=== PATIENT | female | born 1935 | race Caucasian/White ===

== ENCOUNTER → 2016-08-07 | Outpatient (CLI) | payer BC ==
[~2016-08-07] MED LIST: BROM0.07; CHOL4POW4 PO; DICL1GEL12 TOP; DONE10TA12 PO; ETAN25IN4 IM; FOLI1TAB8 PO; LEFL20TA4 PO; LEVO112T4 PO; METH2.5T PO; MIRT45TA3 PO; MULTTAB PO; NF656; OFLO0.3S4 OPL; ONDA4TAB46 PO; PRD/1 PO; PRD5 PO; PRED-301 PO; PRED1SUS3 OPL; PRT40 PO; SIMV40TA2 PO; SULF800T23 PO; TRAM-10 PO; VANC5CAP PO; ZCR40 PO; ZNT150 PO; [UNRECOGNIZED DRUG - CODE] PO
[2016-08-07 16:15] LABS: BLOOD UREA NITROGEN 23 mg/dl (7-18); BUN/CREATININE RATIO 16.6 (10-20); CARBON DIOXIDE 26 mmol/L (21-32); CHLORIDE 108 mmol/L (98-107); GLUCOSE 110 mg/dl (70-99); POTASSIUM 4.2 mmol/L (3.5-5.1); SODIUM 143 mmol/L (136-145)
== END | disposition home or self-care (01) ==
LOC: C.LABBC 12:24
PROVIDERS: ATTEND Internal Medicine
DX: I10 Essential (primary) hypertension (principal)

== ENCOUNTER → 2016-08-28 | Outpatient (CLI) | payer BC ==
[~2016-08-28] MED LIST changes: +FOLI1TAB7 PO; -FOLI1TAB8 PO
== END | disposition home or self-care (01) ==
LOC: C.LABBC 12:40
PROVIDERS: ATTEND Internal Medicine
DX: E03.9 Hypothyroidism, unspecified (principal)

== ENCOUNTER → 2016-09-09 | Outpatient (CLI) | payer BC ==
[2016-09-09 16:28] LABS: BASO % 0.3 %; BASO ABS # 0.03 K/uL (0-0.2); COMPLETE YES; EOS % 2.1 %; HEMATOCRIT 37.5 % (37-47); IG% 0.3 %; LYMPH ABS # 2.13 K/uL (1.2-3.4); MEAN CELL VOLUME 98.7 fL (80-100); MEAN CORPUSCULAR HEMOGLOBIN 32.4 pg (25-34); MEAN CORPUSCULAR HGB CONC 32.8 g/dl (32-36); MEAN PLATELET VOLUME 9.5 fL (7.4-10.4); MONO % 8.2 %; NEUT % 71.1 %; PLATELET COUNT 278 K/uL (130-400); WHITE BLOOD COUNT 11.83 K/uL (4.8-10.8)
[2016-09-09 16:53] LABS: ALT/SGPT 24 U/L (12-78); AST/SGOT 17 U/L (15-37)
[2016-09-09 17:03] LABS: ALKALINE PHOSPHATASE 62 U/L (45-117)
== END | disposition home or self-care (01) ==
LOC: C.LAB1850 15:19
PROVIDERS: ATTEND Internal Medicine Rheumatology
DX: E03.9 Hypothyroidism, unspecified (principal); M25.571 Pain in right ankle and joints of right foot; Z79.899 Other long term (current) drug therapy

== ENCOUNTER → 2016-10-01 | Outpatient (CLI) | payer BC ==
[2016-10-01 17:53] LABS: URINE APPEARANCE CLOUDY (CLEAR); URINE BILIRUBIN NEG (NEG); URINE COLOR YELLOW; URINE EPITHELIAL CELL AUTO >30 /lpf (0-5); URINE NITRITE POS (NEG); URINE SPECIFIC GRAVITY 1.007 (1.000-1.030); UROBILINOGEN NEG (NEG)
[2016-10-01 18:00] LABS: MANUAL MICROSCOPIC REQUIRED? NO; REVIEW REQ? NO
== END | disposition home or self-care (01) ==
LOC: C.LABPBG 15:10
PROVIDERS: ATTEND Internal Medicine
DX: R35.0 Frequency of micturition (principal)

== ENCOUNTER → 2016-10-21 | Outpatient (CLI) | payer BC ==
[2016-10-21 17:06] LABS: URINE APPEARANCE CLEAR (CLEAR); URINE BILIRUBIN NEG (NEG); URINE COLOR YELLOW; URINE NITRITE NEG (NEG); URINE PH 6.5 (4.5-7.5); URINE SPECIFIC GRAVITY 1.015 (1.000-1.030); UROBILINOGEN NEG (NEG); ZZUR CULT IF INDIC CLEAN CATCH YES
[2016-10-21 17:08] LABS: MANUAL MICROSCOPIC REQUIRED? NO; REVIEW REQ? YES
== END | disposition home or self-care (01) ==
LOC: C.LABBC 13:07
PROVIDERS: ATTEND Internal Medicine
DX: R39.9 Unspecified symptoms and signs involving the genitourinary system (principal); E03.9 Hypothyroidism, unspecified

== ENCOUNTER → 2016-10-30 | Day surgery (SDC) | payer BC ==
[2016-10-24 09:27] VITALS: Ht 160 cm; Wt 61.8 kg
[~2016-10-30] VITALS: Ht 160 cm; Wt 61.8 kg
[~2016-10-30] MED LIST changes: +500ML BSS 0.3ML EPI 1:1000PF IRRIG ONE; +ACETAMINOPHEN 325 MG TAB PO PRN; +AMVISC PLUS 0.8ML SYRINGE INT OCU ONE; +ATROPINE SULFATE 0.1 MG/ML 5ML SYR IV PRN; +BETAXOLOL HCL 0.25% OP SUSP PER DROP CHARGE OPL SCH; +BRIMONIDINE TART 0.2% OP SOLN PER DROP CHARGE ONE; +BSS FLUSH ONE; +ENDOCOAT 0.85ML SYRINGE INT OCU ONE; +EpHEDrine SULFATE INJ 50 MG/ML AMP IV PRN; +EpINEphrine INJ 1MG/ML AMP 1 MG/ML AMP ONE; +LABETALOL HCL IV 5 MG/ML 20ML IV ONE; +LACTATED RINGER'S 1000ML 500 ML IV SCH; -LEFL20TA4 PO; +LIDOCAINE 4% OP SOLN DROP CHARGE ONE; +LIDOCAINE 4% OP SOLN DROP CHARGE OPL SCH; +LIDOCAINE HCL 1% MPF 2 ML VIAL ONE; +MIDAZOLAM HCL 1 MG/ML 2ML VIAL ONE; +MIX: 4ML BSS 1ML EPI 1:1000 PF INSTIL ONE; +MOXIFLOXACIN OPH SOLN PER DROP CHARGE ONE; -NF656; +OCUCOAT 1 ML SOLN IO ONE; +POVIDONE-IODINE OP SOLN 30 ML BTL ONE; -PRD5 PO; +PROPARACAINE 0.5% OP SOLN PER DROP CHARGE OPL SCH; +TOBRAMYCIN/DEXAMETHASONE OPH OINT PER APPLN CHARGE ONE
--- NOTE | 2016-10-30 08:28 | History & Physical Bridge - SC ---
H&P Re-Evaluation Bridge Note: I have examined the patient, reviewed the History & Physical and in the interval since the performance of the History & Physical I have noted the following changes of clinical significance: No changes noted
[2016-10-30] MEDS: PHENYLEPHRINE HCL 2.5% OP SOLN PER DROP CHARGE OPL SCH ×2 (09:26→09:31)
[2016-10-30] MEDS: TROPICAMIDE 1% OP SOLN PER DROP CHARGE OPL SCH ×2 (09:27→09:33)
[2016-10-30] MEDS: CYCLOPENTOLATE HCL 1% OP SOLN PER DROP CHARGE OPL SCH ×2 (09:29→09:34)
[2016-10-30] MEDS: MOXIFLOXACIN OPH SOLN PER DROP CHARGE OPL SCH ×2 (09:30→09:39)
--- NOTE | 2016-10-30 10:24 | Discharge Instructions-SurgCtr ---
Discharge Instructions Date of Service Oct 30, 2016. Visit Reason for Visit: Cataract Left Eye Discharge Discharge Diagnosis / Problem: lens implant left eye Discharge Goals Goal(s): Improve function Activity Recommendations Activity Limitations: resume your previous activity Lifting Limitations: no more than 10 pounds Exercise/Sports Limitations: gradually increase as tolerated May Resume Sexual Activity: when tolerated Shower/Bathe: tomorrow Driving or Machine Use: resume 1 day after discharge Anesthesia . Post Anesthesia Instructions: If you have had General Anesthesia or IV Sedation: * Do not drive today. * Resume driving when surgeon permits. * Do not make important decisions or sign legal documents today. * Call surgeon for: 1. Temperature elevations greater than 101 degrees F. 2. Uncontrollable pain. 3. Excessive bleeding. 4. Persistent nausea and vomiting. 5. Medication intolerance (nausea, vomiting or rash). * For nausea and vomiting use only clear liquids such as: tea, soda, bouillon until nausea subsides, then gradually increase diet as tolerated. * If you have any concerns or questions, call your surgeon's office. If physician is unavailable and it is an emergency, call 911 or go to the nearest emergency room. . Instructions / Follow-Up Instructions / Follow-Up ACTIVITY RECOMMENDATIONS: * Light activities. * Mild irritation and blurred vision are common for the first few days. * You may walk outside, read, watch television. * Redness around the white part of the eye is common. MEDICATIONS: Resume previous medications unless instructed otherwise by your surgeon. Start all eye drops at 1 pm today: * Eye drops (today and tomorrow): Prednisone - one drop in operative eye every 3 hours while awake Ofloxacin - one drop in operative eye every 3 hours while awake Prolensa - one drop in operative eye once a day SPECIAL CARE INSTRUCTIONS: * Tape plastic shield over eye to sleep at night. Call your doctor at with any concerns or problems. FOLLOW UP VISIT: Follow-up with Dr Murdock at [place] office as scheduled. Diet Recommendations Home Diet: no limitations Procedures Procedures Performed: Left Cataract Phacoemulsification With Intraocular Lens Implant Pending Studies Studies pending at discharge: no Medical Emergencies . Who to Call and When: Medical Emergencies: If at any time you feel your situation is an emergency, please call 911 immediately. . Non-Emergent Contact Non-Emergency issues call your: Cann[employer] Tender Engineer Call Non-Emergent contact if: your pain is not controlled [phone] . . "Provider Documentation" section prepared by Matt Murdock.
--- NOTE | 2016-10-30 10:26 | [facility] Operative Report ---
Operative Report Date of Service Oct 30, 2016. Operative Report 1. PREOPERATIVE DIAGNOSIS: Senile nuclear cataract, left eye. 2. POSTOPERATIVE DIAGNOSIS: Senile nuclear cataract, left eye. 3. PROCEDURE: Phacoemulsification of left cataract with posterior chamber lens implant, type [employer], model MX60, power +22.0 diopters. ANESTHESIA: Local standby. SURGEON: Dr. Murdock. COMPLICATIONS: None. OPERATING TIME: 10 minutes. 4. OPERATION AND FINDINGS: DESCRIPTION OF PROCEDURE: The left pupil was dilated. The anesthetic was administered using a topical technique. The left eye was prepped and draped. A speculum was placed. A clear corneal incision was formed. The chamber was filled with Amvisc Plus and Endocoat. Epinephrine solution was used. A paracentesis was placed. A capsulorrhexis was performed. The nucleus was hydrodissected. The lens was removed with phacoemulsification. Time was 2.78 seconds. The aspiration unit was used to remove the cortex. The capsule was filled with Amvisc Plus. The lens implant was folded and placed into the capsule. The incision was hydrated. The Amvisc was aspirated. The wound was secure. The chamber was deep. The pupil was round. Brimonidine, TobraDex ointment and Vigamox solution were placed. The speculum was removed. The patient was returned to the Recovery Room in stable condition. I attest to the content of the Intraoperative Record and any orders documented therein. Any exceptions are noted below. The scribe's documentation has been prepared in my presence, under my direction and personally reviewed by me in its entirety. I confirm that the note above accurately reflects all work, treatment, procedures, and medical decision making performed by me. I personally scribed for Matt Murdock M.D. ([email or web address]) on 10/30/16 at 10:26. Electronically submitted by Joy Nj ([email or web address]).
[2016-10-30 10:29] VITALS: TEMP 36.5
--- NOTE | 2016-10-30 10:35 | Anesthesia Progress Nt - [facility] ---
Anesthesia Post Op Note Date & Time Oct 30, 2016 at 10:36 Vital Signs Pain Intensity: 0 Vital Signs Past 12 Hours Date Time Temp Pulse Resp B/P Pulse Ox O2 Delivery O2 Flow Rate FiO2 10/30/16 10:29 36.5 57 16 144/72 99 Room Air 10/30/16 09:19 36.4 75 20 161/83 99 Room Air Notes Mental Status: alert / awake / arousable, participated in evaluation Pt Amnestic to Procedure: Yes Nausea / Vomiting: adequately controlled Pain: adequately controlled Airway Patency, RR, SpO2: stable & adequate BP & HR: stable & adequate Hydration State: stable & adequate Anesthetic Complications: no major complications apparent
[2016-10-30 10:51] VITALS: BP 157/74; PULSE 59; O2SAT 97
== END | disposition home or self-care (01) ==
LOC: X.SURG 09:03
PROVIDERS: ATTEND Specialist
DX: H25.12 Age-related nuclear cataract, left eye (principal)

== ENCOUNTER → 2016-11-29 | Outpatient (CLI) | payer BC ==
[~2016-11-29] MED LIST changes: -500ML BSS 0.3ML EPI 1:1000PF IRRIG ONE; -ACETAMINOPHEN 325 MG TAB PO PRN; -AMVISC PLUS 0.8ML SYRINGE INT OCU ONE; -ATROPINE SULFATE 0.1 MG/ML 5ML SYR IV PRN; -BETAXOLOL HCL 0.25% OP SUSP PER DROP CHARGE OPL SCH; -BRIMONIDINE TART 0.2% OP SOLN PER DROP CHARGE ONE; -BSS FLUSH ONE; -ENDOCOAT 0.85ML SYRINGE INT OCU ONE; -EpHEDrine SULFATE INJ 50 MG/ML AMP IV PRN; -EpINEphrine INJ 1MG/ML AMP 1 MG/ML AMP ONE; -LABETALOL HCL IV 5 MG/ML 20ML IV ONE; -LACTATED RINGER'S 1000ML 500 ML IV SCH; -LIDOCAINE 4% OP SOLN DROP CHARGE ONE; -LIDOCAINE 4% OP SOLN DROP CHARGE OPL SCH; -LIDOCAINE HCL 1% MPF 2 ML VIAL ONE; -MIDAZOLAM HCL 1 MG/ML 2ML VIAL ONE; -MIX: 4ML BSS 1ML EPI 1:1000 PF INSTIL ONE; -MOXIFLOXACIN OPH SOLN PER DROP CHARGE ONE; -OCUCOAT 1 ML SOLN IO ONE; -POVIDONE-IODINE OP SOLN 30 ML BTL ONE; -PROPARACAINE 0.5% OP SOLN PER DROP CHARGE OPL SCH; -TOBRAMYCIN/DEXAMETHASONE OPH OINT PER APPLN CHARGE ONE
[2016-11-29 14:06] LABS: URINE APPEARANCE CLOUDY (CLEAR); URINE BILIRUBIN NEG (NEG); URINE COLOR YELLOW; URINE NITRITE POS (NEG); URINE PH 5.5 (4.5-7.5); URINE SPECIFIC GRAVITY 1.016 (1.000-1.030); UROBILINOGEN NEG (NEG)
[2016-11-29 14:19] LABS: MANUAL MICROSCOPIC REQUIRED? NO; REVIEW REQ? YES
== END | disposition home or self-care (01) ==
LOC: C.LABBC 10:29
PROVIDERS: ATTEND Internal Medicine
DX: R39.9 Unspecified symptoms and signs involving the genitourinary system (principal)

== ENCOUNTER 2016-12-11 22:38 | Inpatient (IN) | payer BC, OTHER ==
[~2016-12-11] VITALS: Ht 160 cm; Wt 61.9 kg
[~2016-12-11 22:38] MED LIST changes: -DICL1GEL12 TOP; -ONDA4TAB46 PO; -PRT40 PO; -SIMV40TA2 PO; -VANC5CAP PO; -ZNT150 PO; -[UNRECOGNIZED DRUG - CODE] PO
[2016-12-11] MEDS ORDERED: SODIUM CHLORIDE 0.9% 250ML 250 ML IV STA (22:51)
[2016-12-11] MEDS ORDERED: SODIUM CHLORIDE 0.9% 1000ML 1,000 ML IV STA ×2 (22:51→23:25)
[2016-12-11] MEDS ORDERED: ONDANSETRON INJ 2 MG/ML 2 ML VIAL IV STA (22:51)
[2016-12-11] MEDS ORDERED: OPTIRAY 320 IV PRN (23:00)
[2016-12-11] MEDS ORDERED: MoRPHine SULFATE 4 MG/ML 1 ML CARP\\VIAL IV STA (23:10)
[2016-12-11 23:21] LABS: BASO % 0.1 %; BASO ABS # 0.02 K/uL (0-0.2); COMPLETE YES; EOS % 0.1 %; HEMATOCRIT 38.3 % (37-47); IG% 0.3 %; LYMPH % 3.9 %; LYMPH ABS # 0.67 K/uL (1.2-3.4); MEAN CELL VOLUME 100.5 fL (80-100); MEAN CORPUSCULAR HEMOGLOBIN 33.9 pg (25-34); MEAN CORPUSCULAR HGB CONC 33.7 g/dl (32-36); MEAN PLATELET VOLUME 9.5 fL (7.4-10.4); MONO % 4.5 %; NEUT % 91.1 %; PLATELET COUNT 282 K/uL (130-400); RED BLOOD COUNT 3.81 M/uL (4.2-5.4); WHITE BLOOD COUNT 17.14 K/uL (4.8-10.8)
[2016-12-11 23:56] LABS: URINE APPEARANCE CLEAR (CLEAR); URINE COLOR DK YELLOW; URINE NITRITE NEG (NEG); URINE SPECIFIC GRAVITY 1.017 (1.000-1.030); UROBILINOGEN NEG (NEG); ZZURINE CULT IF INDIC CATH NO
[2016-12-11 23:58] LABS: ALKALINE PHOSPHATASE 69 U/L (45-117); ALT/SGPT 22 U/L (12-78); AST/SGOT 23 U/L (15-37); BLOOD UREA NITROGEN 32 mg/dl (7-18); BUN/CREATININE RATIO 11.1 (10-20); CARBON DIOXIDE 24 mmol/L (21-32); CHLORIDE 104 mmol/L (98-107); GLUCOSE 140 mg/dl (70-99); MAGNESIUM 2.3 mg/dl (1.8-2.4); POTASSIUM 4.9 mmol/L (3.5-5.1); SODIUM 140 mmol/L (136-145)
[2016-12-12] VITALS (8 sets, daily range): BP systolic 121–184; BP diastolic 63–85; PULSE 70–96; TEMP 36–37.4; O2SAT 94–98; Ht 160 cm; Wt 61.9 kg
[2016-12-12 00:06] LABS: MANUAL MICROSCOPIC REQUIRED? NO; REVIEW REQ? NO; URINE BILIRUBIN NEG (NEG)
[2016-12-12] MEDS ORDERED: VANCOMYCIN HCL 150 MG/3 ML SOLN PO STA (00:07)
[2016-12-12] MEDS ORDERED: RASPBERRY SYRUP 5 ML UDP PO STA (00:21)
[2016-12-12] MEDS ORDERED: VANCOMYCIN HCL 125 MG/2.5ML SOLN PO STA (00:21)
[2016-12-12] MEDS ORDERED: SIMV40TA2 PO (00:35)
[2016-12-12] MEDS ORDERED: METRONIDAZOLE 500MG / 100ML NSS IV STA (01:14)
--- NOTE | 2016-12-12 01:15 | EMERGENCY ROOM VISIT NOTE ---
ED Visit Note First contact with patient: 22:47 Staff note: I have reviewed the Patients chart and have discussed this case with my PA. I generally agree with the ED note and findings.
--- NOTE | 2016-12-12 01:24 | EMERGENCY ROOM VISIT NOTE ---
History First contact with patient: 22:47 Chief Complaint: ABDOMINAL PAIN Stated Complaint: ABD PAIN, VOMITING, BLOOD IN STOOLS, LOTS OF PAIN Nursing Triage Summary: Pt c/o abd pain, n/v/d since yesterday. worsening today. per daughter, "there was blood in it". Hx of Dementia History of Present Illness The patient is a 81 year old female who presents to the Emergency Room with complaints of nausea, vomiting, diarrhea and abdominal pain for the past day. She is on antibiotics currently for recurrent UTI. She is on Bactrim. No recent colonoscopy. No history diverticulitis. There is a little bit of blood in the diarrhea and in the vomit per family. No black tarry diarrhea. No cup full of blood. Patient denies chest pain, dyspnea, fever, chills, cough, congestion, numbness, tingling. Patient states she has severe RA and is on chronic prednisone. Review of Systems See HPI for pertinent positives & negatives. A total of 10 systems reviewed and were otherwise negative. Past Medical/Surgical History Rheumatoid arthritis, GERD, hyperlipidemia, hypertension, cholecystectomy Social History Smoking Status: Never Smoker Current/Historical Medications Scheduled Cholestyramine (Cholestyramine), 1 PACK PO QAM Donepezil Hydrochloride (Aricept), 10 MG PO HS Etanercept (Enbrel), 1 DOSE IM FRIDAY Folic Acid (Folvite), 1 MG PO QAM Levothyroxine Sodium (Levothyroxine Sodium), 1 TAB PO QAM Methotrexate Sodium (Methotrexate), 3 TBS PO FRIDAY Mirtazapine (Mirtazapine), 1 TAB PO HS Multivitamins/Minerals (Mvi With Minerals), 1 TAB PO QAM Prednisone (Prednisone), 3 TABS PO QAM Prednisone (Prednisone), 5 MG PO QAM Simvastatin (Zocor), 40 MG PO QPM Sulfa/Trimethoprim (Bactrim Ds 800MG/160MG), 1 TAB PO DAILY Scheduled PRN Tramadol (Ultram), 50 MG PO TID PRN for Pain Allergies Coded Allergies: Penicillins (Verified Allergy, Unknown, SWELLING, 12/12/16) Celecoxib (Verified Adverse Reaction, Intermediate, N/V, 12/12/16) Cephalexin (Verified Adverse Reaction, Intermediate, N/V, 12/12/16) Methotrexate (Verified Adverse Reaction, Intermediate, N/V, 12/12/16) Nitrofurantoin (Verified Adverse Reaction, Intermediate, N/V, 12/12/16) Risedronate (Verified Adverse Reaction, Intermediate, NAUSEA AND VOMITING , 12/12/16) Physical Exam Vital Signs Date Time Temp Pulse Resp B/P Pulse Ox O2 Delivery O2 Flow Rate FiO2 12/11/16 23:59 70 18 154/60 98 Room Air 12/11/16 23:49 100 Room Air 12/11/16 23:49 100 Room Air 12/11/16 23:20 64 12/11/16 22:40 36.4 67 18 114/62 98 Room Air Physical Exam VITALS: Vitals are noted on the nurse's note and reviewed by myself. Vital signs stable. GENERAL: Pleasant elderly female, in no acute distress, nondiaphoretic, well- developed well-nourished. SKIN: The skin was without rashes, erythema, edema, or bruising. There is no tenting of the skin. Capillary reflex less than 2 seconds. HEAD: Normocephalic atraumatic. EARS: External auditory canals clear, tympanic membranes pearly nicole without erythema or effusion bilaterally. EYES: Pupils equal round and reactive to light and accommodation. Conjunctivae without injection, sclerae without icterus. Extraocular movements intact. NOSE: Patent, turbinates without inflammation or discharge. MOUTH: Mucous membranes mildly dry pharynx without erythema or exudate. Uvula midline. Airway patent. Tongue does not deviate. NECK: Supple without nuchal rigidity. No lymphadenopathy. No thyromegaly. Cervical spine is nontender. No JVD. HEART: Regular rate and rhythm 3/6 systolic murmur LUNGS: Clear to auscultation bilaterally without wheezes, rales or rhonchi. No dullness to percussion. No retractions or accessory muscle use. ABDOMEN: Positive bowel sounds x 4. Normal tympanic percussion. Soft, tender to palpation lower abdomen, no CVA tenderness, without masses or organomegaly. Morfin sign negative. No guarding or rebound tenderness. MUSCULOSKELETAL: No muscle atrophy, erythema, or edema noted. NEURO: Patient was alert and oriented to person place Normal sensation to light and sharp touch. No focal neurological deficits. Medical Decision & Procedures Laboratory Results 12/11/16 23:12 Red Blood Count 3.81, Mean Corpuscular Volume 100.5, Mean Corpuscular Hemoglobin 33.9, Mean Corpuscular Hemoglobin Concent 33.7, Mean Platelet Volume 9.5, Neutrophils (%) (Auto) 91.1, Lymphocytes (%) (Auto) 3.9, Monocytes (%) ( Auto) 4.5, Eosinophils (%) (Auto) 0.1, Basophils (%) (Auto) 0.1, Neutrophils # ( Auto) 15.62, Lymphocytes # (Auto) 0.67, Monocytes # (Auto) 0.77, Eosinophils # ( Auto) 0.01, Basophils # (Auto) 0.02 12/11/16 23:12 Test 12/11/16 23:12 12/11/16 23:17 12/11/16 23:45 White Blood Count 17.14 K/uL (4.8-10.8) Red Blood Count 3.81 M/uL (4.2-5.4) Hemoglobin 12.9 g/dL (12.0-16.0) Hematocrit 38.3 % (37-47) Mean Corpuscular Volume 100.5 fL (80-100) Mean Corpuscular Hemoglobin 33.9 pg (25-34) Mean Corpuscular Hemoglobin Concent 33.7 g/dl (32-36) Platelet Count 282 K/uL (130-400) Mean Platelet Volume 9.5 fL (7.4-10.4) Neutrophils (%) (Auto) 91.1 % Lymphocytes (%) (Auto) 3.9 % Monocytes (%) (Auto) 4.5 % Eosinophils (%) (Auto) 0.1 % Basophils (%) (Auto) 0.1 % Neutrophils # (Auto) 15.62 K/uL (1.4-6.5) Lymphocytes # (Auto) 0.67 K/uL (1.2-3.4) Monocytes # (Auto) 0.77 K/uL (0.11-0.59) Eosinophils # (Auto) 0.01 K/uL (0-0.5) Basophils # (Auto) 0.02 K/uL (0-0.2) RDW Standard Deviation 55.7 fL (36.4-46.3) RDW Coefficient of Variation 15.4 % (11.5-14.5) Immature Granulocyte % (Auto) 0.3 % Immature Granulocyte # (Auto) 0.05 K/uL (0.00-0.02) Anion Gap 12.0 mmol/L (3-11) Est Creatinine Clear Calc Drug Dose 12.9 ml/min Estimated GFR () 16.8 Estimated GFR (Non- 14.5 BUN/Creatinine Ratio 11.1 (10-20) Calcium Level 10.0 mg/dl (8.5-10.1) Magnesium Level 2.3 mg/dl (1.8-2.4) Total Bilirubin 0.7 mg/dl (0.2-1) Direct Bilirubin mg/dl (0-0.2) Aspartate Amino Transf (AST/SGOT) 23 U/L (15-37) Alanine Aminotransferase (ALT/SGPT) 22 U/L (12-78) Alkaline Phosphatase 69 U/L (45-117) Troponin I < 0.015 ng/ml (0-0.045) Total Protein 7.2 gm/dl (6.4-8.2) Albumin 4.1 gm/dl (3.4-5.0) Lipase 267 U/L (73-393) Bedside Lactic Acid Venous 3.54 mmol/L (0.90-1.70) Urine Color DK YELLOW Urine Appearance CLEAR (CLEAR) Urine pH 5.0 (4.5-7.5) Urine Specific [place] 1.017 (1.000-1.030) Urine Protein NEG (NEG) Urine Glucose (UA) NEG (NEG) Urine Ketones NEG (NEG) Urine Occult Blood NEG (NEG) Urine Nitrite NEG (NEG) Urine Bilirubin NEG (NEG) Urine Urobilinogen NEG (NEG) Urine Leukocyte Esterase NEG (NEG) Date/Time Source Procedure Growth Status 12/11/16 22:34 Stool C.difficile Toxin B Gene (PCR) - Final Positive for C. difficile toxin B gene Complete Medications Administered Medications (Trade) Dose Ordered Sig/Jeremie Route Start Time Stop Time Status Last Admin Dose Admin Ondansetron HCl (Zofran Inj) 4 mg NOW STAT IV 12/11/16 22:51 12/11/16 22:53 DC 12/11/16 23:50 4 MG Morphine Sulfate 4 mg 4 mg NOW STAT IV 12/11/16 23:10 12/11/16 23:11 DC 12/11/16 23:50 4 MG Sodium Chloride (Nss 1000ml) 1,000 ml @ 999 mls/hr Q1H1M STAT IV 12/11/16 23:25 12/12/16 00:25 DC 12/11/16 23:52 999 MLS/HR Vancomycin HCl (Vancomycin Oral Soln) 125 mg NOW STAT PO 12/12/16 00:21 12/12/16 00:23 DC 12/12/16 00:40 125 MG Raspberry (Raspberry Syrup 5ml Cup) 5 ml ONE STAT PO 12/12/16 00:21 12/12/16 00:24 DC 12/12/16 00:40 5 ML ED Course Prior records/ancillary studies reviewed. Triage Nursing notes reviewed. Additional history obtained from family. The patient's history was concerning for abdominal pain. Differential diagnosis: Etiologies such as appendicitis, C. difficile, electrolyte abnormality, gastroenteritis, diverticulitis, PUD, biliary pathology, UTI, pancreatitis, obstruction, mesenteric ischemia, aortic pathology, infections, inflammatory bowel disease, renal colic, as well as others were entertained. Physical examination findings: As above. ER treatment provided: IV fluids, Zofran, morphine On reassessment the patient felt better. Diagnostics interpreted by me: ECG: Normal sinus, normal intervals, no acute ST-T wave changes. Impression normal sinus rhythm interpreted by myself The labs revealed leukocytosis, elevated lactic, positive C. difficile Imaging studies: CT was read by stat radiology and no bowel obstruction or acute findings, stable findings per their review Chest x-ray with no acute consolidation, pneumothorax or free air per my interpretation Consultation: A consultation was placed with the hospitalist, Dr. Hernandez. The case was discussed and diagnostics were reviewed. The patient was evaluated in the ER for further treatment. Exam and history seem consistent with C. difficile with acute renal failure and dehydration. Patient was hydrated as above. She was given vancomycin and Flagyl. She will be evaluated by medicine for possible admission. Family is agreeable to treatment plan.By the evaluation outlined above emergent etiologies such as appendicitis, diverticulitis, PUD, biliary pathology, UTI, pancreatitis, obstruction, mesenteric ischemia, aortic pathology, renal colic , as well as others were deemed relatively unlikely. The pt informed about the findings as listed above. All questions were answered and pleased with the treatment. Case reviewed with my attending Medical Decision As above Impression Primary Impression: C. difficile diarrhea Additional Impressions: Acute renal failure Dehydration Vomiting and diarrhea Departure Information Dispostion Being Evaluated By Hospitalist Condition FAIR Referrals Vasiliy Uriostegui M.D. (PCP) Patient Instructions My [facility] Problem Qualifiers
[2016-12-12] MEDS ORDERED: ONDANSETRON INJ 2 MG/ML 2 ML VIAL ONE (01:52)
[2016-12-12] MEDS ORDERED: ONDANSETRON INJ 2 MG/ML 2 ML VIAL IV PRN (02:00)
[2016-12-12 02:08] LABS: ISTAT CREATININE 2.8 mg/dl (0.6-1.3); ISTAT HEMOGLOBIN 13.3 g/dl (12.0-16.0); ISTAT IONIZED CALCIUM 1.19 mmol/l (1.12-1.32)
[2016-12-12] MEDS ORDERED: SODIUM CHLORIDE 0.9% 1000ML 1,000 ML IV STA (02:41)
[2016-12-12] MEDS ORDERED: MAGNESIUM HYDROXIDE SUSP 30 ML UDC PO PRN (02:45)
[2016-12-12 03:02] LABS: BASO % 0.1 %; BASO ABS # 0.02 K/uL (0-0.2); COMPLETE YES; IG% 0.3 %; LYMPH % 7.1 %; LYMPH ABS # 1.02 K/uL (1.2-3.4); MEAN CELL VOLUME 100.3 fL (80-100); MEAN CORPUSCULAR HEMOGLOBIN 33.4 pg (25-34); MEAN CORPUSCULAR HGB CONC 33.3 g/dl (32-36); MEAN PLATELET VOLUME 9.5 fL (7.4-10.4); MONO % 4.6 %; NEUT % 87.9 %; PLATELET COUNT 226 K/uL (130-400); RED BLOOD COUNT 3.29 M/uL (4.2-5.4); WHITE BLOOD COUNT 14.39 K/uL (4.8-10.8)
[2016-12-12 03:25] LABS: CREATININE 2.5 mg/dl (0.60-1.20)
[2016-12-12 03:26] LABS: CALCIUM 8.9 mg/dl (8.5-10.1); POTASSIUM 4.6 mmol/L (3.5-5.1)
--- NOTE | 2016-12-12 03:47 | History and Physical ---
History & Physical Date & Time of Service: December 12, 2016 at 03:39 Chief Complaint: Abd Pain, Vomiting, Blood In Stools, Lots Of Pain Primary Care Physician: Vasiliy Uriostegui M.D. History of Present Illness Source: patient, clinic records, hospital records Mrs Hunter is an 81 year old female who presents to the ER with 1 day history of watery/bloody diarrhea, nausea, vomiting and generalized abdominal pain. This happened all suddenly around 4pm. She has been generally unwell however for longer than this with intermittent fevers/chills since being diagnosed with influenza earlier this year. She has also been diagnosed with recurrent UTIs with positive urine cultures for pansensitive E. Coli. Most recently she was started on a 30 day course of Bactrim for this starting on Friday and was reportedly on a different antibiotic before that but her daughters or patient cannot remember which one. On [employer] it appears she was prescribed 5 day course ciprofloxacin on 28 November and then switched to bactrim for a 3 day course starting December 02 for urinary tract infection symptoms but with 5 refills. She grew pansensitive E. Coli on urine culture on November 28. She denies having any urine symptoms recently but has been having left sided back pain with intermittent fevers/chills over the last 2 weeks. 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 Hyperlipidemia Hypertension Hypothyroidism Increased urinary frequency Knee OA Long-term use of immunosuppressant medication Low back pain Lumbar radiculopathy Pancreatic cysts Postmenopausal osteoporosis Prolapse of vaginal castillo Rectocele/Cystocele Recurrent UTIs Rheumatoid arthritis under Dr Lucas Urethral stenosis Past Surgical History Cholecystectomy Umbilical hernia repair Social History Smoking Status: Never Smoker Smokeless Tobacco Use: No Drug Use: none Marital Status: Housing status: lives alone Immunizations History of Influenza Vaccine: Yes Influenza Vaccine Date: Sep 20, 2013 History of Tetanus Vaccine?: Yes Tetanus Immunization Date: Sep 20, 2013 History of Pneumococcal: Yes Pneumococcal Date: Sep 20, 2013 History of Hepatitis B Vaccine: No Multi-Drug Resistant Organisms History of MDRO: No Allergies Coded Allergies: Penicillins (Verified Allergy, Unknown, SWELLING, 12/12/16) Celecoxib (Verified Adverse Reaction, Intermediate, N/V, 12/12/16) Cephalexin (Verified Adverse Reaction, Intermediate, N/V, 12/12/16) Methotrexate (Verified Adverse Reaction, Intermediate, N/V, 12/12/16) Nitrofurantoin (Verified Adverse Reaction, Intermediate, N/V, 12/12/16) Risedronate (Verified Adverse Reaction, Intermediate, NAUSEA AND VOMITING , 12/12/16) Home Medications Scheduled Cholestyramine (Cholestyramine), 1 PACK PO QAM Donepezil Hydrochloride (Aricept), 10 MG PO HS Etanercept (Enbrel), 1 DOSE IM FRIDAY Folic Acid (Folvite), 1 MG PO QAM Levothyroxine Sodium (Levothyroxine Sodium), 1 TAB PO QAM Methotrexate Sodium (Methotrexate), 3 TBS PO FRIDAY Mirtazapine (Mirtazapine), 1 TAB PO HS Multivitamins/Minerals (Mvi With Minerals), 1 TAB PO QAM Prednisone (Prednisone), 3 TABS PO QAM Prednisone (Prednisone), 5 MG PO QAM Simvastatin (Zocor), 40 MG PO QPM Sulfa/Trimethoprim (Bactrim Ds 800MG/160MG), 1 TAB PO DAILY Scheduled PRN Tramadol (Ultram), 50 MG PO TID PRN for Pain Review of Systems Constitutional: + chills, + fever Respiratory: No cough, No dyspnea on exertion, No shortness of breath, No sputum, No wheezing Cardiovascular: No chest pain Genitourinary - Female: + urinary incontinence, No dysuria, No urinary frequency Neurologic: + balance problems, + memory loss (under neurology on donepezil), + weakness, No numbness/tingling Psychiatric: + anxiety, No depression symptoms Endocrine: + excessive urination, + fatigue, No excessive thirst Hematologic / Lymphatic: No abnormal bleeding/bruising Integumentary: No itch, No rash Physical Exam Vital Signs Date Time Temp Pulse Resp B/P Pulse Ox O2 Delivery O2 Flow Rate FiO2 12/12/16 03:20 78 12/12/16 02:15 75 18 127/58 97 Room Air 12/12/16 01:38 80 18 129/76 12/11/16 23:59 70 18 154/60 98 Room Air 12/11/16 23:49 100 Room Air 12/11/16 23:49 100 Room Air 12/11/16 23:20 64 12/11/16 22:40 36.4 67 18 114/62 98 Room Air General Appearance: WD/WN, no apparent distress Head: normocephalic, atraumatic Eyes: PERRL, EOMI Cardiovascular: regular rate, rhythm, no JVD, normal peripheral pulses (LUSB), + systolic murmur Abdomen/GI: normal bowel sounds, non tender, soft Back: no CVA tenderness (left sided) Extremities/Musculoskelatal: no calf tenderness, normal capillary refill, no pedal edema, + pedal edema (trace bilaterally) Neurologic/Psych: sample cutter II-XII nml as tested, no motor/sensory deficits, alert, normal mood/affect, oriented x 3, + pertinent finding (moderate memory recollection of events apparent) Skin: normal color, warm/dry, no rash Diagnostics Laboratory Results Results Past 24 Hours Test 12/11/16 23:12 12/11/16 23:17 12/11/16 23:21 12/11/16 23:45 Range/Units White Blood Count 17.14 4.8-10.8 K/uL Red Blood Count 3.81 4.2-5.4 M/uL Hemoglobin 12.9 12.0-16.0 g/dL Hematocrit 38.3 37-47 % Mean Corpuscular Volume 100.5 80-100 fL Mean Corpuscular Hemoglobin 33.9 25-34 pg Mean Corpuscular Hemoglobin Concent 33.7 32-36 g/dl Platelet Count 282 130-400 K/uL Mean Platelet Volume 9.5 7.4-10.4 fL Neutrophils (%) (Auto) 91.1 % Lymphocytes (%) (Auto) 3.9 % Monocytes (%) (Auto) 4.5 % Eosinophils (%) (Auto) 0.1 % Basophils (%) (Auto) 0.1 % Neutrophils # (Auto) 15.62 1.4-6.5 K/uL Lymphocytes # (Auto) 0.67 1.2-3.4 K/uL Monocytes # (Auto) 0.77 0.11-0.59 K/uL Eosinophils # (Auto) 0.01 0-0.5 K/uL Basophils # (Auto) 0.02 0-0.2 K/uL RDW Standard Deviation 55.7 36.4-46.3 fL RDW Coefficient of Variation 15.4 11.5-14.5 % Immature Granulocyte % (Auto) 0.3 % Immature Granulocyte # (Auto) 0.05 0.00-0.02 K/uL Sodium Level 140 136-145 mmol/L Potassium Level 4.9 3.5-5.1 mmol/L Chloride Level 104 98-107 mmol/L Carbon Dioxide Level 24 21-32 mmol/L Anion Gap 12.0 19.0 16-25 mmol/L Blood Urea Nitrogen 32 7-18 mg/dl Creatinine 2.90 0.60-1.20 mg/dl Est Creatinine Clear Calc Drug Dose 12.9 ml/min Estimated GFR () 16.8 Estimated GFR (Non- 14.5 BUN/Creatinine Ratio 11.1 10-20 Random Glucose 140 70-99 mg/dl Calcium Level 10.0 8.5-10.1 mg/dl Magnesium Level 2.3 1.8-2.4 mg/dl Total Bilirubin 0.7 0.2-1 mg/dl Direct Bilirubin 0-0.2 mg/dl Aspartate Amino Transf (AST/SGOT) 23 15-37 U/L Alanine Aminotransferase (ALT/SGPT) 22 12-78 U/L Alkaline Phosphatase 69 45-117 U/L Troponin I < 0.015 0-0.045 ng/ml Total Protein 7.2 6.4-8.2 gm/dl Albumin 4.1 3.4-5.0 gm/dl Lipase 267 73-393 U/L Bedside Lactic Acid Venous 3.54 0.90-1.70 mmol/L Bedside Hemoglobin 13.3 12.0-16.0 g/dl Bedside Hematocrit 39 37-47 % Bedside Sodium 138 135-144 mEq/L Bedside Potassium 4.7 3.3-5.0 mEq/L Bedside Chloride 103 101-112 mEq/L Bedside Total CO2 21 24-31 mEq/l Bedside Blood Urea Nitrogen 37 7-18 mg/dl Bedside Creatinine 2.8 0.6-1.3 mg/dl Bedside Glucose (other) 139 70-99 mg/dl Bedside Ionized Calcium (Meghan) 1.19 1.12-1.32 mmol/l Urine Color DK YELLOW Urine Appearance CLEAR CLEAR Urine pH 5.0 4.5-7.5 Urine Specific Myrtle 1.017 1.000-1.030 Urine Protein NEG NEG Urine Glucose (UA) NEG NEG Urine Ketones NEG NEG Urine Occult Blood NEG NEG Urine Nitrite NEG NEG Urine Bilirubin NEG NEG Urine Urobilinogen NEG NEG Urine Leukocyte Esterase NEG NEG Test 12/12/16 02:53 Range/Units White Blood Count 14.39 4.8-10.8 K/uL Red Blood Count 3.29 4.2-5.4 M/uL Hemoglobin 11.0 12.0-16.0 g/dL Hematocrit 33.0 37-47 % Mean Corpuscular Volume 100.3 80-100 fL Mean Corpuscular Hemoglobin 33.4 25-34 pg Mean Corpuscular Hemoglobin Concent 33.3 32-36 g/dl Platelet Count 226 130-400 K/uL Mean Platelet Volume 9.5 7.4-10.4 fL Neutrophils (%) (Auto) 87.9 % Lymphocytes (%) (Auto) 7.1 % Monocytes (%) (Auto) 4.6 % Eosinophils (%) (Auto) 0.0 % Basophils (%) (Auto) 0.1 % Neutrophils # (Auto) 12.65 1.4-6.5 K/uL Lymphocytes # (Auto) 1.02 1.2-3.4 K/uL Monocytes # (Auto) 0.66 0.11-0.59 K/uL Eosinophils # (Auto) 0.00 0-0.5 K/uL Basophils # (Auto) 0.02 0-0.2 K/uL RDW Standard Deviation 55.9 36.4-46.3 fL RDW Coefficient of Variation 15.4 11.5-14.5 % Immature Granulocyte % (Auto) 0.3 % Immature Granulocyte # (Auto) 0.04 0.00-0.02 K/uL Sodium Level 142 136-145 mmol/L Potassium Level 4.6 3.5-5.1 mmol/L Chloride Level 108 98-107 mmol/L Carbon Dioxide Level 28 21-32 mmol/L Anion Gap 6.0 3-11 mmol/L Blood Urea Nitrogen 32 7-18 mg/dl Creatinine 2.50 0.60-1.20 mg/dl Est Creatinine Clear Calc Drug Dose 15.0 ml/min Estimated GFR () 20.1 Estimated GFR (Non- 17.3 BUN/Creatinine Ratio 13.0 10-20 Random Glucose 135 70-99 mg/dl Calcium Level 8.9 8.5-10.1 mg/dl Microbiology Results 12/11/16 C.difficile Toxin B Gene (PCR) - Final, Complete Positive for C. difficile toxin B gene Diagnostic Radiology ABDOMEN AND PELVIS CT WITHOUT CONTRAST FINDINGS: The lung bases are clear. No pneumoperitoneum. No pneumatosis. No acute fractures within the visualized osseous structures. Mild thickening of the distal esophagus. This remains unchanged. The bladder, uterus, bilateral adnexa are within normal limits. Colonic diverticulosis. Suboptimal evaluation for bowel pathology due to the lack of intravenous and oral contrast. However, no evidence for bowel obstruction. Normal appendix. Possible thickening within the descending colon could be due to the underdistention. There may be minimal pericolonic fat stranding at this location. The unenhanced liver, spleen, and adrenal glands are unremarkable. There is an anterior abdominal wall mesh. No retroperitoneal lymphadenopathy. Calcified abdominal aorta. Bilateral renal hypodense lesions are incompletely characterize on this noncontrast study but favor cysts. Right-sided nephrolithiasis. No hydronephrosis. Subcentimeter hypodense lesions within the pancreatic head remain unchanged. The gallbladder surgically absent. Small calcified structure at the gallbladder fossa remains unchanged. IMPRESSION: 1. Questionable mild thickening and pericolic fat stranding within the descending colon. However, this is not well evaluated on this noncontrast study and could be due to underdistention. A low-grade colitis could also have a similar appearance and cannot be excluded. Clinical correlation recommended. 2. No evidence for bowel obstruction. 3. Colonic diverticulosis. 4. Right-sided nephrolithiasis. No hydronephrosis. 5. Additional chronic and postoperative findings as described above. Electronically signed by: Michael Harris M.D. 12/12/2016 7:45 AM Dictated Date/Time: 12/12/2016 7:38 AM CHEST ONE VIEW PORTABLE FINDINGS: The cardiac and mediastinal contours are normal. There is no evidence of focal pulmonary consolidation. There is no evidence of failure. No pleural effusions are visualized.[ Arthritic changes are present within the left shoulder. IMPRESSION: No active disease in the chest. Electronically signed by: Evangelista Rodriguez M.D. 12/12/2016 7:02 AM Dictated Date/Time: 12/12/2016 7:01 AM EKG NSR 67 bpm, no ischemic changes Impression Assessment and Plan 81 year old female immunosuppressed from RA on etanercept, methotrexate and prednisone with sudden onset diarrhea and abdominal on background of antibiotic use for recurrent UTI. Lactic acidosis - secondary to c. diff infection and dehydration - repeat lactic acid 0200 - IVF C. difficile active infection secondary to recent antibiotic use - Vancomycin 125mg QID 10 days - IVF Acute kidney injury on Chronic kidney disease stage 3 - no hydronephrosis on CT , nephrolithiasis - most likely pre renal from GI losses - IVF with repeat BMP in morning Rheumatoid arthritis - stop methotrexate and etanercept given current c. diff infection - recommend discussing medications with her dispensary attendant Dr Zavala in the morning - will continue her usual prednisone dose so she her RA does not becoming debilitating Systolic murmur - no previous documentation of this. Unlikely IE given clear other diagnosis and no peripheral stigmata but as she is immunosuppressed would consider echo if serial examinations auscultate persistent murmur. - Blood cultures if spikes a temperature Recurrent UTIs - no current urine symptoms, urine analysis is normal. CVA tenderness likely due to descending colon given thickening on CT. Stop Bactrim. Code - DNR as per patient wishes VTE Prophylaxis - heparin 5000 units Q8H, monitor bowels as having some GI bleeding with c.diff Disposition - admit to telemetry. PT/OT/Discharge planning. Level of Care Telemetry Resuscitation Status DO NOT RESUSCITATE VTE Prophylaxis VTE Risk Assessment Done? Y/N: Yes Risk Level: Moderate Given or contraindicated: Unfractionated heparin SQ Resident Tracking Resident Involvement: Resident Care Provided Care Provided: [facility] Assessment and Plan Attending Addendum: I have physically seen and examined this patient, have directed their medical care, have supervised the medical residents activities, and agree with the H&P as noted above, with the following changes: NONE
[2016-12-12] MEDS ORDERED: SODIUM CHLORIDE 0.9% 1000ML 1,000 ML IV ONE (04:00)
[2016-12-12] MEDS: LEVOTHYROXINE 112 MCG TAB PO SCH (06:00)
[2016-12-12] MEDS: PROMETHAZINE HCL INJ 12.5 MG in SODIUM CHLORIDE 0.9% 50ML 50 ML IV PRN ×2 (06:19→21:24)
--- NOTE | 2016-12-12 07:03 | DIAGNOSTIC IMAGING REPORT ---
CHEST ONE VIEW PORTABLE CLINICAL HISTORY: Atypical chest pain COMPARISON STUDY: No previous studies for comparison. FINDINGS: The cardiac and mediastinal contours are normal. There is no evidence of focal pulmonary consolidation. There is no evidence of failure. No pleural effusions are visualized.[ Arthritic changes are present within the left shoulder. IMPRESSION: No active disease in the chest. Electronically signed by: Evangelista Rodriguez M.D. 12/12/2016 7:02 AM Dictated Date/Time: 12/12/2016 7:01 AM
--- NOTE | 2016-12-12 07:46 | DIAGNOSTIC IMAGING REPORT ---
ABDOMEN AND PELVIS CT WITHOUT CONTRAST CT DOSE: 430.50 mGy.cm HISTORY: Generalized abdominal pain. Vomiting. Diarrhea. TECHNIQUE: Multiaxial CT images of the abdomen and pelvis were performed without contrast. COMPARISON STUDY: Abdomen and pelvis CT 05/08/2011. FINDINGS: The lung bases are clear. No pneumoperitoneum. No pneumatosis. No acute fractures within the visualized osseous structures. Mild thickening of the distal esophagus. This remains unchanged. The bladder, uterus, bilateral adnexa are within normal limits. Colonic diverticulosis. Suboptimal evaluation for bowel pathology due to the lack of intravenous and oral contrast. However, no evidence for bowel obstruction. Normal appendix. Possible thickening within the descending colon could be due to the underdistention. There may be minimal pericolonic fat stranding at this location. The unenhanced liver, spleen, and adrenal glands are unremarkable. There is an anterior abdominal wall mesh. No retroperitoneal lymphadenopathy. Calcified abdominal aorta. Bilateral renal hypodense lesions are incompletely characterize on this noncontrast study but favor cysts. Right-sided nephrolithiasis. No hydronephrosis. Subcentimeter hypodense lesions within the pancreatic head remain unchanged. The gallbladder surgically absent. Small calcified structure at the gallbladder fossa remains unchanged. IMPRESSION: 1. Questionable mild thickening and pericolic fat stranding within the descending colon. However, this is not well evaluated on this noncontrast study and could be due to underdistention. A low-grade colitis could also have a similar appearance and cannot be excluded. Clinical correlation recommended. 2. No evidence for bowel obstruction. 3. Colonic diverticulosis. 4. Right-sided nephrolithiasis. No hydronephrosis. 5. Additional chronic and postoperative findings as described above. Electronically signed by: Michael Harris M.D. 12/12/2016 7:45 AM Dictated Date/Time: 12/12/2016 7:38 AM
[2016-12-12] MEDS: VANCOMYCIN HCL 125 MG/2.5ML SOLN PO SCH ×4 (08:57→21:25)
[2016-12-12] MEDS: CEROVITE ADV FORMULA TAB PO SCH (08:57)
[2016-12-12] MEDS: HEPARIN SOD 5000 UNIT/0.5 ML CARP SQ SCH ×3 (08:57→22:08)
[2016-12-12] MEDS: RASPBERRY SYRUP 5 ML UDP PO SCH ×4 (08:57→21:25)
[2016-12-12] MEDS: SODIUM CHLORIDE 0.45% 1000ML 1,000 ML IV SCH (13:27)
[2016-12-12] MEDS: ONDANSETRON INJ 2 MG/ML 2 ML VIAL IV PRN ×2 (13:29→20:05)
[2016-12-12] MEDS: TRAMADOL HCL 50 MG TAB PO PRN ×2 (13:29→22:33)
[2016-12-12 14:52] LABS: BUN/CREATININE RATIO 15.9 (10-20); CALCIUM 8.1 mg/dl (8.5-10.1); CREATININE 1.9 mg/dl (0.60-1.20); POTASSIUM 4.2 mmol/L (3.5-5.1)
[2016-12-12] MEDS ORDERED: CHOLESTYRAMINE LIGHT 4 GM PKT PO ONE (15:30)
[2016-12-12] MEDS: ALUMINUM/MAGNESIUM/SIMETH (MAALOX MAX) 30 ML UDC PO PRN (18:21)
--- NOTE | 2016-12-12 18:54 | Family Medicine Progress Note ---
Progress Note Date of Service December 12, 2016. Subjective Pt evaluation today including: conversation w/ patient, physical exam, chart review, lab review, review of studies Pain: Denies pain Voiding: no voiding problems 81-year-old female with past medical history of rheumatoid arthritis, GERD, hyperlipidemia, hypertension presented to the ER with complaints of nausea, vomiting, diarrhea with abdominal pain that started one day prior to arrival. She had been treated for recurrent urinary tract infections with Other antibiotics and started on a 30 day course of Bactrim recently. She was found to be positive for C. difficile in the ER. She had one episode of vomiting overnight. She denied any more episodes of vomiting, abdominal pain but continued to have watery/bloody diarrhea. Denied any chest pain, shortness of breath, palpitations Constitutional: No chills, No fever (With past) Eyes: No worsening of vision ENT: No hearing loss Respiratory: No cough, No sputum Cardiovascular: No chest pain Abdomen: + diarrhea, No nausea, No pain, No vomiting Musculoskeletal: + joint pain Female : No dysuria, No hematuria, No urinary frequency Neurologic: No memory loss Psychiatric: No depression symptoms Heme: No abnormal bleeding/bruising Endo: No fatigue Medications Current Inpatient Medications Medications (Trade) Dose Ordered Sig/Jeremie Route Start Time Stop Time Status Last Admin Dose Admin Ioversol (Optiray 320) 100 ml UD PRN IV 12/11/16 23:00 12/15/16 22:59 Donepezil HCl (Aricept Tab) 10 mg HS PO 12/12/16 21:00 01/11/17 20:59 Folic Acid (Folvite Tab) 1 mg QAM PO 12/12/16 09:00 01/11/17 08:59 12/12/16 08:56 1 MG Levothyroxine Sodium (Synthroid Tab) 112 mcg DAILYBB PO 12/12/16 06:00 01/11/17 06:59 Multivitamins/ Minerals (Multivitamin W/ Minerals Tab) 1 tab QAM PO 12/12/16 09:00 01/11/17 08:59 12/12/16 08:57 1 TAB Prednisone (PredniSONE TAB) 5 mg QAM PO 12/12/16 09:00 01/11/17 08:59 12/12/16 08:56 5 MG Prednisone (PredniSONE TAB) 3 mg QAM PO 12/12/16 09:00 01/11/17 08:59 12/12/16 08:56 3 MG Simvastatin (Zocor Tab) 40 mg QPM PO 12/12/16 21:00 01/11/17 20:59 Tramadol HCl (Ultram Tab) 50 mg TID PRN PO 12/12/16 01:30 01/11/17 01:29 12/12/16 13:29 50 MG Mirtazapine (Remeron Tab) 45 mg HS PO 12/12/16 21:00 01/11/17 20:59 Vancomycin HCl (Vancomycin Oral Soln) 125 mg QID PO 12/12/16 09:00 12/22/16 08:59 12/12/16 16:05 125 MG Acetaminophen (Tylenol Tab) 650 mg Q4H PRN PO 12/12/16 02:45 01/11/17 02:44 Al Hydrox/Mg Hydrox/Simethicone (Maalox Max Susp) 15 ml Q4H PRN PO 12/12/16 02:45 01/11/17 02:44 12/12/16 18:21 15 ML Magnesium Hydroxide (Milk Of Magnesia Susp) 30 ml Q12H PRN PO 12/12/16 02:45 01/11/17 02:44 Ondansetron HCl (Zofran Inj) 4 mg Q6H PRN IV 12/12/16 02:45 01/11/17 02:44 12/12/16 13:29 4 MG Heparin Sodium (Porcine) (Heparin Sq 5000 Unit/0.5ml) 5,000 unit Q8 SQ 12/12/16 09:00 01/11/17 08:59 12/12/16 16:13 5,000 UNIT Raspberry 5 ml 5 ml QID PO 12/12/16 09:00 12/26/16 08:59 12/12/16 16:06 5 ML Promethazine HCl 12.5 mg/Sodium Chloride 50.5 ml @ 204 mls/hr Q6H PRN IV 12/12/16 06:15 01/11/17 06:14 12/12/16 06:19 204 MLS/HR Sodium Chloride (1/2 Nss 1000ml) 1,000 ml @ 75 mls/hr [id number] IV 12/12/16 11:30 01/11/17 11:29 12/12/16 13:27 75 MLS/HR Cholestyramine Resin (Questran Powder Light) 4 gm BID@10,22 PO 12/12/16 22:00 01/11/17 21:59 Objective Vital Signs Date Time Temp Pulse Resp B/P Pulse Ox O2 Delivery O2 Flow Rate FiO2 12/12/16 16:00 70 12/12/16 16:00 98 Nasal Cannula 2.0 12/12/16 15:45 37.2 80 20 148/66 98 Room Air 12/12/16 12:00 98 Nasal Cannula 2.0 12/12/16 11:42 37.3 84 22 121/63 94 12/12/16 08:00 98 Nasal Cannula 2.0 12/12/16 07:58 37.4 79 18 184/64 97 Room Air 12/12/16 04:00 36.0 96 18 141/68 95 Room Air 12/12/16 03:39 78 18 150/61 97 12/12/16 03:20 78 12/12/16 02:15 75 18 127/58 97 Room Air 12/12/16 01:38 80 18 129/76 12/11/16 23:59 70 18 154/60 98 Room Air 12/11/16 23:49 100 Room Air 12/11/16 23:49 100 Room Air 12/11/16 23:20 64 12/11/16 22:40 36.4 67 18 114/62 98 Room Air Physical Exam General Appearance: WD/WN, no apparent distress Eyes: normal inspection ENT: normal ENT inspection, hearing grossly normal Neck: supple Respiratory/Chest: chest non-tender, lungs clear, normal breath sounds, no respiratory distress, no accessory muscle use Cardiovascular: regular rate, rhythm Abdomen: normal bowel sounds, soft, + tenderness (Diffusely) Extremities: no pedal edema, + pertinent finding (Deformities in both upper extremities consistent with rheumatoid arthritis) Neurologic/Psychiatric: alert, normal mood/affect, oriented x 3 Skin: normal color Laboratory Results 12/12/16 02:53 Red Blood Count 3.29, Mean Corpuscular Volume 100.3, Mean Corpuscular Hemoglobin 33.4, Mean Corpuscular Hemoglobin Concent 33.3, Mean Platelet Volume 9.5, Neutrophils (%) (Auto) 87.9, Lymphocytes (%) (Auto) 7.1, Monocytes (%) ( Auto) 4.6, Eosinophils (%) (Auto) 0.0, Basophils (%) (Auto) 0.1, Neutrophils # ( Auto) 12.65, Lymphocytes # (Auto) 1.02, Monocytes # (Auto) 0.66, Eosinophils # ( Auto) 0.00, Basophils # (Auto) 0.02 12/12/16 14:13 Test 12/11/16 23:12 12/11/16 23:17 12/11/16 23:21 12/11/16 23:45 Magnesium Level 2.3 mg/dl (1.8-2.4) Total Bilirubin 0.7 mg/dl (0.2-1) Direct Bilirubin mg/dl (0-0.2) Aspartate Amino Transf (AST/SGOT) 23 U/L (15-37) Alanine Aminotransferase (ALT/SGPT) 22 U/L (12-78) Alkaline Phosphatase 69 U/L (45-117) Troponin I < 0.015 ng/ml (0-0.045) Total Protein 7.2 gm/dl (6.4-8.2) Albumin 4.1 gm/dl (3.4-5.0) Lipase 267 U/L (73-393) Bedside Lactic Acid Venous 3.54 mmol/L (0.90-1.70) Bedside Hemoglobin 13.3 g/dl (12.0-16.0) Bedside Hematocrit 39 % (37-47) Bedside Sodium 138 mEq/L (135-144) Bedside Potassium 4.7 mEq/L (3.3-5.0) Bedside Chloride 103 mEq/L (101-112) Bedside Total CO2 21 mEq/l (24-31) Bedside Blood Urea Nitrogen 37 mg/dl (7-18) Bedside Creatinine 2.8 mg/dl (0.6-1.3) Bedside Glucose (other) 139 mg/dl (70-99) Bedside Ionized Calcium (Meghan) 1.19 mmol/l (1.12-1.32) Urine Color DK YELLOW Urine Appearance CLEAR (CLEAR) Urine pH 5.0 (4.5-7.5) Urine Specific [place] 1.017 (1.000-1.030) Urine Protein NEG (NEG) Urine Glucose (UA) NEG (NEG) Urine Ketones NEG (NEG) Urine Occult Blood NEG (NEG) Urine Nitrite NEG (NEG) Urine Bilirubin NEG (NEG) Urine Urobilinogen NEG (NEG) Urine Leukocyte Esterase NEG (NEG) Test 12/12/16 02:53 12/12/16 07:12 12/12/16 14:13 White Blood Count 14.39 K/uL (4.8-10.8) Red Blood Count 3.29 M/uL (4.2-5.4) Hemoglobin 11.0 g/dL (12.0-16.0) Hematocrit 33.0 % (37-47) Mean Corpuscular Volume 100.3 fL (80-100) Mean Corpuscular Hemoglobin 33.4 pg (25-34) Mean Corpuscular Hemoglobin Concent 33.3 g/dl (32-36) Platelet Count 226 K/uL (130-400) Mean Platelet Volume 9.5 fL (7.4-10.4) Neutrophils (%) (Auto) 87.9 % Lymphocytes (%) (Auto) 7.1 % Monocytes (%) (Auto) 4.6 % Eosinophils (%) (Auto) 0.0 % Basophils (%) (Auto) 0.1 % Neutrophils # (Auto) 12.65 K/uL (1.4-6.5) Lymphocytes # (Auto) 1.02 K/uL (1.2-3.4) Monocytes # (Auto) 0.66 K/uL (0.11-0.59) Eosinophils # (Auto) 0.00 K/uL (0-0.5) Basophils # (Auto) 0.02 K/uL (0-0.2) RDW Standard Deviation 55.9 fL (36.4-46.3) RDW Coefficient of Variation 15.4 % (11.5-14.5) Immature Granulocyte % (Auto) 0.3 % Immature Granulocyte # (Auto) 0.04 K/uL (0.00-0.02) Prothrombin Time 11.0 SECONDS (9.0-12.0) Prothromb Time International Ratio 1.0 (0.9-1.1) Anion Gap 9.0 mmol/L (3-11) Est Creatinine Clear Calc Drug Dose 18.9 ml/min Estimated GFR () 28.0 Estimated GFR (Non- 24.1 BUN/Creatinine Ratio 15.9 (10-20) Lactic Acid Level 2.7 mmol/L (0.4-2.0) Calcium Level 8.1 mg/dl (8.5-10.1) Date/Time Source Procedure Growth Status 12/11/16 22:34 Stool C.difficile Toxin B Gene (PCR) - Final Positive for C. difficile toxin B gene Complete Assessment and Plan 81-year-old female with past medical history of rheumatoid arthritis, GERD, hyperlipidemia, hypertension presented to the ER with complaints of nausea, vomiting, diarrhea with abdominal pain that started one day prior to arrival. She had been treated for recurrent urinary tract infections with Other antibiotics and started on a 30 day course of Bactrim recently. She was found to be positive for C. difficile in the ER. C. difficile colitis: - Lactic acid on presentation 3.5 recheck 2.1, recheck lactic acid - Abdominal CT: 1. Questionable mild thickening and pericolic fat stranding within the descending colon. However, this is not well evaluated on this noncontrast study and could be due to underdistention. A low-grade colitis could also have a similar appearance and cannot be excluded. Clinical correlation recommended. 2. No evidence for bowel obstruction. 3. Colonic diverticulosis. 4. Right-sided nephrolithiasis. No hydronephrosis. Started on by mouth vancomycin - Continue cholestyramine Acute kidney injury: Likely secondary to decreased by mouth intake and GI losses Creatinine on presentation at 2.9, Recheck at 2.5, Baseline 1.4 - Continue IV fluids - Monitor creatinine Rheumatoid arthritis: - Methotrexate and etanercept have been held - Continue prednisone 8 mg daily Hyperlipidemia: - Continue Zocor Hypothyroidism: - Continue Synthroid History of recurrent UTI: - No urinary symptoms currently, UA negative - Hold Bactrim PT/OT DVT prophylaxis: heparin subcutaneous DO NOT RESUSCITATE Disposition: monitor in telemetry Resident Tracking Resident Involvement: Resident Care Provided Care Provided: Adult Hospital Medicine Reviewed: Pt Seen/Exam by Me History Resident Physician Supervision Note: I interviewed and examined the patient. Discussed with Dr. Michael and agree with findings and plan as documented in the note. Any exceptions or clarifications are listed here: Pt continues to have diarrhea, but no more nausea or vomiting. Tolerated food today Vitals reviewed No acute distress, alert awake oriented 3 Regular rate and rhythm, no murmurs gallops rubs Clear to auscultation bilaterally, breathing unlabored Abdomen positive hyperactive bowel sounds, mild tenderness in the periumbilical region without guarding or rebound Extremities no edema 81-year-old female with history of rheumatoid arthritis on immunosuppressant medications here Clostridium difficile colitis most likely secondary to antibiotic use recently for UTI. Leukocytosis is improving -Continue by mouth vancomycin but could consider switching to by mouth Flagyl as this is her first occurrence of C. difficile if by mouth bank is cost prohibitive upon discharge -Continue prednisone and does not need stress test steroids as blood pressures were elevated -Lactate still elevated but improved overall -Acute kidney injury is resolving with IV fluids, creatinine peaked at 2.9 and is now down to 1.9-decrease fluids -No need to treat for UTI as most recent urinalysis here is negative and she received adequate treatment previously -Follow CBC due to hematochezia with C. difficile colitis Documented By: Snow Parham
[2016-12-12] MEDS: MIRTAZAPINE TAB 15 MG TAB PO SCH (21:24)
[2016-12-12] MEDS: SIMVASTATIN 40 MG TAB PO SCH (21:24)
[2016-12-12] MEDS: CHOLESTYRAMINE LIGHT 4 GM PKT PO SCH (21:25)
[2016-12-12] MEDS: DONEPEZIL HCL 10 MG TAB PO SCH (21:26)
[2016-12-13] VITALS (10 sets, daily range): BP systolic 94–168; BP diastolic 56–72; PULSE 72–90; TEMP 36.8–37.3; O2SAT 96–98
[2016-12-13] MEDS: SODIUM CHLORIDE 0.45% 1000ML 1,000 ML IV SCH ×2 (01:09→14:10)
[2016-12-13] MEDS: LEVOTHYROXINE 112 MCG TAB PO SCH (06:21)
[2016-12-13] MEDS: HEPARIN SOD 5000 UNIT/0.5 ML CARP SQ SCH ×3 (06:23→20:55)
[2016-12-13] MEDS: RASPBERRY SYRUP 5 ML UDP PO SCH ×4 (08:29→20:50)
[2016-12-13] MEDS: VANCOMYCIN HCL 125 MG/2.5ML SOLN PO SCH ×4 (08:29→20:50)
[2016-12-13] MEDS: CHOLESTYRAMINE LIGHT 4 GM PKT PO SCH ×2 (08:29→20:51)
[2016-12-13] MEDS: CEROVITE ADV FORMULA TAB PO SCH (08:30)
[2016-12-13 09:10] LABS: HEMATOCRIT 30.1 % (37-47); MEAN CELL VOLUME 101.7 fL (80-100); MEAN CORPUSCULAR HEMOGLOBIN 33.8 pg (25-34); MEAN CORPUSCULAR HGB CONC 33.2 g/dl (32-36); PLATELET COUNT 223 K/uL (130-400); RED BLOOD COUNT 2.96 M/uL (4.2-5.4); WHITE BLOOD COUNT 10.94 K/uL (4.8-10.8)
[2016-12-13 09:27] LABS: BUN/CREATININE RATIO 16.6 (10-20); CREATININE 1.4 mg/dl (0.60-1.20); POTASSIUM 3.9 mmol/L (3.5-5.1)
[2016-12-13 10:00] LABS: CALCIUM 8.1 mg/dl (8.5-10.1)
--- NOTE | 2016-12-13 10:55 | Family Medicine Progress Note ---
Progress Note Date of Service December 13, 2016. Subjective Pt evaluation today including: conversation w/ patient, physical exam, chart review, lab review Pain: denies pain PO Intake: good 81-year-old female with past medical history of rheumatoid arthritis, GERD, hyperlipidemia, hypertension presented to the ER with complaints of nausea, vomiting, diarrhea with abdominal pain that started one day prior to arrival. She had been treated for recurrent urinary tract infections with other antibiotics and started on a 30 day course of Bactrim recently. She was found to be positive for C. difficile in the ER. had an episode of vomiting overnight , had several episodes of diarrhea this morning. appears very tired. denies fevers/chills, abdominal pain , CP/SOB Constitutional: No chills, No fever Eyes: No worsening of vision ENT: No hearing loss Respiratory: No cough, No sputum Abdomen: + diarrhea, + nausea, + vomiting, No pain Female : No dysuria, No hematuria, No urinary frequency Psychiatric: No depression symptoms Heme: No abnormal bleeding/bruising Medications Current Inpatient Medications Medications (Trade) Dose Ordered Sig/Jeremie Route Start Time Stop Time Status Last Admin Dose Admin Ioversol (Optiray 320) 100 ml UD PRN IV 12/11/16 23:00 12/15/16 22:59 Donepezil HCl (Aricept Tab) 10 mg HS PO 12/12/16 21:00 01/11/17 20:59 12/12/16 21:26 10 MG Folic Acid (Folvite Tab) 1 mg QAM PO 12/12/16 09:00 01/11/17 08:59 12/13/16 08:29 1 MG Levothyroxine Sodium (Synthroid Tab) 112 mcg DAILYBB PO 12/12/16 06:00 01/11/17 06:59 12/13/16 06:21 112 MCG Multivitamins/ Minerals (Multivitamin W/ Minerals Tab) 1 tab QAM PO 12/12/16 09:00 01/11/17 08:59 12/13/16 08:30 1 TAB Prednisone (PredniSONE TAB) 5 mg QAM PO 12/12/16 09:00 01/11/17 08:59 12/13/16 08:29 5 MG Prednisone (PredniSONE TAB) 3 mg QAM PO 12/12/16 09:00 01/11/17 08:59 12/13/16 08:30 3 MG Simvastatin (Zocor Tab) 40 mg QPM PO 12/12/16 21:00 01/11/17 20:59 12/12/16 21:24 40 MG Tramadol HCl (Ultram Tab) 50 mg TID PRN PO 12/12/16 01:30 01/11/17 01:29 12/12/16 22:33 50 MG Mirtazapine (Remeron Tab) 45 mg HS PO 12/12/16 21:00 01/11/17 20:59 12/12/16 21:24 45 MG Vancomycin HCl (Vancomycin Oral Soln) 125 mg QID PO 12/12/16 09:00 12/22/16 08:59 12/13/16 08:29 125 MG Acetaminophen (Tylenol Tab) 650 mg Q4H PRN PO 12/12/16 02:45 01/11/17 02:44 Al Hydrox/Mg Hydrox/Simethicone (Maalox Max Susp) 15 ml Q4H PRN PO 12/12/16 02:45 01/11/17 02:44 12/12/16 18:21 15 ML Magnesium Hydroxide (Milk Of Magnesia Susp) 30 ml Q12H PRN PO 12/12/16 02:45 01/11/17 02:44 Ondansetron HCl (Zofran Inj) 4 mg Q6H PRN IV 12/12/16 02:45 01/11/17 02:44 12/12/16 20:05 4 MG Heparin Sodium (Porcine) (Heparin Sq 5000 Unit/0.5ml) 5,000 unit Q8 SQ 12/12/16 09:00 01/11/17 08:59 12/13/16 06:23 5,000 UNIT Raspberry 5 ml 5 ml QID PO 12/12/16 09:00 12/26/16 08:59 12/13/16 08:29 5 ML Promethazine HCl 12.5 mg/Sodium Chloride 50.5 ml @ 204 mls/hr Q6H PRN IV 12/12/16 06:15 01/11/17 06:14 12/12/16 21:24 204 MLS/HR Sodium Chloride (1/2 Nss 1000ml) 1,000 ml @ 75 mls/hr [id number] IV 12/12/16 11:30 01/11/17 11:29 12/13/16 01:09 75 MLS/HR Cholestyramine Resin (Questran Powder Light) 4 gm BID@10,22 PO 12/12/16 22:00 01/11/17 21:59 12/12/16 21:25 4 GM Objective Vital Signs Date Time Temp Pulse Resp B/P Pulse Ox O2 Delivery O2 Flow Rate FiO2 12/13/16 08:05 Room Air 12/13/16 07:11 37.2 84 20 128/68 97 Room Air 12/13/16 04:17 37.3 79 18 141/59 98 Room Air 12/13/16 04:00 Room Air 12/13/16 00:00 36.8 90 16 168/69 98 Room Air 12/12/16 23:59 Room Air 12/12/16 20:00 Room Air 12/12/16 19:45 37.3 90 20 149/85 96 Room Air 12/12/16 16:00 70 12/12/16 16:00 98 Nasal Cannula 2.0 12/12/16 15:45 37.2 80 20 148/66 98 Room Air 12/12/16 12:00 98 Nasal Cannula 2.0 12/12/16 11:42 37.3 84 22 121/63 94 Physical Exam General Appearance: WD/WN, no apparent distress Eyes: normal inspection ENT: normal ENT inspection, hearing grossly normal Neck: supple Respiratory/Chest: chest non-tender, lungs clear, normal breath sounds, no respiratory distress, no accessory muscle use Cardiovascular: regular rate, rhythm Abdomen: normal bowel sounds, non tender, soft Extremities: + pertinent finding (b/l UE deformities consistent with RA) Neurologic/Psychiatric: alert, normal mood/affect, oriented x 3 Skin: normal color Laboratory Results 12/13/16 09:02 12/13/16 09:02 Test 12/12/16 20:13 12/13/16 09:02 Bedside Glucose 92 mg/dl (70-90) Red Blood Count 2.96 M/uL (4.2-5.4) Mean Corpuscular Volume 101.7 fL (80-100) Mean Corpuscular Hemoglobin 33.8 pg (25-34) Mean Corpuscular Hemoglobin Concent 33.2 g/dl (32-36) RDW Standard Deviation 57.2 fL (36.4-46.3) RDW Coefficient of Variation 15.7 % (11.5-14.5) Mean Platelet Volume 9.0 fL (7.4-10.4) Anion Gap 9.0 mmol/L (3-11) Est Creatinine Clear Calc Drug Dose 27.7 ml/min Estimated GFR () 40.5 Estimated GFR (Non- 34.9 BUN/Creatinine Ratio 16.6 (10-20) Lactic Acid Level 2.0 mmol/L (0.4-2.0) Calcium Level 8.1 mg/dl (8.5-10.1) Assessment and Plan 81-year-old female with past medical history of rheumatoid arthritis, GERD, hyperlipidemia, hypertension presented to the ER with complaints of nausea, vomiting, diarrhea with abdominal pain that started one day prior to arrival. She had been treated for recurrent urinary tract infections with Other antibiotics and started on a 30 day course of Bactrim recently. She was found to be positive for C. difficile in the ER. C. difficile colitis: - Lactic acid on presentation 3.5 , today at 2 - Abdominal CT: 1. Questionable mild thickening and pericolic fat stranding within the descending colon. However, this is not well evaluated on this noncontrast study and could be due to underdistention. A low-grade colitis could also have a similar appearance and cannot be excluded. Clinical correlation recommended. 2. No evidence for bowel obstruction. 3. Colonic diverticulosis. 4. Right-sided nephrolithiasis. No hydronephrosis. Started on by mouth vancomycin for 14 days - Continue cholestyramine Acute kidney injury: Likely secondary to decreased by mouth intake and GI losses Creatinine on presentation at 2.9, today at 1.4, Baseline 1.4 - Continue IV fluids - Monitor creatinine Rheumatoid arthritis: - Methotrexate and etanercept have been held - Continue prednisone 8 mg daily Hyperlipidemia: - Continue Zocor Hypothyroidism: - Continue Synthroid History of recurrent UTI: - No urinary symptoms currently, UA negative - Hold Bactrim PT/OT DVT prophylaxis: heparin subcutaneous DO NOT RESUSCITATE Disposition: transfer to med/surg Resident Tracking Resident Involvement: Resident Care Provided Care Provided: Adult Hospital Medicine Reviewed: Pt Seen/Exam by Me History Resident Physician Supervision Note: I interviewed and examined the patient. Discussed with Dr. Michael and agree with findings and plan as documented in the note. Any exceptions or clarifications are listed here: Much improved, less diarrhea today. Still complaining of some upper abdominal burning that comes and goes Vitals reviewed No acute distress, alert awake oriented 3 Regular rate and rhythm, no murmurs gallops rubs Clear to auscultation bilaterally, breathing unlabored Abdomen positive hyperactive bowel sounds, mild tenderness in the periumbilical region to epigastric region without guarding or rebound Extremities no edema 81-year-old female with history of rheumatoid arthritis on immunosuppressant medications here Clostridium difficile colitis most likely secondary to antibiotic use recently for UTI. Leukocytosis is improving -Continue by mouth vancomycin as did have evidence of severe infection with renal failure upon admission-recommended Vanco over Flagyl -Continue prednisone and does not need stress test steroids as blood pressures were elevated -Lactate still elevated but improved -Acute kidney injury is resolving with IV fluids, creatinine peaked at 2.9 and is now down to 1.4 -No need to treat for UTI as most recent urinalysis here is negative and she received adequate treatment previously -Follow CBC due to hematochezia with C. difficile colitis -Start IV Zantac for epigastric burning which is probably gastritis Documented By: Snow Parham
[2016-12-13] MEDS: ALUMINUM/MAGNESIUM/SIMETH (MAALOX MAX) 30 ML UDC PO PRN (17:54)
[2016-12-13] MEDS: SIMVASTATIN 40 MG TAB PO SCH (20:50)
[2016-12-13] MEDS: DONEPEZIL HCL 10 MG TAB PO SCH (20:51)
[2016-12-13] MEDS: MIRTAZAPINE TAB 15 MG TAB PO SCH (20:51)
[2016-12-13] MEDS: ACETAMINOPHEN 325 MG TAB PO PRN (22:24)
[2016-12-13] MEDS: RANITIDINE IV 50 MG in DEXTROSE 5% 100ML 100 ML IV SCH (22:29)
[2016-12-14] VITALS: O2SAT 96
[2016-12-14] MEDS: SODIUM CHLORIDE 0.45% 1000ML 1,000 ML IV SCH ×2 (02:49→17:21)
[2016-12-14] MEDS: HEPARIN SOD 5000 UNIT/0.5 ML CARP SQ SCH ×3 (05:42→20:54)
[2016-12-14] MEDS: LEVOTHYROXINE 112 MCG TAB PO SCH (06:14)
[2016-12-14] MEDS: RANITIDINE IV 50 MG in DEXTROSE 5% 100ML 100 ML IV SCH ×3 (06:14→22:03)
[2016-12-14 07:23] VITALS: BP 146/76; PULSE 74; TEMP 36.8; O2SAT 99
[2016-12-14 09:35] LABS: HEMATOCRIT 32.3 % (37-47); MEAN CELL VOLUME 102.5 fL (80-100); MEAN CORPUSCULAR HGB CONC 32.2 g/dl (32-36); MEAN PLATELET VOLUME 9.3 fL (7.4-10.4); PLATELET COUNT 210 K/uL (130-400); RED BLOOD COUNT 3.15 M/uL (4.2-5.4); WHITE BLOOD COUNT 10.31 K/uL (4.8-10.8)
[2016-12-14] MEDS: VANCOMYCIN HCL 125 MG/2.5ML SOLN PO SCH ×4 (10:01→20:48)
[2016-12-14] MEDS: RASPBERRY SYRUP 5 ML UDP PO SCH ×4 (10:01→20:48)
[2016-12-14] MEDS: CEROVITE ADV FORMULA TAB PO SCH (10:02)
[2016-12-14 10:11] LABS: BUN/CREATININE RATIO 9.6 (10-20); CALCIUM 8.4 mg/dl (8.5-10.1); CREATININE 1.2 mg/dl (0.60-1.20); POTASSIUM 3.3 mmol/L (3.5-5.1)
[2016-12-14] MEDS: CHOLESTYRAMINE LIGHT 4 GM PKT PO SCH ×2 (11:35→22:03)
[2016-12-14 15:00] VITALS: BP 150/75; PULSE 66; TEMP 36.8; O2SAT 100
[2016-12-14] MEDS ORDERED: POTASSIUM CHLORIDE 10 MEQ TABCR PO ONE (16:00)
[2016-12-14 16:43] LABS: HEMATOCRIT 32.2 % (37-47)
--- NOTE | 2016-12-14 17:13 | DIAGNOSTIC IMAGING REPORT ---
ABDOMEN 2 VIEWS CLINICAL HISTORY: Melena. Generalized abdominal pain. FINDINGS: Supine and erect abdominal radiographs are correlated with abdominal CT dated 12/11/2016. There is a nonobstructed abdominal bowel gas pattern. No evidence of intraperitoneal free air is seen. Cholecystectomy clips are identified in the right upper quadrant. A large gallstone is present in the right upper quadrant, likely located within the cystic duct remnant. A surgical clip is also seen in the left hemipelvis. There is advanced atherosclerotic calcification of the abdominal aorta. The skeletal structures are osteopenic. There is moderate lumbosacral spondylosis. The lung bases are clear as visualized. IMPRESSION: Nonobstructed abdominal bowel gas pattern. Dictated: 12/14/2016 5:10 PM Transcribed: 12/14/2016 5:13 PM [email or web address] Electronically signed by: Roberto Concepcion M.D. 12/14/2016 5:17 PM Dictated Date/Time: 12/14/2016 5:10 PM
[2016-12-14] MEDS: PANTOprazole INJ 40 MG in DEXTROSE 5% 100ML IV SCH ×2 (17:21→20:49)
--- NOTE | 2016-12-14 17:21 | Family Medicine Progress Note ---
Progress Note Date of Service December 14, 2016. Subjective Pt evaluation today including: conversation w/ patient, conversation w/ family , physical exam, chart review, lab review, review of studies Pain: Complains of epigastric discomfort after eating Voiding: no voiding problems Patient resting comfortably in bedside chair this morning, states that she is feeling well but has had occasional epigastric discomfort after eating. She had 2 loose BMs this morning that were loose. Constitutional: + chills, No fatigue, No fever Respiratory: No cough, No shortness of breath, No sputum, No wheezing Cardiovascular: No PND, No chest pain, No orthopnea Abdomen: + diarrhea, + pain, No GI bleeding, No constipation, No nausea, No vomiting Musculoskeletal: No joint pain Female : No dysuria Medications Current Inpatient Medications Medications (Trade) Dose Ordered Sig/Jeremie Route Start Time Stop Time Status Last Admin Dose Admin Ioversol (Optiray 320) 100 ml UD PRN IV 12/11/16 23:00 12/15/16 22:59 Donepezil HCl (Aricept Tab) 10 mg HS PO 12/12/16 21:00 01/11/17 20:59 12/13/16 20:51 10 MG Folic Acid (Folvite Tab) 1 mg QAM PO 12/12/16 09:00 01/11/17 08:59 12/14/16 10:03 1 MG Levothyroxine Sodium (Synthroid Tab) 112 mcg DAILYBB PO 12/12/16 06:00 01/11/17 06:59 12/14/16 06:14 112 MCG Multivitamins/ Minerals (Multivitamin W/ Minerals Tab) 1 tab QAM PO 12/12/16 09:00 01/11/17 08:59 12/14/16 10:02 1 TAB Prednisone (PredniSONE TAB) 5 mg QAM PO 12/12/16 09:00 01/11/17 08:59 12/14/16 10:03 5 MG Prednisone (PredniSONE TAB) 3 mg QAM PO 12/12/16 09:00 01/11/17 08:59 12/14/16 10:03 3 MG Simvastatin (Zocor Tab) 40 mg QPM PO 12/12/16 21:00 01/11/17 20:59 12/13/16 20:50 40 MG Tramadol HCl (Ultram Tab) 50 mg TID PRN PO 12/12/16 01:30 01/11/17 01:29 12/12/16 22:33 50 MG Mirtazapine (Remeron Tab) 45 mg HS PO 12/12/16 21:00 01/11/17 20:59 12/13/16 20:51 45 MG Vancomycin HCl (Vancomycin Oral Soln) 125 mg QID PO 12/12/16 09:00 12/22/16 08:59 12/14/16 12:48 125 MG Acetaminophen (Tylenol Tab) 650 mg Q4H PRN PO 12/12/16 02:45 01/11/17 02:44 12/13/16 22:24 650 MG Al Hydrox/Mg Hydrox/Simethicone (Maalox Max Susp) 15 ml Q4H PRN PO 12/12/16 02:45 01/11/17 02:44 12/13/16 17:54 15 ML Magnesium Hydroxide (Milk Of Magnesia Susp) 30 ml Q12H PRN PO 12/12/16 02:45 01/11/17 02:44 Ondansetron HCl (Zofran Inj) 4 mg Q6H PRN IV 12/12/16 02:45 01/11/17 02:44 12/12/16 20:05 4 MG Heparin Sodium (Porcine) (Heparin Sq 5000 Unit/0.5ml) 5,000 unit Q8 SQ 12/12/16 09:00 01/11/17 08:59 12/14/16 14:33 5,000 UNIT Raspberry 5 ml 5 ml QID PO 12/12/16 09:00 12/26/16 08:59 12/14/16 12:48 5 ML Promethazine HCl 12.5 mg/Sodium Chloride 50.5 ml @ 204 mls/hr Q6H PRN IV 12/12/16 06:15 01/11/17 06:14 12/12/16 21:24 204 MLS/HR Sodium Chloride (1/2 Nss 1000ml) 1,000 ml @ 75 mls/hr [id number] IV 12/12/16 11:30 01/11/17 11:29 12/14/16 02:49 75 MLS/HR Cholestyramine Resin 4 gm 4 gm BID@ PO 12/12/16 22:00 01/11/17 21:59 12/14/16 11:35 4 GM Ranitidine HCl 50 mg/Dextrose 102 ml @ 200 mls/hr Q8H IV 12/13/16 22:00 01/12/17 21:59 12/14/16 14:34 200 MLS/HR Pantoprazole Sodium/Dextrose (Protonix Inj/D5 100ml) 100 ml @ 20 mls/hr Q5H IV 12/14/16 16:30 01/13/17 16:29 Objective Vital Signs Date Time Temp Pulse Resp B/P Pulse Ox O2 Delivery O2 Flow Rate FiO2 12/14/16 15:00 36.8 66 20 150/75 100 Room Air 12/14/16 08:30 Room Air 12/14/16 07:23 36.8 74 16 146/76 99 Room Air 12/14/16 00:00 96 Room Air 12/14/16 00:00 96 Room Air 12/13/16 23:49 36.9 72 18 118/72 97 Room Air Physical Exam General Appearance: WD/WN, no apparent distress Eyes: normal inspection, sclerae normal Neck: supple, no adenopathy Respiratory/Chest: lungs clear, normal breath sounds, no respiratory distress, no accessory muscle use Cardiovascular: regular rate, rhythm, no edema, no gallop, no murmur Abdomen: normal bowel sounds, non tender, soft Extremities: normal range of motion Neurologic/Psychiatric: alert, normal mood/affect, oriented x 3 Laboratory Results Results Past 24 Hours Test 12/14/16 09:05 12/14/16 16:30 Range/Units White Blood Count 10.31 4.8-10.8 K/uL Red Blood Count 3.15 4.2-5.4 M/uL Hemoglobin 10.4 10.5 12.0-16.0 g/dL Hematocrit 32.3 32.2 37-47 % Mean Corpuscular Volume 102.5 80-100 fL Mean Corpuscular Hemoglobin 33.0 25-34 pg Mean Corpuscular Hemoglobin Concent 32.2 32-36 g/dl RDW Standard Deviation 57.1 36.4-46.3 fL RDW Coefficient of Variation 15.8 11.5-14.5 % Platelet Count 210 130-400 K/uL Mean Platelet Volume 9.3 7.4-10.4 fL Sodium Level 145 136-145 mmol/L Potassium Level 3.3 3.5-5.1 mmol/L Chloride Level 113 98-107 mmol/L Carbon Dioxide Level 23 21-32 mmol/L Anion Gap 9.0 3-11 mmol/L Blood Urea Nitrogen 12 7-18 mg/dl Creatinine 1.20 0.60-1.20 mg/dl Est Creatinine Clear Calc Drug Dose 32.3 ml/min Estimated GFR () 48.7 Estimated GFR (Non- 42.1 BUN/Creatinine Ratio 9.6 10-20 Random Glucose 102 70-99 mg/dl Calcium Level 8.4 8.5-10.1 mg/dl Assessment and Plan 81-year-old female with past medical history of rheumatoid arthritis, GERD, hyperlipidemia, hypertension presented to the ER with complaints of nausea, vomiting, diarrhea with abdominal pain that started one day prior to arrival. She had been treated for recurrent urinary tract infections with other antibiotics and started on a 30 day course of Bactrim recently. She was found to be positive for C. difficile in the ER. C. difficile colitis: - Lactic acid on presentation 3.5 , today at 2 - Abdominal CT: 1. Questionable mild thickening and pericolic fat stranding within the descending colon. However, this is not well evaluated on this noncontrast study and could be due to underdistention. A low-grade colitis could also have a similar appearance and cannot be excluded. Clinical correlation recommended. 2. No evidence for bowel obstruction. 3. Colonic diverticulosis. 4. Right-sided nephrolithiasis. No hydronephrosis. - Started on on Vancomycin PO for 14 days (Day 214) - Referral made to case management regarding pricing out PO Vancomycin - Continue cholestyramine Acute kidney injury: Likely secondary to decreased by mouth intake and GI losses - Creatinine of 1.2 today (2.9 on admission) - Continue IV fluids - Monitor creatinine Melena? - Dark Stool visualized by nurse this afternoon - Consult made to Dr. Gutierrez - Hemoccult Stool - H Pylori Stool Antigen - Abdominal X Ray - Protonix Drip - NPO - Continue Ranitidine q8h IV Hypokalemia - 40 mEq of K+ PO - BMP for tomorrow morning to reevaluate Rheumatoid arthritis: - Methotrexate and etanercept have been held - Continue prednisone 8 mg daily Hyperlipidemia: - Continue Zocor Hypothyroidism: - Continue Synthroid History of recurrent UTI: - No urinary symptoms currently, UA negative - Hold Bactrim PT/OT DVT prophylaxis - Heparin Code Status - DO NOT RESUSCITATE Disposition - Med/Surg - Currently awaiting GI evaluation of possible melena Reviewed: Pt Seen/Exam by Me History Resident Physician Supervision Note: I interviewed and examined the patient. Discussed with Dr. Michael and agree with findings and plan as documented in the note. Any exceptions or clarifications are listed here: Still with epigastric pain and vomited clear fluid today after taking KCl tabs. Had black stool as per RN benedicto, H/H stable Vitals reviewed No acute distress, alert awake oriented 3 Regular rate and rhythm, no murmurs gallops rubs Clear to auscultation bilaterally, breathing unlabored Abdomen positive hyperactive bowel sounds, mild tenderness in the periumbilical region to epigastric region without guarding or rebound Extremities no edema 81-year-old female with history of rheumatoid arthritis on immunosuppressant medications here Clostridium difficile colitis most likely secondary to antibiotic use recently for UTI. Leukocytosis is improving, now with possible melena -Continue by mouth vancomycin as did have evidence of severe infection with renal failure upon admission-recommended Vanco over Flagyl -Continue prednisone and does not need stress test steroids as blood pressures were elevated -added PPI gtt for possible melena -appreciate GI consultation -Acute kidney injury is resolving with IV fluids, creatinine peaked at 2.9 and is now down to 1.2 -No need to treat for UTI as most recent urinalysis here is negative and she received adequate treatment previously -Follow CBC due to hematochezia and now with possible melena with C. difficile colitis -continue IV Zantac for epigastric burning which is probably gastritis vs PUD-- > is on chronic prednisone Documented By: Snow Parham
[2016-12-14] MEDS: ONDANSETRON INJ 2 MG/ML 2 ML VIAL IV PRN (17:32)
[2016-12-14 18:25] VITALS: O2SAT 100
[2016-12-14] MEDS: SIMVASTATIN 40 MG TAB PO SCH (20:48)
[2016-12-14] MEDS: DONEPEZIL HCL 10 MG TAB PO SCH (20:49)
[2016-12-14] MEDS: MIRTAZAPINE TAB 15 MG TAB PO SCH (20:50)
[2016-12-15] VITALS (7 sets, daily range): BP systolic 148–181; BP diastolic 72–77; PULSE 72–94; TEMP 36.9–37.3; O2SAT 96–100
[2016-12-15] MEDS: PANTOprazole INJ 40 MG in DEXTROSE 5% 100ML IV SCH ×3 (02:36→13:05)
[2016-12-15] MEDS: HEPARIN SOD 5000 UNIT/0.5 ML CARP SQ SCH (05:15)
[2016-12-15] MEDS: SODIUM CHLORIDE 0.45% 1000ML 1,000 ML IV SCH ×2 (06:08→21:01)
[2016-12-15] MEDS: LEVOTHYROXINE 112 MCG TAB PO SCH (06:08)
[2016-12-15] MEDS: RANITIDINE IV 50 MG in DEXTROSE 5% 100ML 100 ML IV SCH (06:22)
[2016-12-15 07:13] LABS: HEMATOCRIT 28.4 % (37-47); MEAN CELL VOLUME 101.8 fL (80-100); MEAN CORPUSCULAR HEMOGLOBIN 33.3 pg (25-34); MEAN CORPUSCULAR HGB CONC 32.7 g/dl (32-36); PLATELET COUNT 196 K/uL (130-400); RED BLOOD COUNT 2.79 M/uL (4.2-5.4); WHITE BLOOD COUNT 9.12 K/uL (4.8-10.8)
[2016-12-15 08:10] LABS: ALB/GLOB RATIO 1.1 (0.9-2); BUN/CREATININE RATIO 5.5 (10-20); CALCIUM 7.6 mg/dl (8.5-10.1); CREATININE 1.2 mg/dl (0.60-1.20); POTASSIUM 3.9 mmol/L (3.5-5.1)
[2016-12-15] MEDS: CEROVITE ADV FORMULA TAB PO SCH (08:17)
[2016-12-15] MEDS: RASPBERRY SYRUP 5 ML UDP PO SCH ×4 (08:19→21:02)
[2016-12-15] MEDS: VANCOMYCIN HCL 125 MG/2.5ML SOLN PO SCH ×4 (08:19→21:01)
[2016-12-15] MEDS: CHOLESTYRAMINE LIGHT 4 GM PKT PO SCH ×2 (11:55→22:08)
--- NOTE | 2016-12-15 13:43 | GASTROINTESTINAL CONSULTATION ---
DATE: 12/15/2016 CHIEF COMPLAINT: C. diff colitis, abdominal pain and dark melenic stools. HISTORY OF PRESENT ILLNESS: Mrs. Hunter is an 81-year-old white female, with a history of rheumatoid arthritis who presented with C. diff infection following multiple rounds of antibiotics for urinary tract infection over the past 6 weeks. The patient, on admission, had experienced watery and bloody diarrhea with nausea, vomiting, epigastric and diffuse abdominal pain. She presented to the Emergency Room for these symptoms. Her most recent course of antibiotics was a course of Bactrim with results of ciprofloxin also used. She does not have any prior history of C. diff infection and is not aware of any prior abdominal issues as far as peptic ulcer disease, history of colitis, Crohn's disease or inflammatory bowel disease. By her recollection, her last colonoscopy was perhaps 20 years ago or so. She does use arthritis medications for her RA. PAST MEDICAL HISTORY: Includes; ankylosis of the right ankle, anxiety, she is status post cholecystectomy which did produce some loose stools, she has a history of GERD and mild dementia. She also reports hypertension, hypothyroidism on thyroid replacement, hyperlipidemia, DJD of the knee, pancreatic cysts, urethral stones, RA and recurrent urinary tract infections. There is also a history of osteoporosis. PAST SURGICAL HISTORY: Includes cholecystectomy and umbilical hernia repair. HOME MEDICATIONS: Include; a cholestyramine done, Aricept, Enbrel for rheumatoid arthritis this started over the last couple of months by her history, folic acid 1 mg daily, methotrexate 7.5 mg daily, levothyroxine, mirtazapine, multivitamins, prednisone, simvastatin, and Bactrim. ALLERGIES: TO PENICILLINS, CELEBREX, KEFLEX, METHOTREXATE ALTHOUGH SHE IS CURRENTLY ON THIS MEDICATION, NITROFURANTION AND RISEDRONATE WHICH PRODUCES NAUSEA AND VOMITING. SOCIAL HISTORY: The patient denies tobacco or alcohol use. She is and lives alone. She is accompanied by several of her family members today. REVIEW OF SYSTEMS: Otherwise, noncontributory based on 14-point exam. There is no chronic history of recurrent C. diff infection, although she did have loose stools following her cholecystectomy. She does have epigastric pain, which seems to accompany meals and although she reports that she actually has lost weight, when further assessed, it would appear that at least over the last couple of years her weight has remained actually stable, although she was down several pounds from many years ago. This, she believes is related to some changes in her appetite. REVIEW OF SYSTEMS: Otherwise, noncontributory based on 14-point exam except for as mentioned above. PHYSICAL EXAMINATION: VITAL SIGNS: Her admission labs on December 11 showed; afebrile at 36.4, blood pressure 114/62, 98% on room air and heart rate 67. LABORATORY STUDIES: On admission, her white count was 17,000, hemoglobin 12.9, hematocrit 38.3 and MCV of 100.5. Her MCV when reviewing the prior records does seem to track above 100, but in reviewing MCV historically this seems to be a change that has occurred since September 2016 when historically her MCV have all been in the 90s range. Currently, her white count today is 9.9, although her hemoglobin was 12.9 on admission with hydration; this seemed to drift down slightly and is currently 9.3. Platelets are normal at 196,000. Serum chemistry shows on admission a mildly elevated BUN and creatinine of 32 and 2.9; with hydration this trended down and is currently today 7 and 1.2 which would not suggest an ongoing active upper GI bleed. Lactic level is now normal, although had been elevated at 3.5. LFTs including bilirubin 0.7, ALT 22, AST 23 and alkaline phosphatase 69 were normal. Troponins were normal. Lipase was normal at 267. IMAGING STUDY: On admission, she had a CT scan on December 11 that showed a focal area of descending colitis; however, this was a noncontrast study. There is evidence of colonic diverticulosis; but overt diverticulitis, abscess or bowel obstruction are not identified. There is right sided nephrolithiasis without hydronephrosis. The CT suggests mild thickening of the distal esophagus. GENERAL: The patient is awake, alert and oriented x3, sitting comfortably on the side of the bed. HEENT: The sclerae are anicteric, conjunctiva moist. Oral mucosa is moist. There is no cervical or supraclavicular adenopathy. I do not appreciate thyromegaly. HEART: Normal S1, S2. LUNGS: Clear to auscultation without rales, rhonchi or wheezes. ABDOMEN: Soft, flat, nontender and nondistended with good bowel sounds. EXTREMITIES: Without clubbing, cyanosis or edema. RECTAL: Deferred. The patient had recently had a bowel movement and was light brown in the commode. This shows a liquid, mostly translucent stool that is light to medium brown and perhaps slightly bilious in color. There is no evidence for melena, bright red blood or clots identified in the stool sample. IMPRESSION: The patient with two gastrointestinal symptoms; one with Clostridium difficile that likely reflects recent use of antibiotics for the recurrent urinary tract infections. Cholestyramine is reasonable, would avoid any narcotics or opioid agonist that may slow down peristalsis. In addition, would continue on the antibiotic that is currently in use for her which includes oral vancomycin 125 mg four times daily. If necessary, a tapering dose may be advisable given that the patient is on several immunosuppressant drug including prednisone, Enterosept, and methotrexate. The source of the patient's rise in her MCV is unclear, but this has happened since September. She is on methotrexate with folic acid replacement, but this may need either additional folic acid or B12 assessment. Therefore, I believe a folic acid level and a B12 level would be prudent. In addition, the RDW is slightly elevated and this perhaps may suggest a mild component of hemolysis. If this number persists, a hemolytic workup may be beneficial, especially if there is no GI source of blood loss. Regarding her epigastric discomfort, diarrhea and early descriptions of dark appearing stools; I believe it is reasonable for the patient undergo an upper endoscopy and I will arrange for this tomorrow. From today's standpoint, the patient feels well and I think it is reasonable to advance her diet throughout today with n.p.o. except for medications after midnight in anticipation of her upper endoscopy. If the patient is scheduled for discharge tomorrow, then we will plan for arranging outpatient colonoscopy over the next couple of weeks when she has had her C. diff treatment completed. All questions were answered for the patient and her family. If you have any questions, please contact our service. Thank you for allowing us to participate in this patient's care. DENISE
--- NOTE | 2016-12-15 14:22 | Family Medicine Progress Note ---
Progress Note Date of Service December 15, 2016. Subjective Pt evaluation today including: conversation w/ patient, conversation w/ family , physical exam, chart review, lab review, review of studies Pain: Right sided abdominal tenderness over injection site Voiding: no voiding problems Patient is resting comfortably in bedside chair this morning with no acute complaints overnight. She does complain of right sided abdominal pain with bruising at the side of her injection earlier this morning. Otherwise says she feels better and wants to go home. Constitutional: No chills, No fever, No sweats Respiratory: No cough, No shortness of breath, No sputum, No wheezing Cardiovascular: No chest pain, No edema, No palpitations Abdomen: No nausea, No pain, No vomiting Female : No dysuria Medications Current Inpatient Medications Medications (Trade) Dose Ordered Sig/Jeremie Route Start Time Stop Time Status Last Admin Dose Admin Ioversol (Optiray 320) 100 ml UD PRN IV 12/11/16 23:00 12/15/16 22:59 Donepezil HCl (Aricept Tab) 10 mg HS PO 12/12/16 21:00 01/11/17 20:59 12/14/16 20:49 10 MG Folic Acid (Folvite Tab) 1 mg QAM PO 12/12/16 09:00 01/11/17 08:59 12/15/16 08:20 1 MG Levothyroxine Sodium (Synthroid Tab) 112 mcg DAILYBB PO 12/12/16 06:00 01/11/17 06:59 12/15/16 06:08 112 MCG Multivitamins/ Minerals (Multivitamin W/ Minerals Tab) 1 tab QAM PO 12/12/16 09:00 01/11/17 08:59 12/15/16 08:17 1 TAB Prednisone (PredniSONE TAB) 5 mg QAM PO 12/12/16 09:00 01/11/17 08:59 12/15/16 08:17 5 MG Prednisone (PredniSONE TAB) 3 mg QAM PO 12/12/16 09:00 01/11/17 08:59 12/15/16 08:18 3 MG Simvastatin (Zocor Tab) 40 mg QPM PO 12/12/16 21:00 01/11/17 20:59 12/14/16 20:48 40 MG Tramadol HCl (Ultram Tab) 50 mg TID PRN PO 12/12/16 01:30 01/11/17 01:29 12/12/16 22:33 50 MG Mirtazapine (Remeron Tab) 45 mg HS PO 12/12/16 21:00 01/11/17 20:59 12/14/16 20:50 45 MG Vancomycin HCl (Vancomycin Oral Soln) 125 mg QID PO 12/12/16 09:00 12/22/16 08:59 12/15/16 13:05 125 MG Acetaminophen (Tylenol Tab) 650 mg Q4H PRN PO 12/12/16 02:45 01/11/17 02:44 12/13/16 22:24 650 MG Al Hydrox/Mg Hydrox/Simethicone (Maalox Max Susp) 15 ml Q4H PRN PO 12/12/16 02:45 01/11/17 02:44 12/13/16 17:54 15 ML Magnesium Hydroxide (Milk Of Magnesia Susp) 30 ml Q12H PRN PO 12/12/16 02:45 01/11/17 02:44 Ondansetron HCl (Zofran Inj) 4 mg Q6H PRN IV 12/12/16 02:45 01/11/17 02:44 12/14/16 17:32 4 MG Heparin Sodium (Porcine) (Heparin Sq 5000 Unit/0.5ml) 5,000 unit Q8 SQ 12/12/16 09:00 01/11/17 08:59 Future Hold 12/14/16 14:33 5,000 UNIT Raspberry 5 ml 5 ml QID PO 12/12/16 09:00 12/26/16 08:59 12/15/16 13:05 5 ML Promethazine HCl 12.5 mg/Sodium Chloride 50.5 ml @ 204 mls/hr Q6H PRN IV 12/12/16 06:15 01/11/17 06:14 12/12/16 21:24 204 MLS/HR Sodium Chloride (1/2 Nss 1000ml) 1,000 ml @ 75 mls/hr [id number] IV 12/12/16 11:30 01/11/17 11:29 12/15/16 06:08 75 MLS/HR Cholestyramine Resin 4 gm 4 gm BID@ PO 12/12/16 22:00 01/11/17 21:59 12/15/16 11:55 4 GM Ranitidine HCl 50 mg/Dextrose 102 ml @ 200 mls/hr Q8H IV 12/13/16 22:00 01/12/17 21:59 12/15/16 06:22 200 MLS/HR Pantoprazole Sodium/Dextrose (Protonix Inj/D5 100ml) 100 ml @ 20 mls/hr Q5H IV 12/14/16 16:30 01/13/17 16:29 12/15/16 13:05 20 MLS/HR Objective Vital Signs Date Time Temp Pulse Resp B/P Pulse Ox O2 Delivery O2 Flow Rate FiO2 12/15/16 08:00 96 Room Air 12/15/16 07:41 37.3 79 18 163/73 96 Room Air 12/15/16 01:07 36.9 88 20 178/72 99 Room Air 12/15/16 00:00 100 Room Air 12/14/16 18:25 100 Room Air 12/14/16 15:00 36.8 66 20 150/75 100 Room Air Physical Exam General Appearance: WD/WN, no apparent distress Eyes: normal inspection, sclerae normal Respiratory/Chest: chest non-tender, lungs clear, normal breath sounds, no respiratory distress, no accessory muscle use Cardiovascular: regular rate, rhythm, no gallop, no murmur Abdomen: normal bowel sounds, soft, + pertinent finding (Small bruise with tenderness over right upper quadrant at location of injection this morning) Extremities: non-tender, no calf tenderness Laboratory Results Results Past 24 Hours Test 12/14/16 16:30 12/15/16 07:05 12/15/16 11:50 Range/Units Hemoglobin 10.5 9.3 12.0-16.0 g/dL Hematocrit 32.2 28.4 37-47 % White Blood Count 9.12 4.8-10.8 K/uL Red Blood Count 2.79 4.2-5.4 M/uL Mean Corpuscular Volume 101.8 80-100 fL Mean Corpuscular Hemoglobin 33.3 25-34 pg Mean Corpuscular Hemoglobin Concent 32.7 32-36 g/dl RDW Standard Deviation 57.4 36.4-46.3 fL RDW Coefficient of Variation 15.7 11.5-14.5 % Platelet Count 196 130-400 K/uL Mean Platelet Volume 9.0 7.4-10.4 fL Sodium Level 144 136-145 mmol/L Potassium Level 3.9 3.5-5.1 mmol/L Chloride Level 115 98-107 mmol/L Carbon Dioxide Level 22 21-32 mmol/L Anion Gap 7.0 3-11 mmol/L Blood Urea Nitrogen 7 7-18 mg/dl Creatinine 1.20 0.60-1.20 mg/dl Est Creatinine Clear Calc Drug Dose 29.9 ml/min Estimated GFR () 48.7 Estimated GFR (Non- 42.1 BUN/Creatinine Ratio 5.5 10-20 Random Glucose 84 70-99 mg/dl Calcium Level 7.6 8.5-10.1 mg/dl Total Bilirubin 0.3 0.2-1 mg/dl Aspartate Amino Transf (AST/SGOT) 16 15-37 U/L Alanine Aminotransferase (ALT/SGPT) 18 12-78 U/L Alkaline Phosphatase 48 45-117 U/L Troponin I 0.029 0-0.045 ng/ml Total Protein 5.0 6.4-8.2 gm/dl Albumin 2.6 3.4-5.0 gm/dl Globulin 2.4 2.5-4.0 gm/dl Albumin/Globulin Ratio 1.1 0.9-2 Vitamin B12 Level 635 211-911 pg/mL Folate > 24.00 >5.38 ng/mL Assessment and Plan 81-year-old female with past medical history of rheumatoid arthritis, GERD, hyperlipidemia, hypertension presented to the ER with complaints of nausea, vomiting, diarrhea with abdominal pain that started one day prior to arrival. She had been treated for recurrent urinary tract infections with other antibiotics and started on a 30 day course of Bactrim recently. She was found to be positive for C. difficile in the ER. C. difficile colitis: - Lactic acid on presentation 3.5 , today at 2 - Abdominal CT: 1. Questionable mild thickening and pericolic fat stranding within the descending colon. However, this is not well evaluated on this noncontrast study and could be due to underdistention. A low-grade colitis could also have a similar appearance and cannot be excluded. Clinical correlation recommended. 2. No evidence for bowel obstruction. 3. Colonic diverticulosis. 4. Right-sided nephrolithiasis. No hydronephrosis. - Started on on Vancomycin PO for 14 days (Day 314) - Referral made to case management regarding pricing out PO Vancomycin - Continue cholestyramine Acute kidney injury: Likely secondary to decreased by mouth intake and GI losses - Creatinine of 1.2 today (2.9 on admission) - Continue IV fluids - 1/2 NS at 75ml/hr - Monitor creatinine Melena? - Dark Stool visualized by nurse yesterday afternoon and appeared darker than normal - Consult made to Dr. 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 - B12 and Folic Acid Labs ordered Rheumatoid arthritis: - Methotrexate and etanercept have been held - Continue prednisone 8 mg daily Hyperlipidemia: - Continue Zocor Hypothyroidism: - Continue Synthroid History of recurrent UTI: - No urinary symptoms currently, UA negative - Hold Bactrim PT/OT DVT prophylaxis - Currently holding Heparin Code Status - DO NOT RESUSCITATE Disposition - Med/Surg - Scheduled Upper Endoscopy tomorrow morning then possible discharge afterwards with oral Vancomycin Reviewed: Pt Seen/Exam by Me History Resident Physician Supervision Note: I interviewed and examined the patient. Discussed with Dr. Corral and agree with findings and plan as documented in the note. Any exceptions or clarifications are listed here: Improved today, no more nausea or vomiting, had a stool that was brown today along multiple episodes of stool. Continues with epigastric pain. Plan for EGD tomorrow. Hemoglobin was slight drop this morning Vitals reviewed No acute distress, alert awake oriented 3 Regular rate and rhythm, no murmurs gallops rubs Clear to auscultation bilaterally, breathing unlabored Abdomen positive hyperactive bowel sounds, mild tenderness in the periumbilical region to epigastric region without guarding or rebound Extremities no edema 81-year-old female with history of rheumatoid arthritis on immunosuppressant medications here Clostridium difficile colitis most likely secondary to antibiotic use recently for UTI. Leukocytosis is improving, now with possible melena -Continue by mouth vancomycin as did have evidence of severe infection with renal failure upon admission-recommended prolonged course with taper over several weeks as per GI given immunosuppressive therapy -Continue prednisone and does not need stress test steroids as blood pressures were elevated -added PPI gtt for possible melena but discontinued today and changed to by mouth PPI in the morning and by mouth H2 giovanna in the evening -appreciate GI consultation-plan for EGD tomorrow and then colonoscopy as an outpatient after C. difficile colitis resolves -Folate and B12 levels are within normal limits, macrocytosis most likely secondary to methotrexate Documented By: Snow Parham
[2016-12-15 19:31] LABS: HEMATOCRIT 29.2 % (37-47)
[2016-12-15] MEDS: MIRTAZAPINE TAB 15 MG TAB PO SCH (21:02)
[2016-12-15] MEDS: SIMVASTATIN 40 MG TAB PO SCH (21:02)
[2016-12-15] MEDS: RANITIDINE HCL 150 MG TAB PO SCH (21:02)
[2016-12-15] MEDS: DONEPEZIL HCL 10 MG TAB PO SCH (21:03)
[2016-12-16 00:07] VITALS: BP 164/73; PULSE 85
[2016-12-16] MEDS: LEVOTHYROXINE 112 MCG TAB PO SCH (06:32)
[2016-12-16 07:32] VITALS: BP 172/75; PULSE 84; TEMP 37.2; O2SAT 95
--- NOTE | 2016-12-16 07:55 | Family Medicine Progress Note ---
Progress Note Date of Service December 16, 2016. Subjective Pt evaluation today including: conversation w/ patient, conversation w/ family , physical exam, chart review, lab review Patient lying comfortably in bed, she denies acute overnight issues. This morning, she didn't realize she was in hospital (daughter says she has issues with memory). She is oriented to person, but not place or time. She is otherwise pleasant and denies SOB, CP, lightheadedness/dizziness. She does complain of abdominal pain, which correlates to injection site bruising on her abdomen. She otherwise states there has been improvement in both stool frequency and consistency. She denies hematuria or hematochezia. Constitutional: No chills, No fever Respiratory: No cough, No shortness of breath, No wheezing Cardiovascular: No chest pain, No edema, No palpitations Abdomen: + diarrhea, + pain, No GI bleeding, No nausea, No vomiting Female : No dysuria, No hematuria Objective Vital Signs Date Time Temp Pulse Resp B/P Pulse Ox O2 Delivery O2 Flow Rate FiO2 12/16/16 07:32 37.2 84 16 172/75 95 Room Air 12/16/16 00:07 85 164/73 12/15/16 23:40 Room Air 12/15/16 23:38 171/77 12/15/16 23:20 37.1 94 20 181/74 98 Room Air 12/15/16 16:00 Room Air 12/15/16 08:00 96 Room Air Physical Exam General Appearance: WD/WN, no apparent distress ENT: hearing grossly normal Neck: supple Respiratory/Chest: lungs clear, normal breath sounds, no respiratory distress, no accessory muscle use Cardiovascular: regular rate, rhythm, no murmur Abdomen: normal bowel sounds, soft, + tenderness (at bruising on abdomen at injection sites) Extremities: normal inspection, no pedal edema, no calf tenderness Neurologic/Psychiatric: alert, normal mood/affect, + disoriented Skin: normal color, warm/dry, no rash Laboratory Results Results Past 24 Hours Test 12/15/16 19:20 12/16/16 07:10 12/16/16 17:04 Range/Units Hemoglobin 9.7 9.4 12.0-16.0 g/dL Hematocrit 29.2 27.7 37-47 % Sodium Level 143 136-145 mmol/L Potassium Level 3.8 3.5-5.1 mmol/L Chloride Level 111 98-107 mmol/L Carbon Dioxide Level 23 21-32 mmol/L Anion Gap 9.0 3-11 mmol/L Blood Urea Nitrogen 5 7-18 mg/dl Creatinine 1.40 0.60-1.20 mg/dl Est Creatinine Clear Calc Drug Dose 25.6 ml/min Estimated GFR () 40.5 Estimated GFR (Non- 34.9 BUN/Creatinine Ratio 3.4 10-20 Random Glucose 74 70-99 mg/dl Calcium Level 7.6 8.5-10.1 mg/dl Total Bilirubin 0.2 0.2-1 mg/dl Aspartate Amino Transf (AST/SGOT) 13 15-37 U/L Alanine Aminotransferase (ALT/SGPT) 17 12-78 U/L Alkaline Phosphatase 50 45-117 U/L Total Protein 4.7 6.4-8.2 gm/dl Albumin 2.5 3.4-5.0 gm/dl Globulin 2.2 2.5-4.0 gm/dl Albumin/Globulin Ratio 1.1 0.9-2 Stool Occult Blood POSITIVE NEGATIVE Assessment and Plan 81-year-old female with rheumatoid arthritis, GERD, HLD, HTN admitted with 1 day hx of nausea, vomiting, diarrhea with abdominal pain. She had been treated for recurrent urinary tract infections with other antibiotics and started on a 30 day course of Bactrim recently, and found to be positive for C. difficile in the ER. C. difficile colitis: Abdominal CT: Questionable mild thickening and pericolic fat stranding within the descending colon, no evidence for bowel obstruction, colonic diverticulosis, right-sided nephrolithiasis without hydronephrosis. Initial lactic acid 3.5 on presentation, subsequently resolved. - Vancomycin PO - Day 4 of 14 today - Cholestyramine Acute kidney injury: Likely secondary to dehydration from poor oral intake and GI losses. 2.9 on admission, currently improved to baseline in last year of ~1.4 - Discontinue IV fluids in view of normalized creatinine, increased PO intake and risk of fluid overload - Monitor creatinine ?Melena - Down trending H/H noted, and dark stool visualized by nursing staff. Concern for upper GI bleed. AXR 12/14 showed non-obstructed abdominal bowel gas pattern. GI consulted - recs appreciated. EGD showed severe esophagitis, without bleeding, and no biopsies taken. - Protonix 40mg PO qAM - Zantac 150mg PO qPM - Hemoccult Stool - awaiting collection - Plans for ongoing outpatient follow up for CBC, as patient not likely ideal candidate for colonoscopy with surgery if needed. Hypokalemia - Resolved. 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 PT/OT - Evaluated and safe for home with home health DVT prophylaxis - Restart Heparin tomorrow if not for discharge Code Status - DO NOT RESUSCITATE Resident Physician Supervision Note: I interviewed and examined the patient. Discussed with Dr. Kiran and agree with findings and plan as documented in the note. Any exceptions or clarifications are listed here: None Documented By: Mariano Velarde d/w pt and dtr. just had scope. feeling OK. wants to go home. ros otherwise negative except for as above vitals noted nad breathing unlabored no pallor Cdiff - improving anemia - scope negative follow overnight - as long as ongoing stability post-scope hopefully home 12/17 Continued [facility] stay due to: other (Observation after procedure) Discharge planning: home with home health Resident Tracking Resident Involvement: Resident Care Provided Care Provided: Adult Hospital Medicine
[2016-12-16 08:00] LABS: HEMATOCRIT 27.7 % (37-47)
[2016-12-16] MEDS: CEROVITE ADV FORMULA TAB PO SCH (08:09)
[2016-12-16] MEDS: RASPBERRY SYRUP 5 ML UDP PO SCH ×4 (08:10→20:22)
[2016-12-16] MEDS: VANCOMYCIN HCL 125 MG/2.5ML SOLN PO SCH ×4 (08:10→20:22)
[2016-12-16] MEDS: PANTOprazole SOD 40 MG TAB PO SCH (08:10)
[2016-12-16] MEDS: SODIUM CHLORIDE 0.45% 1000ML 1,000 ML IV SCH (08:11)
[2016-12-16 08:27] LABS: BUN/CREATININE RATIO 3.4 (10-20); CREATININE 1.4 mg/dl (0.60-1.20); POTASSIUM 3.8 mmol/L (3.5-5.1)
[2016-12-16 08:30] LABS: ALB/GLOB RATIO 1.1 (0.9-2)
[2016-12-16 08:51] LABS: CALCIUM 7.6 mg/dl (8.5-10.1)
[2016-12-16] MEDS: ACETAMINOPHEN 325 MG TAB PO PRN (10:18)
[2016-12-16] MEDS: CHOLESTYRAMINE LIGHT 4 GM PKT PO SCH ×2 (11:07→20:24)
[2016-12-16] MEDS ORDERED: LIDOCAINE HCL 2% 2 ML VIAL (20MG/ML) ONE (14:45)
[2016-12-16] MEDS ORDERED: PROPOFOL IV EMULSION 10 MG/ML 20 ML VIAL IV ONE (14:45)
--- NOTE | 2016-12-16 15:06 | Endo History and Physical ---
History & Physical Date of Service: December 16, 2016. Chief Complaint: abd pain Referring Physician: Dr Velarde History of Present Illness For EGD Past Surgical History Hx Cardiac Surgery: No Hx Abdominal Surgery: Yes (Hernia and Gallbladder) Hx Post-Op Nausea and Vomiting: No Hx Cancer Surgery: No Hx Thoracic Surgery: No Hx Orthopedic: No Hx Urinary Tract Surgery: No Social History Smoking Status: Never Smoker Smokeless Tobacco Use: No Hx Substance Use: No Hx Alcohol Use: No Allergies Coded Allergies: Penicillins (Verified Allergy, Unknown, SWELLING, 12/12/16) Celecoxib (Verified Adverse Reaction, Intermediate, N/V, 12/12/16) Cephalexin (Verified Adverse Reaction, Intermediate, N/V, 12/12/16) Methotrexate (Verified Adverse Reaction, Intermediate, N/V, 12/12/16) Nitrofurantoin (Verified Adverse Reaction, Intermediate, N/V, 12/12/16) Risedronate (Verified Adverse Reaction, Intermediate, NAUSEA AND VOMITING , 12/12/16) Current Medications Reported Home Medications Medications Dose Route/Sig Max Daily Dose Days Date Category Bactrim Ds 800MG/160MG (Trimethoprim/Sulfamethoxazole) Tab 1 Tab PO DAILY 12/12/16 Reported Zocor (Simvastatin) 40 Mg Tab 40 Mg PO QPM 12/12/16 Reported Ultram (Tramadol HCl) 50 Mg Tab 50 Mg PO TID PRN 10/24/16 Reported Prednisone 5 Mg Tab 5 Mg PO QAM 10/24/16 Reported Prednisone 1 Mg Tab 3 Tabs PO QAM 10/24/16 Reported Mirtazapine 45 Mg Tab 1 Tab PO HS 10/24/16 Reported Levothyroxine Sodium 112 Mcg Tab 1 Tab PO QAM 10/24/16 Reported Methotrexate (Methotrexate Sodium) 2.5 Mg Tab 3 Tbs PO Friday10/24/16 Reported Folvite (Folic Acid) 1 Mg Tab 1 Mg PO QAM 10/24/16 Reported Enbrel (Etanercept) 25 Mg/0.5 Ml Inj 1 Dose IM Friday10/24/16 Reported Aricept (Donepezil Hydrochloride) 10 Mg Tab 10 Mg PO HS 10/24/16 Reported Mvi With Minerals (Multivitamins/Minerals) Tab 1 Tab PO QAM 09/15/13 Reported Cholestyramine 4 Gm Pow 1 Pack PO QAM 09/15/13 Reported Vital Signs Weight (Kilograms): 61.900 Height (Feet): 5 Height (Inches): 3.00 Date Time Temp Pulse Resp B/P Pulse Ox O2 Delivery O2 Flow Rate FiO2 12/16/16 14:12 37.2 72 16 168/72 98 Room Air 12/16/16 09:12 Room Air 12/16/16 07:32 37.2 84 16 172/75 95 Room Air 12/16/16 00:07 85 164/73 12/15/16 23:40 Room Air 12/15/16 23:38 171/77 12/15/16 23:20 37.1 94 20 181/74 98 Room Air 12/15/16 17:20 36.9 72 18 148/77 98 Room Air 12/15/16 16:00 Room Air Physical Exam General Appearance: + obese Respiratory/Chest: Respiratory effort: no dyspnea Cardiovascular: Heart Auscultation: RRR Abdomen: Inspection & Palpation: soft Assessment and Plan abd pain for EGD
--- NOTE | 2016-12-16 15:07 | Discharge Instructions ---
Endoscopy Patient Instructions Date / Procedure(s) Performed December 16, 2016. EGD Allergy Information Coded Allergies: Penicillins (Verified Allergy, Unknown, SWELLING, 12/12/16) Celecoxib (Verified Adverse Reaction, Intermediate, N/V, 12/12/16) Cephalexin (Verified Adverse Reaction, Intermediate, N/V, 12/12/16) Methotrexate (Verified Adverse Reaction, Intermediate, N/V, 12/12/16) Nitrofurantoin (Verified Adverse Reaction, Intermediate, N/V, 12/12/16) Risedronate (Verified Adverse Reaction, Intermediate, NAUSEA AND VOMITING , 12/12/16) Discharge Date / Findings December 16, 2016. esophagitis, hiatal hernia Medication Instructions Restart Stopped Medication(s): resume meds Current Inpatient Medications Medications (Trade) Dose Ordered Sig/Jeremie Route Start Time Stop Time Status Last Admin Dose Admin Donepezil HCl (Aricept Tab) 10 mg HS PO 12/12/16 21:00 01/11/17 20:59 12/15/16 21:03 10 MG Folic Acid (Folvite Tab) 1 mg QAM PO 12/12/16 09:00 01/11/17 08:59 12/16/16 08:09 1 MG Levothyroxine Sodium (Synthroid Tab) 112 mcg DAILYBB PO 12/12/16 06:00 01/11/17 06:59 12/16/16 06:32 112 MCG Multivitamins/ Minerals (Multivitamin W/ Minerals Tab) 1 tab QAM PO 12/12/16 09:00 01/11/17 08:59 12/16/16 08:09 1 TAB Prednisone (PredniSONE TAB) 5 mg QAM PO 12/12/16 09:00 01/11/17 08:59 12/16/16 08:10 5 MG Prednisone (PredniSONE TAB) 3 mg QAM PO 12/12/16 09:00 01/11/17 08:59 12/16/16 08:10 3 MG Simvastatin (Zocor Tab) 40 mg QPM PO 12/12/16 21:00 01/11/17 20:59 12/15/16 21:02 40 MG Tramadol HCl (Ultram Tab) 50 mg TID PRN PO 12/12/16 01:30 01/11/17 01:29 12/12/16 22:33 50 MG Mirtazapine (Remeron Tab) 45 mg HS PO 12/12/16 21:00 01/11/17 20:59 12/15/16 21:02 45 MG Vancomycin HCl (Vancomycin Oral Soln) 125 mg QID PO 12/12/16 09:00 12/22/16 08:59 12/16/16 13:17 125 MG Acetaminophen (Tylenol Tab) 650 mg Q4H PRN PO 12/12/16 02:45 01/11/17 02:44 12/16/16 10:18 650 MG Al Hydrox/Mg Hydrox/Simethicone (Maalox Max Susp) 15 ml Q4H PRN PO 12/12/16 02:45 01/11/17 02:44 12/13/16 17:54 15 ML Magnesium Hydroxide (Milk Of Magnesia Susp) 30 ml Q12H PRN PO 12/12/16 02:45 01/11/17 02:44 Ondansetron HCl (Zofran Inj) 4 mg Q6H PRN IV 12/12/16 02:45 01/11/17 02:44 12/14/16 17:32 4 MG Heparin Sodium (Porcine) (Heparin Sq 5000 Unit/0.5ml) 5,000 unit Q8 SQ 12/12/16 09:00 01/11/17 08:59 Future Hold 12/14/16 14:33 5,000 UNIT Raspberry 5 ml 5 ml QID PO 12/12/16 09:00 12/26/16 08:59 12/16/16 13:17 5 ML Promethazine HCl 12.5 mg/Sodium Chloride 50.5 ml @ 204 mls/hr Q6H PRN IV 12/12/16 06:15 01/11/17 06:14 12/12/16 21:24 204 MLS/HR Sodium Chloride (1/2 Nss 1000ml) 1,000 ml @ 75 mls/hr [id number] IV 12/12/16 11:30 01/11/17 11:29 12/16/16 08:11 75 MLS/HR Cholestyramine Resin (Questran Powder Light) 4 gm BID@10,22 PO 12/12/16 22:00 01/11/17 21:59 12/15/16 22:08 4 GM Pantoprazole Sodium (Protonix Tab) 40 mg QAM PO 12/16/16 08:00 01/15/17 07:59 12/16/16 08:10 40 MG Ranitidine HCl (zANTac TAB) 150 mg QPM PO 12/15/16 21:00 01/14/17 20:59 12/15/16 21:02 150 MG Provider Instructions Activity Restrictions - No exercising or heavy lifting for 24 hours. - Do not drink alcohol the day of the procedure. - Do not drive a car or operate machinery until the day after the procedure. - Do not make any important decisions or sign important papers in 24 hours after the procedure. Following Day: - Return to full activity which may include returning to work/school. Diet Start your diet with liquids and light foods (jello, soup, juice, toast). Then eat your usual diet if not nauseated. Treatment For Common After Affects For mild abdominal pain, bloating, or excessive gas: - Rest - Eat lightly - Lie on right side Follow-Up Information Follow-up with as scheduled Anesthesia Information What You Should Know You have had a procedure that required some medicine to reduce anxiety and discomfort. This treatment is called moderate sedation. After receiving the treatment, you may be sleepy, but you will be able to breathe on your own. The effects of the treatment may last for several hours. Follow these instructions along with Activity/Diet recommendations noted above: * Do NOT do anything where dizziness or clumsiness would be dangerous. * Rest quietly at home today, then you can be up and about tomorrow. * Have a responsible person stay with you the rest of today. * You may have had an I.V. today. If so, you may take the dressing off later today. Recommendations Call your doctor if: * Trouble breathing * Continuous vomiting for more than 24 hours * Temperature above 101 degrees * Severe abdominal pain or bloating * Pain not relieved by pain medicine ordered * There is increased drainage or redness from any incision * A large amount of rectal bleeding greater than 2-3 tablespoons. (If you had a polyp/s removed or have hemorrhoids, a small amount of blood - from the rectum is to be expected.) * You have any unanswered questions or concerns. IN THE EVENT OF A SERIOUS EMERGENCY, GO TO THE NEAREST EMERGENCY ROOM Your discharge instructions were prepared by provider Trenton King. Patient Instructions Signature Page Orin Hunter Patient (or Guardian) Signature/Date: I have read and understand the instructions given to me by my caregivers. Caregiver/RN/Doctor Signature/Date: The above-named patient and/or guardian has received patient instructions on this date. + Original Patient Signature Page (only) stays with chart. Please make copy for patient.
--- NOTE | 2016-12-16 15:11 | GI REPORT ---
Procedure Date: 12/16/2016 2:44 PM Procedure: Upper GI endoscopy Indications: Epigastric abdominal pain, Weight loss Medicines: Propofol total dose 70 mg IV, Lidocaine 40 mg IV Complications: No immediate complications. Estimated Blood Loss: Estimated blood loss: none. Procedure: Pre-Anesthesia Assessment: - Prior to the procedure, a History and Physical was performed, and patient medications, allergies and sensitivities were reviewed. The patient's tolerance of previous anesthesia was reviewed. - The risks and benefits of the procedure and the sedation options and risks were discussed with the patient. All questions were answered and informed consent was obtained. After obtaining informed consent, the endoscope was passed under direct vision. Throughout the procedure, the patient's blood pressure, pulse, and oxygen saturations were monitored continuously. The scope was introduced through the mouth, and advanced to the second part of duodenum. The upper GI endoscopy was accomplished without difficulty. The patient tolerated the procedure well. Findings: LA Grade D (one or more mucosal breaks involving at least 75% of esophageal circumference) esophagitis with no bleeding was found 38 cm from the incisors. A small hiatus hernia was present. The entire examined stomach was normal. The examined duodenum was normal. Impression: - LA Grade D reflux esophagitis. - Small hiatus hernia. - Normal stomach. - Normal examined duodenum. - No specimens collected. Recommendation: - Return patient to [facility] for ongoing care. Trenton King M.D. Trenton King MD 12/16/2016 3:10:18 PM This report has been signed electronically. Note Initiated On: 12/16/2016 2:44 PM I attest to the content of the Intraoperative Record and orders documented therein, exceptions below
--- NOTE | 2016-12-16 15:20 | Anesthesiology Progress Note ---
Anesthesia Post Op Note Date & Time December 16, 2016 at 15:20 Vital Signs Pain Intensity: 0.0 Vital Signs Past 12 Hours Date Time Temp Pulse Resp B/P Pulse Ox O2 Delivery O2 Flow Rate FiO2 12/16/16 15:11 69 18 119/51 97 Room Air 12/16/16 14:12 37.2 72 16 168/72 98 Room Air 12/16/16 09:12 Room Air 12/16/16 07:32 37.2 84 16 172/75 95 Room Air Notes Mental Status: alert / awake / arousable, participated in evaluation Pt Amnestic to Procedure: Yes Nausea / Vomiting: adequately controlled Pain: adequately controlled Airway Patency, RR, SpO2: stable & adequate BP & HR: stable & adequate Hydration State: stable & adequate Anesthetic Complications: no major complications apparent Pt doing well.
--- NOTE | 2016-12-16 15:36 | PROGRESS NOTE ---
DATE: 12/16/2016 HISTORY OF PRESENT ILLNESS: The patient was brought to the endoscopy center today for endoscopy for abdominal pain and weight loss. The patient underwent EGD and tolerated it well. She has severe LA grade 4, distal esophagitis, probably related to acid reflux. She also has a small hiatal hernia. The remainder of the esophagus, stomach and small intestine were normal. IMPRESSION AND PLAN: The patient has severe esophagitis. This patient will continue on Protonix and bland diet.
[2016-12-16 16:09] VITALS: BP 138/84; PULSE 71; TEMP 36.9; O2SAT 96
[2016-12-16] MEDS: DONEPEZIL HCL 10 MG TAB PO SCH (20:23)
[2016-12-16] MEDS: SIMVASTATIN 40 MG TAB PO SCH (20:24)
[2016-12-16] MEDS: RANITIDINE HCL 150 MG TAB PO SCH (20:25)
[2016-12-16] MEDS: MIRTAZAPINE TAB 15 MG TAB PO SCH (20:26)
[2016-12-16 21:28] LABS: HEMATOCRIT 31.5 % (37-47)
[2016-12-16] MEDS: TRAMADOL HCL 50 MG TAB PO PRN (22:04)
[2016-12-16] MEDS: ONDANSETRON INJ 2 MG/ML 2 ML VIAL IV PRN (23:13)
[2016-12-16 23:21] VITALS: BP 148/77
[2016-12-16 23:46] VITALS: PULSE 77; TEMP 36.6; O2SAT 99
[2016-12-17] MEDS: LEVOTHYROXINE 112 MCG TAB PO SCH (06:28)
[2016-12-17 07:34] VITALS: BP 167/76; PULSE 74; TEMP 36.9; O2SAT 95
[2016-12-17 08:00] VITALS: O2SAT 95
[2016-12-17 08:10] LABS: HEMATOCRIT 27.9 % (37-47); MEAN CELL VOLUME 101.8 fL (80-100); MEAN CORPUSCULAR HEMOGLOBIN 33.9 pg (25-34); MEAN CORPUSCULAR HGB CONC 33.3 g/dl (32-36); MEAN PLATELET VOLUME 9.1 fL (7.4-10.4); PLATELET COUNT 236 K/uL (130-400); RED BLOOD COUNT 2.74 M/uL (4.2-5.4); WHITE BLOOD COUNT 7.84 K/uL (4.8-10.8)
[2016-12-17] MEDS: RASPBERRY SYRUP 5 ML UDP PO SCH ×2 (08:18→13:19)
[2016-12-17] MEDS: VANCOMYCIN HCL 125 MG/2.5ML SOLN PO SCH ×2 (08:18→13:19)
[2016-12-17] MEDS: PANTOprazole SOD 40 MG TAB PO SCH (08:19)
[2016-12-17] MEDS: CEROVITE ADV FORMULA TAB PO SCH (08:19)
[2016-12-17 08:35] LABS: BUN/CREATININE RATIO 4.3 (10-20); CREATININE 1.2 mg/dl (0.60-1.20); POTASSIUM 3.7 mmol/L (3.5-5.1)
[2016-12-17 08:54] LABS: CALCIUM 8.2 mg/dl (8.5-10.1)
[2016-12-17] MEDS: CHOLESTYRAMINE LIGHT 4 GM PKT PO SCH (10:53)
[2016-12-17] MEDS ORDERED: DICL1GEL12 TOP (11:43)
[2016-12-17] MEDS ORDERED: [UNRECOGNIZED DRUG - CODE] PO (11:45)
[2016-12-17 12:29] VITALS: BP 136/75; PULSE 75
[2016-12-17] MEDS ORDERED: VANC5CAP PO (13:22)
[2016-12-17] MEDS ORDERED: ZNT150 PO (13:22)
[2016-12-17] MEDS ORDERED: ONDA4TAB46 PO (13:22)
[2016-12-17] MEDS ORDERED: PRT40 PO (13:22)
--- NOTE | 2016-12-17 13:36 | Discharge Instructions ---
Discharge Instructions Date of Service December 17, 2016. Admission Reason for Admission: Acute Renal Failure, C. Diff Diarrhea, Dehydration Discharge Discharge Diagnosis / Problem: C.diff diarrhea, Esophagitis Discharge Goals Goal(s): Decrease discomfort, Improve disease control, Diagnostic testing, Therapeutic intervention Activity Recommendations Activity Limitations: resume your previous activity . Instructions / Follow-Up Instructions / Follow-Up DIARRHEA You were admitted to hospital with c. diff diarrhea, managed in hospital with oral antibiotics, vancomycin. Throughout your admission, your diarrhea improved. You will continue 9 more days of vancomycin, taking it 4 times daily. The cholestyramine you are at home, can also help with symptoms. It is best taken at a separate time from vancomycin, as far away from the vancomycin doses as possible. Ex. 3 hours after the previous dose, and 3 hours prior to the next dose. Remember to use bleach wipes on the toilet/sink/light switch/door knobs after usage to prevent spreading. Continue these hygiene techniques until diarrhea remains absent for at least 1-2 weeks after completion of antibiotics. URINARY TRACT INFECTION (UTI) You were prescribed Bactrim for UTI prophylaxis, and it is possible this led to c.diff diarrhea to begin with. We would advise using more conservative methods to prevent UTIs. Drink plenty of fluids, ideally 60oz a day. In addition, cranberry pills are recommended. Though the evidence on this is limited, it is possible that these provide some minor benefits to you. Finally, switching depends/ pads even upon minor soiling, could potentially be helpful to reduce risk of infection. If you do have symptoms of recurrent UTI, please call your PCP. GI BLEED In hospital there was some concern for dark tarry stools and a downtrending hemoglobin (blood iron). An EGD (camera down the throat) was done, which found severe esophagitis, but no bleeding. Your symptoms seems to be stable with daily pantoprazole and nightly ranitidine. Continue these medications for 3-6 months to allow healing. If symptoms improve, or you are experiencing side effects, discuss weaning with your PCP. Ondansetron is prescribed to take if needed if your are having nausea. At time of discharge your hemoglobin was stable and clinical assessment was within normal limits. We would advise follow up with your PCP this Friday or next Friday to have your blood counts rechecked. Of note your labs did show megaloblastic anemia. However, this is likely secondary to your methotrexate medication as B12 and folate levels were normal. These medications for rheumatoid arthritis can be restarted, and change of medications, if necessary, should be discussed with your treasury assistant. JOINT PAIN You mentioned ongoing pain in your foot secondary to arthritis. Voltaren gel has been prescribed to you. Apply ~1g upto every 6 hours on the foot joint for some symptomatic relief. Continue all other home medication as before and as indicated in the medication list of your discharge summary. Current Hospital Diet Patient's current hospital diet: Regular Diet Discharge Diet Recommended Diet: Regular Diet Procedures Procedures Performed: EGD Pending Studies Studies pending at discharge: no Medical Emergencies . Who to Call and When: Medical Emergencies: If at any time you feel your situation is an emergency, please call 911 immediately. . Non-Emergent Contact Non-Emergency issues call your: Primary Care Provider . . "Provider Documentation" section prepared by Elle Kiran. . VTE Core Measure Inpt VTE Proph given/why not?: Unfractionated heparin SQ
[2016-12-17 13:48] VITALS: BP 136/75; PULSE 75; TEMP 36.9; O2SAT 95
--- NOTE | 2016-12-17 15:20 | GASTROENTEROLOGY PROGRESS NOTE ---
DATE: 12/17/2016 DATE: 12/17/2016. The patient is for discharge today. She did well following her upper endoscopy which revealed a significant esophagitis. HISTORY OF PRESENT ILLNESS: The patient is currently on pantoprazole and ranitidine including 40 mg daily of pantoprazole and 150 mg at bedtime for ranitidine. She is also on cholestyramine, simvastatin, donepezil, Aricept and Remeron along with folic acid, prednisone, vancomycin, promethazine, and levothyroxine. The patient is also on outpatient methotrexate and etanercept for rheumatoid arthritis. REVIEW OF SYSTEMS: Otherwise noncontributory based on 14-point exam except for mentioned above. PHYSICAL EXAMINATION: VITAL SIGNS: Today include blood pressure 136/75, heart rate 75. She is 95% on room air. This morning she has been afebrile. IMPRESSION: The patient with significant esophagitis which may be responsible for some of the patient's anemia as well as her abdominal discomfort with meals. She should avoid acidic type foods and would encourage her to continue the omeprazole PPI combination although this is incompletely effective, would recommend increasing the Protonix 40 mg twice daily before breakfast and supper in addition to tonight dose of Zantac at least for 12 weeks. Over the next 4-6 weeks will plan for colonoscopy as an outpatient as it has been several years according to the patient's history that she has had this performed. LABORATORY STUDIES: On her blood work today, hemoglobin is essentially stable at 9.3, white count 7.8. The MCV remains elevated at 101, although B12 and folic acid levels were normal. This may reflect in part methotrexate usage. PLAN: We will make arrangement for an outpatient colonoscopy over the next 4-6 weeks. All questions answered to the patient and her family satisfactorily.
--- NOTE | 2016-12-17 18:53 | Discharge Summary ---
Discharge Summary Date of Service December 17, 2016. (Alka. Kiran MD) Discharge Summary Admission Date: December 12, 2016 at 02:47 Discharge Date: December 17, 2016 Discharge Disposition: Home with services Principal Diagnosis: C.diff diarrhea, severe esophagitis Immunizations: Have You Had Influenza Vaccine: Yes Influenza Vaccine Date: Sep 20, 2013 History of Tetanus Vaccine?: Yes Tetanus Immunization Date: Sep 20, 2013 History of Pneumococcal: Yes Pneumococcal Date: Sep 20, 2013 History of Hepatitis B Vaccine: No (Alka. Kiran MD) Discharge Exam Patient well. No acute issues overnight. No SOB, CP, dyspepsia. Some pain in foot from arthritis. Tolerating diet and sleeping well. Review of Systems: Constitutional: No chills, No fever Respiratory: No cough, No shortness of breath, No wheezing Cardiovascular: No chest pain, No edema, No palpitations Abdomen: No constipation, No diarrhea, No nausea, No pain, No vomiting Musculoskeletal: + joint pain (right foot) Genitourinary - Female: No dysuria, No hematuria Physical Exam: General Appearance: WD/WN, no apparent distress ENT: hearing grossly normal Neck: supple, no adenopathy, no JVD Respiratory/Chest: lungs clear, normal breath sounds, no respiratory distress, no accessory muscle use Cardiovascular: regular rate, rhythm, no murmur, normal peripheral pulses Abdomen / GI: normal bowel sounds, non tender, soft Extremities: normal inspection, no calf tenderness, normal capillary refill , no pedal edema Neurologic/Psychiatric: alert, normal mood/affect, oriented x 3 Skin: normal color, warm/dry, no rash (Alka. Kiran MD) Hospital Course 81-year-old female with rheumatoid arthritis, GERD, HLD, HTN admitted with 1 day hx of nausea, vomiting, diarrhea with abdominal pain. She had been treated for recurrent urinary tract infections with other antibiotics and started on a 30 day course of Bactrim recently, and found to be positive for C. difficile in the ER. C. difficile colitis: Abdominal CT: Questionable mild thickening and pericolic fat stranding within the descending colon, no evidence for bowel obstruction, colonic diverticulosis, right-sided nephrolithiasis without hydronephrosis. Initial lactic acid 3.5 on presentation, subsequently resolved. On discharge, continue: - Vancomycin PO 125mg x 9 more days - Cholestyramine - Advised for bathroom hygiene with bleach wipes to prevent transmission - Advised to call PCP if diarrhea symptoms resume within 1 week of completing antibiotic regimen ?Melena - Down trending H/H noted, and dark stool visualized by nursing staff. Concern for upper GI bleed. AXR 12/14 showed non-obstructed abdominal bowel gas pattern. GI consulted - recs appreciated. EGD showed severe esophagitis, without bleeding, and no biopsies taken. Symptoms improved with PPI and H2 blockers. Hemoglobin stable and clinical assessment within normal limits. On discharge, continue - Protonix 40mg PO qAM + Zantac 150mg PO qPM - Continue these medications for 3- 6 months to allow healing. - If symptoms improve, or if experiencing side effects, advised to discuss weaning with PCP. - Zofran 4mg PRN nausea - We would advise follow up with your PCP this Friday or next Friday to have your blood counts rechecked. History of recurrent UTI: - Patient put on Bactrim prior to c.diff onset. - No urinary symptoms currently, UA negative - Advised using more conservative methods to prevent UTIs: increased PO fluid intake (~60oz daily), cranberry pills are recommended, though explained evidence is limited, and recommended changing depends/ pads even upon minor soiling, could potentially be helpful to reduce risk of infection. - Advised to call PCP if symptoms of recurrent UTI Acute kidney injury: Likely secondary to dehydration from poor oral intake and GI losses. 2.9 on admission, improved to baseline in last year of ~1.2 on discharge. Discontinued IV fluids in view of normalized creatinine, increased PO intake and risk of fluid overload Hypokalemia - Resolved. 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 - Prednisone 8 mg daily - Advised to apply Voltaren gel ~1g up to every 6 hours on the foot joint for some symptomatic relief Hyperlipidemia: - Continue Zocor Hypothyroidism: - Continue Synthroid PT/OT - Evaluated and safe for home with home health DVT prophylaxis - Heparin SQ Code Status - DO NOT RESUSCITATE Total Time Spent: Less than 30 minutes This includes examination of the patient, discharge planning, medication reconciliation, and communication with other providers. (Alka. Kiran MD) Resident Physician Supervision Note: I interviewed and examined the patient. Discussed with Dr. Kiran and agree with findings and plan as documented in the note. Any exceptions or clarifications are listed here: None Documented By: Mariano Velarde feeling better wants to go home, family in agreement ros otherwise negative except for as above vitals noted nad breathing unlabored no pallor cdiff - vanco, discussed infection precautions/handwashing/bleach/using just one bathroom/etc anemia - ongoing outpt f/u CBC, BMP at the end of the week stable for home otherwise as above (Mariano Velarde, D.O.) Discharge Instructions Please refer to the electronic Patient Visit Report (Discharge Instructions) for additional information. (Alka. Kiran MD) Resident Tracking Resident Involvement: Resident Care Provided Care Provided: Adult Hospital Medicine (Alka. Kiran MD)
== END 2016-12-17 14:22 | disposition home health service (06) | DRG 372 ==
LOC: ENRESERVTM → ENRESERVDT → C.EDB 22:39 → C.2E 12-12 02:47 → UNDOADMIN 12-12 02:47 → C.MS4W 12-13 15:58 → C.2E 12-13 15:58
PROVIDERS: ADMIT Hospitalist; ATTEND Family Medicine
PROC: 0DJ08ZZ Inspection of Upper Intestinal Tract, Via Natural or Artificial Opening Endoscopic (ICD-10-PCS; principal; 2016-12-16 15:00)
DX: A04.7 Enterocolitis due to Clostridium difficile (principal); N39.0 Urinary tract infection, site not specified; N17.9 Acute kidney failure, unspecified; K92.1 Melena; E78.5 Hyperlipidemia, unspecified; M06.9 Rheumatoid arthritis, unspecified; N18.3 Chronic kidney disease, stage 3 (moderate); I12.9 Hypertensive chronic kidney disease with stage 1 through stage 4 chronic kidney disease, or unspecified chronic kidney disease; T36.95XA Adverse effect of unspecified systemic antibiotic, initial encounter; E87.6 Hypokalemia; D53.1 Other megaloblastic anemias, not elsewhere classified; E03.9 Hypothyroidism, unspecified; K21.0 Gastro-esophageal reflux disease with esophagitis; Z66 Do not resuscitate; Z79.52 Long term (current) use of systemic steroids; Z79.899 Other long term (current) drug therapy

== ENCOUNTER → 2016-12-20 | Outpatient (CLI) | payer BC, OTHER ==
[~2016-12-20] MED LIST changes: -BROM0.07; +DICL1GEL12 TOP; -OFLO0.3S4 OPL; +ONDA4TAB46 PO; -PRED1SUS3 OPL; +PRT40 PO; +SIMV40TA2 PO; -SULF800T23 PO; +VANC5CAP PO; -ZCR40 PO; +ZNT150 PO; +[UNRECOGNIZED DRUG - CODE] PO
[2016-12-20 12:13] LABS: HEMATOCRIT 31.8 % (37-47); MEAN CELL VOLUME 102.6 fL (80-100); MEAN CORPUSCULAR HEMOGLOBIN 32.6 pg (25-34); MEAN CORPUSCULAR HGB CONC 31.8 g/dl (32-36); MEAN PLATELET VOLUME 8.9 fL (7.4-10.4); PLATELET COUNT 321 K/uL (130-400); WHITE BLOOD COUNT 10.69 K/uL (4.8-10.8)
== END | disposition home or self-care (01) ==
LOC: C.LABPBG 10:50
PROVIDERS: ATTEND Internal Medicine
DX: E03.9 Hypothyroidism, unspecified (principal)

== ENCOUNTER → 2017-01-17 | Outpatient (CLI) | payer BC, OTHER | END | disposition home or self-care (01) | LOC: C.LABPBG 13:47 | PROVIDERS: ATTEND Internal Medicine | DX: A04.7 Enterocolitis due to Clostridium difficile (principal) ==

== ENCOUNTER → 2017-02-19 | Outpatient (CLI) | payer BC ==
[2017-02-19 14:01] LABS: ALT/SGPT 18 U/L (12-78); AST/SGOT 19 U/L (15-37); BLOOD UREA NITROGEN 18 mg/dl (7-18); CALCIUM 8.6 mg/dl (8.5-10.1); CARBON DIOXIDE 28 mmol/L (21-32); CHLORIDE 107 mmol/L (98-107); GLUCOSE 74 mg/dl (70-99); POTASSIUM 3.9 mmol/L (3.5-5.1); SODIUM 141 mmol/L (136-145)
[2017-02-19 14:03] LABS: BASO % 0.3 %; BASO ABS # 0.03 K/uL (0-0.2); COMPLETE YES; EOS % 3.1 %; HEMATOCRIT 36.8 % (37-47); IG% 0.4 %; LYMPH % 25.7 %; LYMPH ABS # 2.51 K/uL (1.2-3.4); MEAN CELL VOLUME 98.7 fL (80-100); MEAN CORPUSCULAR HEMOGLOBIN 30.6 pg (25-34); MEAN PLATELET VOLUME 9.3 fL (7.4-10.4); NEUT % 63.5 %; PLATELET COUNT 313 K/uL (130-400); RED BLOOD COUNT 3.73 M/uL (4.2-5.4); WHITE BLOOD COUNT 9.77 K/uL (4.8-10.8)
[2017-02-19 14:11] LABS: ALKALINE PHOSPHATASE 71 U/L (45-117)
[2017-02-19 14:15] LABS: URINE APPEARANCE CLEAR (CLEAR); URINE BILIRUBIN NEG (NEG); URINE COLOR YELLOW; URINE NITRITE POS (NEG); URINE PH 5.5 (4.5-7.5); URINE SPECIFIC GRAVITY 1.013 (1.000-1.030); UROBILINOGEN NEG (NEG)
[2017-02-19 14:23] LABS: MANUAL MICROSCOPIC REQUIRED? NO; REVIEW REQ? NO
[2017-02-19 14:29] LABS: LYME DISEASE AB IGM NEG (NEG)
[2017-02-19 14:30] LABS: LYME DISEASE AB IGG NEG (NEG)
--- NOTE | 2017-02-26 11:44 | CODING QUERY MEDICAL NECESSITY ---
CQSUPPORTING DIAGNOSIS NEEDED A supporting diagnosis is required for the test/procedure performed on this patient in order for us to be reimbursed by the patient's insurance. Please provide a supporting diagnosis for the following test/procedure listed below next to the test name along with your signature. *If there is no additional diagnosis for this patient that would support the following test/procedure please document that below next to the test/procedure. Test(s)/Procedure(s) that require a supporting diagnosis: DOS 02/19/17 VITAMIN D TEST URINE CULTURE TEST Provider Signature: Date: Thank you [facility] Once completed, please kindly fax back to [phone] For questions please call [phone]
== END | disposition home or self-care (01) ==
LOC: C.LABBC 10:44
PROVIDERS: ATTEND Internal Medicine
DX: M06.9 Rheumatoid arthritis, unspecified (principal); E55.9 Vitamin D deficiency, unspecified; R39.9 Unspecified symptoms and signs involving the genitourinary system

== ENCOUNTER → 2017-02-25 | Outpatient (CLI) | payer BC | END | disposition home or self-care (01) | LOC: C.LABBC 12:51 | PROVIDERS: ATTEND Internal Medicine | DX: A04.7 Enterocolitis due to Clostridium difficile (principal) ==

== ENCOUNTER → 2017-04-03 | Outpatient (CLI) | payer BC ==
[2017-04-03 17:42] LABS: URINE APPEARANCE CLEAR (CLEAR); URINE BILIRUBIN NEG (NEG); URINE COLOR YELLOW; URINE EPITHELIAL CELL AUTO 20-30 /lpf (0-5); URINE NITRITE POS (NEG); URINE SPECIFIC GRAVITY 1.015 (1.000-1.030); UROBILINOGEN NEG (NEG); ZZUR CULT IF INDIC CLEAN CATCH YES
[2017-04-03 17:54] LABS: MANUAL MICROSCOPIC REQUIRED? NO; REVIEW REQ? NO
== END | disposition home or self-care (01) ==
LOC: C.LABSPEC 14:43
PROVIDERS: ATTEND Internal Medicine
DX: R39.9 Unspecified symptoms and signs involving the genitourinary system (principal)

== ENCOUNTER → 2017-06-16 | Outpatient (CLI) | payer BC ==
[2017-06-16 17:56] LABS: URINE APPEARANCE CLOUDY (CLEAR); URINE BILIRUBIN NEG (NEG); URINE COLOR YELLOW; URINE EPITHELIAL CELL AUTO >30 /lpf (0-5); URINE NITRITE NEG (NEG); URINE SPECIFIC GRAVITY 1.022 (1.000-1.030); UROBILINOGEN NEG (NEG)
[2017-06-16 18:01] LABS: MANUAL MICROSCOPIC REQUIRED? NO; REVIEW REQ? YES
== END | disposition home or self-care (01) ==
LOC: C.LABSPEC 14:23
PROVIDERS: ATTEND Family Medicine
DX: R39.9 Unspecified symptoms and signs involving the genitourinary system (principal)

== ENCOUNTER → 2017-06-16 | Outpatient (CLI) | payer BC ==
[2017-06-16 17:42] LABS: BASO % 0.5 %; BASO ABS # 0.05 K/uL (0-0.2); COMPLETE YES; EOS % 0.7 %; HEMATOCRIT 35.1 % (37-47); IG% 0.4 %; LYMPH % 6.4 %; LYMPH ABS # 0.61 K/uL (1.2-3.4); MEAN CELL VOLUME 98.9 fL (80-100); MEAN CORPUSCULAR HGB CONC 31.3 g/dl (32-36); MEAN PLATELET VOLUME 9.9 fL (7.4-10.4); MONO % 4.8 %; NEUT % 87.2 %; PLATELET COUNT 262 K/uL (130-400); RED BLOOD COUNT 3.55 M/uL (4.2-5.4)
[2017-06-16 18:40] LABS: ALT/SGPT 27 U/L (12-78); BLOOD UREA NITROGEN 25 mg/dl (7-18); BUN/CREATININE RATIO 13.6 (10-20); CALCIUM 8.8 mg/dl (8.5-10.1); CARBON DIOXIDE 23 mmol/L (21-32); CHLORIDE 109 mmol/L (98-107); CREATININE 1.84 mg/dl (0.60-1.20); GLUCOSE 106 mg/dl (70-99); POTASSIUM 4.2 mmol/L (3.5-5.1); SODIUM 144 mmol/L (136-145)
[2017-06-16 18:52] LABS: ALB/GLOB RATIO 1.1 (0.9-2); ALKALINE PHOSPHATASE 78 U/L (45-117); AST/SGOT 25 U/L (15-37); THYROID STIMULATING HORMONE 0.907 uIu/ml (0.300-4.500)
== END | disposition home or self-care (01) ==
LOC: C.LABPBG 15:07
PROVIDERS: ATTEND Internal Medicine
DX: M06.9 Rheumatoid arthritis, unspecified (principal); M25.571 Pain in right ankle and joints of right foot; Z79.52 Long term (current) use of systemic steroids; T38.0X1A Poisoning by glucocorticoids and synthetic analogues, accidental (unintentional), initial encounter; Z79.899 Other long term (current) drug therapy; E55.9 Vitamin D deficiency, unspecified; I10 Essential (primary) hypertension; F03.91 Unspecified dementia, unspecified severity, with behavioral disturbance; E03.9 Hypothyroidism, unspecified; M62.81 Muscle weakness (generalized)

== ENCOUNTER → 2017-07-04 | Outpatient (CLI) | payer BC ==
[~2017-07-04] MED LIST changes: -ONDA4TAB46 PO
[2017-07-04 17:27] LABS: URINE APPEARANCE CLEAR (CLEAR); URINE BILIRUBIN NEG (NEG); URINE COLOR YELLOW; URINE EPITHELIAL CELL AUTO 20-30 /lpf (0-5); URINE NITRITE NEG (NEG); URINE SPECIFIC GRAVITY 1.019 (1.000-1.030); UROBILINOGEN NEG (NEG); ZZUR CULT IF INDIC CLEAN CATCH YES
[2017-07-04 17:31] LABS: MANUAL MICROSCOPIC REQUIRED? NO; REVIEW REQ? NO
== END | disposition home or self-care (01) ==
LOC: C.LABBC 13:07
PROVIDERS: ATTEND Internal Medicine
DX: R39.9 Unspecified symptoms and signs involving the genitourinary system (principal)

== ENCOUNTER → 2017-08-19 | Outpatient (CLI) | payer BC ==
[~2017-08-19] MED LIST changes: -FOLI1TAB7 PO; +FOLI1TAB8 PO
== END | disposition home or self-care (01) ==
LOC: C.LABBC 08:23
PROVIDERS: ATTEND Internal Medicine
DX: N35.9 Urethral stricture, unspecified (principal); R39.9 Unspecified symptoms and signs involving the genitourinary system

== ENCOUNTER → 2017-08-21 | Outpatient (CLI) | payer BC ==
[2017-08-21 18:13] LABS: BASO % 0.3 %; BASO ABS # 0.03 K/uL (0-0.2); EOS % 0.7 %; EOS ABS # 0.08 K/uL (0-0.5); HEMATOCRIT 32.9 % (37-47); HEMOGLOBIN 10.4 g/dL (12.0-16.0); IG# 0.03 K/uL (0.00-0.02); LYMPH % 6.7 %; LYMPH ABS # 0.74 K/uL (1.2-3.4); MEAN CELL VOLUME 102.2 fL (80-100); MEAN CORPUSCULAR HEMOGLOBIN 32.3 pg (25-34); MEAN CORPUSCULAR HGB CONC 31.6 g/dl (32-36); MEAN PLATELET VOLUME 9.6 fL (7.4-10.4); MONO % 1.7 %; MONO ABS # 0.19 K/uL (0.11-0.59); NEUT % 90.3 %; NEUT ABS # 9.96 K/uL (1.4-6.5); PLATELET COUNT 246 K/uL (130-400); RED CELL DISTRIBUTION WIDTH CV 16.4 % (11.5-14.5); RED CELL DISTRIBUTION WIDTH SD 60.6 fL (36.4-46.3); WHITE BLOOD COUNT 11.03 K/uL (4.8-10.8)
[2017-08-21 18:34] LABS: ALBUMIN 3.5 gm/dl (3.4-5.0); ALT/SGPT 19 U/L (12-78); AST/SGOT 22 U/L (15-37); CREATININE 1.97 mg/dl (0.60-1.20)
[2017-08-21 18:36] LABS: ALKALINE PHOSPHATASE 68 U/L (45-117); TOTAL PROTEIN 6.8 gm/dl (6.4-8.2)
== END | disposition home or self-care (01) ==
LOC: C.LABPBG 13:48
PROVIDERS: ATTEND Internal Medicine Rheumatology
DX: M81.8 Other osteoporosis without current pathological fracture (principal)

== ENCOUNTER → 2017-08-28 | Outpatient (CLI) | payer BC | END | disposition home or self-care (01) | LOC: C.LABSPEC 13:46 | PROVIDERS: ATTEND Family Medicine | DX: R39.9 Unspecified symptoms and signs involving the genitourinary system (principal) ==

== ENCOUNTER → 2017-10-13 | Outpatient (CLI) | payer BC | END | disposition home or self-care (01) | LOC: C.LABBC 11:19 | PROVIDERS: ATTEND Internal Medicine | DX: N39.0 Urinary tract infection, site not specified (principal) ==

== ENCOUNTER → 2017-10-28 | Outpatient (CLI) | payer BC | END | disposition home or self-care (01) | LOC: C.LABBC 11:43 | PROVIDERS: ATTEND Nurse Practitioner Adult Health | DX: N39.0 Urinary tract infection, site not specified (principal) ==

== ENCOUNTER → 2017-11-03 | Outpatient (CLI) | payer BC ==
--- NOTE | 2017-11-03 11:35 | DIAGNOSTIC IMAGING REPORT ---
CHEST 2 VIEWS ROUTINE CLINICAL HISTORY: 81 years-old Female presenting with R05 Cough. TECHNIQUE: PA and lateral views of the chest were obtained. COMPARISON: 12/11/2016. FINDINGS: Atherosclerosis of the aortic arch. Cardiac silhouette top normal in size. Heterogeneity of lung parenchyma. No focal opacity. No large effusion or pneumothorax. Osteopenia suspected with exaggerated thoracic kyphosis. No focal compression deformity. Cholecystectomy clips noted. IMPRESSION: 1. Heterogeneity of lung parenchyma could suggest underlying emphysema though no hyperinflation is evident. Otherwise no acute cardiopulmonary disease. 2. Osteopenia. Electronically signed by: Vasiliy Chávez M.D. 11/03/2017 11:34 AM Dictated Date/Time: 11/03/2017 11:32 AM
== END | disposition home or self-care (01) ==
LOC: C.RADBC 11:16
PROVIDERS: ATTEND Family Medicine Adult Medicine
DX: J98.4 Other disorders of lung (principal); R05 Cough

== ENCOUNTER → 2017-11-12 | Outpatient (CLI) | payer BC | END | disposition home or self-care (01) | LOC: C.LABBC 09:26 | PROVIDERS: ATTEND Nurse Practitioner Adult Health | DX: N39.0 Urinary tract infection, site not specified (principal) ==

== ENCOUNTER → 2017-12-08 | Outpatient (CLI) | payer BC ==
--- NOTE | 2017-12-08 14:07 | DIAGNOSTIC IMAGING REPORT ---
(RENAL)RETROPERITON COMP CLINICAL HISTORY: 82 years-old Female presenting with N39.0 UTI. TECHNIQUE: Real-time grayscale and limited color Doppler ultrasound imaging of the kidneys and bladder was performed. COMPARISON: CT from 12/11/2016. FINDINGS: Right kidney: Multiple well-defined simple appearing anechoic cysts. Residual parenchyma is grossly normal appearing. Right kidney measures 12.3 cm. No hydronephrosis. No sonographically visible calculi. Left kidney: Multiple well-defined simple appearing anechoic cysts. Residual parenchyma is grossly normal appearing. Left kidney measures 10.0 cm. Minimal pelviectasis. No hydronephrosis. No sonographic evidence of calculus. Bladder: Allowing for incomplete distention, the bladder is grossly normal. Bilateral ureteral jets present. Other: None. IMPRESSION: 1. Cystic renal disease. 2. No hydronephrosis. 3. No sonographically visible no calculi though a nonobstructing renal calculus is evident on prior CT from one year ago. 4. Normal bladder allowing for incomplete distention. Electronically signed by: Vasiliy Chávez M.D. 12/08/2017 2:06 PM Dictated Date/Time: 12/08/2017 2:03 PM
== END | disposition home or self-care (01) ==
LOC: C.ULTRBC 12:53
PROVIDERS: ATTEND Urology
DX: N39.0 Urinary tract infection, site not specified (principal); R32 Unspecified urinary incontinence; N28.1 Cyst of kidney, acquired

== ENCOUNTER → 2017-12-11 | Outpatient (CLI) | payer BC | END | disposition home or self-care (01) | LOC: C.LABSPEC 12:29 | PROVIDERS: ATTEND Nurse Practitioner Family | DX: N39.0 Urinary tract infection, site not specified (principal) ==

== ENCOUNTER → 2018-03-26 | Outpatient (CLI) | payer BC ==
[~2018-03-26] MED LIST changes: +PANT1TAB4 PO; -PRT40 PO
== END | disposition home or self-care (01) ==
LOC: C.LABOUTLO 08:11
PROVIDERS: ATTEND Nurse Practitioner Adult Health
DX: R39.9 Unspecified symptoms and signs involving the genitourinary system (principal)

== ENCOUNTER 2018-07-29 10:53 | Inpatient (IN) ==
[2018-07-29 11:38] LABS: Basophils # (auto) 0.04 K/uL (0-0.2); Basophils % (auto) 0.3 %; Eosinophils # (auto) 0.05 K/uL (0-0.5); Eosinophils % (auto) 0.4 %; Hematocrit (blood only) 37.5 % (37-47); Immature Granulocytes # (auto) 0.15 K/uL (0.00-0.02); Immature Granulocytes % (auto) 1.2 %; Lymphocytes # (auto) 0.86 K/uL (1.2-3.4); Lymphocytes % (auto) 7.1 %; Mean Corpuscular Volume 96.2 fL (80-100); Monocytes # (auto) 0.74 K/uL (0.11-0.59); Monocytes % (auto) 6.1 %; Neutrophils # (auto) 10.24 K/uL (1.4-6.5); Neutrophils % (auto) 84.9 %; Platelet Count 491 K/uL (130-400); RDW Coefficient of Variation 15.7 % (11.5-14.5); RDW Standard Deviation 55.2 fL (36.4-46.3); White Blood Count 12.08 K/uL (4.8-10.8)
[2018-07-29 11:54] LABS: Albumin Level 3.2 gm/dl (3.4-5.0); BUN Creatinine Ratio 13.8 (10-20); Calcium 9.7 mg/dl (8.5-10.1); Creatinine Clr Calc Pharmacy 17.5 ml/min; Est GFR (African American) 25.8; Est GFR (Non-African American) 22.2; Potassium 4.1 mmol/L (3.5-5.1)
[2018-07-29 11:57] LABS: Albumin Globulin Ratio 0.8 (0.9-2); Bilirubin,Total 0.3 mg/dl (0.1-1); Globulin 4.1 gm/dl (2.5-4.0); Total Protein 7.3 gm/dl (6.4-8.2)
[2018-07-29] MEDS ORDERED: SODIUM CHLORIDE 0.9% 1000ML 1,000 ML IV ONE (12:29)
[2018-07-29] MEDS ORDERED: ACETAMINOPHEN 1000 MG/100 ML IV IV STA (12:29)
[2018-07-29] MEDS ORDERED: ONDANSETRON INJ 2 MG/ML 2 ML VIAL IV STA (12:29)
[2018-07-29 13:13] LABS: Magnesium 2.2 mg/dl (1.8-2.4); Troponin I < 0.015 ng/ml (0-0.045)
[2018-07-29] MEDS ORDERED: IOVERSOL 100ml IV PRN (13:18)
--- NOTE | 2018-07-29 13:38 | CT Scan Report ---
ABDOMEN AND PELVIS CT WITH IV CONTRAST CT DOSE: 813.76 mGycm HISTORY: Nausea. Vomiting. Diarrhea. Generalized abdominal pain. TECHNIQUE: Multiaxial CT images of the abdomen and pelvis were performed following the use of intrave nous contrast. A dose lowering technique was utilized adhering to the principles of ALARA. COMPARISON STUDY: Pelvis CT 05/26/2018. Abdomen and pelvis CT 12/11/2016. FINDINGS: The lung bases are clear. No pneumoperitoneum. No pneumatosis. Recent internal fixation of a right intertrochanteric hip fracture. This demonstrates partial healing. Severe disc space narrowin g and grade I anterolisthesis at L4-L5. Prior mesh repair of a ventral hernia is noted. There is pelv ic floor collapse. The bladder, uterus, and adnexa are unremarkable. Colonic diverticulosis. The colo n is decompressed. This results in suboptimal evaluation. No evidence for bowel obstruction. Normal a ppendix. The liver, spleen, and adrenal glands are unremarkable. Multiple bilateral cortical and adri pelvic renal hypodense lesions. These likely represent cysts. No hydronephrosis. No retroperitoneal l ymphadenopathy. 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 This re sandra unchanged. There is question of mild thickening and pericolic fat stranding within the descendi ng colon, splenic flexure of the colon, and majority of the sigmoid colon. This raises the possibilit y of a low-grade colitis. Stable peripherally calcified nodule within the gallbladder fossa measuring 1.5 cm. Stable 13 mm hypodense lesion within the uncinate process of the pancreas. 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 IMPRESSION: 1. There is question of mild thickening and pericolic fat stranding within the descending colon, sple makayla flexure of the colon, and majority of the sigmoid colon. This raises the possibility of a low-gra de colitis. 2. No evidence for bowel obstruction. 3. Recent internal fixation of a healing right intertrochanteric hip fracture. 4. Additional findings as described above. Electronically signed by: Michael Harris M.D. 07/29/2018 1:37 PM
[2018-07-29] MEDS ORDERED: DICYCLOMINE HCL 20 MG TAB PO STA (13:58)
--- NOTE | 2018-07-29 14:27 | Emergency Department Note ---
Entered by Jacqueline Knox acting as a scribe for Anita Rodriguez DO History of Present Illness General Chief complaint: Illness Time Seen by Provider: 07/29/18 11:55 Source: patient and family (at bedside) History of Present Illness Onset (ago): week(s) (couple) Location: abdomen Pain Consistency: + constant Maximum Pain Intensity: 5 Relieved By: + none Associated symptoms: + denies other symptoms (fever, blood in vomit), + nausea/ vomiting and + other (left leg pain, diarrhea) The patient is a 82 year old F who presents to the Emergency Room with complaints of constant abdominal pain starting a couple of months ago. The patient current lives in assisted living. The patient states that she was constipated a couple of weeks ago which is the source of her abdominal pain. The rest of the HPI was provided by the patients family at bedside. A female family member in the room states that the patient was recently diagnosed with C. diff but was treated and has been improved since. She adds that the patient notes blood in her bowel movements. She notes that the patient vomited 4 times today. She adds that the patient is currently dry heaving. She notes that the patient recently had a colonoscopy done that was reported as normal. The patient states that she is currently having nausea, left leg pain which is chronic, and diarrhea. The patient denies having a fever and blood In her vomit. Pt with prior hip replacement this year and has had pain in her hip since then. The patient's HPI is limited due to the patient's condition of dementia. Home Medications Home Medications Medication Instructions Recorded Confirmed Type Jonny Biotics 1 tab PO QAM 05/23/18 07/29/18 History acetaminophen [Tylenol Extra 1,000 mg PO TID MDD 3 GRAMS/24 05/23/18 07/29/18 History Strength] HOURS calcium carbonate [Tums] 200 mg PO [id number] 05/23/18 07/29/18 History cholestyramine-aspartame 4 g PO QAM 05/23/18 07/29/18 History [Prevalite] cranberry 500 mg PO QAM 05/23/18 07/29/18 History donepezil 10 mg PO HS 05/23/18 07/29/18 History folic acid 1 mg PO [id number] 05/23/18 07/29/18 History methotrexate sodium 2.5 mg PO WK 05/23/18 07/29/18 History mirtazapine 45 mg PO HS 05/23/18 07/29/18 History oauujqhr-fomg-YF-calcium-mins [One 1 tab PO QAM 05/23/18 07/29/18 History Daily Women's] pantoprazole 40 mg PO QAM 05/23/18 07/29/18 History ranitidine HCl [Zantac] 150 mg PO HS 05/23/18 07/29/18 History simvastatin 40 mg PO HS 05/23/18 07/29/18 History Salonpas Lidopatch 1 patch TOPICAL DAILY 07/29/18 07/29/18 History acetaminophen [Tylenol] 650 mg PO Q6H PRN MDD MAX 3 07/29/18 07/29/18 History GRAM/24 HOURS amlodipine 5 mg PO QAM 07/29/18 07/29/18 History aspirin [Aspir-81] 81 mg PO QAM 07/29/18 07/29/18 History clobetasol 1 applic TOPICAL BID 07/29/18 07/29/18 History diclofenac sodium 4 g TOPICAL QID 07/29/18 07/29/18 History ferrous sulfate 325 mg PO QAM 07/29/18 07/29/18 History guaifenesin [Mucinex] 600 mg PO Q12H PRN 07/29/18 07/29/18 History levothyroxine 112 mcg PO QAM 07/29/18 07/29/18 History prednisone 1 mg PO QAM 07/29/18 07/29/18 History quetiapine 12.5 mg PO DAILY PRN 07/29/18 07/29/18 History ciprofloxacin HCl 500 mg PO Q12 #9 tab 08/01/18 Rx metronidazole 500 mg PO TID #13 tab 08/01/18 Rx Allergies Allergy/AdvReac Type Severity Reaction Status Date / Time Penicillins Allergy Unknown SWELLING Verified 07/29/18 15:43 celecoxib AdvReac Intermediate N/V Verified 07/29/18 15:43 cephalexin AdvReac Intermediate N/V Verified 07/29/18 15:43 methotrexate AdvReac Intermediate N/V Verified 07/29/18 15:43 nitrofurantoin AdvReac Intermediate N/V Verified 07/29/18 15:43 risedronate sodium AdvReac Intermediate NAUSEA AND Verified 07/29/18 15:43 VOMITING Past Med/Surg History Medical History Hyperlipidemia Hypertension GERD (gastroesophageal reflux disease) Rheumatoid arthritis Dementia Chronic UTI Fall (Inactive) Hip pain, right (Inactive) ASCVD (arteriosclerotic cardiovascular disease) CKD (chronic kidney disease) Kidney stones PVD (peripheral vascular disease) Surgical History History of umbilical hernia repair Hx of cholecystectomy Hx of colonoscopy Hx of esophagogastroduodenoscopy Social History marital status: / Current Living Situation: Personal Care Facility Current Living Situation Comment: [facility] Feels Safe at Home: Yes Safety Concerns: Feels Safe At This Time Smoking Status: Never smoker Hx Alcohol Use: No Hx Substance Use: No Beliefs That Will Affect Care: None Preferred Language: Kyrgyz Review of Systems See HPI for pertinent positives & negatives. and A total of 10 systems reviewed and were otherwise negative The patient's ROS is limited due to the patient's condition of dementia. Physical Exam Vital Signs Vital Signs - 24 hr 07/31/18 15:17 07/31/18 18:53 07/31/18 23:55 Temperature 36.3 C L 36.8 C Temperature Source Axillary Oral Pulse Rate [Apical] 72 83 Respiratory Rate 18 18 Blood Pressure [Left Arm] 182/83 H 164/77 H 198/99 H Blood Pressure [Right Arm] Blood Pressure Mean [Left Arm] 116 106 132 Blood Pressure Position [Left Arm] Left Lateral Lying Lying Pulse Oximetry 97 97 Oxygen Delivery Method Room Air Room Air 08/01/18 00:00 08/01/18 06:53 08/01/18 12:12 Temperature 36.9 C 36.9 C Temperature Source Oral Pulse Rate [Apical] 93 H 79 79 Respiratory Rate 18 18 Blood Pressure [Left Arm] 189/91 H 182/84 H Blood Pressure [Right Arm] 179/76 H Blood Pressure Mean [Left Arm] 123 116 Blood Pressure Position [Left Arm] Lying Lying Pulse Oximetry 99 99 Oxygen Delivery Method Room Air GENERAL: alert, uncomfortable appearing, well nourished, moderate distress, non- toxic, EYE EXAM: normal conjunctiva, PERRL and EOM's grossly intact OROPHARYNX: no exudate, no erythema, lips, buccal mucosa, and tongue normal and mucous membranes are moist NECK: supple, no nuchal rigidity, no adenopathy, non-tender LUNGS: Clear to auscultation. Normal chest wall mechanics, no w/r/r HEART: no murmurs, S1 normal and S2 normal ABDOMEN: abdomen soft, generalized abdominal tenderness with palpation, dull to percussion, no masses, no rebound or guarding. BACK: Back is symmetrical on inspection and there is no deformity, no midline tenderness, no CVA tenderness. SKIN: no rashes and no bruising UPPER EXTREMITIES: upper extremities are grossly normal. FROM, nml pulses b/l. LOWER EXTREMITIES: No pitting edema. Decreased ROM b/l secondary to pain actively, passively has FROM. NEURO EXAM: Normal sensorium, cranial nerves II-XII grossly intact, normal speech, no gross weakness of arms, no gross weakness of legs. Course 1205: Past medical records reviewed. The patient was evaluated in room B10, and a complete history and physical examination were performed. 1410: I re-evaluated the patient and updated her on her test results. 1426: I reviewed the patient's case with Dr. Parham, [facility] Hospitalist. She will evaluate the patient for further management. Consultations Consultation #1: I reviewed the patient's case with Dr. Parham, [facility] Hospitalist. She will evaluate the patient for further management. Time: 14:26 Administered Medications Acetaminophen (Tylenol) 1,000 mg PO Q6H PRN PRN Reason: Fever Or Pain Stop: 08/28/18 16:15 Last Admin: 08/01/18 06:14 Dose: 1,000 mg Admin: 07/30/18 17:39 Dose: 1,000 mg Admin: 07/30/18 10:26 Dose: 1,000 mg Admin: 07/29/18 22:26 Dose: 1,000 mg Cholestyramine Resin (Questran) 4 gm PO DAILY@1000 [facility] Stop: 08/31/18 09:59 Last Admin: 08/01/18 11:32 Dose: 4 gm Ciprofloxacin (Cipro) 500 mg PO Q12 [facility] Stop: 08/08/18 20:59 Last Admin: 08/01/18 09:23 Dose: 500 mg Admin: 07/31/18 20:21 Dose: 500 mg Diclofenac Sodium (Voltaren 1% Top) 1 appln EXT BID [facility] Stop: 08/30/18 00:14 Last Admin: 08/01/18 09:31 Dose: 1 appln Admin: 07/31/18 20:17 Dose: 1 appln Admin: 07/31/18 07:56 Dose: 1 appln Admin: 07/31/18 04:13 Dose: 1 appln Donepezil HCl (Aricept) 10 mg PO HS [facility] Stop: 08/28/18 20:59 Last Admin: 07/31/18 20:41 Dose: 10 mg Admin: 07/30/18 21:29 Dose: 10 mg Admin: 07/29/18 20:42 Dose: 10 mg Folic Acid (Folvite) 1 mg PO [id number] [facility] Stop: 08/29/18 08:59 Last Admin: 08/01/18 09:23 Dose: 1 mg Admin: 07/31/18 07:54 Dose: 1 mg Admin: 07/30/18 08:51 Dose: 1 mg Heparin Sodium (Porcine) (Heparin Sodium (Porcine)) 5,000 units SQ Q12 [facility] Stop: 08/28/18 20:59 Last Admin: 08/01/18 09:25 Dose: 5,000 units Admin: 07/31/18 20:26 Dose: 5,000 units Admin: 07/31/18 07:55 Dose: 5,000 units Admin: 07/30/18 21:44 Dose: Not Given Admin: 07/30/18 08:52 Dose: 5,000 units Admin: 07/29/18 20:45 Dose: 5,000 units Levothyroxine Sodium (Synthroid) 100 mcg PO DAILYBB [facility] Stop: 08/29/18 06:29 Last Admin: 08/01/18 05:59 Dose: 100 mcg Admin: 07/31/18 06:21 Dose: 100 mcg Admin: 07/30/18 06:25 Dose: 100 mcg Metronidazole (Flagyl) 500 mg PO TID [facility] Stop: 08/08/18 14:59 Last Admin: 08/01/18 09:24 Dose: 500 mg Admin: 07/31/18 20:21 Dose: 500 mg Admin: 07/31/18 16:24 Dose: 500 mg Mirtazapine (Remeron Solutab) 45 mg PO HS [facility] Stop: 08/28/18 20:59 Last Admin: 07/31/18 20:21 Dose: 45 mg Admin: 07/30/18 21:29 Dose: 45 mg Admin: 07/29/18 20:44 Dose: 45 mg [facility]oprazole S[facility]) [facility]: 08/29/18 08:59 Last Admin: 08/01/18 09:24 Dose: 40 mg Admin: 07/31/18 07:54 Dose: 40 mg Admin: 07/30/18 08:51 Dose: 40 mg Prednisone (Prednisone) 10 mg PO DAILY [facility] Stop: 08/30/18 08:59 Last Admin: 08/01/18 09:23 Dose: 10 mg Admin: 07/31/18 07:55 Dose: 10 mg Ranitidine HCl (Zantac) 150 mg PO [facility] Stop: 08/28/18 20:59 Last Admin: 07/31/18 20:22 Dose: 150 mg Admin: 07/30/18 21:29 Dose: 150 mg Admin: 07/29/18 20:44 Dose: 150 mg Simvastatin (Zocor) 40 mg PO [facility] Stop: 08/28/18 20:59 Last Admin: 07/31/18 20:22 Dose: 40 mg Admin: 07/30/18 21:29 Dose: 40 mg Admin: 07/29/18 20:44 Dose: 40 mg Discontinued Medications Acetaminophen (Ofirmev) 1,000 mg IV NOW STA Stop: 07/29/18 12:30 Last Admin: 07/29/18 12:49 Dose: 1,000 mg Cholestyramine Resin (Questran) 4 gm PO [facility] Stop: 08/29/18 08:59 Last Admin: 07/31/18 07:57 Dose: 4 gm Admin: 07/30/18 08:52 Dose: 4 gm Dicyclomine HCl (Bentyl) 20 mg PO NOW STA Stop: 07/29/18 13:59 Last Admin: 07/29/18 15:19 Dose: 20 mg Sodium Chloride (Nss 1000ml) 1,000 mls @ 999 mls/hr IV .Q1H1M ONE Stop: 07/29/18 13:29 Last Infusion: 07/29/18 13:57 Dose: 0 mls/hr Admin: 07/29/18 12:49 Dose: 999 mls/hr Sodium Chloride (Nss 1000ml) 1,000 mls @ 125 mls/hr IV .Q8H [facility] Stop: 08/28/18 14:29 Last Infusion: 07/29/18 23:34 Dose: 0 mls/hr Admin: 07/29/18 15:19 Dose: 125 mls/hr Metronidazole (Flagyl) 500 mg in 100 mls @ 100 mls/hr IV NOW STA Stop: 07/29/18 15:30 Last Infusion: 07/29/18 16:20 Dose: 0 mls/hr Admin: 07/29/18 15:20 Dose: 100 mls/hr Ciprofloxacin (Cipro) 400 mg in 200 mls @ 200 mls/hr IV NOW STA Stop: 07/29/18 15:30 Last Infusion: 07/29/18 16:20 Dose: 0 mls/hr Admin: 07/29/18 15:19 Dose: 200 mls/hr Ciprofloxacin Lactate (Cipro / D5w) 200 mg in 100 mls @ 100 mls/hr IV Q12 [facility] Stop: 08/08/18 20:59 Last Infusion: 07/31/18 08:55 Dose: 0 mls/hr Admin: 07/31/18 07:49 Dose: 100 mls/hr Infusion: 07/30/18 22:28 Dose: 0 mls/hr Admin: 07/30/18 21:28 Dose: 100 mls/hr Infusion: 07/30/18 09:56 Dose: 0 mls/hr Admin: 07/30/18 08:59 Dose: 100 mls/hr Infusion: 07/29/18 21:45 Dose: 0 mls/hr Admin: 07/29/18 20:43 Dose: 100 mls/hr Metronidazole (Flagyl) 500 mg in 100 mls @ 100 mls/hr IV Q8H [facility]; Protocol Stop: 08/09/18 00:00 Last Infusion: 07/31/18 08:55 Dose: 0 mls/hr Admin: 07/31/18 07:49 Dose: 100 mls/hr Infusion: 07/31/18 01:05 Dose: 0 mls/hr Admin: 07/31/18 00:05 Dose: 100 mls/hr Infusion: 07/30/18 16:57 Dose: 0 mls/hr Admin: 07/30/18 15:58 Dose: 100 mls/hr Infusion: 07/30/18 09:56 Dose: 0 mls/hr Admin: 07/30/18 08:47 Dose: 100 mls/hr Infusion: 07/30/18 03:29 Dose: 0 mls/hr Admin: 07/30/18 00:23 Dose: 100 mls/hr Potassium Chloride/Sodium Chloride (Normal Saline W/20 Meq Kcl) 20 meq in 1, 000 mls @ 100 mls/hr IV .Q10H [facility] Stop: 08/28/18 16:44 Last Infusion: 07/31/18 08:56 Dose: 0 mls/hr Admin: 07/31/18 07:53 Dose: 100 mls/hr Infusion: 07/31/18 07:53 Dose: 100 mls/hr Admin: 07/30/18 22:30 Dose: 100 mls/hr Infusion: 07/30/18 22:30 Dose: 100 mls/hr Admin: 07/30/18 13:26 Dose: 100 mls/hr Infusion: 07/30/18 13:26 Dose: 100 mls/hr Admin: 07/30/18 04:56 Dose: 100 mls/hr Infusion: 07/30/18 03:03 Dose: 100 mls/hr Admin: 07/29/18 17:03 Dose: 100 mls/hr Hydrocortisone Sodium (Succinate 50 mg/ Syringe) 1 mls @ 4 mls/min IV Q8H [facility] Stop: 07/31/18 04:59 Last Admin: 07/30/18 21:28 Dose: 4 mls/min Admin: 07/30/18 13:25 Dose: 4 mls/min Admin: 07/30/18 06:24 Dose: 4 mls/min Admin: 07/29/18 21:45 Dose: 4 mls/min Ioversol (Optiray 320 100ml) 93 ml IV ONCE PRN PRN Reason: Interaction Checking Stop: 08/02/18 13:17 Last Admin: 07/29/18 13:19 Dose: 93 ml Ondansetron HCl (Zofran) 4 mg IV NOW STA Stop: 07/29/18 12:30 Last Admin: 07/29/18 12:49 Dose: 4 mg Raspberry (Raspberry) 5 ml PO Q6 [facility] Stop: 08/12/18 17:59 Last Admin: 07/30/18 06:24 Dose: 5 ml Admin: 07/30/18 00:23 Dose: 5 ml Admin: 07/29/18 18:26 Dose: 5 ml Vancomycin HCl (Vancomycin Hcl) 125 mg PO Q6 [facility] Stop: 07/31/18 17:59 Last Admin: 07/30/18 06:23 Dose: 125 mg Admin: 07/30/18 00:23 Dose: 125 mg Admin: 07/29/18 18:26 Dose: 125 mg Medical Decision Making Differential Diagnosis Differential diagnoses includes but is not limited to gastritis, peptic ulcer disease, GERD, gallbladder disease, pancreatitis, small bowel obstruction, acute coronary syndrome, pericarditis, ischemic bowel, irritable bowel disease, irritable bowel syndrome, appendicitis, diverticulitis, malignancy, hernia, urinary tract infection, torsion, [/ectopic (if female)], perforation, trauma, infectious. Medical Records Attestation: I reviewed the patient's medical records. Home Medications Current Medication List: was personally reviewed by me Laboratory Data Attestation: I reviewed the patient's lab results. Result diagrams: 08/01/18 07:07 08/01/18 07:07 Lab Results 07/29/18 07/29/18 07/29/18 Range/Units 11:20 11:20 11:20 WBC 12.08 H (4.8-10.8) K/uL RBC 3.90 L (4.2-5.4) M/uL Hgb 12.0 (12.0-16.0) g/dL Hct 37.5 (37-47) % MCV 96.2 (80-100) fL MCH 30.8 (25-34) pg MCHC 32.0 (32-36) g/dL RDW Std Deviation 55.2 H (36.4-46.3) fL RDW Coeff of Adrien 15.7 H (11.5-14.5) % Plt Count 491 H (130-400) K/uL MPV 9.0 (7.4-10.4) fL Immature Gran % (Auto) 1.2 % Neut % (Auto) 84.9 % Lymph % (Auto) 7.1 % [place] % (Auto) 6.1 % Eos % (Auto) 0.4 % Baso % (Auto) 0.3 % Immature Gran # (Auto) 0.15 H (0.00-0.02) K/uL Neut # (Auto) 10.24 H (1.4-6.5) K/uL Lymph # (Auto) 0.86 L (1.2-3.4) K/uL [place] # (Auto) 0.74 H (0.11-0.59) K/uL Eos # (Auto) 0.05 (0-0.5) K/uL Baso # (Auto) 0.04 (0-0.2) K/uL PT 10.0 (9.0-12.0) Seconds INR 1.0 (0.9-1.1) Sodium 135 L (136-145) mmol/L Potassium 4.1 (3.5-5.1) mmol/L Chloride 101 (98-107) mmol/L Carbon Dioxide 22 (21-32) mmol/L Anion Gap 12.0 H (3-11) BUN 28 H (7-18) mg/dl Creatinine 2.02 H (0.6-1.2) mg/dl Est Cr Clr Drug Dosing 17.5 ml/min Est GFR ( Amer) 25.8 Est GFR (Non-Af Amer) 22.2 BUN/Creatinine Ratio 13.8 (10-20) Glucose 131 H (70-99) mg/dl POC Lactic Acid Manuelito (0.90-1.70) mmol/L Calcium 9.7 (8.5-10.1) mg/dl Magnesium (1.8-2.4) mg/dl Total Bilirubin 0.3 (0.1-1) mg/dl AST 17 (15-37) U/L ALT 15 (12-78) U/L Alkaline Phosphatase 114 (45-117) U/L Troponin I (0-0.045) ng/ml Total Protein 7.3 (6.4-8.2) gm/dl Albumin 3.2 L (3.4-5.0) gm/dl Globulin 4.1 H (2.5-4.0) gm/dl Albumin/Globulin Ratio 0.8 L (0.9-2) Lipase 214 (73-393) U/L Stl C. diff Tox B Gene (Neg) 07/29/18 07/29/18 07/29/18 Range/Units 11:20 12:45 15:08 WBC (4.8-10.8) K/uL RBC (4.2-5.4) M/uL Hgb (12.0-16.0) g/dL Hct (37-47) % MCV (80-100) fL MCH (25-34) pg MCHC (32-36) g/dL RDW Std Deviation (36.4-46.3) fL RDW Coeff of Adrien (11.5-14.5) % Plt Count (130-400) K/uL MPV (7.4-10.4) fL Immature Gran % (Auto) % Neut % (Auto) % Lymph % (Auto) % [place] % (Auto) % Eos % (Auto) % Baso % (Auto) % Immature Gran # (Auto) (0.00-0.02) K/uL Neut # (Auto) (1.4-6.5) K/uL Lymph # (Auto) (1.2-3.4) K/uL [place] # (Auto) (0.11-0.59) K/uL Eos # (Auto) (0-0.5) K/uL Baso # (Auto) (0-0.2) K/uL PT (9.0-12.0) Seconds INR (0.9-1.1) Sodium (136-145) mmol/L Potassium (3.5-5.1) mmol/L Chloride (98-107) mmol/L Carbon Dioxide (21-32) mmol/L Anion Gap (3-11) BUN (7-18) mg/dl Creatinine (0.6-1.2) mg/dl Est Cr Clr Drug Dosing ml/min Est GFR ( Amer) Est GFR (Non-Af Amer) BUN/Creatinine Ratio (10-20) Glucose (70-99) mg/dl POC Lactic Acid Manuelito 0.87 L (0.90-1.70) mmol/L Calcium (8.5-10.1) mg/dl Magnesium 2.2 (1.8-2.4) mg/dl Total Bilirubin (0.1-1) mg/dl AST (15-37) U/L ALT (12-78) U/L Alkaline Phosphatase (45-117) U/L Troponin I < 0.015 (0-0.045) ng/ml Total Protein (6.4-8.2) gm/dl Albumin (3.4-5.0) gm/dl Globulin (2.5-4.0) gm/dl Albumin/Globulin Ratio (0.9-2) Lipase (73-393) U/L Stl C. diff Tox B Gene Neg C.diff Toxin B (Neg) 07/30/18 07/30/18 07/31/18 Range/Units 06:03 06:03 06:36 WBC 9.03 11.47 H (4.8-10.8) K/uL RBC 3.39 L 3.10 L (4.2-5.4) M/uL Hgb 10.5 L 9.6 L (12.0-16.0) g/dL Hct 32.7 L 29.7 L (37-47) % MCV 96.5 95.8 (80-100) fL MCH 31.0 31.0 (25-34) pg MCHC 32.1 32.3 (32-36) g/dL RDW Std Deviation 54.7 H 54.5 H (36.4-46.3) fL RDW Coeff of Adrien 15.8 H 15.7 H (11.5-14.5) % Plt Count 440 H 409 H (130-400) K/uL MPV 8.8 8.5 (7.4-10.4) fL Immature Gran % (Auto) % Neut % (Auto) % Lymph % (Auto) % [place] % (Auto) % Eos % (Auto) % Baso % (Auto) % Immature Gran # (Auto) (0.00-0.02) K/uL Neut # (Auto) (1.4-6.5) K/uL Lymph # (Auto) (1.2-3.4) K/uL [place] # (Auto) (0.11-0.59) K/uL Eos # (Auto) (0-0.5) K/uL Baso # (Auto) (0-0.2) K/uL PT (9.0-12.0) Seconds INR (0.9-1.1) Sodium 138 (136-145) mmol/L Potassium 4.4 (3.5-5.1) mmol/L Chloride 109 H (98-107) mmol/L Carbon Dioxide 22 (21-32) mmol/L Anion Gap 7.0 (3-11) BUN 20 H (7-18) mg/dl Creatinine 1.57 H D (0.6-1.2) mg/dl Est Cr Clr Drug Dosing 22.5 ml/min Est GFR ( Amer) 35.0 Est GFR (Non-Af Amer) 30.2 BUN/Creatinine Ratio 12.9 (10-20) Glucose 94 (70-99) mg/dl POC Lactic Acid Manuelito (0.90-1.70) mmol/L Calcium 8.2 L D (8.5-10.1) mg/dl Magnesium (1.8-2.4) mg/dl Total Bilirubin (0.1-1) mg/dl AST (15-37) U/L ALT (12-78) U/L Alkaline Phosphatase (45-117) U/L Troponin I (0-0.045) ng/ml Total Protein (6.4-8.2) gm/dl Albumin (3.4-5.0) gm/dl Globulin (2.5-4.0) gm/dl Albumin/Globulin Ratio (0.9-2) Lipase (73-393) U/L Stl C. diff Tox B Gene (Neg) 07/31/18 08/01/18 08/01/18 Range/Units 06:36 07:07 07:07 WBC 12.35 H (4.8-10.8) K/uL RBC 3.49 L (4.2-5.4) M/uL Hgb 10.7 L (12.0-16.0) g/dL Hct 33.0 L (37-47) % MCV 94.6 (80-100) fL MCH 30.7 (25-34) pg MCHC 32.4 (32-36) g/dL RDW Std Deviation 54.9 H (36.4-46.3) fL RDW Coeff of Adrien 15.9 H (11.5-14.5) % Plt Count 430 H (130-400) K/uL MPV 8.6 (7.4-10.4) fL Immature Gran % (Auto) % Neut % (Auto) % Lymph % (Auto) % [place] % (Auto) % Eos % (Auto) % Baso % (Auto) % Immature Gran # (Auto) (0.00-0.02) K/uL Neut # (Auto) (1.4-6.5) K/uL Lymph # (Auto) (1.2-3.4) K/uL [place] # (Auto) (0.11-0.59) K/uL Eos # (Auto) (0-0.5) K/uL Baso # (Auto) (0-0.2) K/uL PT (9.0-12.0) Seconds INR (0.9-1.1) Sodium 141 141 (136-145) mmol/L Potassium 3.6 D 3.3 L (3.5-5.1) mmol/L Chloride 114 H 111 H (98-107) mmol/L Carbon Dioxide 20 L 21 (21-32) mmol/L Anion Gap 7.0 9.0 (3-11) BUN 16 17 (7-18) mg/dl Creatinine 1.21 H D 1.52 H D (0.6-1.2) mg/dl Est Cr Clr Drug Dosing 29.1 23.2 ml/min Est GFR ( Amer) 47.9 36.4 Est GFR (Non-Af Amer) 41.3 31.4 BUN/Creatinine Ratio 12.9 10.9 (10-20) Glucose 95 88 (70-99) mg/dl POC Lactic Acid Manuelito (0.90-1.70) mmol/L Calcium 8.0 L 8.3 L (8.5-10.1) mg/dl Magnesium (1.8-2.4) mg/dl Total Bilirubin (0.1-1) mg/dl AST (15-37) U/L ALT (12-78) U/L Alkaline Phosphatase (45-117) U/L Troponin I (0-0.045) ng/ml Total Protein (6.4-8.2) gm/dl Albumin (3.4-5.0) gm/dl Globulin (2.5-4.0) gm/dl Albumin/Globulin Ratio (0.9-2) Lipase (73-393) U/L Stl C. diff Tox B Gene (Neg) Imaging Data Radiologist's Impression: Radiology results as stated below per my review and the radiologist's interpretation: ABDOMEN AND PELVIS CT WITH IV CONTRAST CT DOSE: 813.76 mGycm HISTORY: Nausea. Vomiting. Diarrhea. Generalized abdominal pain. TECHNIQUE: Multiaxial CT images of the abdomen and pelvis were performed following the use of intravenous contrast. A dose lowering technique was utilized adhering to the principles of ALARA. COMPARISON STUDY: Pelvis CT 05/26/2018. Abdomen and pelvis CT 12/11/2016. FINDINGS: The lung bases are clear. No pneumoperitoneum. No pneumatosis. Recent internal fixation of a right intertrochanteric hip fracture. This demonstrates partial healing. Severe disc space narrowing and grade I anterolisthesis at L4- L5. Prior mesh repair of a ventral hernia is noted. There is pelvic floor collapse. The bladder, uterus, and adnexa are unremarkable. Colonic diverticulosis. The colon is decompressed. This results in suboptimal evaluation. No evidence for bowel obstruction. Normal appendix. The liver, spleen, and adrenal glands are unremarkable. Multiple bilateral cortical and peripelvic renal hypodense lesions. These likely represent cysts. No hydronephrosis. No retroperitoneal lymphadenopathy. 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 This remains unchanged. There is question of mild thickening and pericolic fat stranding within the descending colon, splenic flexure of the colon, and majority of the sigmoid colon. This raises the possibility of a low-grade colitis. Stable peripherally calcified nodule within the gallbladder fossa measuring 1.5 cm. Stable 13 mm hypodense lesion within the uncinate process of the pancreas. 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 IMPRESSION: 1. There is question of mild thickening and pericolic fat stranding within the descending colon, splenic flexure of the colon, and majority of the sigmoid colon. This raises the possibility of a low-grade colitis. 2. No evidence for bowel obstruction. 3. Recent internal fixation of a healing right intertrochanteric hip fracture. 4. Additional findings as described above. Electronically signed by: Michael Harris M.D. 07/29/2018 1:37 PM ECG Data Attestation: I personally reviewed and interpreted this ECG as follows: Indication: abdominal pain Rate (beats per minute): 73 Rhythm: normal sinus Findings: + other (normal axis, normal intervals); no acute ischemic change and no ectopy Blood Pressure Blood Pressure Findings: Elevated blood pressure Blood Pressure Disposition: further management by hospitalist COLBY Narrative Pt ill appearing on presentation here and had several episodes of bloody diarrhea while here. Given concern for persistence of this in her advanced age and new LAITH, case discussed with hospitalist for additional evaluation and monitoring. VSS while in the ER. Gi bleed likely from colitis noted on CT. Other results noted also. No evidence of C.diff while here. Discussed antibiotics with hospitalist prior to ordering. Cultures drawn as a precaution. No transfusion necessary at this time. Prior colonoscopy reassuring. No need for emergent GI intervention again at this time. Family aware of all results and were in agreement with plan. Impression & Plan Colitis, LAITH (acute kidney injury), Dementia, Acute GI bleeding, Diarrhea Discharge Plan Visit Data *Final* Discharge Date/Time: 07/29/18 15:42 Chief Complaint: Illness ED Provider: Anita Rodriguez Discharge Problem: Colitis, LAITH (acute kidney injury), Dementia, Acute GI bleeding, Diarrhea Patient Disposition: Admitted As Inpatient Condition: Fair Discharge Instructions Interventions: ED Discharge Assessment Last Done: 07/29/18 15:42 The scribe's documentation has been prepared under my direction and personally reviewed by me in its entirety. I confirm that the note above accurately reflects all work, treatment, procedures, and medical decision making performed by me.
[2018-07-29] MEDS ORDERED: SODIUM CHLORIDE 0.9% 1000ML 1,000 ML IV SCH (14:30)
[2018-07-29] MEDS ORDERED: CIPROFLOXACIN 400 MG/200 ML BAG IV STA (14:31)
[2018-07-29] MEDS ORDERED: metroNIDAZOLE 500 MG/100 ML BAG IV STA (14:31)
--- NOTE | 2018-07-29 15:27 | Hospitalist Progress Note ---
Date of Service July 29, 2018 Assessment & Plan (1) Colitis: Patient presents with abdominal pain frequent bowel loose bowel movements and possibly some blood in her bowel movements. CT scan in the ER does show evidence of a colitis. Per the family she did have C. difficile in the past approximately 2 years ago Patient will have stool cultures, C. difficile sent. She will be put on vancomycin 125 p.o. every 6, Cipro and Flagyl. (2) LAITH (acute kidney injury): Patient be hydrated with normal saline she reportedly has had no hematuria clear whether she has had dysuria a urine culture will be sent she typically has chronic kidney disease stage III (3) Rheumatoid arthritis: Patient takes methotrexate and folic acid for rheumatoid arthritis she most recently has been on a small burst of 5 mg prednisone from her principal technical writer. Her typical dose is 1 mg of prednisone. Because of her acute illness and general feelings of decline we will give her 24 hours of hydrocortisone 50 every 8 (4) Chronic use of steroids: As mentioned above will use hydrocortisone for 24 hours. The patient typically gets some GI upset from her steroids and will maintain her Protonix and Zantac at this time (5) DVT prophylaxis: Renal dose heparin will be used for DVT prevention Subjective Patient presents from [facility] with 2-3 weeks of decline. Most recently she is at that her typical prednisone 1 mg the present is on 5 mg however this did not help. Patient developed some lower abdominal pain has had some profuse diarrhea at times with blood in it this is been bright red blood. In the ER she is found to have colitis on her CT scan and she does have a history of C. difficile colitis about 2 years ago according to the family which is present at the bedside Patient is significant dementia on a normal day and is only oriented to person and place the fact that this is a hospital. Her daughter corroborates that this is her usual mental condition Review of Systems ROS: Review of systems is tempered by the fact that the patient has dementia that we use her family to try to assist us well nourished well developed. Of late has had decreased energy appetite and volition No double vision blurry vision No problems with speech or swallowing No palpitations, chest pain or pressure No Wheezing or breathing issues Diffuse abdominal pain with mild nausea but no vomiting brown diarrhea at times with bright red blood and reduction in appetite No burning urine urine frequency or changes in color No new focal joint pain but chronic daily joint pain from her rheumatoid arthritis is noted No skin rashes or oral lesions No unusual bruising or bleeding No focused back pain or numbness or loss of strength No new changes in memory or confusion Physical Exam 2 Vital Signs (Past 24 Hours): Last Vital Signs Temp 36.3 C L 07/29/18 10:53 Pulse 81 07/29/18 15:00 Resp 18 07/29/18 15:00 BP 157/67 H 07/29/18 15:00 Pulse Ox 97 07/29/18 15:00 The patient appeared well nourished and normally developed. She is moderately confused at times Vital signs as documented. Head exam is unremarkable. No scleral icterus or corneal arcus noted Neck is without jugular venous distension, thyromegaly, or lymphademopathy Lungs are clear to auscultation and percussion. Cardiac exam reveals Rhythm is regular. First and second heart sounds normal. No murmurs, rubs or gallops. Abdominal exam reveals normal bowel sounds, no masses, no organomegaly only mild tenderness no guarding no acute abdomen Extremities are nonedematous however she does have ulnar deviation of both hands , both pedal pulses are normal. Neurologic exam is A&Ox3, no focal deficits, strength is equal bilateral Skin is warm Dry without bruises or lesions Results & Data Diagnostic Findings CT scan abdomen pelvis1. There is question of mild thickening and pericolic fat stranding within the descending colon, splenic flexure of the colon, and majority of the sigmoid colon. This raises the possibility of a low-grade colitis. 2. No evidence for bowel obstruction. 3. Recent internal fixation of a healing right intertrochanteric hip fracture. 4. Additional findings as described above. _ (1) Rheumatoid arthritis Laterality: Rheumatoid arthritis location: unspecified site Rheumatoid factor presence: unspecified presence Qualified Code(s): M06.9 - Rheumatoid arthritis, unspecified
[2018-07-29] MEDS ORDERED: ONDANSETRON INJ 2 MG/ML 2 ML VIAL IV PRN (16:16)
[2018-07-29] MEDS: NSS + 20MEQ KCL 20 MEQ/1,000 ML BAG IV SCH (17:03)
[2018-07-29] MEDS: VANCOMYCIN HCL 125 MG/2.5ML SOLN PO SCH (18:26)
[2018-07-29] MEDS: RASPBERRY SYRUP 5 ML UDP PO SCH (18:26)
[2018-07-29] MEDS: DONEPEZIL HCL 10 MG TAB PO SCH (20:42)
[2018-07-29] MEDS: CIPROFLOXACIN / D5W 200 MG/100 ML BAG IV SCH (20:43)
[2018-07-29] MEDS: MIRTAZAPINE SOLTAB 15 MG PO SCH (20:44)
[2018-07-29] MEDS: SIMVASTATIN 40 MG TAB PO SCH (20:44)
[2018-07-29] MEDS: HEPARIN SOD 5,000 UNIT/0.5 ML VIAL SQ SCH (20:45)
[2018-07-29] MEDS: HYDROCORTISONE SOD 50 MG in SYRINGE 0 ML IV SCH (21:45)
[2018-07-29] MEDS ORDERED: HYDROCORTISONE SOD SUCCINATE 100 MG/2 ML VIAL IV SCH (22:00)
[2018-07-29] MEDS: ACETAMINOPHEN 500 MG TAB PO PRN (22:26)
[2018-07-30] MEDS: metroNIDAZOLE 500 MG/100 ML BAG IV SCH ×3 (00:23→15:58)
[2018-07-30] MEDS: RASPBERRY SYRUP 5 ML UDP PO SCH ×2 (00:23→06:24)
[2018-07-30] MEDS: VANCOMYCIN HCL 125 MG/2.5ML SOLN PO SCH ×2 (00:23→06:23)
[2018-07-30] MEDS: NSS + 20MEQ KCL 20 MEQ/1,000 ML BAG IV SCH ×3 (04:56→22:30)
[2018-07-30 06:23] LABS: Hematocrit (blood only) 32.7 % (37-47); Hemoglobin 10.5 g/dL (12.0-16.0); Mean Corpuscular Hgb Conc 32.1 g/dL (32-36); Mean Corpuscular Volume 96.5 fL (80-100); Mean Platelet Volume 8.8 fL (7.4-10.4); Platelet Count 440 K/uL (130-400); RDW Coefficient of Variation 15.8 % (11.5-14.5); RDW Standard Deviation 54.7 fL (36.4-46.3); Red Blood Count 3.39 M/uL (4.2-5.4); White Blood Count 9.03 K/uL (4.8-10.8)
[2018-07-30] MEDS: HYDROCORTISONE SOD 50 MG in SYRINGE 0 ML IV SCH ×3 (06:24→21:28)
[2018-07-30] MEDS: LEVOTHYROXINE SODIUM 100 MCG TABLET PO SCH (06:25)
[2018-07-30 07:04] LABS: BUN Creatinine Ratio 12.9 (10-20); Calcium 8.2 mg/dl (8.5-10.1); Creatinine Clr Calc Pharmacy 22.5 ml/min; Est GFR (Non-African American) 30.2; Potassium 4.4 mmol/L (3.5-5.1)
[2018-07-30] MEDS: FOLIC ACID 1 MG TAB PO SCH (08:51)
[2018-07-30] MEDS: PANTOprazole 40 MG TAB PO SCH (08:51)
[2018-07-30] MEDS: HEPARIN SOD 5,000 UNIT/0.5 ML VIAL SQ SCH ×2 (08:52→21:44)
[2018-07-30] MEDS: CHOLESTYRAMINE LIGHT 4 GM PKT PO SCH (08:52)
[2018-07-30] MEDS: CIPROFLOXACIN / D5W 200 MG/100 ML BAG IV SCH ×2 (08:59→21:28)
[2018-07-30] MEDS: ACETAMINOPHEN 500 MG TAB PO PRN ×2 (10:26→17:39)
--- NOTE | 2018-07-30 12:05 | Hospitalist Progress Note ---
Date of Service July 30, 2018 Assessment & Plan (1) Colitis: Patient presents with abdominal pain frequent bowel loose bowel movements and possibly some blood in her bowel movements. CT scan in the ER does show evidence of a colitis. Isabella has been ruled out we will stop vancomycin treatment will maintain her on Cipro and Flagyl and likely complete a one-week course she is tolerating oral intake but still feels weak and tired by the PT OT evaluation. (2) LAITH (acute kidney injury): Her acute kidney injury has improved from being greater than 2-1.57, this is on her baseline chronic kidney disease stage III (3) Rheumatoid arthritis: Patient continues on methotrexate and folic acid for rheumatoid arthritis she is in the midst of her 24 hours of hydrocortisone 50 every 8 and then will return to prednisone dosing. Her family feels her neck pain is more from sleeping than a flare of her rheumatoid arthritis (4) Chronic use of steroids: As mentioned above will use hydrocortisone for 24 hours. The patient typically gets some GI upset from her steroids and will maintain her Protonix and Zantac at this time (5) DVT prophylaxis: Renal dose heparin will be used for DVT prevention (6) Anemia of chronic disease: Her hemoglobin has been varied over the last few hospital stay as it has dropped from 12-10.5 this admission but that was with hydration we will continue to follow this to see if there is any acute component of her anemia but she has remained mildly anemic over the last few months. This is a normocytic normochromic anemia at this time Subjective Patient is pleasantly confused mostly bothered by neck pain her diarrhea has reduced. Her C. difficile is been ruled out. A daughter was at the bedside and updated. The patient only has some mild right-sided abdominal pain Review of Systems ROS: well nourished well developed. She has some arthritic complaints of neck pain No double vision blurry vision No problems with speech or swallowing No palpitations, chest pain or pressure No Wheezing or breathing issues No complaints of abdominal pain nausea vomiting diarrhea changes No burning urine urine frequency or changes in color No focal joint pain or muscle pain No skin rashes or oral lesions No unusual bruising or bleeding No focused back pain but does have some neck pain but she has no associated radiating numbness or loss of strength No new changes in memory or confusion Physical Exam 2 Vital Signs (Past 24 Hours): Last Vital Signs Temp 36.9 C 07/30/18 08:07 Pulse 84 07/30/18 08:07 Resp 16 07/30/18 08:07 BP 151/66 H 07/30/18 08:07 Pulse Ox 98 07/30/18 08:07 The patient appeared well nourished and normally developed. She exhibits chronic changes of rheumatoid arthritis Vital signs as documented. Head exam is unremarkable. No scleral icterus or corneal arcus noted Neck is without jugular venous distension, thyromegaly, or lymphademopathy it is tender to movement there is some crepitance to movement Lungs are clear to auscultation and percussion. Cardiac exam reveals Rhythm is regular. First and second heart sounds normal. No murmurs, rubs or gallops. Abdominal exam reveals normal bowel sounds, no masses, no organomegaly she has some mild tenderness to the right side but no rebound or guarding Extremities are nonedematous and both pedal pulses are normal. Neurologic exam is A&Ox3, no focal deficits, strength is equal bilateral Skin is warm Dry without bruises or lesions _ (1) Rheumatoid arthritis Rheumatoid arthritis location: unspecified site Rheumatoid factor presence: unspecified presence Laterality: Qualified Code(s): M06.9 - Rheumatoid arthritis, unspecified
[2018-07-30] MEDS: DONEPEZIL HCL 10 MG TAB PO SCH (21:29)
[2018-07-30] MEDS: MIRTAZAPINE SOLTAB 15 MG PO SCH (21:29)
[2018-07-30] MEDS: SIMVASTATIN 40 MG TAB PO SCH (21:29)
[2018-07-31] MEDS: metroNIDAZOLE 500 MG/100 ML BAG IV SCH ×2 (00:05→07:49)
[2018-07-31] MEDS: DICLOFENAC SOD 1% GEL 100 GM TUBE EXT SCH ×3 (04:13→20:17)
[2018-07-31] MEDS: LEVOTHYROXINE SODIUM 100 MCG TABLET PO SCH (06:21)
[2018-07-31 07:00] LABS: Hematocrit (blood only) 29.7 % (37-47); Hemoglobin 9.6 g/dL (12.0-16.0); Mean Corpuscular Hgb Conc 32.3 g/dL (32-36); Mean Corpuscular Volume 95.8 fL (80-100); Mean Platelet Volume 8.5 fL (7.4-10.4); Platelet Count 409 K/uL (130-400); RDW Coefficient of Variation 15.7 % (11.5-14.5); RDW Standard Deviation 54.5 fL (36.4-46.3); White Blood Count 11.47 K/uL (4.8-10.8)
[2018-07-31 07:44] LABS: BUN Creatinine Ratio 12.9 (10-20); Creatinine Clr Calc Pharmacy 29.1 ml/min; Est GFR (African American) 47.9; Est GFR (Non-African American) 41.3; Potassium 3.6 mmol/L (3.5-5.1)
[2018-07-31] MEDS: CIPROFLOXACIN / D5W 200 MG/100 ML BAG IV SCH (07:49)
[2018-07-31] MEDS: NSS + 20MEQ KCL 20 MEQ/1,000 ML BAG IV SCH (07:53)
[2018-07-31] MEDS: PANTOprazole 40 MG TAB PO SCH (07:54)
[2018-07-31] MEDS: FOLIC ACID 1 MG TAB PO SCH (07:54)
[2018-07-31] MEDS: HEPARIN SOD 5,000 UNIT/0.5 ML VIAL SQ SCH ×2 (07:55→20:26)
[2018-07-31] MEDS: predniSONE 10 MG TABLET PO SCH (07:55)
[2018-07-31] MEDS: CHOLESTYRAMINE LIGHT 4 GM PKT PO SCH (07:57)
--- NOTE | 2018-07-31 13:33 | Hospitalist Progress Note ---
Date of Service July 31, 2018 Assessment & Plan (1) Colitis: Patient presents with abdominal pain frequent bowel loose bowel movements and possibly some blood in her bowel movements. CT scan in the ER does show evidence of a colitis. She is improvement of her bowel movements no further blood was noted C. difficile has been ruled out we will stop vancomycin treatment will continue on Cipro and Flagyl and likely complete a one-week course PT OT evaluation. (2) LAITH (acute kidney injury): Her acute kidney injury has improved, chronic kidney disease stage III (3) Rheumatoid arthritis: Patient continues on methotrexate and folic acid for rheumatoid arthritis , hydrocortisone 50 every 8 and then will return to prednisone dosing 07/31. Her family feels her neck pain is more from sleeping on a poor pillow than a flare of her rheumatoid arthritis as it is improving (4) Chronic use of steroids: stress dose hydrocortisone for 24 hours resuming prednisone po 07/31 . The patient typically gets some GI upset from her steroids and continues with Protonix and Zantac (5) DVT prophylaxis: Renal dose heparin will be used for DVT prevention (6) Anemia of chronic disease: Her hemoglobin has been varied over the last few hospital stay as it is normocytic normochromic it continues to drop but maybe dilutional will follow for another day Subjective Patient feels much better has having decreased bowel movements and no abdominal pain at this point time her mental clarity is also been improved according to her son was at the bedside Review of Systems ROS: well nourished well developed. No double vision blurry vision No problems with speech or swallowing No palpitations, chest pain or pressure No Wheezing or breathing issues No abdominal pain nausea vomiting diarrhea No burning urine complains of urine frequency No focal joint pain or muscle pain No skin rashes or oral lesions No unusual bruising or bleeding No focused back pain or numbness or loss of strength No new changes in memory or confusion Physical Exam 2 Vital Signs (Past 24 Hours): Last Vital Signs Temp 37.1 C 07/31/18 07:19 Pulse 87 07/31/18 07:19 Resp 16 07/31/18 07:19 BP 179/76 H 07/31/18 07:19 Pulse Ox 97 07/31/18 07:19 The patient appeared well nourished and normally developed. She appears her stated age and is mildly confused at times Vital signs as documented. Head exam is unremarkable. No scleral icterus or corneal arcus noted Neck is without jugular venous distension, thyromegaly, or lymphademopathy Lungs are clear to auscultation and percussion. Cardiac exam reveals Rhythm is regular. First and second heart sounds normal. No murmurs, rubs or gallops. Abdominal exam reveals normal bowel sounds, no masses, no organomegaly she is nontender to examination Extremities are nonedematous and both pedal pulses are normal. Neurologic exam is A&Ox2, no focal deficits, strength is equal bilateral Skin is warm Dry without bruises or lesions _ (1) Rheumatoid arthritis Rheumatoid arthritis location: unspecified site Rheumatoid factor presence: unspecified presence Laterality: Qualified Code(s): M06.9 - Rheumatoid arthritis, unspecified
[2018-07-31] MEDS: metroNIDAZOLE 500 MG TAB PO SCH ×2 (16:24→20:21)
[2018-07-31] MEDS: MIRTAZAPINE SOLTAB 15 MG PO SCH (20:21)
[2018-07-31] MEDS: CIPROFLOXACIN 500 MG TAB PO SCH (20:21)
[2018-07-31] MEDS: SIMVASTATIN 40 MG TAB PO SCH (20:22)
[2018-07-31] MEDS: DONEPEZIL HCL 10 MG TAB PO SCH (20:41)
[2018-08-01] MEDS: LEVOTHYROXINE SODIUM 100 MCG TABLET PO SCH (05:59)
[2018-08-01] MEDS: ACETAMINOPHEN 500 MG TAB PO PRN (06:14)
[2018-08-01 06:54] VITALS: PULSE 79; TEMP 98.4; O2SAT 99
[2018-08-01 07:26] LABS: Hemoglobin 10.7 g/dL (12.0-16.0); Mean Corpuscular Hgb Conc 32.4 g/dL (32-36); Mean Corpuscular Volume 94.6 fL (80-100); Mean Platelet Volume 8.6 fL (7.4-10.4); Platelet Count 430 K/uL (130-400); RDW Coefficient of Variation 15.9 % (11.5-14.5); RDW Standard Deviation 54.9 fL (36.4-46.3); Red Blood Count 3.49 M/uL (4.2-5.4); White Blood Count 12.35 K/uL (4.8-10.8)
[2018-08-01 08:01] LABS: BUN Creatinine Ratio 10.9 (10-20); Calcium 8.3 mg/dl (8.5-10.1); Creatinine Clr Calc Pharmacy 23.2 ml/min; Est GFR (African American) 36.4; Est GFR (Non-African American) 31.4; Potassium 3.3 mmol/L (3.5-5.1)
[2018-08-01] MEDS: CIPROFLOXACIN 500 MG TAB PO SCH (09:23)
[2018-08-01] MEDS: predniSONE 10 MG TABLET PO SCH (09:23)
[2018-08-01] MEDS: FOLIC ACID 1 MG TAB PO SCH (09:23)
[2018-08-01] MEDS: metroNIDAZOLE 500 MG TAB PO SCH ×2 (09:24→13:32)
[2018-08-01] MEDS: PANTOprazole 40 MG TAB PO SCH (09:24)
[2018-08-01] MEDS: HEPARIN SOD 5,000 UNIT/0.5 ML VIAL SQ SCH (09:25)
[2018-08-01] MEDS: DICLOFENAC SOD 1% GEL 100 GM TUBE EXT SCH (09:31)
[2018-08-01] MEDS ORDERED: CHOLESTYRAMINE LIGHT 4 GM PKT PO SCH (10:00)
[2018-08-01 12:13] VITALS: BP 179/76
--- NOTE | 2018-08-01 13:15 | Discharge Summary ---
Date of Service August 01, 2018 Principal Diagnosis colitis, anemia, dehydration Discharge Exam The patient appeared well nourished and normally developed. Vital signs as documented. Neck is without jugular venous distension, thyromegaly, or lymphademopathy Lungs are clear to auscultation and percussion. Cardiac exam reveals Rhythm is regular systolic murmurs Abdominal exam reveals normal bowel sounds, no masses, no organomegaly Extremities are nonedematous and both pedal pulses are normal. She has chronic changes of rheumatoid arthritis noted Neurologic exam is A&Ox3, no focal deficits, strength is equal bilateral Skin is warm Dry without bruises or lesions Discharge Data Allergies Allergy/AdvReac Type Severity Reaction Status Date / Time Penicillins Allergy Unknown SWELLING Verified 07/29/18 15:43 celecoxib AdvReac Intermediate N/V Verified 07/29/18 15:43 cephalexin AdvReac Intermediate N/V Verified 07/29/18 15:43 methotrexate AdvReac Intermediate N/V Verified 07/29/18 15:43 nitrofurantoin AdvReac Intermediate N/V Verified 07/29/18 15:43 risedronate sodium AdvReac Intermediate NAUSEA AND Verified 07/29/18 15:43 VOMITING Consultations 07/29/18 14:25 ED Decision to Admit Stat Ordered Studies 07/29/18 12:29 CT abd pelvis IV con only Stat Hospital Course (1) Colitis: Patient presents with abdominal pain frequent bowel loose bowel movements and possibly some blood in her bowel movements. CT scan in the ER does show evidence of a colitis. Her bowel movements no further blood was noted C. difficile has been ruled, will continue on Cipro and Flagyl and complete a one-week course (2) LAITH (acute kidney injury): Her acute kidney injury has improved, chronic kidney disease stage III (3) Rheumatoid arthritis: Patient continues on methotrexate and folic acid for rheumatoid arthritis , did have stress dosing and now returns to normal dosing (4) Chronic use of steroids: stress dose hydrocortisone for 24 hours resuming prednisone po 07/31 . The patient typically gets some GI upset from her steroids and continues with Protonix and Zantac (5) Anemia of chronic disease: Her hemoglobin has been varied over the last few hospital stay as it is normocytic normochromic it has rebounded after hydration has stoped Total Time Total Time Spent Total Time Spent (In Minutes): greater than 30 minutes were required to prepare discharge Discharge Plan Discharge Items Patient Disposition: Personal Intermediate Reason For Visit: COLOTIS Discharge Diagnosis: colitis, anemia Discharge Goals: Decrease discomfort Activity: Resume your previous activity Non-emergency contact: Primary Care Provider Call non-emergency contact if: you have any medication questions Diet: Regular Addtl Provider Instructions: . Prescriptions: New metronidazole 500 mg Tablet 500 mg PO TID Qty: 13 RF: 0 ciprofloxacin HCl 500 mg Tablet 500 mg PO Q12 Qty: 9 RF: 0 Continue levothyroxine 112 mcg Tablet 112 mcg PO QAM RF: 0 quetiapine 25 mg Tablet 12.5 mg PO DAILY PRN (Reason: MOOD CHANGES) RF: 0 amlodipine 5 mg Tablet 5 mg PO QAM RF: 0 aspirin [Aspir-81] 81 mg Tablet,Delayed Release (Dr/Ec) 81 mg PO QAM RF: 0 clobetasol 0.05 % Gel 1 applic TOPICAL BID RF: 0 prednisone 1 mg Tablet 1 mg PO QAM RF: 0 ferrous sulfate 325 mg (65 mg iron) Tablet 325 mg PO QAM RF: 0 acetaminophen [Tylenol] 325 mg Capsule 650 mg PO Q6H MDD MAX 3 GRAM/24 HOURS PRN (Reason: Pain (Scale Score 1-3)) RF : 0 diclofenac sodium 1 % Gel 4 g TOPICAL QID RF: 0 guaifenesin [Mucinex] 600 mg Tablet Extended Release 12hr 600 mg PO Q12H PRN (Reason: Cough) RF: 0 Salonpas Lidopatch 1 patch topical DAILY RF: 0 donepezil 10 mg Tablet 10 mg PO HS RF: 0 acetaminophen [Tylenol Extra Strength] 500 mg Tablet 1,000 mg PO TID MDD 3 GRAMS/24 HOURS RF: 0 simvastatin 40 mg Tablet 40 mg PO HS RF: 0 methotrexate sodium 2.5 mg Tablet 2.5 mg PO WK RF: 0 pantoprazole 40 mg Tablet,Delayed Release (Dr/Ec) 40 mg PO QAM RF: 0 ranitidine HCl [Zantac] 150 mg Tablet 150 mg PO HS RF: 0 calcium carbonate [Tums] 200 mg calcium (500 mg) Tablet,Chewable 200 mg PO [id number] RF: 0 mirtazapine 45 mg Tablet 45 mg PO HS RF: 0 folic acid 1 mg Tablet 1 mg PO [id number] RF: 0 cranberry 500 mg Capsule 500 mg PO QAM RF: 0 cholestyramine-aspartame [Prevalite] 4 gram Powder In Packet 4 g PO QAM RF: 0 feenkgxt-ydis-AU-calcium-mins [One Daily Women's] 18 mg iron-400 mcg-450 mg Ca Tablet 1 tab PO QAM RF: 0 [employer] 1 tab PO QAM RF: 0 Discontinued trimethoprim 100 mg Tablet 100 mg PO HS RF: 0 Stand-Alone Forms: [facility] Discharge Orders: Discharge Order (Routine); Ordered 08/01/18 Ordered By: Brady Chaudhari Admission Data Admit Date/Time: 07/29/18 15:00 Attending Provider: Brady Chaudhari Admit Provider: Brady Chaudhari Primary Care Provider: Vasiliy Uriostegui Other Providers: Snow Parham Service: Medical Other Interventions: Discharge Summary Assessment (RN) Last Done: 08/01/18 12:12
[2018-08-02] MEDS ORDERED: metHOTREXate sodium 2.5 MG TAB PO SCH (09:00)
== END 2018-08-01 14:00 | disposition home or self-care (01) | DRG 392 ==
LOC: ED 10:53 → 4E 15:00

== ENCOUNTER 2019-11-23 12:06 | Inpatient (IN) ==
[2019-11-23] MEDS ORDERED: SODIUM CHLORIDE 0.9% 1000ML 1,000 ML IV ONE ×2 (12:25→12:32)
[2019-11-23] MEDS ORDERED: CEFTOLOZANE/TAZOBACTAM 375 MG in DEXTROSE 5% 100 ML IV STA (12:38)
--- NOTE | 2019-11-23 12:41 | Emergency Department Note ---
History of Present Illness General Chief complaint: Confusion Stated complaint: CONFUSED, UTI, REFERRED BY Time Seen by Provider: 11/23/19 12:18 Source: patient, family, RN notes reviewed and old records reviewed Mode of arrival: ambulatory Limitations: altered mental status History of Present Illness Provider complaint: Confusion Onset (ago): day(s) 3 Pain Consistency: + constant Maximum Pain Intensity: 5 Current Pain Intensity: 5 Quality: + burning Relieved By: + none Exacerbated By: + none Associated symptoms: + confusion Treatments prior to arrival: none This is an 84-year-old female who presents the emergency department complaining of confusion. The patient recently completed IV ertapenem for a resistant urinary tract infection. The patient's daughter reports that the patient has been confused since at least Friday. She was in to see her primary care physici an's office yesterday and had a urine culture obtained then. Today the patient is complaining of abdominal pain. The urine culture does have E. coli but we do not have sensitivities yet. The patient is on chronic prednisone for rheumatoid arthritis. In addition the patient has a history of chronic kidney disease. Home Medications Home Medications Medication Instructions Recorded Confirmed Type donepezil 10 mg PO HS 05/23/18 11/23/19 History mirtazapine 45 mg PO HS 05/23/18 11/23/19 History pantoprazole 40 mg PO QAM 05/23/18 11/23/19 History simvastatin 40 mg PO HS 05/23/18 11/23/19 History amlodipine 5 mg PO QAM 07/29/18 11/23/19 History aspirin [Aspir-81] 81 mg PO BID 07/29/18 11/23/19 History ferrous sulfate 325 mg PO QAM 07/29/18 11/23/19 History polyethylene glycol 3350 [Miralax] 17 g PO DAILY PRN 11/14/18 11/23/19 History levothyroxine 112 mcg tablet 112 mcg PO QAM #30 tab 01/12/19 11/23/19 Rx folic acid 1 mg tablet 1 mg PO 6XWK #90 tab 03/02/19 11/23/19 Rx lidocaine 1 patch TOP DAILY PRN #15 ea 04/14/19 11/23/19 Rx prednisone 10 mg PO DAILY 04/14/19 11/23/19 History psyllium [Reguloid, Sugar Free] 1 tbsp PO DAILY 04/14/19 11/23/19 History cholestyramine (with sugar) 4 gram 4 g PO DAILY #60 ea 04/20/19 11/23/19 Rx powder for susp in a packet heating pads #1 ea 04/20/19 11/23/19 Rx calcium carbonate 320 mg calcium 320 mg PO BID tab 05/18/19 11/23/19 History (750 mg) chewable tablet cranberry 500 mg capsule 500 mg PO QAM cap 05/18/19 11/23/19 History methotrexate sodium 2.5 mg tablet 2.5 mg PO WEEKLY tab 07/20/19 11/23/19 History dextromethorphan-guaifenesin 30 1 tab PO Q12H 3 Days #1 box 10/05/19 11/23/19 Rx mg-600 mg tablet extended [id number] hr doxycycline hyclate 100 mg tablet 100 mg PO BID 10 Days #20 tab 10/08/19 11/23/19 Rx quetiapine 12.5 mg PO DAILY 10/10/19 11/23/19 History simethicone 160 mg PO DAILY 10/10/19 11/23/19 History lidocaine 5 %-phenylephrine 0.25 1 appln TOP QID #28 gm 10/18/19 11/23/19 Rx %-glycern 14.4 %-petrolatm 15 % cream acetaminophen 500 mg tablet 500 mg PO TID #90 tab 10/19/19 11/23/19 Rx ciprofloxacin HCl 250 mg tablet 250 mg PO BID #20 tab 10/19/19 11/23/19 Rx vancomycin 125 mg capsule 125 mg PO TID #63 cap 10/19/19 11/23/19 Rx nitrofurantoin 100 mg PO BID #20 cap 10/20/19 11/23/19 Rx monohydrate/macrocrystals 100 mg capsule gabapentin 100 mg capsule 100 mg PO BID #60 cap 11/01/19 11/23/19 Rx oxycodone 5 mg tablet See Rx Instructions PO .COMPLEX 11/17/19 11/23/19 Rx #90 tab Allergies Allergy/AdvReac Type Severity Reaction Status Date / Time Penicillins Allergy Unknown SWELLING Verified 11/23/19 13:41 celecoxib AdvReac Intermediate N/V Verified 11/23/19 13:41 cephalexin AdvReac Intermediate N/V Verified 11/23/19 13:41 methotrexate AdvReac Intermediate N/V Verified 11/23/19 13:41 nitrofurantoin AdvReac Intermediate N/V Verified 11/23/19 13:41 risedronate sodium AdvReac Intermediate NAUSEA AND Verified 11/23/19 13:41 VOMITING Past Med/Surg History Medical History (Updated 11/23/19 @ 18:44 by Marcial Alarcon MD) Acute exacerbation of chronic low back pain (Inactive) Acute GI bleeding (Acute) LAITH (acute kidney injury) LAITH (acute kidney injury) (Acute) Anemia of chronic disease ASCVD (arteriosclerotic cardiovascular disease) C. difficile colitis [id number] Chronic kidney disease Chronic use of steroids (Chronic) Chronic UTI CKD (chronic kidney disease) Closed right hip fracture Colitis Colitis (Resolved) Constipation Dementia Dementia (Chronic) Diarrhea (Resolved) Fall (Inactive) GERD (gastroesophageal reflux disease) Hip pain, right (Inactive) Hyperlipidemia Hypertension Hypotension Hypothyroidism Kidney stones PVD (peripheral vascular disease) Rheumatoid arthritis (Chronic) Vitamin D insufficiency Surgical History History of umbilical hernia repair Hx of cholecystectomy Hx of colonoscopy Hx of esophagogastroduodenoscopy Family History Unknown Arteriosclerotic cardiovascular disease (ASCVD) Father Heart disease Diabetes Myocardial infarction Mother Cancer Hypertension Mother Breast cancer Other Family history non-contributory Denies family history of Ovarian cancer Prostate cancer Crohn's disease Lung cancer Colorectal cancer Ulcerative colitis Stroke Social History Preferred Language: Hebrew Communication Ability: Effective Communication Ability Comment: baseline dementia, poor historian Visual Impairment: No Limitations Hearing Ability: Normal Mushroom Growing Supervisor Required: No Beliefs That Will Affect Care: None marital status: / Current Living Situation: Family Current Living Situation Comment: lives with daughter current occupational status: other Other Information That Helps Us Care for You: No Feels Safe at Home: Yes Safety Concerns: Feels Safe At This Time Smoking Status: Never smoker Do You Dip or Chew Tobacco: No ; Second Hand Exposure: No ; Tobacco Cessation Education Requested by Patient: No Hx Alcohol Use: No Hx Substance Use: No Childhood Exposure to Second-Hand Smoke: No caffeine: Yes Dental Care, Regularly: No Physical Activity Frequency: Does not Exercise Seatbelt Use: always Sunscreen Use: No Review of Systems A total of 10 systems reviewed and were otherwise negative Physical Exam Vital Signs Vital Signs - 24 hr 11/23/19 12:08 11/23/19 12:23 11/23/19 12:28 Temperature 36.3 C L Temperature Source Oral Pulse Rate 102 H 75 74 Pulse Rate [Left Finger] Pulse Rate from SpO2 Sensor 75 74 Respiratory Rate 21 21 20 Respiratory Depth Normal Blood Pressure 71/38 L 96/52 L Blood Pressure [Left Arm] Blood Pressure Mean 49 58 Blood Pressure Mean [Left Arm] Pulse Oximetry 98 97 94 Oxygen Delivery Method Room Air Sepsis Recent Fever Within 48 Hours No Sepsis Action Taken by Nursing No Action Required 11/23/19 12:30 11/23/19 12:31 11/23/19 12:56 Temperature Temperature Source Pulse Rate 75 74 Pulse Rate [Left Finger] Pulse Rate from SpO2 Sensor Respiratory Rate 20 19 Respiratory Depth Blood Pressure 108/59 L Blood Pressure [Left Arm] Blood Pressure Mean 74 Blood Pressure Mean [Left Arm] Pulse Oximetry Oxygen Delivery Method Room Air Sepsis Recent Fever Within 48 Hours Sepsis Action Taken by Nursing 11/23/19 13:00 11/23/19 13:15 11/23/19 13:30 Temperature Temperature Source Pulse Rate 68 66 73 Pulse Rate [Left Finger] Pulse Rate from SpO2 Sensor 68 66 70 Respiratory Rate 17 15 18 Respiratory Depth Blood Pressure 119/57 L 131/68 Blood Pressure [Left Arm] Blood Pressure Mean 75 95 Blood Pressure Mean [Left Arm] Pulse Oximetry 91 91 94 Oxygen Delivery Method Sepsis Recent Fever Within 48 Hours Sepsis Action Taken by Nursing 11/23/19 14:00 11/23/19 14:14 11/23/19 14:15 Temperature Temperature Source Pulse Rate 70 72 Pulse Rate [Left Finger] 69 Pulse Rate from SpO2 Sensor 69 72 Respiratory Rate 17 14 14 Respiratory Depth Blood Pressure 147/63 H 142/63 H Blood Pressure [Left Arm] 147/63 H Blood Pressure Mean 95 83 Blood Pressure Mean [Left Arm] 91 Pulse Oximetry 97 93 94 Oxygen Delivery Method Room Air Sepsis Recent Fever Within 48 Hours Sepsis Action Taken by Nursing 11/23/19 14:30 11/23/19 14:46 11/23/19 15:00 Temperature Temperature Source Pulse Rate 63 62 Pulse Rate [Left Finger] Pulse Rate from SpO2 Sensor 63 61 Respiratory Rate 14 15 Respiratory Depth Blood Pressure 127/64 140/76 110/55 L Blood Pressure [Left Arm] Blood Pressure Mean 79 96 75 Blood Pressure Mean [Left Arm] Pulse Oximetry 93 94 Oxygen Delivery Method Sepsis Recent Fever Within 48 Hours Sepsis Action Taken by Nursing 11/23/19 15:15 11/23/19 15:30 11/23/19 15:45 Temperature Temperature Source Pulse Rate 63 63 61 Pulse Rate [Left Finger] Pulse Rate from SpO2 Sensor 63 62 63 Respiratory Rate 16 15 13 Respiratory Depth Blood Pressure 128/55 L 143/58 H 134/63 Blood Pressure [Left Arm] Blood Pressure Mean 85 83 81 Blood Pressure Mean [Left Arm] Pulse Oximetry 91 93 94 Oxygen Delivery Method Sepsis Recent Fever Within 48 Hours Sepsis Action Taken by Nursing 11/23/19 16:00 Temperature Temperature Source Pulse Rate 63 Pulse Rate [Left Finger] Pulse Rate from SpO2 Sensor 64 Respiratory Rate 13 Respiratory Depth Blood Pressure 121/61 Blood Pressure [Left Arm] Blood Pressure Mean 78 Blood Pressure Mean [Left Arm] Pulse Oximetry 93 Oxygen Delivery Method Sepsis Recent Fever Within 48 Hours Sepsis Action Taken by Nursing GENERAL: Patient is a healthy-appearing well-nourished female HEAD: Normocephalic atraumatic EYES: Ocular movements intact pupils equal and react to light OROPHARYNX mucous membranes are moist no exudates present no erythema or edema present NECK: Supple no nuchal rigidity CHEST: Good equal expansion LUNGS: Clear and equal to auscultation CARDIAC: Normal S1 and S2 ABDOMEN: Soft nontender no guarding BACK: No CVA tenderness EXTREMITIES: No pain upon palpation normal muscle strength in all groups no clubbing cyanosis or edema NEURO: Patient is following commands is answering questions appropriately. Alert and oriented x3 Cranial Nerves 2-12 grossly intact Course Administered Medications Discontinued Medications Hydrocortisone Sodium Succinate (Solu-Cortef) 100 mg IV NOW STA Stop: 11/23/19 12:43 Last Admin: 11/23/19 13:12 Dose: 100 mg Documented by: [id number] Sodium Chloride (Nss 1000ml) 1,000 mls @ 999 mls/hr IV .Q1H1M ONE Stop: 11/23/19 13:25 Last Infusion: 11/23/19 15:56 Dose: 0 mls/hr Documented by: [id number] Admin: 11/23/19 13:07 Dose: 999 mls/hr Documented by: [id number] Sodium Chloride (Nss 1000ml) 1,000 mls @ 999 mls/hr IV .Q1H1M ONE Stop: 11/23/19 13:32 Last Infusion: 11/23/19 15:56 Dose: 0 mls/hr Documented by: [id number] Admin: 11/23/19 13:07 Dose: 999 mls/hr Documented by: [id number] Ceftolozane/Tazobactam 375 mg/ (Dextrose) 102.85 mls @ 111.4 mls/hr IV NOW STA Stop: 11/23/19 13:33 Last Infusion: 11/23/19 14:15 Dose: 0 mls/hr Documented by: [id number] Admin: 11/23/19 13:01 Dose: 111.4 mls/hr Documented by: [id number] Critical Care Time I have personally spent greater than 90 minutes of critical care time in the direct management of this patient. This includes bedside care, interpretation of diagnostic studies, and testing, discussion with consultants, patient, and family members, and other required patient management activities. This 90 minutes is in excess of all separately billable procedures. Medical Decision Making Differential Diagnosis Sepsis, UTI, pneumonia, metabolic, electrolyte abnormalities, cardiac sources, intracerebral event, toxicologic, neurologic, as well as other pathologies. Medical Records Attestation: I reviewed the patient's medical records. Home Medications Current Medication List: was personally reviewed by me Laboratory Data Attestation: I reviewed the patient's lab results. Result diagrams: 11/23/19 12:40 11/23/19 12:40 Lab Results 11/23/19 11/23/19 11/23/19 Range/Units 12:25 12:40 12:40 WBC 11.58 H (4.8-10.8) K/uL RBC 2.62 L (4.2-5.4) M/uL Hgb 9.0 L (12.0-16.0) g/dL POC Hgb (12.0-16.0) g/dl Hct 27.0 L (37-47) % POC Hct (37-47) % MCV 103.1 H (80-100) fL MCH 34.4 H (25-34) pg MCHC 33.3 (32-36) g/dL RDW Std Deviation 63.9 H (36.4-46.3) fL RDW Coeff of Adrien 17.2 H (11.5-14.5) % Plt Count 354 (130-400) K/uL MPV 10.0 (7.4-10.4) fL Immature Gran % (Auto) 0.3 % Neut % (Auto) 71.4 % Lymph % (Auto) 20.4 % Todd % (Auto) 5.4 % Eos % (Auto) 2.2 % Baso % (Auto) 0.3 % Immature Gran # (Auto) 0.04 H (0.00-0.02) K/uL Neut # (Auto) 8.27 H (1.4-6.5) K/uL Lymph # (Auto) 2.36 (1.2-3.4) K/uL Todd # (Auto) 0.62 H (0.11-0.59) K/uL Eos # (Auto) 0.25 (0-0.5) K/uL Baso # (Auto) 0.04 (0-0.2) K/uL PT INR APTT PTT Ratio POC Sodium (135-144) mmol/L Sodium (136-145) mmol/L POC Potassium (3.3-5.0) mmol/L Potassium (3.5-5.1) mmol/L POC Chloride (101-112) mmol/L Chloride (98-107) mmol/L Carbon Dioxide (21-32) mmol/L POC Total CO2 (24-31) mEq/l Anion Gap (3-11) POC Anion Gap (16-25) mmol/L POC BUN (7-18) mg/dl BUN (7-18) mg/dl Creatinine (0.6-1.2) mg/dl POC Creatinine (0.6-1.3) mg/dl Est Cr Clr Drug Dosing ml/min Est GFR ( Amer) Est GFR (Non-Af Amer) BUN/Creatinine Ratio (10-20) Glucose (70-99) mg/dl POC Glucose (other) (70-99) mg/dl Lactate (0.4-2.0) mmol/L Calcium (8.5-10.1) mg/dl POC Ioniz Calcium Meghan (1.12-1.32) mmol/l Magnesium (1.8-2.4) mg/dl Total Bilirubin (0.2-1) mg/dl AST (15-37) U/L ALT (12-78) U/L Alkaline Phosphatase (45-117) U/L Total Creatine Kinase (26-192) U/L CK-MB (CK-2) (0.5-3.6) ng/ml CK/CKMB % Calc Troponin I (0-0.045) ng/ml Total Protein (6.4-8.2) gm/dl Albumin (3.4-5.0) gm/dl Globulin (2.5-4.0) gm/dl Albumin/Globulin Ratio (0.9-2) Procalcitonin 0.21 (0-0.5) ng/ml Random Cortisol mcg/dl Urine Color Yellow Urine Appearance Turbid A (Clear) Urine pH 5.5 (4.5-7.5) Ur Specific Slater 1.020 (1.000-1.030) Urine Protein 2+ H (Negative) Urine Glucose (UA) Negative (Negative) Urine Ketones Negative (Negative) Urine Blood 1+ H (Negative) Urine Nitrite Positive A (Negative) Urine Bilirubin Negative (Negative) Urine Urobilinogen Negative (Negative) Ur Leukocyte Esterase 2+ H (Negative) Urine RBC 5-10 H (0-4) /hpf Urine WBC >30 H (0-5) /hpf Ur Epithelial Cells 0-5 (0-5) /lpf Urine Bacteria 1+ H (Negative) Blood Type Antibody Screen 11/23/19 11/23/19 11/23/19 Range/Units 12:40 12:40 12:40 WBC (4.8-10.8) K/uL RBC (4.2-5.4) M/uL Hgb (12.0-16.0) g/dL POC Hgb (12.0-16.0) g/dl Hct (37-47) % POC Hct (37-47) % MCV (80-100) fL MCH (25-34) pg MCHC (32-36) g/dL RDW Std Deviation (36.4-46.3) fL RDW Coeff of Adrien (11.5-14.5) % Plt Count (130-400) K/uL MPV (7.4-10.4) fL Immature Gran % (Auto) % Neut % (Auto) % Lymph % (Auto) % Todd % (Auto) % Eos % (Auto) % Baso % (Auto) % Immature Gran # (Auto) (0.00-0.02) K/uL Neut # (Auto) (1.4-6.5) K/uL Lymph # (Auto) (1.2-3.4) K/uL Todd # (Auto) (0.11-0.59) K/uL Eos # (Auto) (0-0.5) K/uL Baso # (Auto) (0-0.2) K/uL PT Cancelled INR Cancelled APTT Cancelled PTT Ratio Cancelled POC Sodium (135-144) mmol/L Sodium 141 (136-145) mmol/L POC Potassium (3.3-5.0) mmol/L Potassium 3.9 (3.5-5.1) mmol/L POC Chloride (101-112) mmol/L Chloride 108 H (98-107) mmol/L Carbon Dioxide 27 (21-32) mmol/L POC Total CO2 (24-31) mEq/l Anion Gap 6.0 (3-11) POC Anion Gap (16-25) mmol/L POC BUN (7-18) mg/dl BUN 32 H (7-18) mg/dl Creatinine 1.97 H (0.6-1.2) mg/dl POC Creatinine (0.6-1.3) mg/dl Est Cr Clr Drug Dosing 17.3 ml/min Est GFR ( Amer) 26.2 Est GFR (Non-Af Amer) 22.6 BUN/Creatinine Ratio 16.1 (10-20) Glucose 95 (70-99) mg/dl POC Glucose (other) (70-99) mg/dl Lactate 2.5 H* (0.4-2.0) mmol/L Calcium 8.8 (8.5-10.1) mg/dl POC Ioniz Calcium Meghan (1.12-1.32) mmol/l Magnesium 2.3 (1.8-2.4) mg/dl Total Bilirubin 0.7 (0.2-1) mg/dl AST 21 (15-37) U/L ALT 19 (12-78) U/L Alkaline Phosphatase 67 (45-117) U/L Total Creatine Kinase 46 (26-192) U/L CK-MB (CK-2) < 1.0 (0.5-3.6) ng/ml CK/CKMB % Calc TNP Troponin I < 0.015 (0-0.045) ng/ml Total Protein 6.2 L (6.4-8.2) gm/dl Albumin 3.3 L (3.4-5.0) gm/dl Globulin 2.9 (2.5-4.0) gm/dl Albumin/Globulin Ratio 1.1 (0.9-2) Procalcitonin (0-0.5) ng/ml Random Cortisol mcg/dl Urine Color Urine Appearance (Clear) Urine pH (4.5-7.5) Ur Specific Slater (1.000-1.030) Urine Protein (Negative) Urine Glucose (UA) (Negative) Urine Ketones (Negative) Urine Blood (Negative) Urine Nitrite (Negative) Urine Bilirubin (Negative) Urine Urobilinogen (Negative) Ur Leukocyte Esterase (Negative) Urine RBC (0-4) /hpf Urine WBC (0-5) /hpf Ur Epithelial Cells (0-5) /lpf Urine Bacteria (Negative) Blood Type Antibody Screen 11/23/19 11/23/19 11/23/19 Range/Units 12:40 12:53 13:47 WBC (4.8-10.8) K/uL RBC (4.2-5.4) M/uL Hgb (12.0-16.0) g/dL POC Hgb 12.6 (12.0-16.0) g/dl Hct (37-47) % POC Hct 37 (37-47) % MCV (80-100) fL MCH (25-34) pg MCHC (32-36) g/dL RDW Std Deviation (36.4-46.3) fL RDW Coeff of Adrien (11.5-14.5) % Plt Count (130-400) K/uL MPV (7.4-10.4) fL Immature Gran % (Auto) % Neut % (Auto) % Lymph % (Auto) % Todd % (Auto) % Eos % (Auto) % Baso % (Auto) % Immature Gran # (Auto) (0.00-0.02) K/uL Neut # (Auto) (1.4-6.5) K/uL Lymph # (Auto) (1.2-3.4) K/uL Todd # (Auto) (0.11-0.59) K/uL Eos # (Auto) (0-0.5) K/uL Baso # (Auto) (0-0.2) K/uL PT INR APTT PTT Ratio POC Sodium 142 (135-144) mmol/L Sodium (136-145) mmol/L POC Potassium 4.0 (3.3-5.0) mmol/L Potassium (3.5-5.1) mmol/L POC Chloride 105 (101-112) mmol/L Chloride (98-107) mmol/L Carbon Dioxide (21-32) mmol/L POC Total CO2 28 (24-31) mEq/l Anion Gap (3-11) POC Anion Gap 14.0 L (16-25) mmol/L POC BUN 33 H (7-18) mg/dl BUN (7-18) mg/dl Creatinine (0.6-1.2) mg/dl POC Creatinine 2.0 H (0.6-1.3) mg/dl Est Cr Clr Drug Dosing ml/min Est GFR ( Amer) Est GFR (Non-Af Amer) BUN/Creatinine Ratio (10-20) Glucose (70-99) mg/dl POC Glucose (other) 94 (70-99) mg/dl Lactate (0.4-2.0) mmol/L Calcium (8.5-10.1) mg/dl POC Ioniz Calcium Meghan 1.17 (1.12-1.32) mmol/l Magnesium (1.8-2.4) mg/dl Total Bilirubin (0.2-1) mg/dl AST (15-37) U/L ALT (12-78) U/L Alkaline Phosphatase (45-117) U/L Total Creatine Kinase (26-192) U/L CK-MB (CK-2) (0.5-3.6) ng/ml CK/CKMB % Calc Troponin I (0-0.045) ng/ml Total Protein (6.4-8.2) gm/dl Albumin (3.4-5.0) gm/dl Globulin (2.5-4.0) gm/dl Albumin/Globulin Ratio (0.9-2) Procalcitonin (0-0.5) ng/ml Random Cortisol 22.08 mcg/dl Urine Color Urine Appearance (Clear) Urine pH (4.5-7.5) Ur Specific Slater (1.000-1.030) Urine Protein (Negative) Urine Glucose (UA) (Negative) Urine Ketones (Negative) Urine Blood (Negative) Urine Nitrite (Negative) Urine Bilirubin (Negative) Urine Urobilinogen (Negative) Ur Leukocyte Esterase (Negative) Urine RBC (0-4) /hpf Urine WBC (0-5) /hpf Ur Epithelial Cells (0-5) /lpf Urine Bacteria (Negative) Blood Type AB Negative Antibody Screen NEGATIVE 11/23/19 Range/Units 15:14 WBC (4.8-10.8) K/uL RBC (4.2-5.4) M/uL Hgb (12.0-16.0) g/dL POC Hgb (12.0-16.0) g/dl Hct (37-47) % POC Hct (37-47) % MCV (80-100) fL MCH (25-34) pg MCHC (32-36) g/dL RDW Std Deviation (36.4-46.3) fL RDW Coeff of Adrien (11.5-14.5) % Plt Count (130-400) K/uL MPV (7.4-10.4) fL Immature Gran % (Auto) % Neut % (Auto) % Lymph % (Auto) % Todd % (Auto) % Eos % (Auto) % Baso % (Auto) % Immature Gran # (Auto) (0.00-0.02) K/uL Neut # (Auto) (1.4-6.5) K/uL Lymph # (Auto) (1.2-3.4) K/uL Todd # (Auto) (0.11-0.59) K/uL Eos # (Auto) (0-0.5) K/uL Baso # (Auto) (0-0.2) K/uL PT INR APTT PTT Ratio POC Sodium (135-144) mmol/L Sodium (136-145) mmol/L POC Potassium (3.3-5.0) mmol/L Potassium (3.5-5.1) mmol/L POC Chloride (101-112) mmol/L Chloride (98-107) mmol/L Carbon Dioxide (21-32) mmol/L POC Total CO2 (24-31) mEq/l Anion Gap (3-11) POC Anion Gap (16-25) mmol/L POC BUN (7-18) mg/dl BUN (7-18) mg/dl Creatinine (0.6-1.2) mg/dl POC Creatinine (0.6-1.3) mg/dl Est Cr Clr Drug Dosing ml/min Est GFR ( Amer) Est GFR (Non-Af Amer) BUN/Creatinine Ratio (10-20) Glucose (70-99) mg/dl POC Glucose (other) (70-99) mg/dl Lactate 1.6 (0.4-2.0) mmol/L Calcium (8.5-10.1) mg/dl POC Ioniz Calcium Meghan (1.12-1.32) mmol/l Magnesium (1.8-2.4) mg/dl Total Bilirubin (0.2-1) mg/dl AST (15-37) U/L ALT (12-78) U/L Alkaline Phosphatase (45-117) U/L Total Creatine Kinase (26-192) U/L CK-MB (CK-2) (0.5-3.6) ng/ml CK/CKMB % Calc Troponin I (0-0.045) ng/ml Total Protein (6.4-8.2) gm/dl Albumin (3.4-5.0) gm/dl Globulin (2.5-4.0) gm/dl Albumin/Globulin Ratio (0.9-2) Procalcitonin (0-0.5) ng/ml Random Cortisol mcg/dl Urine Color Urine Appearance (Clear) Urine pH (4.5-7.5) Ur Specific Slater (1.000-1.030) Urine Protein (Negative) Urine Glucose (UA) (Negative) Urine Ketones (Negative) Urine Blood (Negative) Urine Nitrite (Negative) Urine Bilirubin (Negative) Urine Urobilinogen (Negative) Ur Leukocyte Esterase (Negative) Urine RBC (0-4) /hpf Urine WBC (0-5) /hpf Ur Epithelial Cells (0-5) /lpf Urine Bacteria (Negative) Blood Type Antibody Screen Imaging Data Radiologist's Impression: [facility] [place] [phone] XRay Report Patient: ELIZABETH MICHAEL Admit Date: 11/23/19 MR#: [id number] Address1: [address] [place] [address] [address] Acct ID:[id number] Address2: [facility] Date: 1935 [facility] Zip: [place] [address] Age: 84 Location: ED Sex: F Room/Bed: Att Phy: Diagnosis: CONFUSED, UTI, REFERRED BY DR Charley Neri: Vasiliy Uriostegui MD Service Date: 11/23/19 [facility] Phy: Interpreting Phy: Thomas Go MD Admit Phy: Ordering Phy: Marcial Alarcon MD cc: ~ XR chest 1V portable CLINICAL HISTORY: SEPSIS dyspnea COMPARISON STUDY: 10/08/2019 FINDINGS: The bones soft tissues and hemidiaphragms are normal. The cardiome diastinal silhouette is normal. The lungs are clear. The pulmonary vasculature is normal. IMPRESSION: Negative chest. ACT 112: Negative or not required by law. The above report was generated using voice recognition software. It may contain grammatical, syntax or spelling errors. Electronically signed by: Thomas Go M.D. 11/23/2019 1:02 PM Dictated: 11/23/19 1302 Transcribed: 11/23/19 1302 [place], [place] [phone] CT Scan Report Patient: ELIZABETH MICHAEL AAdmit Date: 11/23/19 MR#: [id number]: [address] Acct ID:[id number]: [facility] Date: [address] [place] [address] Zip: [place] [address] Age: 84Location: ED Sex: F Room/Bed: Att Phy:Diagnosis: CONFUSED, UTI, REFERRED BY DR Charley Marinoy: Vasiliy Uriostegui MDService Date: 11/23/19 [facility] Phy:Interpreting Phy: Cory Cantu MD Admit Phy: Ordering Phy: Marcial Alarcon MD cc: ~ CT OF THE ABDOMEN AND PELVIS WITHOUT CONTRAST CLINICAL HISTORY: Abdominal pain. COMPARISON STUDY: CT of the abdomen and pelvis November 07, 2019. TECHNIQUE: Axial images of the abdomen and pelvis were obtained without IV contrast. Images were reviewed in the axial, sagittal, and coronal planes. Automated exposure control was utilized for the study. A dose lowering technique was utilized adhering to the principles of ALARA. FINDINGS: Subpleural opacities within the lower lungs favor atelectasis. The heart is moderately enlarged. No pneumatosis, free air or portal venous gas is present. Evaluation of the abdomen and pelvis is suboptimal on this unenhanced exam. Mild dilatation of the common bile duct is unchanged and likely related to previous cholecystectomy. A rim calcified focus within the cholecystectomy bed is unchanged. The liver, spleen, adrenal glands and pancreas are unremarkable. There is no pancreatic ductal dilatation or peripancreatic infiltration. Water attenuation bilateral renal lesions were shown to reflect cysts on prior contrast enhanced exam. There is no evidence for a bowel obstruction. The appendix is normal. Sigmoid diverticulosis is noted without evidence for acute diverticulitis. T11, T12 and L1 compression fractures are similar to CT of November 07, 2019. Ventral hernia repair with mesh is noted. IMPRESSION: 1. No acute process within the abdomen or pelvis on unenhanced exam. 2. Colonic diverticulosis without evidence for acute diverticulitis. 3. No bowel obstruction. 4. Numerous bilateral renal cysts. No hydronephrosis. ACT 112: Negative or not required by law. Electronically signed by: Cory Cantu M.D. 11/23/2019 3:30 PM Dictated: 11/23/19 1441 Transcribed: 11/23/19 1441 [place], [place] [phone] CT Scan Report Patient: ELIZABETH MICHAEL AAdmit Date: 11/23/19 MR#: [id number]: [address] Acct ID:[id number]: [place] Date: [address] [place] [id number] Zip: [place] [address] Age: 84Location: ED Sex: F Room/Bed: Att Phy:Diagnosis: CONFUSED, UTI, REFERRED BY DR Whitehead Phy: Vasiliy Uriostegui MDService Date: 11/23/19 Fam Phy:Interpreting Phy: Thomas Go MD Admit Phy: Ordering Phy: Marcial Alarcon MD cc: ~ CT head/brain wo con CT DOSE: 614.27 mGy.cm HISTORY: Mental status change Pt c/o AMS TECHNIQUE: Multiaxial CT images of the head were performed without the use of intravenous contrast. A dose lowering technique was utilized adhering to the principles of ALARA. Comparison: 07/14/2019 Findings: The paranasal sinuses and mastoid air cells are clear. The calvarium and skull base are intact. The ventricles and sulci are within normal limits. There is no mass, hematoma, midline shift, or acute infarct. Age-related atrophy and chronic small vessel change Impression: 1. No acute process. 2. Age-related atrophy and chronic small vessel change. ACT 112: Negative or not required by law. The above report was generated using voice recognition software. It may contain grammatical, syntax or spelling errors. Electronically signed by: Thomas Go M.D. 11/23/2019 2:42 PM Dictated: 11/23/19 1440 Transcribed: 11/23/19 1440 ECG Data Attestation: I personally reviewed and interpreted this ECG as follows: Indication: + altered mental status Rate (beats per minute): 67 Rhythm: + normal sinus ECG Intervals/blocks: + Normal QT-c (414) ECG [place]: + Normal ECG ST segments: no ST depression and no ST elevation Comparison ECG Date: from (07/29/2018) Change: no significant change MDM Narrative Cardiac monitoring: An order was placed for continuous cardiac monitoring. The monitor shows a rate of 102 with NS rhythm. This is an 84-year-old female on chronic steroids who presents to the emergency department hypotensive and tachycardic. A sepsis alert was initiated and the patient was given a normal saline bolus (30 ml/kg). Due to chronic steroid use she was started on Solu-Cortef. Her urine is concerning for an infection. Her creatinine is also bumped to 2.0. Blood cultures as well as lactate were obtained. Patient does have an elevation of white blood cell count of 11,000. The patient was started on broad-spectrum antibiotics. I did discuss her case with the hospitalist service who did agree to admit the patient. Impression & Plan Acute hypotension, LAITH (acute kidney injury), Altered mental status, Anemia Discharge Plan Visit Data *Final* Discharge Date/Time: 11/23/19 18:30 Chief Complaint: Confusion Stated Complaint: CONFUSED, UTI, REFERRED BY ED Provider: Marcial Alarcon Discharge Problem: Acute hypotension, LAITH (acute kidney injury), Altered mental status, Anemia Patient Disposition: Admitted As Inpatient Discharge Instructions Interventions: ED Discharge Assessment Last Done: 11/23/19 18:30 Discharge Problem: Altered mental status Qualifiers: Altered mental status type: unspecified Qualified Code(s): R41.82 - Altered mental status, unspecified Anemia Qualifiers: Anemia type: unspecified type Qualified Code(s): D64.9 - Anemia, unspecified
[2019-11-23] MEDS ORDERED: HYDROCORTISONE SOD SUCCINATE 100 MG/2 ML VIAL IV STA (12:42)
[2019-11-23 12:47] LABS: Appearance Urine Turbid (Clear); Bilirubin Urine Negative (Negative); Blood Urine 1+ (Negative); Color Urine Yellow; Glucose Urine UA Negative (Negative); Ketones Urine Negative (Negative); Leukocyte Esterase Urine 2+ (Negative); Nitrite Urine Positive (Negative); Protein Urine 2+ (Negative); Urobilinogen Urine Negative (Negative); pH Urine 5.5 (4.5-7.5)
[2019-11-23 12:52] LABS: Basophils # (auto) 0.04 K/uL (0-0.2); Basophils % (auto) 0.3 %; Eosinophils # (auto) 0.25 K/uL (0-0.5); Eosinophils % (auto) 2.2 %; Immature Granulocytes # (auto) 0.04 K/uL (0.00-0.02); Immature Granulocytes % (auto) 0.3 %; Lymphocytes # (auto) 2.36 K/uL (1.2-3.4); Lymphocytes % (auto) 20.4 %; Mean Corpuscular Hemoglobin 34.4 pg (25-34); Mean Corpuscular Hgb Conc 33.3 g/dL (32-36); Mean Corpuscular Volume 103.1 fL (80-100); Monocytes # (auto) 0.62 K/uL (0.11-0.59); Monocytes % (auto) 5.4 %; Neutrophils # (auto) 8.27 K/uL (1.4-6.5); Neutrophils % (auto) 71.4 %; Platelet Count 354 K/uL (130-400); RDW Coefficient of Variation 17.2 % (11.5-14.5); RDW Standard Deviation 63.9 fL (36.4-46.3); Red Blood Count 2.62 M/uL (4.2-5.4); White Blood Count 11.58 K/uL (4.8-10.8)
[2019-11-23 12:56] LABS: Epithelial Cell Urine 0-5 /lpf (0-5); WBC Urine >30 /hpf (0-5)
[2019-11-23 12:57] LABS: Bacteria Urine 1+ (Negative)
--- NOTE | 2019-11-23 13:03 | XRay Report ---
XR chest 1V portable CLINICAL HISTORY: SEPSIS dyspnea COMPARISON STUDY: 10/08/2019 FINDINGS: The bones soft tissues and hemidiaphragms are normal. The cardiomediastinal silhouette is n ormal. The lungs are clear. The pulmonary vasculature is normal. IMPRESSION: Negative chest. ACT 112: Negative or not required by law. The above report was generated using voice recognition software. It may contain grammatical, syntax or spelling errors. Electronically signed by: Thomas Go M.D. 11/23/2019 1:02 PM
[2019-11-23 13:06] LABS: iSTAT Hemoglobin 12.6 g/dl (12.0-16.0); iSTAT Ionized Calcium 1.17 mmol/l (1.12-1.32)
[2019-11-23 13:10] LABS: Alanine Aminotransferase 19 U/L (12-78); Albumin Level 3.3 gm/dl (3.4-5.0); Aspartate Aminotransferase 21 U/L (15-37); BUN Creatinine Ratio 16.1 (10-20); Blood Urea Nitrogen 32 mg/dl (7-18); Calcium 8.8 mg/dl (8.5-10.1); Carbon Dioxide 27 mmol/L (21-32); Chloride 108 mmol/L (98-107); Creatinine Clr Calc Pharmacy 17.3 ml/min; Est GFR (African American) 26.2; Est GFR (Non-African American) 22.6; Glucose 95 mg/dl (70-99); Magnesium 2.3 mg/dl (1.8-2.4); Potassium 3.9 mmol/L (3.5-5.1); Sodium 141 mmol/L (136-145)
[2019-11-23 13:15] LABS: Albumin Globulin Ratio 1.1 (0.9-2); Alkaline Phosphatase 67 U/L (45-117); Bilirubin,Total 0.7 mg/dl (0.2-1); Creatine Kinase 46 U/L (26-192); Creatine Kinase MB < 1.0 ng/ml (0.5-3.6); Globulin 2.9 gm/dl (2.5-4.0); Total Protein 6.2 gm/dl (6.4-8.2); Troponin I < 0.015 ng/ml (0-0.045)
--- NOTE | 2019-11-23 14:44 | CT Scan Report ---
CT head/brain wo con CT DOSE: 614.27 mGy.cm HISTORY: Mental status change Pt c/o AMS TECHNIQUE: Multiaxial CT images of the head were performed without the use of intravenous contrast. A dose lowering technique was utilized adhering to the principles of ALARA. Comparison: 07/14/2019 Findings: The paranasal sinuses and mastoid air cells are clear. The calvarium and skull base are int act. The ventricles and sulci are within normal limits. There is no mass, hematoma, midline shift, or acute infarct. Age-related atrophy and chronic small vessel change Impression: 1. No acute process. 2. Age-related atrophy and chronic small vessel change. ACT 112: Negative or not required by law. The above report was generated using voice recognition software. It may contain grammatical, syntax or spelling errors. Electronically signed by: Thomas Go M.D. 11/23/2019 2:42 PM
--- NOTE | 2019-11-23 15:16 | History & Physical Report ---
Date of Service November 23, 2019 Assessment & Plan (1) Sepsis: (2) Hypotension: (3) History of ESBL E. coli infection: - Admit to PCU - Received 2 L NSS in the ER - Received 100 mg IV hydrocortisone in the ER, will continue - turbid appearing UA, urine culture in process - Started on zerbaxa - will continue per pharmacy -previously failed imipenem (completed 6-day course which was completed on 11/13/2019.) - Continue on p.o. vancomycin with patient history of C. difficile. - WBC = 11.58, follow with am labs - Lactic acid initially elevated at 2.5, recheck ordered (4) Hypertension: -BP currently 147/63, hold amlodipine 5 mg every morning for now, resume once (5) Hyperlipidemia: -Continue cholecystyramine as per [employer] meds (6) Rheumatoid arthritis: -Prednisone 10 mg daily, takes methotrexate 2.5 mg on Sundays. 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 -Random cortisol is 22 (7) Dementia with behavioral disturbance: -At baseline patient recognizes her children, is not oriented to time or place, discussion held with her daughter at bedside regarding visitation policies. (8) CKD (chronic kidney disease), stage III: -Creatinine = 1.97, baseline appears to be 1.6, likely to improve with fluid resuscitation as already given, no further fluids at this time -Renally dose medications including IV antibiotics for UTI, avoid nephrotoxins (9) Osteoporosis: -History of such, fall precautions (10) Vitamin D insufficiency: -Continue vitamin D supplementation (11) Hypothyroidism: -Continue levothyroxine 112 mcg daily (12) DVT prophylaxis: - teds CODE: DNR - discussed with daughter and son (POA) over the phone. Dispo: From home, likely to remain in the hospital x 1-2 days History of Present Illness Primary Care Provider: Vasiliy Uriostegui MD This is an 84 yo F with PMHx of hx of betalactamase resistant e.coli diagnosed on 11/08/2019 and was treated with a 6 day course of imipenum as well as vancomycin (hx of c. diff). She has other PMHx which includes progressive dementia, mild anemia, RA on chronic prednisone who presented with increased confusion. The patient's daughter provides majority of the history as the patient has severe dementia and is presently asleep reports that she had increased confusion starting on Friday night. Patient began to hallucinate, wondering where her of 2 years was, and was not making sense. Urine became very foul-smelling and she became more incontinent. Daughter denies that she had any fever. She has been eating and drinking without difficulty. The patient is also a resident of [facility] however the daughter pulled her up there at the beginning of - social distancing due to concerns for her health, and has been caring for her mother herself in her home. She reports that the patient has been battling with this for approximately 1 month. Pt was initially hypotensive with BP of 70/40, tachycardic with HR of 110, and hypothermic. She was found to have grossly turbid urine on UA which has been cultured. Pt was administered solucortef IV and a random cortisol level was drawn = 22.08. Pt responded well to 2L NSS in the ER. Allergies Allergy/AdvReac Type Severity Reaction Status Date / Time Penicillins Allergy Unknown SWELLING Verified 11/23/19 13:41 celecoxib AdvReac Intermediate N/V Verified 11/23/19 13:41 cephalexin AdvReac Intermediate N/V Verified 11/23/19 13:41 methotrexate AdvReac Intermediate N/V Verified 11/23/19 13:41 nitrofurantoin AdvReac Intermediate N/V Verified 11/23/19 13:41 risedronate sodium AdvReac Intermediate NAUSEA AND Verified 11/23/19 13:41 VOMITING Home Medications Home Medications Medication Instructions Recorded Confirmed Type donepezil 10 mg PO HS 05/23/18 11/23/19 History mirtazapine 45 mg PO HS 05/23/18 11/23/19 History pantoprazole 40 mg PO QAM 05/23/18 11/23/19 History simvastatin 40 mg PO HS 05/23/18 11/23/19 History amlodipine 5 mg PO QAM 07/29/18 11/23/19 History aspirin [Aspir-81] 81 mg PO BID 07/29/18 11/23/19 History ferrous sulfate 325 mg PO QAM 07/29/18 11/23/19 History polyethylene glycol 3350 [Miralax] 17 g PO DAILY PRN 11/14/18 11/23/19 History levothyroxine 112 mcg tablet 112 mcg PO QAM #30 tab 01/12/19 11/23/19 Rx folic acid 1 mg tablet 1 mg PO 6XWK #90 tab 03/02/19 11/23/19 Rx lidocaine 1 patch TOP DAILY PRN #15 ea 04/14/19 11/23/19 Rx prednisone 10 mg PO DAILY 04/14/19 11/23/19 History psyllium [Reguloid, Sugar Free] 1 tbsp PO DAILY 04/14/19 11/23/19 History cholestyramine (with sugar) 4 gram 4 g PO DAILY #60 ea 04/20/19 11/23/19 Rx powder for susp in a packet heating pads #1 ea 04/20/19 11/23/19 Rx calcium carbonate 320 mg calcium 320 mg PO BID tab 05/18/19 11/23/19 History (750 mg) chewable tablet cranberry 500 mg capsule 500 mg PO QAM cap 05/18/19 11/23/19 History methotrexate sodium 2.5 mg tablet 2.5 mg PO WEEKLY tab 07/20/19 11/23/19 History dextromethorphan-guaifenesin 30 1 tab PO Q12H 3 Days #1 box 10/05/19 11/23/19 Rx mg-600 mg tablet extended [id number] hr doxycycline hyclate 100 mg tablet 100 mg PO BID 10 Days #20 tab 10/08/19 11/23/19 Rx quetiapine 12.5 mg PO DAILY 10/10/19 11/23/19 History simethicone 160 mg PO DAILY 10/10/19 11/23/19 History lidocaine 5 %-phenylephrine 0.25 1 appln TOP QID #28 gm 10/18/19 11/23/19 Rx %-glycern 14.4 %-petrolatm 15 % cream acetaminophen 500 mg tablet 500 mg PO TID #90 tab 10/19/19 11/23/19 Rx ciprofloxacin HCl 250 mg tablet 250 mg PO BID #20 tab 10/19/19 11/23/19 Rx vancomycin 125 mg capsule 125 mg PO TID #63 cap 10/19/19 11/23/19 Rx nitrofurantoin 100 mg PO BID #20 cap 10/20/19 11/23/19 Rx monohydrate/macrocrystals 100 mg capsule gabapentin 100 mg capsule 100 mg PO BID #60 cap 11/01/19 11/23/19 Rx oxycodone 5 mg tablet See Rx Instructions PO .COMPLEX 11/17/19 11/23/19 Rx #90 tab Past Med/Surg History Medical History (Updated 11/23/19 @ 18:44 by Marcial Alarcon MD) Acute exacerbation of chronic low back pain (Inactive) Acute GI bleeding (Acute) LAITH (acute kidney injury) LAITH (acute kidney injury) (Acute) Anemia of chronic disease ASCVD (arteriosclerotic cardiovascular disease) C. difficile colitis january2017 Chronic kidney disease Chronic use of steroids (Chronic) Chronic UTI CKD (chronic kidney disease) Closed right hip fracture Colitis Colitis (Resolved) Constipation Dementia Dementia (Chronic) Diarrhea (Resolved) Fall (Inactive) GERD (gastroesophageal reflux disease) Hip pain, right (Inactive) Hyperlipidemia Hypertension Hypotension Hypothyroidism Kidney stones PVD (peripheral vascular disease) Rheumatoid arthritis (Chronic) Vitamin D insufficiency Surgical History History of umbilical hernia repair Hx of cholecystectomy Hx of colonoscopy Hx of esophagogastroduodenoscopy Family History Unknown Arteriosclerotic cardiovascular disease (ASCVD) Father Heart disease Diabetes Myocardial infarction Mother Cancer Hypertension Mother Breast cancer Other Family history non-contributory Denies family history of Ovarian cancer Prostate cancer Crohn's disease Lung cancer Colorectal cancer Ulcerative colitis Stroke Social History Preferred Language: Arabic Communication Ability: Effective Communication Ability Comment: baseline dementia, poor historian Visual Impairment: No Limitations Hearing Ability: Normal [place] Required: No Beliefs That Will Affect Care: None marital status: / Current Living Situation: Family Current Living Situation Comment: lives with daughter current occupational status: other Other Information That Helps Us Care for You: No Feels Safe at Home: Yes Safety Concerns: Feels Safe At This Time Smoking Status: Never smoker Do You Dip or Chew Tobacco: No ; Second Hand Exposure: No ; Tobacco Cessation Education Requested by Patient: No Hx Alcohol Use: No Hx Substance Use: No Childhood Exposure to Second-Hand Smoke: No caffeine: Yes Dental Care, Regularly: No Physical Activity Frequency: Does not Exercise Seatbelt Use: always Sunscreen Use: No Review of Systems Review of Systems: Unobtainable due to cognitive status Physical Exam Physical Exam: General: +asleep but awakens easily to verbal stimuli and follows commands, no apparent distress Head: Normocephalic, atraumatic ENT: PERRL, EOMI, no pharyngeal exudate, mucous membranes dry, + dentures Chest: + slightly diminished breath sounds at bases, on room air, no adventitious breath sounds Cardiac: Regular rate and rhythm, no murmur, no JVD, normal peripheral pulses, good capillary refill Abdominal: NABS x 4 quadrants, soft, nondistended, nontender to palpation, no rebound, guarding or tenderness Extremities: Normal inspection, no peripheral edema or erythema, calfs nontender to palpation Psych: Normal mood and affect Neuro: Asleep, at baseline is not oriented to place or time, cannot name the president, recognizes all her children, no gross motor deficits and uses a walker with ambulation, speech is clear, no peripheral sensory deficits Results & Data Results & Data ([facility]) Vital Signs (Past 12 Hours) Vital Signs Temp Pulse Pulse Resp BP BP Pulse Ox 11/23/19 14:14 69 14 147/63 H 93 11/23/19 12:08 36.3 C L 102 H 21 71/38 L 98 Code Status & VTE Plan Code Status DNR -discussed with daughter at bedside and her brother Norm (POA) over the phone Supervising Physician Co-Signing Physician Notes Attending Attestation and Admission Note: Pt seen/examined, chart reviewed, admission care plan d/w DARRON Burgess. I agree w/ the guajardo components of her documentation. 84yo female with recurrent ESBL e.coli UTIs over the last few months - recently treated with IV antibiotics (ertapenem x 10 days - stop date 11/17) - presenting with increasing confusion along with foul-smelling urine. U/a upon presentation today concerning for ongoing UTI. CT abd/pelvis in ER today w/o nidus for infection (no renal stones, masses, etc seen; no hydronephrosis either). Patient is on chronic steroids for her RA and thus received IV hydrocortisone upon presentation. Patient was hypotensive upon arrival requiring IV fluids and the steroids. BPs improved following such. PMH, PSH, allergies, meds, sochx, famhx, ros - reviewed vitals: BP quite low at presentation, now normalized following IV fluids/steroids; afebrile exam: gen - altered; difficult to understand what she is saying; inappropriate responses to questions mouth - MM dry heart - irregular, s1 s2 lungs - mildly decreased BS bases o/w CTA b/l abd - soft NT ND BS+ ext - no edema, pulses 1+ b/l, slightly cool extremities musculo - advanced RA changes of fingers; no synovitis labs - WBC 11.5 Hb 9 Cr 1.97 u/a - concerning for UTI CT abd/pelvis, cxr - reviewed and wnl CT head neg A/P: 1. sepsis 2nd to e.coli UTI (11/21 culture w/ e.coli, sens pending) 2. acute renal failure in setting of CKD stage 4 3. metabolic encephalopathy 2nd to #1 4. recurrent ESBL e.coli UTI - consider urology referral post-discharge for additional w/u and consideration of prophylaxis 5. steroid-dependent RA 6. dementia agree with IV zerbaxa, stress dose steroids and IVF follow 11/21 urine cx results and blood cx's ID consultation requested due to Zerbaxa use no active c. diff symptoms, but PO vanco to be used as preventive med given the copious amounts of IV abx she has had of late probiotics repeat BMP am in light of dementia and encephalopathy avoid benzos/sedatives if possible Marcelino Moore MD PG Care Time/CCT Total # of Minutes Spent Total Time Spent with Patient: Total time spent is greater than 50% in coordination of care (as documented) at patient's floor/unit and/or counseling patient: Coding Level of Care Code 57789 Initial Inpt Care Lvl 3 Diagnoses Sepsis A41.9 Hypotension I95.9 History of ESBL E. coli infection Z86.19 Hypertension I10 Hypertension type: essential hypertension Hyperlipidemia E78.5 Hyperlipidemia type: unspecified Rheumatoid arthritis M06.9 Rheumatoid arthritis location: unspecified site Rheumatoid factor presence: unspecified presence Dementia with behavioral disturbance F03.91 CKD (chronic kidney disease), stage III N18.3 Osteoporosis M80.00XD Encounter type: subsequent encounter Fracture healing: with routine healing Osteoporosis type: age-related Presence of current pathological fracture: with current pathological fracture Vitamin D insufficiency E55.9 Hypothyroidism E03.9 Hypothyroidism type: unspecified DVT prophylaxis Z29.9 (1) Rheumatoid arthritis Rheumatoid arthritis location: unspecified site Rheumatoid factor presence: unspecified presence Qualified Code(s): M06.9 - Rheumatoid arthritis, unspecified (2) Osteoporosis Encounter type: subsequent encounter Fracture healing: with routine healing Osteoporosis type: age-related Presence of current pathological fracture: with current pathological fracture Qualified Code(s): M80.00XD - Age-related osteoporosis with current pathological fracture, unspecified site, subsequent encounter for fracture with routine healing (3) Hyperlipidemia Hyperlipidemia type: unspecified Qualified Code(s): E78.5 - Hyperlipidemia, unspecified (4) Hypothyroidism Hypothyroidism type: unspecified Qualified Code(s): E03.9 - Hypothyroidism, unspecified (5) Hypertension Hypertension type: essential hypertension Qualified Code(s): I10 - Essential (primary) hypertension
--- NOTE | 2019-11-23 15:31 | CT Scan Report ---
CT OF THE ABDOMEN AND PELVIS WITHOUT CONTRAST CLINICAL HISTORY: Abdominal pain. COMPARISON STUDY: CT of the abdomen and pelvis November 07, 2019. TECHNIQUE: Axial images of the abdomen and pelvis were obtained without IV contrast. Images were revi ewed in the axial, sagittal, and coronal planes. Automated exposure control was utilized for the luz dy. A dose lowering technique was utilized adhering to the principles of ALARA. FINDINGS: Subpleural opacities within the lower lungs favor atelectasis. The heart is moderately enla rged. No pneumatosis, free air or portal venous gas is present. Evaluation of the abdomen and pelvis is suboptimal on this unenhanced exam. Mild dilatation of the common bile duct is unchanged and likel y related to previous cholecystectomy. A rim calcified focus within the cholecystectomy bed is unchan ged. The liver, spleen, adrenal glands and pancreas are unremarkable. There is no pancreatic ductal d ilatation or peripancreatic infiltration. Water attenuation bilateral renal lesions were shown to ref lect cysts on prior contrast enhanced exam. There is no evidence for a bowel obstruction. The appendi x is normal. Sigmoid diverticulosis is noted without evidence for acute diverticulitis. T11, T12 and L1 compression fractures are similar to CT of November 07, 2019. Ventral hernia repair with mesh is noted . IMPRESSION: 1. No acute process within the abdomen or pelvis on unenhanced exam. 2. Colonic diverticulosis without evidence for acute diverticulitis. 3. No bowel obstruction. 4. Numerous bilateral renal cysts. No hydronephrosis. ACT 112: Negative or not required by law. Electronically signed by: Cory Cantu M.D. 11/23/2019 3:30 PM
--- NOTE | 2019-11-23 16:41 | Electrocardiogram Report ---
Test Reason : Blood Pressure : / mmHG Vent. Rate : 067 BPM Atrial Rate : 067 BPM P-R Int : 150 ms QRS Dur : 074 ms QT Int : 392 ms P-R-T Axes : 043 021 064 degrees QTc Int : 414 ms Normal sinus rhythm Normal ECG When compared with ECG of 29-JUL-2018 12:55, Nonspecific T wave abnormality now evident in Lateral leads Confirmed by Josef Mcintyre ([id number]) on 11/23/2019 4:40:54 PM Referred By: Vasiliy Uriostegui Confirmed By:Fili Mcintyre
[2019-11-23] MEDS ORDERED: LIDOCAINE 5% 1 PATCH TD PRN (18:30)
[2019-11-23] MEDS ORDERED: ONDANSETRON INJ 2 MG/ML 2 ML VIAL IV PRN (18:30)
[2019-11-23] MEDS ORDERED: HYDROCORTISONE SOD SUCCINATE 100 MG/2 ML VIAL IV SCH (18:30)
[2019-11-23] MEDS ORDERED: POLYETHYLENE (MIRALAX) 17 GM PACK PO PRN (18:30)
[2019-11-23] MEDS ORDERED: [UNRECOGNIZED DRUG - OTHER] SCH (18:30)
[2019-11-23] MEDS: RASPBERRY SYRUP 5 ML UDP PO SCH (20:47)
[2019-11-23] MEDS: FOLIC ACID 1 MG TAB PO SCH (20:47)
[2019-11-23] MEDS: HYDROCORTISONE SOD 50 MG in SYRINGE 0 ML IV SCH (20:47)
[2019-11-23] MEDS: VANCOMYCIN HCL 125 MG/2.5ML SOLN PO SCH (20:47)
[2019-11-23] MEDS: MIRTAZAPINE SOLTAB 15 MG PO SCH (20:48)
[2019-11-23] MEDS: QUETIAPINE FUMARATE 25 MG TABLET PO SCH (20:49)
[2019-11-23] MEDS: SIMVASTATIN 40 MG TAB PO SCH (20:50)
[2019-11-23] MEDS: ASPIRIN 81 MG ECTAB PO SCH (20:50)
[2019-11-23] MEDS: GABAPENTIN 100 MG CAP PO SCH (20:50)
[2019-11-23] MEDS: WITCH HAZEL/GLYCERIN 40 PADS/JAR (TUCKS) EXT SCH (20:51)
[2019-11-23] MEDS: CALCIUM CARBONATE 500 MG CHEWABLE TAB PO SCH ×2 (20:51→21:05)
[2019-11-23] MEDS: DONEPEZIL HCL 10 MG TAB PO SCH (20:51)
[2019-11-23] MEDS: guaiFENesin 600 MG TABCR PO SCH (20:52)
[2019-11-23] MEDS: ACETAMINOPHEN 500 MG TAB PO SCH (20:52)
[2019-11-23] MEDS: CEFTOLOZANE/TAZOBACTAM 375 MG in DEXTROSE 5% 100 ML IV SCH (21:02)
[2019-11-24] MEDS: HYDROCORTISONE SOD 50 MG in SYRINGE 0 ML IV SCH ×4 (02:00→22:10)
[2019-11-24] MEDS: CEFTOLOZANE/TAZOBACTAM 375 MG in DEXTROSE 5% 100 ML IV SCH ×3 (05:40→22:10)
[2019-11-24] MEDS: LEVOTHYROXINE SODIUM 112 MCG TABLET PO SCH (05:40)
[2019-11-24 06:31] LABS: Hemoglobin 11.7 g/dL (12.0-16.0); Mean Corpuscular Hemoglobin 32.5 pg (25-34); Mean Corpuscular Hgb Conc 31.6 g/dL (32-36); Mean Corpuscular Volume 102.8 fL (80-100); Mean Platelet Volume 9.5 fL (7.4-10.4); Platelet Count 220 K/uL (130-400); RDW Coefficient of Variation 16.7 % (11.5-14.5); RDW Standard Deviation 62.8 fL (36.4-46.3); White Blood Count 10.02 K/uL (4.8-10.8)
[2019-11-24 07:18] LABS: Bilirubin,Total 0.5 mg/dl (0.2-1); Calcium 8.4 mg/dl (8.5-10.1); Creatinine Clr Calc Pharmacy 24.8 ml/min; Est GFR (African American) 36.7; Est GFR (Non-African American) 31.7; Globulin 2.9 gm/dl (2.5-4.0); Potassium 4.6 mmol/L (3.5-5.1); Total Protein 5.9 gm/dl (6.4-8.2)
[2019-11-24] MEDS: RASPBERRY SYRUP 5 ML UDP PO SCH ×2 (08:23→12:41)
[2019-11-24] MEDS: PSYLLIUM 58.6% POWDER PACKET PO SCH (08:23)
[2019-11-24] MEDS: VANCOMYCIN HCL 125 MG/2.5ML SOLN PO SCH ×2 (08:24→12:41)
[2019-11-24] MEDS: SIMETHICONE 80 MG CHEW PO SCH ×3 (08:24→16:03)
[2019-11-24] MEDS: ASPIRIN 81 MG ECTAB PO SCH ×2 (08:24→20:06)
[2019-11-24] MEDS: guaiFENesin 600 MG TABCR PO SCH ×2 (08:24→20:05)
[2019-11-24] MEDS: GABAPENTIN 100 MG CAP PO SCH ×2 (08:24→20:05)
[2019-11-24] MEDS: FERROUS SULFATE 325 MG TAB PO SCH (08:24)
[2019-11-24] MEDS: PANTOprazole 40 MG TAB PO SCH (08:24)
[2019-11-24] MEDS: ACETAMINOPHEN 500 MG TAB PO SCH ×3 (08:24→20:06)
[2019-11-24] MEDS: FOLIC ACID 1 MG TAB PO SCH (08:24)
[2019-11-24] MEDS: predniSONE 10 MG TABLET PO SCH (08:24)
[2019-11-24] MEDS: CALCIUM CARBONATE 500 MG CHEWABLE TAB PO SCH ×2 (08:24→20:05)
[2019-11-24] MEDS: WITCH HAZEL/GLYCERIN 40 PADS/JAR (TUCKS) EXT SCH ×4 (08:26→20:08)
[2019-11-24] MEDS: CHOLESTYRAMINE LIGHT 4 GM PKT PO SCH (10:03)
--- NOTE | 2019-11-24 12:28 | Infectious Disease Consult ---
Date of Consultation November 24, 2019 Assessment & Plan (1) Chronic UTI: would suggest 14 days of IV abx, if zerbaxa difficult upon d/c due to cost, etc. etrapenem 1g daily would be althernative. History of Present Illness Attending Physician: Snow Parham MD pt admitted with foul smelling urine, 11/21 culture growing ESBL+ E. coli, she has had multiple cultures recently growing the same, recenlty treated with IV imipenem, current strain resistant. she is now on zerbaxa, ID consulted for abx approval. afebrile, tolerating abx. denies f/c. no abd pain, no n/v/d. eating lunch on my exam. has underlying dementia. afebrile since admission, wbc 10. creat 1.4, ct abd negative. has pcn and macrobid allergy. Allergies Allergy/AdvReac Type Severity Reaction Status Date / Time Penicillins Allergy Unknown SWELLING Verified 11/23/19 13:41 celecoxib AdvReac Intermediate N/V Verified 11/23/19 13:41 cephalexin AdvReac Intermediate N/V Verified 11/23/19 13:41 methotrexate AdvReac Intermediate N/V Verified 11/23/19 13:41 nitrofurantoin AdvReac Intermediate N/V Verified 11/23/19 13:41 risedronate sodium AdvReac Intermediate NAUSEA AND Verified 11/23/19 13:41 VOMITING Home Medications Home Medications Medication Instructions Recorded Confirmed Type donepezil 10 mg PO HS 05/23/18 11/23/19 History mirtazapine 45 mg PO HS 05/23/18 11/23/19 History pantoprazole 40 mg PO QAM 05/23/18 11/23/19 History simvastatin 40 mg PO HS 05/23/18 11/23/19 History amlodipine 5 mg PO QAM 07/29/18 11/23/19 History aspirin [Aspir-81] 81 mg PO BID 07/29/18 11/23/19 History ferrous sulfate 325 mg PO QAM 07/29/18 11/23/19 History polyethylene glycol 3350 [Miralax] 17 g PO DAILY PRN 11/14/18 11/23/19 History levothyroxine 112 mcg tablet 112 mcg PO QAM #30 tab 01/12/19 11/23/19 Rx folic acid 1 mg tablet 1 mg PO 6XWK #90 tab 03/02/19 11/23/19 Rx lidocaine 1 patch TOP DAILY PRN #15 ea 04/14/19 11/23/19 Rx prednisone 10 mg PO DAILY 04/14/19 11/23/19 History psyllium [Reguloid, Sugar Free] 1 tbsp PO DAILY 04/14/19 11/23/19 History cholestyramine (with sugar) 4 gram 4 g PO DAILY #60 ea 04/20/19 11/23/19 Rx powder for susp in a packet heating pads #1 ea 04/20/19 11/23/19 Rx calcium carbonate 320 mg calcium 320 mg PO BID tab 05/18/19 11/23/19 History (750 mg) chewable tablet cranberry 500 mg capsule 500 mg PO QAM cap 05/18/19 11/23/19 History methotrexate sodium 2.5 mg tablet 2.5 mg PO WEEKLY tab 07/20/19 11/23/19 History dextromethorphan-guaifenesin 30 1 tab PO Q12H 3 Days #1 box 10/05/19 11/23/19 Rx mg-600 mg tablet extended [id number] hr doxycycline hyclate 100 mg tablet 100 mg PO BID 10 Days #20 tab 10/08/19 11/23/19 Rx quetiapine 12.5 mg PO DAILY 10/10/19 11/23/19 History simethicone 160 mg PO DAILY 10/10/19 11/23/19 History lidocaine 5 %-phenylephrine 0.25 1 appln TOP QID #28 gm 10/18/19 11/23/19 Rx %-glycern 14.4 %-petrolatm 15 % cream acetaminophen 500 mg tablet 500 mg PO TID #90 tab 10/19/19 11/23/19 Rx ciprofloxacin HCl 250 mg tablet 250 mg PO BID #20 tab 10/19/19 11/23/19 Rx vancomycin 125 mg capsule 125 mg PO TID #63 cap 10/19/19 11/23/19 Rx nitrofurantoin 100 mg PO BID #20 cap 10/20/19 11/23/19 Rx monohydrate/macrocrystals 100 mg capsule gabapentin 100 mg capsule 100 mg PO BID #60 cap 11/01/19 11/23/19 Rx oxycodone 5 mg tablet See Rx Instructions PO .COMPLEX 11/17/19 11/23/19 Rx #90 tab Patient History Medical History Acute exacerbation of chronic low back pain (Inactive) Acute GI bleeding (Acute) LAITH (acute kidney injury) LAITH (acute kidney injury) (Acute) Anemia of chronic disease ASCVD (arteriosclerotic cardiovascular disease) C. difficile colitis [id number] Chronic kidney disease Chronic use of steroids (Chronic) Chronic UTI CKD (chronic kidney disease) Closed right hip fracture Colitis Colitis (Resolved) Constipation Dementia Dementia (Chronic) Diarrhea (Resolved) Fall (Inactive) GERD (gastroesophageal reflux disease) Hip pain, right (Inactive) Hyperlipidemia Hypertension Hypotension Hypothyroidism Kidney stones PVD (peripheral vascular disease) Rheumatoid arthritis (Chronic) Vitamin D insufficiency Surgical History History of umbilical hernia repair Hx of cholecystectomy Hx of colonoscopy Hx of esophagogastroduodenoscopy Family History Unknown Arteriosclerotic cardiovascular disease (ASCVD) Father Heart disease Diabetes Myocardial infarction Mother Cancer Hypertension Mother Breast cancer Other Family history non-contributory Denies family history of Ovarian cancer Prostate cancer Crohn's disease Lung cancer Colorectal cancer Ulcerative colitis Stroke Social History Preferred Language: Persian Communication Ability: Effective Communication Ability Comment: baseline dementia, poor historian Visual Impairment: No Limitations Hearing Ability: Normal Mining Technician Required: No Beliefs That Will Affect Care: None marital status: / Current Living Situation: Family Current Living Situation Comment: lives with daughter current occupational status: other Other Information That Helps Us Care for You: No Feels Safe at Home: Yes Safety Concerns: Feels Safe At This Time Smoking Status: Never smoker Do You Dip or Chew Tobacco: No ; Second Hand Exposure: No ; Tobacco Cessation Education Requested by Patient: No Hx Alcohol Use: No Hx Substance Use: No Childhood Exposure to Second-Hand Smoke: No caffeine: Yes Dental Care, Regularly: No Physical Activity Frequency: Does not Exercise Seatbelt Use: always Sunscreen Use: No Review of Systems Review of Systems: All systems reviewed & are unremarkable except as noted in HPI & below Physical Exam Constitutional: WD/WN, vitals as above Eyes: PERRL, conjunctivae normal, anicteric sclerae ENMT: external ear and nose normal, oropharynx normal Neck: normal visual inspection Respiratory: normal respiratory effort, lungs clear to auscultation Cardiovascular: RRR, no murmur, no edema Gastrointestinal (Abdomen): normal bowel sounds, soft, nontender, no hepatosplenomegaly Musculoskeletal: no cyanosis or clubbing, extremities motor strength 5/5 Skin: no rashes, warm and dry Psychiatric: A+Ox3, euthymic affect Results & Data ([facility]) Vital Signs (Past 12 Hours) Vital Signs Temp Pulse Resp BP Pulse Ox 11/24/19 11:37 36.8 C 69 16 130/70 95 11/24/19 07:31 36.8 C 74 16 155/69 H 96 11/24/19 04:00 36.3 C L 59 L 20 129/80 93 PG Care Time/CCT Total # of Minutes Spent Total Time Spent with Patient: Total time spent is greater than 50% in coordination of care (as documented) at patient's floor/unit and/or counseling patient: Coding Level of Care Code 98808 Inpt Consult Level 4 Diagnoses Chronic UTI N39.0
--- NOTE | 2019-11-24 14:01 | Hospitalist Progress Note ---
Date of Service November 24, 2019 Assessment & Plan (1) History of ESBL E. coli infection: - Admit to PCU - Received 2 L NSS in the ER - Received 100 mg IV hydrocortisone in the ER, will continue - turbid appearing UA, urine culture in process - Started on zerbaxa - will continue per pharmacy -previously failed imipenem (completed 6-day course which was completed on 11/13/2019.) - Continue on p.o. vancomycin with patient history of C. difficile. - WBC = 11.58, follow with am labs - Lactic acid initially elevated at 2.5, recheck ordered (2) Recurrent UTI: Sepsis 2nd to e.coli UTI -11/21 culture w/ ESBL E.coli--> much improved, BPs normalized Recurrent ESBL e.coli UTI - consider urology referral post-discharge for additional w/u and consideration of prophylaxis -continue IV zerbaxa, stress dose steroids and IVF -f/u blood cx's ID consultation requested due to Zerbaxa use improved--> recommends 14 day course of Zerbaxa vs ertapenem -no active c. diff symptoms, but PO vanco was started for prophylaxis. has had no diarrhea--no infection for many years--> dc po Vanco (3) LAITH (acute kidney injury): acute renal failure in setting of CKD stage 4--> improved today, accounting professional down to 1.49 -no further IVFs needed, cesar po -follow BMP (4) Sepsis: as above, resolved follow cultures, CBC treating with abx (5) Hypotension: resolved with IVFs and stress dosed steroids wean down HC to q8h (6) Hypertension: low BP on admission -continue to hold amlodipine 5 mg (7) Hyperlipidemia: -Continue statin (8) Rheumatoid arthritis: steroid-dependent RA -continue Prednisone 10 mg daily -hold methotrexate for recurrent UTI -Continue Solu-Cortef as above - 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 -Random cortisol is 22 (9) Dementia with behavioral disturbance: -At baseline patient recognizes her children, is not oriented to time or place, discussion held with her daughter at bedside regarding visitation policies. -continue Seroquel qhs and mirtazapine supportive care (10) CKD (chronic kidney disease), stage III: with LAITH as above, baseline appears to be 1.6, likely to improve with fluid resuscitation as already given, no further fluids at this time -Renally dose medications including IV antibiotics for UTI, avoid nephrotoxins -Avoid nephrotoxins -renally dose meds when appropriate -follow BMP (11) Osteoporosis: -History of such, fall precautions (12) Vitamin D insufficiency: -Continue vitamin D supplementation (13) Hypothyroidism: -Continue levothyroxine 112 mcg daily TSH 1.9 in 04/2019 (14) Acute metabolic encephalopathy: metabolic encephalopathy secondary to sepsis, UTI seems improved (15) DVT prophylaxis: - teds CODE: DNR Dispo: continued stay Admission and Anticipated Discharge Date Admission Date: November 23, 2019 Subjective Pt pleasantly confused. Denies pain anywhere, no abd pain, no urinary problems. Then upon questioning who she lives with, she said "I think I live alone" and when asked what her daughter's name was, she said "I don't know, do you?" Is eating, drinking. She continuously moans/groans but smiles between groans. Tele with NSR rates 60-70s Review of Systems Review of Systems: All systems reviewed & are unremarkable except as noted in HPI & below Physical Exam Constitutional: WD/WN, vitals as above Eyes: + anicteric sclerae Neck: trachea midline, no thyromegaly Respiratory: normal respiratory effort, lungs clear to auscultation Cardiovascular: RRR, no murmur, no edema Chest (Breasts): Chest: normal inspection of chest Gastrointestinal (Abdomen): normal bowel sounds, soft, nontender, no hepatosplenomegaly Musculoskeletal: Extremities: extremities normal to inspection; no cyanosis and no clubbing Skin: no rashes, warm and dry Neurologic: moves all extremities and awake; no focal motor deficits Genitourinary: + abnormal external appearance (external catheter present) Lymphatic: no lymphedema Results & Data Results & Data ([facility]) Vital Signs (Past 12 Hours) Vital Signs Temp Pulse Resp BP Pulse Ox 11/24/19 11:37 36.8 C 69 16 130/70 95 11/24/19 07:31 36.8 C 74 16 155/69 H 96 11/24/19 04:00 36.3 C L 59 L 20 129/80 93 Laboratory Results labs reviewed PG Care Time/CCT Total # of Minutes Spent Total Time Spent with Patient: Total time spent is greater than 50% in coordination of care (as documented) at patient's floor/unit and/or counseling patient: Coding Level of Care Code 06725 Subseq Hosp Care Lvl 3 Diagnoses History of ESBL E. coli infection Z86.19 Recurrent UTI N39.0 LAITH (acute kidney injury) N17.9 Sepsis A41.9 Hypotension I95.9 Hypertension I10 Hypertension type: essential hypertension Hyperlipidemia E78.5 Hyperlipidemia type: unspecified Rheumatoid arthritis M06.9 Rheumatoid arthritis location: unspecified site Rheumatoid factor presence: unspecified presence Dementia with behavioral disturbance F03.91 CKD (chronic kidney disease), stage III N18.3 Osteoporosis M80.00XD Encounter type: subsequent encounter Fracture healing: with routine healing Osteoporosis type: age-related Presence of current pathological fracture: with current pathological fracture Vitamin D insufficiency E55.9 Hypothyroidism E03.9 Hypothyroidism type: unspecified Acute metabolic encephalopathy G93.41 DVT prophylaxis Z29.9 (1) Rheumatoid arthritis Rheumatoid arthritis location: unspecified site Rheumatoid factor presence: unspecified presence Qualified Code(s): M06.9 - Rheumatoid arthritis, unspecified (2) Osteoporosis Encounter type: subsequent encounter Fracture healing: with routine healing Osteoporosis type: age-related Presence of current pathological fracture: with current pathological fracture Qualified Code(s): M80.00XD - Age-related osteoporosis with current pathological fracture, unspecified site, subsequent encounter for fracture with routine healing (3) Hyperlipidemia Hyperlipidemia type: unspecified Qualified Code(s): E78.5 - Hyperlipidemia, unspecified (4) Hypothyroidism Hypothyroidism type: unspecified Qualified Code(s): E03.9 - Hypothyroidism, unspecified (5) Hypertension Hypertension type: essential hypertension Qualified Code(s): I10 - Essential (primary) hypertension
[2019-11-24] MEDS: SIMVASTATIN 40 MG TAB PO SCH (20:05)
[2019-11-24] MEDS: DONEPEZIL HCL 10 MG TAB PO SCH (20:05)
[2019-11-24] MEDS: MIRTAZAPINE SOLTAB 15 MG PO SCH (20:07)
[2019-11-24] MEDS: QUETIAPINE FUMARATE 25 MG TABLET PO SCH (20:07)
[2019-11-25 06:06] LABS: Hematocrit (blood only) 33.9 % (37-47); Hemoglobin 10.8 g/dL (12.0-16.0); Mean Corpuscular Hemoglobin 32.6 pg (25-34); Mean Corpuscular Hgb Conc 31.9 g/dL (32-36); Mean Corpuscular Volume 102.4 fL (80-100); Mean Platelet Volume 9.8 fL (7.4-10.4); Platelet Count 219 K/uL (130-400); RDW Coefficient of Variation 16.7 % (11.5-14.5); Red Blood Count 3.31 M/uL (4.2-5.4); White Blood Count 10.83 K/uL (4.8-10.8)
[2019-11-25] MEDS: LEVOTHYROXINE SODIUM 112 MCG TABLET PO SCH (06:27)
[2019-11-25] MEDS: HYDROCORTISONE SOD 50 MG in SYRINGE 0 ML IV SCH ×2 (06:28→13:34)
[2019-11-25] MEDS: CEFTOLOZANE/TAZOBACTAM 375 MG in DEXTROSE 5% 100 ML IV SCH ×3 (06:29→20:38)
[2019-11-25 06:41] LABS: BUN Creatinine Ratio 19.8 (10-20); Calcium 8.3 mg/dl (8.5-10.1); Creatinine Clr Calc Pharmacy 27.8 ml/min; Est GFR (African American) 42.1; Est GFR (Non-African American) 36.4
[2019-11-25] MEDS: FERROUS SULFATE 325 MG TAB PO SCH (07:23)
[2019-11-25] MEDS: PANTOprazole 40 MG TAB PO SCH (07:23)
[2019-11-25] MEDS: predniSONE 10 MG TABLET PO SCH (07:23)
[2019-11-25] MEDS: ASPIRIN 81 MG ECTAB PO SCH ×2 (07:23→20:35)
[2019-11-25] MEDS: GABAPENTIN 100 MG CAP PO SCH ×2 (07:23→20:35)
[2019-11-25] MEDS: PSYLLIUM 58.6% POWDER PACKET PO SCH (07:23)
[2019-11-25] MEDS: CALCIUM CARBONATE 500 MG CHEWABLE TAB PO SCH ×2 (07:24→20:38)
[2019-11-25] MEDS: ACETAMINOPHEN 500 MG TAB PO SCH ×3 (07:24→20:34)
[2019-11-25] MEDS: FOLIC ACID 1 MG TAB PO SCH (07:24)
[2019-11-25] MEDS: guaiFENesin 600 MG TABCR PO SCH ×2 (07:24→20:35)
[2019-11-25] MEDS: SIMETHICONE 80 MG CHEW PO SCH ×3 (07:24→17:15)
[2019-11-25] MEDS: WITCH HAZEL/GLYCERIN 40 PADS/JAR (TUCKS) EXT SCH ×4 (07:25→20:36)
[2019-11-25] MEDS: CHOLESTYRAMINE LIGHT 4 GM PKT PO SCH (10:13)
--- NOTE | 2019-11-25 14:47 | Hospitalist Progress Note ---
Date of Service November 25, 2019 Assessment & Plan (1) Recurrent UTI: Sepsis 2nd to e.coli UTI -11/21 culture w/ ESBL E.coli--> much improved, BPs normalized SHE HAS NO COVID SYMPTOMS Recurrent ESBL e.coli UTI - consider urology referral post-discharge for additional w/u -continue IV zerbaxa for total 14 days--> ordered US-guided PIV and home health has been arranged -f/u blood cx's- NGTD ID consultation requested due to Zerbaxa use improved--> recommends 14 day course of Zerbaxa vs ertapenem -no active c. diff symptoms and remote history of such-no po Vanco needed (2) LAITH (acute kidney injury): acute renal failure in setting of CKD stage 4-->continues to improve today, contract coordinator down to 1.33 -no further IVFs needed, cesar po -follow BMP (3) Sepsis: as above, resolved follow cultures, CBC treating with abx (4) Hypotension: resolved with IVFs and stress dosed steroids dc IV hydrocortisone -increase po prednisone to 15mg daily fo ra few days then go back to 10mg usual dose -continue to hold home amlodipine (5) History of ESBL E. coli infection: with recurrence here as above (6) Hypertension: low BP on admission -continue to hold amlodipine 5 mg (7) Hyperlipidemia: -Continue statin (8) Rheumatoid arthritis: steroid-dependent RA -continue Prednisone but increase to 15 mg daily for stres dose x 2 days then return to 10mg daily after that -hold methotrexate for recurrent UTI -dc Solu-Medrol as above -Random cortisol is 22 -on chronic opioid therapy-has not required any pain meds here and are being held -may not necessarily need opioid therapy especially in setting of dementia and recurrent UTIs which may be related to urinary retention? -dc or wean off opioids as outpt with PCP (9) Dementia with behavioral disturbance: -At baseline patient recognizes her children, is not oriented to time or place -continue Seroquel qhs and mirtazapine supportive care (10) CKD (chronic kidney disease), stage III: with LAITH as above, baseline appears to be 1.6, likely to improve with fluid resuscitation as already given, no further fluids at this time -Renally dose medications including IV antibiotics for UTI -Avoid nephrotoxins -renally dose meds when appropriate -follow BMP (11) Osteoporosis: -History of such, fall precautions (12) Vitamin D insufficiency: -Continue vitamin D supplementation (13) Hypothyroidism: -Continue levothyroxine 112 mcg daily TSH 1.9 in 04/2019 (14) Acute metabolic encephalopathy: metabolic encephalopathy secondary to sepsis, UTI seems improved (15) Macrocytic anemia: MCV 102 and hgb mildly low -on FeSO4 at home but not microcytic -check Fe studies, B12, folate -continue FeSO4 for now (16) DVT prophylaxis: - teds CODE: DNR Dispo: continued stay and plan for home with IV abx tomorrow Admission and Anticipated Discharge Date Admission Date: November 23, 2019 Anticipated date of discharge: 11/26/19 Subjective Pt denies pain, is eating. Remains pleasantly confused. Does follow commands tele with NSR, PJCs, PACs, rates 60-70s Review of Systems Review of Systems: All systems reviewed & are unremarkable except as noted in HPI & below Physical Exam Constitutional: WD/WN, vitals as above Eyes: + anicteric sclerae Neck: trachea midline, no thyromegaly Respiratory: normal respiratory effort, lungs clear to auscultation Cardiovascular: RRR, no murmur, no edema Chest (Breasts): Chest: normal inspection of chest Gastrointestinal (Abdomen): normal bowel sounds, soft, nontender, no hepatosplenomegaly Musculoskeletal: Extremities: extremities normal to inspection; no cyanosis and no clubbing Skin: no rashes, warm and dry Neurologic: moves all extremities and awake; no focal motor deficits Genitourinary: + abnormal external appearance (external catheter present) Lymphatic: no lymphedema Results & Data Results & Data ([facility]) Vital Signs (Past 12 Hours) Vital Signs Temp Pulse Resp BP Pulse Ox 11/25/19 11:12 36.9 C 69 18 135/76 95 11/25/19 07:29 36.8 C 68 18 167/79 H 95 11/25/19 03:30 36.5 C 54 L 20 169/66 H 95 Laboratory Results 11/25/19 11/25/19 Range/Units 05:51 05:51 WBC 10.83 H (4.8-10.8) K/uL RBC 3.31 L (4.2-5.4) M/uL Hgb 10.8 L (12.0-16.0) g/dL Hct 33.9 L (37-47) % MCV 102.4 H (80-100) fL MCH 32.6 (25-34) pg MCHC 31.9 L (32-36) g/dL RDW Std Deviation 62.0 H (36.4-46.3) fL RDW Coeff of Adrien 16.7 H (11.5-14.5) % Plt Count 219 (130-400) K/uL MPV 9.8 (7.4-10.4) fL Sodium 142 (136-145) mmol/L Potassium 4.0 (3.5-5.1) mmol/L Chloride 115 H (98-107) mmol/L Carbon Dioxide 24 (21-32) mmol/L Anion Gap 3.0 (3-11) BUN 26 H (7-18) mg/dl Creatinine 1.33 H (0.6-1.2) mg/dl Est Cr Clr Drug Dosing 27.8 ml/min Est GFR ( Amer) 42.1 Est GFR (Non-Af Amer) 36.4 BUN/Creatinine Ratio 19.8 (10-20) Glucose 108 H (70-99) mg/dl Calcium 8.3 L (8.5-10.1) mg/dl PG Care Time/CCT Total # of Minutes Spent Total Time Spent with Patient: Total time spent is greater than 50% in coordination of care (as documented) at patient's floor/unit and/or counseling patient: Coding Level of Care Code 83329 Subseq Hosp Care Lvl 2 Diagnoses Recurrent UTI N39.0 LAITH (acute kidney injury) N17.9 Sepsis A41.9 Hypotension I95.9 History of ESBL E. coli infection Z86.19 Hypertension I10 Hypertension type: essential hypertension Hyperlipidemia E78.5 Hyperlipidemia type: unspecified Rheumatoid arthritis M06.9 Rheumatoid arthritis location: unspecified site Rheumatoid factor presence: unspecified presence Dementia with behavioral disturbance F03.91 CKD (chronic kidney disease), stage III N18.3 Osteoporosis M80.00XD Encounter type: subsequent encounter Fracture healing: with routine healing Osteoporosis type: age-related Presence of current pathological fracture: with current pathological fracture Vitamin D insufficiency E55.9 Hypothyroidism E03.9 Hypothyroidism type: unspecified Acute metabolic encephalopathy G93.41 Macrocytic anemia D53.9 DVT prophylaxis Z29.9 (1) Rheumatoid arthritis Rheumatoid arthritis location: unspecified site Rheumatoid factor presence: unspecified presence Qualified Code(s): M06.9 - Rheumatoid arthritis, unspecified (2) Osteoporosis Encounter type: subsequent encounter Fracture healing: with routine healing Osteoporosis type: age-related Presence of current pathological fracture: with current pathological fracture Qualified Code(s): M80.00XD - Age-related osteoporosis with current pathological fracture, unspecified site, subsequent encounter for fracture with routine healing (3) Hyperlipidemia Hyperlipidemia type: unspecified Qualified Code(s): E78.5 - Hyperlipidemia, unspecified (4) Hypothyroidism Hypothyroidism type: unspecified Qualified Code(s): E03.9 - Hypothyroidism, unspecified (5) Hypertension Hypertension type: essential hypertension Qualified Code(s): I10 - Essential (primary) hypertension
[2019-11-25] MEDS: QUETIAPINE FUMARATE 25 MG TABLET PO SCH (20:34)
[2019-11-25] MEDS: MIRTAZAPINE SOLTAB 15 MG PO SCH (20:35)
[2019-11-25] MEDS: DONEPEZIL HCL 10 MG TAB PO SCH (20:35)
[2019-11-25] MEDS: SIMVASTATIN 40 MG TAB PO SCH (20:35)
[2019-11-26 06:18] LABS: BUN Creatinine Ratio 18.8 (10-20); Calcium 8.7 mg/dl (8.5-10.1); Creatinine Clr Calc Pharmacy 25.3 ml/min; Est GFR (African American) 37.6; Est GFR (Non-African American) 32.5; Potassium 3.8 mmol/L (3.5-5.1)
[2019-11-26 06:25] LABS: Ferritin 189.2 ng/ml (8-388)
[2019-11-26 06:31] LABS: Basophils # (auto) 0.01 K/uL (0-0.2); Basophils % (auto) 0.1 %; Eosinophils # (auto) 0.06 K/uL (0-0.5); Eosinophils % (auto) 0.6 %; Hematocrit (blood only) 33.1 % (37-47); Hemoglobin 10.4 g/dL (12.0-16.0); Immature Granulocytes # (auto) 0.06 K/uL (0.00-0.02); Immature Granulocytes % (auto) 0.6 %; Lymphocytes # (auto) 2.12 K/uL (1.2-3.4); Lymphocytes % (auto) 20.7 %; Mean Corpuscular Hemoglobin 32.4 pg (25-34); Mean Corpuscular Hgb Conc 31.4 g/dL (32-36); Mean Corpuscular Volume 103.1 fL (80-100); Mean Platelet Volume 9.7 fL (7.4-10.4); Monocytes # (auto) 0.79 K/uL (0.11-0.59); Monocytes % (auto) 7.7 %; Neutrophils # (auto) 7.21 K/uL (1.4-6.5); Neutrophils % (auto) 70.3 %; Platelet Count 224 K/uL (130-400); RDW Coefficient of Variation 16.4 % (11.5-14.5); RDW Standard Deviation 61.7 fL (36.4-46.3); Red Blood Count 3.21 M/uL (4.2-5.4); White Blood Count 10.25 K/uL (4.8-10.8)
[2019-11-26] MEDS: CEFTOLOZANE/TAZOBACTAM 375 MG in DEXTROSE 5% 100 ML IV SCH (06:41)
[2019-11-26] MEDS: LEVOTHYROXINE SODIUM 112 MCG TABLET PO SCH (06:41)
[2019-11-26 08:00] LABS: Vitamin B12 395 pg/ml (211-911)
[2019-11-26 08:01] LABS: Folate (Folic Acid) > 24.00 ng/ml (>5.38)
[2019-11-26] MEDS: SIMETHICONE 80 MG CHEW PO SCH (08:17)
[2019-11-26] MEDS: FOLIC ACID 1 MG TAB PO SCH (08:18)
[2019-11-26] MEDS: PANTOprazole 40 MG TAB PO SCH (08:19)
[2019-11-26] MEDS: PSYLLIUM 58.6% POWDER PACKET PO SCH (08:19)
[2019-11-26] MEDS: FERROUS SULFATE 325 MG TAB PO SCH (08:19)
[2019-11-26] MEDS: ASPIRIN 81 MG ECTAB PO SCH (08:19)
[2019-11-26] MEDS: ACETAMINOPHEN 500 MG TAB PO SCH (08:27)
[2019-11-26] MEDS: CALCIUM CARBONATE 500 MG CHEWABLE TAB PO SCH (08:27)
[2019-11-26] MEDS: WITCH HAZEL/GLYCERIN 40 PADS/JAR (TUCKS) EXT SCH (08:32)
[2019-11-26] MEDS: guaiFENesin 600 MG TABCR PO SCH (08:54)
[2019-11-26] MEDS: GABAPENTIN 100 MG CAP PO SCH (08:55)
[2019-11-26] MEDS ORDERED: predniSONE 5 MG TAB PO SCH (09:00)
[2019-11-26] MEDS: CHOLESTYRAMINE LIGHT 4 GM PKT PO SCH (09:45)
--- NOTE | 2019-11-26 10:51 | Discharge Summary ---
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 diff). She has other PMHx which includes progressive dementia, mild anemia, RA on chronic prednisone who presented with increased confusion. The patient's daughter provides majority of the history as the patient has severe dementia and is presently asleep reports that she had increased confusion starting on Friday night. Patient began to hallucinate, wondering where her of 2 years was, and was not making sense. Urine became very foul-smelling and she became more incontinent. Daughter denies that she had any fever. She has been eating and drinking without difficulty. The patient is also a resident of [facility] however the daughter pulled her up there at the beginning of COVID-19 social distancing due to concerns for her health, and has been caring for her mother herself in her home. She reports that the patient has been battling with this for approximately 1 month. Pt was initially hypotensive with BP of 70/40, tachycardic with HR of 110, and hypothermic. She was found to have grossly turbid urine on UA which has been cultured. Pt was administered solucortef IV and a random cortisol level was drawn = 22.08. Pt responded well to 2L NSS in the ER. Principal Diagnosis Recurrent ESBL E. coli UTI, Sepsis Discharge Exam Constitutional WD/WN, vitals as above Eyes + anicteric sclerae Neck trachea midline, no thyromegaly Respiratory normal respiratory effort, lungs clear to auscultation Cardiovascular RRR, no murmur, no edema Chest (Breasts) Chest: normal inspection of chest Gastrointestinal (Abdomen) normal bowel sounds, soft, nontender, no hepatosplenomegaly Musculoskeletal Extremities: + extremities abnormal to inspection (multiple deformities of joints in hands/feet), no cyanosis and no clubbing Skin no rashes, warm and dry Neurologic moves all extremities and awake; no focal motor deficits Lymphatic no lymphedema Discharge Data Allergies Allergy/AdvReac Type Severity Reaction Status Date / Time Penicillins Allergy Unknown SWELLING Verified 11/23/19 13:41 celecoxib AdvReac Intermediate N/V Verified 11/23/19 13:41 cephalexin AdvReac Intermediate N/V Verified 11/23/19 13:41 methotrexate AdvReac Intermediate N/V Verified 11/23/19 13:41 nitrofurantoin AdvReac Intermediate N/V Verified 11/23/19 13:41 risedronate sodium AdvReac Intermediate NAUSEA AND Verified 11/23/19 13:41 VOMITING Consultations 11/23/19 12:37 Consult Infectious Diseases Stat 11/23/19 15:12 ED Decision to Admit Stat 11/23/19 17:05 Consult Infectious Diseases Routine 11/23/19 18:30 Consult Case Management - Discharge Planning Routine Procedures Performed US-guided peripheral IV placement-can stay in for 28 days-placed 11/25/19 Ordered Studies 11/23/19 12:33 CT head/brain wo con Stat 11/23/19 12:56 CT abd pelvis wo con Stat CXR Hospital Course (1) Recurrent UTI: Sepsis 2nd to e.coli UTI -11/21 culture w/ ESBL E.coli--> much improved, BPs normalized SHE HAS NO COVID SYMPTOMS Recurrent ESBL E.coli UTI - consider urology referral post-discharge for additional w/u although CT abd/pel negative for stone or obstruction Could be secondary to opioid use, urine retention, and constipation--> advised daughter to cut down on oxycodone use at home--> pt received no oxycodone throughout entire hospital stay and did not c/o pain at all -continue IV zerbaxa for total 14 days--> ordered US-guided PIV and home health has been arranged -f/u blood cx's- NGTD at time of discharge ID consultation requested due to Zerbaxa use improved--> recommends 14 day course of Zerbaxa -no active c. diff symptoms and remote history of such-no po Vanco needed -check CBC, CMP once weekly while on IV abx (2) LAITH (acute kidney injury): acute renal failure in setting of CKD stage 4-->improved, radio director 1.4 on day of dc -no further IVFs needed, cesar po -follow BMP as outpt (3) Sepsis: as above, resolved, 2/2 UTI treating with abx (4) Hypotension: resolved with IVFs and stress dosed steroids which are now weaned off -return po prednisone to home dose of 10mg dailyon day of discharge -ok to restart home amlodipine (5) History of ESBL E. coli infection: with recurrence here as above (6) Hypertension: low BP on admission-BPs now elevated -restart home amlodipine (7) Hyperlipidemia: -Continue statin (8) Rheumatoid arthritis: steroid-dependent RA -continue Prednisone 10 mg daily -ok to restart methotrexate -on chronic opioid therapy-has not required any pain meds here and are being held -may not necessarily need opioid therapy especially in setting of dementia and recurrent UTIs which may be related to urinary retention? -dc or wean off opioids as outpt with PCP (9) Dementia with behavioral disturbance: -At baseline patient recognizes her children, is not oriented to time or place -continue Seroquel qhs and mirtazapine supportive care (10) CKD (chronic kidney disease), stage III: with LAITH as above, baseline appears to be 1.6, likely to improve with fluid resuscitation as already given, no further fluids at this time -Renally dose medications including IV antibiotics for UTI -Avoid nephrotoxins -renally dose meds when appropriate -follow BMP as outpt (11) Osteoporosis: -History of such, fall precautions -continue calcium and vit d (12) Vitamin D insufficiency: -Continue vitamin D supplementation (13) Hypothyroidism: -Continue levothyroxine 112 mcg daily TSH 1.9 in 04/2019 (14) Acute metabolic encephalopathy: metabolic encephalopathy secondary to sepsis, UTI seems improved (15) Macrocytic anemia: MCV 102 and hgb mildly low -on FeSO4 at home but not microcytic - Fe studies, B12, folate all normal Macrocytosis secondary to MTX use can dc FeSO4 (16) DVT prophylaxis: - teds CODE: DNR Dispo: dc to home with IV abx today Total Time Total Time Spent Total Time Spent (In Minutes): 35 min Total Time Includes: Examination of the Patient, Discharge Planning and Medication Reconciliation Discharge Plan Discharge Items Patient Disposition: Home - Home Health Services Reason For Visit: UTI,HYPOTENSION,FAILURE OF OUTPATIENT ABX Discharge Diagnosis: UTI, sepsis. ESBL E. coli infection Condition on Discharge: Good Activity: Resume your previous activity Bathing Comment: Keep IV site dry Non-emergency contact: Primary Care Provider Call non-emergency contact if: you have any medication questions, your symptoms worsen, you have a fever and your temperature is above 101 Follow-up/Referrals: Vasiliy Uriostegui MD [Primary Care Provider] - (Please call for a follow up appointment within 1-2 weeks.) Diet: Heart Healthy Addtl Attending Provider Instructions: Please finish out the IV antibiotics for 10 more days. Have blood work drawn on Friday to include: CBC, CMP, with results sent to Dr. Uriostegui. You did not require any pain meds while you were in the hospital, and therefore should try to cut back on the amount of oxycodone used at home as this can contribute to constipation and urine retention, and UTIs. Follow up with your PCP within 1-2 weeks. Pending Studies at Discharge: Yes (Final blood culture results-no growth to date) Stand-Alone Forms: My [facility] Medications and DC Order Prescriptions: New Zerbaxa 1.5 gram recon soln 0.375 gm IV Q8H 11 Days Qty: 10 RF: 0 Continued levothyroxine 112 mcg tablet 112 mcg PO QAM Qty: 30 RF: 3 folic acid 1 mg tablet 1 mg PO 6XWK Qty: 90 RF: 1 cholestyramine (with sugar) 4 gram powder in packet 4 g PO DAILY Qty: 60 RF: 5 (DME) heating pads pad See Dose Instructions .ROUTE .MEDSUPPLY Qty: 1 RF: 0 Preparation H Rapid Rlf-Lidocn 5-0.25-14.4-15 % cream 1 appln TOP QID Qty: 28 RF: 1 acetaminophen [Tylenol Extra Strength] 500 mg tablet 500 mg PO TID Qty: 90 RF: 5 gabapentin 100 mg capsule 100 mg PO BID Qty: 60 RF: 1 cranberry 500 mg capsule 500 mg PO QAM RF: 0 calcium carbonate [Antacid (calcium carbonate)] 320 mg calcium (750 mg) tablet,chewable 320 mg PO BID RF: 0 methotrexate sodium 2.5 mg tablet 2.5 mg PO WEEKLY RF: 0 Mucinex DM 30-600 mg tablet extended release 12 hr 1 tab PO Q12H 3 Days Qty: 1 RF: 0 amlodipine 5 mg Tablet 5 mg PO QAM RF: 0 aspirin [Aspir-81] 81 mg Tablet,Delayed Release (Dr/Ec) 81 mg PO BID RF: 0 donepezil 10 mg Tablet 10 mg PO HS RF: 0 simvastatin 40 mg Tablet 40 mg PO HS RF: 0 pantoprazole 40 mg Tablet,Delayed Release (Dr/Ec) 40 mg PO QAM RF: 0 mirtazapine 45 mg Tablet 45 mg PO HS RF: 0 polyethylene glycol 3350 [Miralax] 17 gram Powder In Packet 17 g PO DAILY PRN (Reason: Constipation) RF: 0 prednisone 10 mg Tablet 10 mg PO DAILY RF: 0 Reguloid, Sugar Free Powder 1 tbsp PO DAILY RF: 0 lidocaine 5 % adhesive patch,medicated 1 patch TOP DAILY PRN (Reason: Pain, Moderate) Qty: 15 RF: 0 quetiapine 25 mg tablet 12.5 mg PO DAILY RF: 0 simethicone 80 mg tablet,chewable 160 mg PO DAILY RF: 0 Changed oxycodone 5 mg tablet 5 mg PO BID PRN (Reason: pain) Qty: 1 RF: 0 Discontinued ciprofloxacin HCl [Cipro] 250 mg tablet 250 mg PO BID Qty: 20 RF: 0 vancomycin 125 mg capsule 125 mg PO TID Qty: 63 RF: 0 nitrofurantoin monohyd/m-cryst [Macrobid] 100 mg capsule 100 mg PO BID Qty: 20 RF: 0 doxycycline hyclate 100 mg tablet 100 mg PO BID 10 Days Qty: 20 RF: 0 ferrous sulfate 325 mg (65 mg iron) Tablet 325 mg PO QAM RF: 0 Discharge Orders: Discharge Order (Routine); Ordered 11/26/19 Ordered By: Snow Parham Admission Data Admit Date/Time: 11/23/19 16:05 Attending Provider: Snow Parham Admit Provider: Marcelino Moore Primary Care Provider: Vasiliy Uriostegui Other Providers: Dunia May ; [facility] ; Marcelino Moore Coding Level of Care Code D/C Day Management >30 mins Diagnoses Recurrent UTI N39.0 LAITH (acute kidney injury) N17.9 Sepsis A41.9 Hypotension I95.9 History of ESBL E. coli infection Z86.19 Hypertension I10 Hypertension type: essential hypertension Hyperlipidemia E78.5 Hyperlipidemia type: unspecified Rheumatoid arthritis M06.9 Rheumatoid arthritis location: unspecified site Rheumatoid factor presence: unspecified presence Dementia with behavioral disturbance F03.91 CKD (chronic kidney disease), stage III N18.3 Osteoporosis M80.00XD Osteoporosis type: age-related Presence of current pathological fracture: with current pathological fracture Encounter type: subsequent encounter Fracture healing: with routine healing Vitamin D insufficiency E55.9 Hypothyroidism E03.9 Hypothyroidism type: unspecified Acute metabolic encephalopathy G93.41 Macrocytic anemia D53.9 DVT prophylaxis Z29.9
[2019-11-28] MEDS ORDERED: metHOTREXate sodium 2.5 MG TAB PO SCH (09:00)
== END 2019-11-26 11:50 | disposition home health service (06) | DRG 871 ==
LOC: ED 12:06 → SUATTDRO 16:05 → 2W 16:05 → 3E 11-26 10:15

== ENCOUNTER 2020-03-03 11:02 | Inpatient (IN) ==
[2020-03-03] MEDS ORDERED: SODIUM CHLORIDE 0.9% 500 ML IV SCH (11:30)
[2020-03-03] MEDS ORDERED: MoRPHine SULFATE 4 MG/ML 1 ML CARP\\VIAL IV STA (11:30)
--- NOTE | 2020-03-03 11:46 | Emergency Department Note ---
History of Present Illness General Chief complaint: Diarrhea Stated complaint: DIARRHEA,RT SIDED ABD PAIN Time Seen by Provider: 03/03/20 11:17 Source: patient Mode of arrival: ambulatory Limitations: no limitations History of Present Illness Provider complaint: Abdominal pain and diarrhea Maximum Pain Intensity: 5 This is a 84-year-old female who presents to the ED with a chief complaint right upper quadrant/right lower chest wall discomfort. She describes it as a sharp pain that is constant since this morning. The patient, according to the daughter has been having diarrhea all week mainly with p.o. intake. She has had problems with her stomach for the last 6 weeks. She has had intermittent diarrhea up to 2 times a day. A stool sample was taken to the lab today for Dr. Uriostegui. The patient has not had any fevers or vomiting. She denies any nausea. She states that anytime she eats, it comes right through her as diarrhea. Nothing makes her symptoms better. She was brought here for evaluation by her daughter. Home Medications Home Medications Medication Instructions Recorded Confirmed Type donepezil 10 mg PO HS 05/23/18 03/03/20 History mirtazapine 45 mg PO HS 05/23/18 03/03/20 History pantoprazole 40 mg PO BID 05/23/18 03/03/20 History simvastatin 40 mg PO HS 05/23/18 03/03/20 History amlodipine 5 mg PO QAM 07/29/18 03/03/20 History aspirin [Aspir-81] 81 mg PO BID 07/29/18 03/03/20 History polyethylene glycol 3350 [Miralax] 17 g PO DAILY PRN 11/14/18 03/03/20 History levothyroxine 112 mcg tablet 112 mcg PO QAM #30 tab 01/12/19 03/03/20 Rx folic acid 1 mg tablet 1 mg PO 6XWK #90 tab 03/02/19 03/03/20 Rx Reguloid, Sugar Free 1 tbsp PO DAILY 04/14/19 03/03/20 History prednisone 10 mg PO DAILY 04/14/19 03/03/20 History heating pads #1 ea 04/20/19 12/31/19 Rx calcium carbonate 320 mg calcium 320 mg PO BID PRN tab 05/18/19 03/03/20 History (750 mg) chewable tablet cranberry 500 mg capsule 500 mg PO QAM cap 05/18/19 03/03/20 History methotrexate sodium 2.5 mg tablet 2.5 mg PO WEEKLY tab 07/20/19 03/03/20 History simethicone 160 mg PO DAILY 10/10/19 03/03/20 History lidocaine 5 %-phenylephrine 0.25 1 appln TOP QID #28 gm 10/18/19 03/03/20 Rx %-glycern 14.4 %-petrolatm 15 % cream acetaminophen 500 mg tablet 500 mg PO TID #90 tab 10/19/19 03/03/20 Rx gabapentin 100 mg capsule 100 mg PO BID #60 cap 11/01/19 03/03/20 Rx oxycodone 5 mg PO BID PRN #1 tab 11/26/19 03/03/20 Rx quetiapine 25 mg tablet 12.5 mg PO QPM #30 tab 12/16/19 03/03/20 Rx nitrofurantoin macrocrystal 50 mg 50 mg PO DAILY #90 cap 12/22/19 03/03/20 Rx capsule Allergies Allergy/AdvReac Type Severity Reaction Status Date / Time Penicillins Allergy Intermediate SWELLING Verified 03/03/20 15:45 celecoxib AdvReac Intermediate N/V Verified 12/31/19 15:35 cephalexin AdvReac Intermediate N/V Verified 12/31/19 15:35 methotrexate AdvReac Intermediate N/V Verified 12/31/19 15:35 nitrofurantoin AdvReac Intermediate N/V Verified 12/31/19 15:35 risedronate sodium AdvReac Intermediate NAUSEA AND Verified 12/31/19 15:35 VOMITING Past Med/Surg History Medical History Anemia of chronic disease ASCVD (arteriosclerotic cardiovascular disease) C. difficile colitis [id number] Chronic kidney disease (Resolved) Chronic use of steroids (Chronic) Chronic UTI Closed right hip fracture Constipation Contact dermatitis (Inactive) Dementia Diarrhea (Resolved) Fall (Inactive) GERD (gastroesophageal reflux disease) Hip pain, right (Inactive) Hyperlipidemia Hypertension Hypotension Hypothyroidism Kidney stones Macrocytic anemia PVD (peripheral vascular disease) Rheumatoid arthritis (Chronic) Thrombosed external hemorrhoid Vitamin D insufficiency Surgical History History of umbilical hernia repair Hx of cholecystectomy Hx of colonoscopy Hx of esophagogastroduodenoscopy Family History Unknown Arteriosclerotic cardiovascular disease (ASCVD) Father Heart disease Diabetes Myocardial infarction Mother Cancer Hypertension Mother Breast cancer Other Family history non-contributory Denies family history of Ovarian cancer Prostate cancer Crohn's disease Lung cancer Colorectal cancer Ulcerative colitis Stroke Social History Smoking Status: Never smoker Second Hand Exposure: No; Hx Alcohol Use: No Hx Substance Use: No Preferred Language: Czech Communication Ability: Effective Visual Impairment: No Limitations Hearing Ability: Normal [place] Required: No Beliefs That Will Affect Care: None marital status: / Current Living Situation: Family Current Living Situation Comment: lives with daughter current occupational status: other Feels Safe at Home: Yes Childhood Exposure to Second-Hand Smoke: No caffeine: Yes Dental Care, Regularly: No Physical Activity Frequency: Does not Exercise Seatbelt Use: always Sunscreen Use: No Review of Systems A total of 10 systems reviewed and were otherwise negative Physical Exam Vital Signs Vital Signs - 24 hr 03/03/20 11:14 03/03/20 11:49 03/03/20 11:57 Temperature 36.8 C Temperature Source Oral Pulse Rate 74 Pulse Rate [Apical] 68 Pulse Rhythm [Apical] Regular Pulse Strength [Apical] Normal Respiratory Rate 22 20 Respiratory Effort / Characteristics Non-Labored Spontaneous Respiratory Depth Normal Normal Respiratory Pattern Regular Blood Pressure 118/62 Blood Pressure [Left Arm] 142/80 H Blood Pressure Mean 80 Blood Pressure Mean [Left Arm] 100 Blood Pressure Position [Left Arm] Lying Pulse Oximetry 95 95 18 L Oxygen Delivery Method Room Air Room Air Room Air Sepsis Recent Fever Within 48 Hours No Sepsis New/Unexplained Change in Mental Status N/A Sepsis Action Taken by Nursing No Action Required 03/03/20 13:45 Temperature Temperature Source Pulse Rate Pulse Rate [Apical] 66 Pulse Rhythm [Apical] Pulse Strength [Apical] Respiratory Rate 18 Respiratory Effort / Characteristics Respiratory Depth Respiratory Pattern Blood Pressure Blood Pressure [Left Arm] 166/67 H Blood Pressure Mean Blood Pressure Mean [Left Arm] 100 Blood Pressure Position [Left Arm] Pulse Oximetry 98 Oxygen Delivery Method Sepsis Recent Fever Within 48 Hours Sepsis New/Unexplained Change in Mental Status Sepsis Action Taken by Nursing CONSTITUTIONAL/VITAL SIGNS: Reviewed / noted above. GENERAL: Non-toxic in appearance. INTEGUMENTARY: Warm, dry, and [place]. HEAD: Normocephalic. EYES: without scleral icterus or trauma. ENT/OROPHARYNX: clear and moist. LYMPHADENOPATHY/NECK: Is supple without lymphadenopathy or meningismus. RESPIRATORY: Lungs clear and equal. CHEST: There is some tenderness to palpation of the right lower anterior chest wall. No rashes. No other visible abnormality or palpable abnormality. CARDIOVASCULAR: Regular rate and rhythm. GI/ABDOMEN: Soft and nontender. No organomegaly or pulsatile mass. No rebound or guarding. Normal bowel sounds. EXTREMITIES: Warm and well perfused. BACK: No CVA tenderness. NEUROLOGICAL: Intact without focal deficits. PSYCHIATRIC: normal affect. MUSCULOSKELETAL: Normally developed with good muscle tone. TRIAGE NURSING DOCUMENTATION REVIEWED. Course Administered Medications Discontinued Medications Sodium Chloride (Nss) 500 mls @ 999 mls/hr IV .Q31M JOSSELINE Stop: 03/03/20 12:00 Last Infusion: 03/03/20 12:47 Dose: 0 mls/hr Documented by: [id number] Admin: 03/03/20 11:52 Dose: 999 mls/hr Documented by: [id number] Ioversol (Optiray 320 100ml) 94 ml IV ONCE ONE Stop: 03/03/20 13:54 Last Admin: 03/03/20 13:54 Dose: 94 ml Documented by: [id number] Morphine Sulfate (Morphine Sulfate) 1 mg IV NOW STA Stop: 03/03/20 11:31 Last Admin: 03/03/20 11:52 Dose: 1 mg Documented by: [id number] Medical Decision Making Differential Diagnosis Differential considered: pancreatitis, hepatitis, acute cholecystitis, AAA, UTI, pyelonephritis, kidney stones, appendicitis, diverticulitis, shingles, bowel obstruction, mesenteric ischemia, intussusception,hernia. Acute pulmonary issue. Medical Records Attestation: I reviewed the patient's medical records. Home Medications Current Medication List: was personally reviewed by me Laboratory Data Attestation: I reviewed the patient's lab results. Result diagrams: 03/03/20 11:38 03/03/20 11:38 Lab Results 03/03/20 03/03/20 Range/Units 11:38 11:38 WBC 8.96 (4.8-10.8) K/uL RBC 3.79 L (4.2-5.4) M/uL Hgb 12.6 (12.0-16.0) g/dL Hct 39.5 (37-47) % MCV 104.2 H (80-100) fL MCH 33.2 (25-34) pg MCHC 31.9 L (32-36) g/dL RDW Std Deviation 57.0 H (36.4-46.3) fL RDW Coeff of Adrien 15.0 H (11.5-14.5) % Plt Count 177 (130-400) K/uL MPV 9.3 (7.4-10.4) fL Immature Gran % (Auto) 0.6 % Neut % (Auto) 72.3 % Lymph % (Auto) 17.7 % Hinds % (Auto) 6.3 % Eos % (Auto) 2.7 % Baso % (Auto) 0.4 % Neut # (Auto) 6.48 (1.4-6.5) K/uL Lymph # (Auto) 1.59 (1.2-3.4) K/uL Hinds # (Auto) 0.56 (0.11-0.59) K/uL Eos # (Auto) 0.24 (0-0.5) K/uL Baso # (Auto) 0.04 (0-0.2) K/uL Immature Gran # (Auto) 0.05 H (0.00-0.02) K/uL Sodium 145 (136-145) mmol/L Potassium 3.3 L (3.5-5.1) mmol/L Chloride 113 H (98-107) mmol/L Carbon Dioxide 26 (21-32) mmol/L Anion Gap 6.0 (3-11) BUN 22 H (7-18) mg/dl Creatinine 1.55 H (0.6-1.2) mg/dl Est Cr Clr Drug Dosing Not Reportable Est GFR ( Amer) 35.0 Est GFR (Non-Af Amer) 30.2 BUN/Creatinine Ratio 14.5 (10-20) Glucose 146 H (70-99) mg/dl Calcium 8.5 (8.5-10.1) mg/dl Total Bilirubin 0.3 (0.2-1) mg/dl AST 13 L (15-37) U/L ALT 16 (12-78) U/L Alkaline Phosphatase 57 (45-117) U/L Total Protein 6.2 L (6.4-8.2) gm/dl Albumin 3.1 L (3.4-5.0) gm/dl Globulin 3.1 (2.5-4.0) gm/dl Albumin/Globulin Ratio 1.0 (0.9-2) Lipase 174 (73-393) U/L Imaging Data Radiologist's Impression: CT scan of the abdomen pelvis: IMPRESSION: 1. Deep venous thrombus within the right external iliac and common femoral veins. 2. No bowel obstruction. Colonic diverticulosis without evidence for acute diverticulitis. No bowel wall thickening. Blood Pressure Blood Pressure Findings: Normal blood pressure MDM Narrative The patient presents with a 6-week history of stomach problems and diarrhea. She handed a stool and this morning that was requested by Dr. Uriostegui, her PCP. She complains of constant sharp right lower chest pain that is worse with palpation. She has diarrhea with eating. The patient's vital signs here are normal. Her abdomen is soft and nontender. The patient has only been taking [id number] medications for her pain. The family reports that they have stopped using oxycodone for her symptoms. The CBC is unremarkable. Chemistry panel reveals a potassium of 3.3, BUN of 22 and creatinine of 1.55. Glucose is 146. Lipase was negative. The CT scan did not show any concerning GI abnormality however there is a DVT in the right external iliac and common femoral veins. The patient was started on IV heparin. She will be seen by the inpatient service for further evaluation and care. Impression & Plan DVT (deep venous thrombosis), Diarrhea Discharge Plan Visit Data Chief Complaint: Diarrhea Stated Complaint: DIARRHEA,RT SIDED ABD PAIN ED Provider: Marcial Muro Discharge Problem: DVT (deep venous thrombosis), Diarrhea Forms Stand Alone Forms: My [facility] [employer] Prescriptions Prescriptions: No Action levothyroxine 112 mcg tablet 112 mcg PO QAM Qty: 30 RF: 3 folic acid 1 mg tablet 1 mg PO 6XWK Qty: 90 RF: 1 (DME) heating pads pad See Dose Instructions .ROUTE .MEDSUPPLY Qty: 1 RF: 0 Preparation H Rapid Rlf-Lidocn 5-0.25-14.4-15 % cream 1 appln TOP QID Qty: 28 RF: 1 acetaminophen [Tylenol Extra Strength] 500 mg tablet 500 mg PO TID Qty: 90 RF: 5 gabapentin 100 mg capsule 100 mg PO BID Qty: 60 RF: 1 quetiapine 25 mg tablet 12.5 mg PO QPM Qty: 30 RF: 0 nitrofurantoin macrocrystal 50 mg capsule 50 mg PO DAILY Qty: 90 RF: 3 cranberry 500 mg capsule 500 mg PO QAM RF: 0 calcium carbonate [Antacid (calcium carbonate)] 320 mg calcium (750 mg) tablet,chewable 320 mg PO BID PRN (Reason: Indigestion) RF: 0 methotrexate sodium 2.5 mg tablet 2.5 mg PO WEEKLY RF: 0 amlodipine 5 mg Tablet 5 mg PO QAM RF: 0 aspirin [Aspir-81] 81 mg Tablet,Delayed Release (Dr/Ec) 81 mg PO BID RF: 0 oxycodone 5 mg tablet 5 mg PO BID PRN (Reason: pain) Qty: 1 RF: 0 donepezil 10 mg Tablet 10 mg PO HS RF: 0 simvastatin 40 mg Tablet 40 mg PO HS RF: 0 pantoprazole 40 mg Tablet,Delayed Release (Dr/Ec) 40 mg PO BID RF: 0 mirtazapine 45 mg Tablet 45 mg PO HS RF: 0 polyethylene glycol 3350 [Miralax] 17 gram Powder In Packet 17 g PO DAILY PRN (Reason: Constipation) RF: 0 prednisone 10 mg Tablet 10 mg PO DAILY RF: 0 Reguloid, Sugar Free Powder 1 tbsp PO DAILY RF: 0 simethicone 80 mg tablet,chewable 160 mg PO DAILY RF: 0 Referrals Referrals: Vasiliy Uriostegui MD [Primary Care Provider] - Discharge Problem: DVT (deep venous thrombosis) Qualifiers: DVT location: lower extremity Affected thrombotic vein of extremity: iliac Chronicity: acute Laterality: right Qualified Code(s): I82.421 - Acute embolism and thrombosis of right iliac vein Diarrhea Qualifiers: Diarrhea type: unspecified type Qualified Code(s): R19.7 - Diarrhea, unsp ecified
[2020-03-03 11:52] LABS: Basophils # (auto) 0.04 K/uL (0-0.2); Basophils % (auto) 0.4 %; Eosinophils # (auto) 0.24 K/uL (0-0.5); Eosinophils % (auto) 2.7 %; Hematocrit (blood only) 39.5 % (37-47); Hemoglobin 12.6 g/dL (12.0-16.0); Immature Granulocytes # (auto) 0.05 K/uL (0.00-0.02); Immature Granulocytes % (auto) 0.6 %; Lymphocytes # (auto) 1.59 K/uL (1.2-3.4); Lymphocytes % (auto) 17.7 %; Mean Corpuscular Hemoglobin 33.2 pg (25-34); Mean Corpuscular Hgb Conc 31.9 g/dL (32-36); Mean Corpuscular Volume 104.2 fL (80-100); Mean Platelet Volume 9.3 fL (7.4-10.4); Monocytes # (auto) 0.56 K/uL (0.11-0.59); Monocytes % (auto) 6.3 %; Neutrophils # (auto) 6.48 K/uL (1.4-6.5); Neutrophils % (auto) 72.3 %; Platelet Count 177 K/uL (130-400); Red Blood Count 3.79 M/uL (4.2-5.4); White Blood Count 8.96 K/uL (4.8-10.8)
[2020-03-03 12:12] LABS: Albumin Level 3.1 gm/dl (3.4-5.0); BUN Creatinine Ratio 14.5 (10-20); Blood Urea Nitrogen 22 mg/dl (7-18); Calcium 8.5 mg/dl (8.5-10.1); Carbon Dioxide 26 mmol/L (21-32); Chloride 113 mmol/L (98-107); Est GFR (Non-African American) 30.2; Glucose 146 mg/dl (70-99); Lipase 174 U/L (73-393); Potassium 3.3 mmol/L (3.5-5.1); Sodium 145 mmol/L (136-145)
[2020-03-03 12:17] LABS: Alanine Aminotransferase 16 U/L (12-78); Alkaline Phosphatase 57 U/L (45-117); Aspartate Aminotransferase 13 U/L (15-37); Bilirubin,Total 0.3 mg/dl (0.2-1); Globulin 3.1 gm/dl (2.5-4.0); Total Protein 6.2 gm/dl (6.4-8.2)
[2020-03-03] MEDS ORDERED: IOVERSOL 100ml IV ONE (13:53)
--- NOTE | 2020-03-03 14:20 | CT Scan Report ---
CT OF THE ABDOMEN AND PELVIS WITH CONTRAST CLINICAL HISTORY: Abdominal pain and diarrhea. COMPARISON STUDY: CT of the abdomen and pelvis November 23, 2019. TECHNIQUE: Following IV administration of 94 mL of Optiray-320, axial images of the abdomen and pelvi s were obtained from the lung bases to the proximal femurs. Images were reviewed in the axial, sagitt al, and coronal planes. IV contrast was administered without complication. Automated exposure contro l was utilized for the study. A dose lowering technique was utilized adhering to the principles of A SHAWNA. CT DOSE: 369.03 mGy.cm FINDINGS: No pneumatosis, free air or portal venous gas is present. Mild biliary ductal dilatation is unchanged and likely related to cholecystectomy. There is no peripancreatic infiltration. No pancrea tic ductal dilatation is present. A 1.2 cm cystic lesion within the pancreatic head is unchanged. Thi s favors a side branch IPMN. A peripherally calcified 1.5 cm hypodensity within the cholecystectomy b ed is unchanged. The adrenal glands and spleen are unremarkable. There is marked bilateral renal drake ical thinning. Numerous bilateral renal cysts are noted. Multiple subcentimeter lesions are too small to characterize but are unchanged. Previous ventral hernia repair with mesh is noted. There is sigmo id diverticulosis without evidence for acute diverticulitis. Proximal right femoral internal fixation is unchanged in appearance. No lymphadenopathy is present. Note is made of deep venous thrombus with in the distal right external iliac vein extending into the right common femoral vein. T11, T12 and L1 compression fractures are unchanged with retropulsion noted at the L1 level. There are no suspicious lesions within the visualized skeletal structures. No fluid collection to suggest an abscess is note d. The appendix is normal. IMPRESSION: 1. Deep venous thrombus within the right external iliac and common femoral veins. 2. No bowel obstruction. Colonic diverticulosis without evidence for acute diverticulitis. No bowel w all thickening. ACT 112: Negative or not required by law. Electronically signed by: Cory Cantu M.D. 03/03/2020 2:18 PM
[2020-03-03] MEDS ORDERED: HEPARIN SOD 5,000 UNIT/0.5 ML VIAL ONE (15:39)
--- NOTE | 2020-03-03 16:22 | History & Physical Report ---
Date of Service March 03, 2020 Assessment & Plan (1) Abdominal pain: Patient presented with right-sided abdominal pain worsening along with increase in diarrhea that is been going on for 6 weeks Suspect abdominal pain is likely related to the DVT in the right external iliac and common femoral veins. However, could be mesenteric ischemia CT abdomen/pelvis without evidence of colitis She is already status post cholecystectomy but there is a hypodensity in the cholecystectomy bed-do not suspect retained stone-MRCP was performed in 08/2019 that does not show ductal dilatation Her C. difficile toxin is negative but gene is positive and she is having diarrhea as below-perhaps diarrhea is causing abdominal pain -Treat DVT and see if improves -Continue Tylenol as needed for pain -Check mesenteric artery ultrasound Follow clinically (2) DVT (deep venous thrombosis): With right-sided abdominal pain as above, found to have DVT in right external iliac and common femoral veins on CT imaging Likely secondary to recurrent hospitalizations and sedentary lifestyle, but could have underlying malignancy -Treating with heparin drip for now -Will need to jimenez out cost of Eliquis or Xarelto versus Coumadin with case management prior to discharge -Would recommend treatment for least 6 to 12 months (3) Diarrhea: Ongoing for 6 weeks once a week but then 3 times daily for the last week C. difficile gene is positive but toxin is negative-this indicates a carrier state, however would have low threshold to treat with p.o. vancomycin to see if has improvement No evidence of colitis on imaging of the abdomen Stool culture collected on 03/02 and is pending-we will follow -Clear liquids diet only for now We will gently hydrate with normal saline with 20 mEq of potassium chloride -Consult GI for further evaluation (4) CKD (chronic kidney disease), stage III: Creatinine baseline is 1.4-1.5 which is where she is at today -Follow BMP Avoid nephrotoxins -Renally dose medications when appropriate (5) Hypothyroidism: TSH has not been checked in 10 months -Check TSH in the morning -Continue home levothyroxine 112 mcg once daily (6) Hyperlipidemia: Continue home simvastatin (7) Hypertension: Blood pressures are fairly well controlled -Continue home amlodipine (8) GERD (gastroesophageal reflux disease): Continue PPI (9) Rheumatoid arthritis: Longstanding on chronic prednisone Has complaints of joint pains all over her body -Continue prednisone 10 mg daily-no role for stress dose steroids at this time -Continue methotrexate once weekly and folic acid once daily (10) Dementia: Moderate in nature -Continue home donepezil, Seroquel at bedtime, mirtazapine 45 mg scheduled at bedtime for depression (11) Headache: Ongoing for a week but there is also mention of chronic headaches in her history -Tylenol as needed -Check CT of the head (12) Chronic use of steroids: For RA as above (13) 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, seen on MRCP and CT here today Follow as an outpatient (14) Osteoporosis: Severe with compression fractures Secondary to chronic prednisone use No treatment for this currently (15) Compression fracture of L1 lumbar vertebra: Noted to be severe on prior imaging and again here today with retropulsion No evidence of focal neurological deficits in the lower extremities (16) Macrocytic anemia: Mild, secondary to methotrexate use B12 and folate levels were checked and normal last admission (17) Hypokalemia: Potassium low upon admission at 3.3 Replace with IV potassium -Follow BMP in the morning, follow magnesium level in the morning Likely secondary to GI losses from diarrhea (18) DVT prophylaxis: Heparin drip Disposition-admit to medical/surgical floor for treatment of pelvic DVT and diarrhea with abdominal pain DNR/DNI Her daughter and her son are both healthcare melgar of bioinformatics scientist. All care discussed with her daughter at the bedside today. History of Present Illness Chief Complaint: Diarrhea Primary Care Provider: Vasiliy Uriostegui MD This patient is an 84-year-old female known to me with a history of recurrent UTI with ESBL E. 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 difficile colitis, who presents to the ER with diarrhea for 6 weeks and off-and-on abdominal pain several times a day for the last week that occurs mostly after eating. The diarrhea has become much worse just in the last week. For the last 6 weeks, she has had diarrhea maybe once a week, but now she is having it multiple times a day every time after she eats for the last week. She had a small amount of blood on the pad in her underwear once this week, but otherwise stool is nonbloody, no melena. She had some nausea yesterday but no vomiting. She has a decent appetite and her daughter has been pushing her to drink fluids. Today, she noted right sided abdominal pain that was getting much worse and came to the hospital. Denies fevers and chills. Of note, she was seen by GI in 08/2019 for constipation and there was mention of a possible retained biliary stone at that time and desire for MRCP. It does not appear this never got done. She was also scheduled to go and have a colonoscopy in the near future with GI as an outpatient. She has not had any travel anywhere and is been staying socially isolated str ictly at home. A stool sample was ordered by her PCP and her daughter dropped it off yesterday. She was C. difficile gene positive but toxin negative on 03/02/2020. A stool culture is pending. A CT of the abdomen/pelvis was ordered by the ER physician for her symptoms and discovered a DVT in the right external iliac and common femoral veins. She was started on a heparin drip in the ER and will be admitted for abdominal pain, diarrhea, and pelvic DVT. Allergies Allergy/AdvReac Type Severity Reaction Status Date / Time Penicillins Allergy Intermediate SWELLING Verified 03/03/20 15:45 celecoxib AdvReac Intermediate N/V Verified 12/31/19 15:35 cephalexin AdvReac Intermediate N/V Verified 12/31/19 15:35 methotrexate AdvReac Intermediate N/V Verified 12/31/19 15:35 nitrofurantoin AdvReac Intermediate N/V Verified 12/31/19 15:35 risedronate sodium AdvReac Intermediate NAUSEA AND Verified 12/31/19 15:35 VOMITING Home Medications Home Medications Medication Instructions Recorded Confirmed Type donepezil 10 mg PO HS 05/23/18 03/03/20 History mirtazapine 45 mg PO HS 05/23/18 03/03/20 History pantoprazole 40 mg PO BID 05/23/18 03/03/20 History simvastatin 40 mg PO HS 05/23/18 03/03/20 History amlodipine 5 mg PO QAM 07/29/18 03/03/20 History aspirin [Aspir-81] 81 mg PO BID 07/29/18 03/03/20 History polyethylene glycol 3350 [Miralax] 17 g PO DAILY PRN 11/14/18 03/03/20 History levothyroxine 112 mcg tablet 112 mcg PO QAM #30 tab 01/12/19 03/03/20 Rx folic acid 1 mg tablet 1 mg PO 6XWK #90 tab 03/02/19 03/03/20 Rx Reguloid, Sugar Free 1 tbsp PO DAILY 04/14/19 03/03/20 History prednisone 10 mg PO DAILY 04/14/19 03/03/20 History heating pads #1 ea 04/20/19 12/31/19 Rx calcium carbonate 320 mg calcium 320 mg PO BID PRN tab 05/18/19 03/03/20 History (750 mg) chewable tablet cranberry 500 mg capsule 500 mg PO QAM cap 05/18/19 03/03/20 History methotrexate sodium 2.5 mg tablet 2.5 mg PO WEEKLY tab 07/20/19 03/03/20 History simethicone 160 mg PO DAILY 10/10/19 03/03/20 History lidocaine 5 %-phenylephrine 0.25 1 appln TOP QID #28 gm 10/18/19 03/03/20 Rx %-glycern 14.4 %-petrolatm 15 % cream acetaminophen 500 mg tablet 500 mg PO TID #90 tab 10/19/19 03/03/20 Rx gabapentin 100 mg capsule 100 mg PO BID #60 cap 11/01/19 03/03/20 Rx oxycodone 5 mg PO BID PRN #1 tab 11/26/19 03/03/20 Rx quetiapine 25 mg tablet 12.5 mg PO QPM #30 tab 12/16/19 03/03/20 Rx nitrofurantoin macrocrystal 50 mg 50 mg PO DAILY #90 cap 12/22/19 03/03/20 Rx capsule Past Med/Surg History Medical History (Updated 03/04/20 @ 01:27 by Snow Parham MD) Anemia of chronic disease ASCVD (arteriosclerotic cardiovascular disease) C. difficile colitis [id number] Chronic kidney disease Chronic use of steroids (Chronic) Chronic UTI Closed right hip fracture (Resolved) Constipation Contact dermatitis (Inactive) Dementia Diarrhea (Resolved) Fall (Inactive) GERD (gastroesophageal reflux disease) Hip pain, right (Inactive) Hyperlipidemia Hypertension Hypotension Hypothyroidism Kidney stones Macrocytic anemia Pancreatic mass PVD (peripheral vascular disease) Rheumatoid arthritis (Chronic) Thrombosed external hemorrhoid Vitamin D insufficiency Surgical History History of umbilical hernia repair Hx of cholecystectomy Hx of colonoscopy Hx of esophagogastroduodenoscopy Family History Unknown Arteriosclerotic cardiovascular disease (ASCVD) Father Heart disease Diabetes Myocardial infarction Mother Cancer Hypertension Mother Breast cancer Other Family history non-contributory Denies family history of Ovarian cancer Prostate cancer Crohn's disease Lung cancer Colorectal cancer Ulcerative colitis Stroke Social History Smoking Status: Unknown if ever smoked Second Hand Exposure: No; Hx Alcohol Use: No Hx Substance Use: No Preferred Language: [place] Communication Ability: Effective Visual Impairment: No Limitations Hearing Ability: Normal Cashier Parking Lot Required: No Beliefs That Will Affect Care: None marital status: / Current Living Situation: Family Current Living Situation Comment: Lived with daughter Natalya since Covid current occupational status: other Feels Safe at Home: Yes Safety Concerns: Feels Safe At This Time Childhood Exposure to Second-Hand Smoke: No caffeine: Yes Dental Care, Regularly: No Physical Activity Frequency: Does not Exercise Seatbelt Use: always Sunscreen Use: No Review of Systems Review of Systems: All systems reviewed & are unremarkable except as noted in HPI & below She has been having a daily almost constant headache for the last week. She has chronic pain in all of her joints from her rheumatoid arthritis. Denies chest pain or shortness of breath Physical Exam Constitutional: WD/WN, vitals as above (Frequently moans during examination which is chronic for her as per daughter) Eyes: PERRL, conjunctivae normal, anicteric sclerae ENMT: Ears: no hearing impairment Mouth: + oral mucosal abnormality (Dry mucous membranes and tongue) Neck: trachea midline, no thyromegaly Respiratory: normal respiratory effort, lungs clear to auscultation Cardiovascular: RRR, no murmur, no edema Chest (Breasts): Chest: normal inspection of chest Gastrointestinal (Abdomen): Inspection/Auscultation: abdomen normal to inspection and normal bowel sounds; abdomen not distended Percussion/Palpation: + abdomen tender (Mild tenderness to palpation in the right side of abdomen without guarding or rebound tenderness) and abdomen soft; no guarding Musculoskeletal: Extremities: extremities normal to inspection; no cyanosis and no clubbing Skin: no rashes, warm and dry Neurologic: moves all extremities and awake; no focal motor deficits Psychiatric: Orientation: alert, oriented to person, oriented to place and cooperative Speech: normal rate/rhythm/volume of speech Affect: euthymic affect Thought Process: goal directed thought process Cognition: + recent memory not intact Lymphatic: no lymphedema Results & Data Results & Data ([facility]) Vital Signs (Past 12 Hours) Vital Signs Temp Pulse Pulse Resp BP BP Pulse Ox 03/03/20 13:45 66 18 166/67 H 98 03/03/20 11:57 68 20 142/80 H 18 L 03/03/20 11:49 95 03/03/20 11:14 36.8 C 74 22 118/62 95 Laboratory Results 03/03/20 03/03/20 03/03/20 Range/Units 23:24 17:20 11:38 WBC (4.8-10.8) K/uL RBC (4.2-5.4) M/uL Hgb (12.0-16.0) g/dL Hct (37-47) % MCV (80-100) fL MCH (25-34) pg MCHC (32-36) g/dL RDW Std Deviation (36.4-46.3) fL RDW Coeff of Adrien (11.5-14.5) % Plt Count (130-400) K/uL MPV (7.4-10.4) fL Immature Gran % (Auto) % Neut % (Auto) % Lymph % (Auto) % [place] % (Auto) % Eos % (Auto) % Baso % (Auto) % Neut # (Auto) (1.4-6.5) K/uL Lymph # (Auto) (1.2-3.4) K/uL [place] # (Auto) (0.11-0.59) K/uL Eos # (Auto) (0-0.5) K/uL Baso # (Auto) (0-0.2) K/uL Immature Gran # (Auto) (0.00-0.02) K/uL PT 10.4 (9.0-12.0) Seconds INR 1.0 (0.9-1.1) APTT 95.2 H* 21.7 (21.0-31.0) Seconds PTT Ratio 3.4 0.8 Sodium (136-145) mmol/L Potassium (3.5-5.1) mmol/L Chloride (98-107) mmol/L Carbon Dioxide (21-32) mmol/L Anion Gap (3-11) BUN (7-18) mg/dl Creatinine (0.6-1.2) mg/dl Est Cr Clr Drug Dosing Est GFR ( Amer) Est GFR (Non-Af Amer) BUN/Creatinine Ratio (10-20) Glucose (70-99) mg/dl Calcium (8.5-10.1) mg/dl Total Bilirubin (0.2-1) mg/dl AST (15-37) U/L ALT (12-78) U/L Alkaline Phosphatase (45-117) U/L Total Protein (6.4-8.2) gm/dl Albumin (3.4-5.0) gm/dl Globulin (2.5-4.0) gm/dl Albumin/Globulin Ratio (0.9-2) Lipase (73-393) U/L Urine Color Yellow Urine Appearance Clear (Clear) Urine pH 5.0 (4.5-7.5) Ur Specific [place] 1.041 H (1.000-1.030) Urine Protein Negative (Negative) Urine Glucose (UA) Negative (Negative) Urine Ketones Negative (Negative) Urine Blood 1+ H (Negative) Urine Nitrite Negative (Negative) Urine Bilirubin Negative (Negative) Urine Urobilinogen Negative (Negative) Ur Leukocyte Esterase Trace H (Negative) Urine WBC (Auto) 5-10 H (0-5) /hpf Urine RBC (Auto) 0-4 (0-4) /hpf U Hyaline Cast (Auto) 1-5 (0-5) /lpf U Epithel Cells (Auto) >30 H (0-5) /lpf Urine Bacteria (Auto) Negative (Negative) 03/03/20 03/03/20 Range/Units 11:38 11:38 WBC 8.96 (4.8-10.8) K/uL RBC 3.79 L (4.2-5.4) M/uL Hgb 12.6 (12.0-16.0) g/dL Hct 39.5 (37-47) % MCV 104.2 H (80-100) fL MCH 33.2 (25-34) pg MCHC 31.9 L (32-36) g/dL RDW Std Deviation 57.0 H (36.4-46.3) fL RDW Coeff of Adrien 15.0 H (11.5-14.5) % Plt Count 177 (130-400) K/uL MPV 9.3 (7.4-10.4) fL Immature Gran % (Auto) 0.6 % Neut % (Auto) 72.3 % Lymph % (Auto) 17.7 % [place] % (Auto) 6.3 % Eos % (Auto) 2.7 % Baso % (Auto) 0.4 % Neut # (Auto) 6.48 (1.4-6.5) K/uL Lymph # (Auto) 1.59 (1.2-3.4) K/uL [place] # (Auto) 0.56 (0.11-0.59) K/uL Eos # (Auto) 0.24 (0-0.5) K/uL Baso # (Auto) 0.04 (0-0.2) K/uL Immature Gran # (Auto) 0.05 H (0.00-0.02) K/uL PT (9.0-12.0) Seconds INR (0.9-1.1) APTT (21.0-31.0) Seconds PTT Ratio Sodium 145 (136-145) mmol/L Potassium 3.3 L (3.5-5.1) mmol/L Chloride 113 H (98-107) mmol/L Carbon Dioxide 26 (21-32) mmol/L Anion Gap 6.0 (3-11) BUN 22 H (7-18) mg/dl Creatinine 1.55 H (0.6-1.2) mg/dl Est Cr Clr Drug Dosing Not Reportable Est GFR ( Amer) 35.0 Est GFR (Non-Af Amer) 30.2 BUN/Creatinine Ratio 14.5 (10-20) Glucose 146 H (70-99) mg/dl Calcium 8.5 (8.5-10.1) mg/dl Total Bilirubin 0.3 (0.2-1) mg/dl AST 13 L (15-37) U/L ALT 16 (12-78) U/L Alkaline Phosphatase 57 (45-117) U/L Total Protein 6.2 L (6.4-8.2) gm/dl Albumin 3.1 L (3.4-5.0) gm/dl Globulin 3.1 (2.5-4.0) gm/dl Albumin/Globulin Ratio 1.0 (0.9-2) Lipase 174 (73-393) U/L Urine Color Urine Appearance (Clear) Urine pH (4.5-7.5) Ur Specific [place] (1.000-1.030) Urine Protein (Negative) Urine Glucose (UA) (Negative) Urine Ketones (Negative) Urine Blood (Negative) Urine Nitrite (Negative) Urine Bilirubin (Negative) Urine Urobilinogen (Negative) Ur Leukocyte Esterase (Negative) Urine WBC (Auto) (0-5) /hpf Urine RBC (Auto) (0-4) /hpf U Hyaline Cast (Auto) (0-5) /lpf U Epithel Cells (Auto) (0-5) /lpf Urine Bacteria (Auto) (Negative) Diagnostic Findings CT OF THE ABDOMEN AND PELVIS WITH CONTRAST CLINICAL HISTORY: Abdominal pain and diarrhea. COMPARISON STUDY: CT of the abdomen and pelvis November 23, 2019. TECHNIQUE: Following IV administration of 94 mL of Optiray-320, axial images of the abdomen and pelvis were obtained from the lung bases to the proximal femurs. Images were reviewed in the axial, sagittal, and coronal planes. IV contrast was administered without complication. Automated exposure control was utilized for the study. A dose lowering technique was utilized adhering to the principles of ALARA. CT DOSE: 369.03 mGy.cm FINDINGS: No pneumatosis, free air or portal venous gas is present. Mild biliary ductal dilatation is unchanged and likely related to cholecystectomy. There is no peripancreatic infiltration. No pancreatic ductal dilatation is present. A 1.2 cm cystic lesion within the pancreatic head is unchanged. This favors a side branch IPMN. A peripherally calcified 1.5 cm hypodensity within the cholecystectomy bed is unchanged. The adrenal glands and spleen are unremarkable. There is marked bilateral renal cortical thinning. Numerous bilateral renal cysts are noted. Multiple subcentimeter lesions are too small to characterize but are unchanged. Previous ventral hernia repair with mesh is noted. There is sigmoid diverticulosis without evidence for acute diverticulitis. Proximal right femoral internal fixation is unchanged in appearance. No lymphadenopathy is present. Note is made of deep venous thrombus within the distal right external iliac vein extending into the right common femoral vein. T11, T12 and L1 compression fractures are unchanged with retropulsion noted at the L1 level. There are no suspicious lesions within the visualized skeletal structures. No fluid collection to suggest an abscess is noted. The appendix is normal. IMPRESSION: 1. Deep venous thrombus within the right external iliac and common femoral veins. 2. No bowel obstruction. Colonic diverticulosis without evidence for acute diverticulitis. No bowel wall thickening. Code Status & VTE Plan Code Status DNR/DNI VTE Prophylaxis Plan VTE Prophylaxis will be ordered: Yes PG Care Time/CCT Total # of Minutes Spent Total Time Spent with Patient: Total time spent is greater than 50% in coordination of care (as documented) at patient's floor/unit and/or counseling patient: Coding Level of Care Code 12505 Initial Inpt Care Lvl 3 Diagnoses Abdominal pain R10.9 DVT (deep venous thrombosis) I82.421 Affected thrombotic vein of extremity: iliac Chronicity: acute DVT location: lower extremity Laterality: right Diarrhea R19.7 Diarrhea type: unspecified type CKD (chronic kidney disease), stage III N18.3 Hypothyroidism E03.9 Hypothyroidism type: unspecified Hyperlipidemia E78.5 Hyperlipidemia type: unspecified Hypertension I10 Hypertension type: essential hypertension GERD (gastroesophageal reflux disease) K21.9 Esophagitis presence: esophagitis presence not specified Rheumatoid arthritis M06.9 Rheumatoid arthritis location: unspecified site Rheumatoid factor presence: unspecified presence Dementia F03.90 Dementia behavioral disturbance: without behavioral disturbance Dementia type: unspecified type Headache G44.039 Headache chronicity pattern: episodic headache Headache type: paroxysmal hemicrania Intractability: not intractable Chronic use of steroids Pancreatic mass K86.89 Osteoporosis M80.00XD Encounter type: subsequent encounter Fracture healing: with routine healing Osteoporosis type: age-related Presence of current pathological fracture: with current pathological fracture Compression fracture of L1 lumbar vertebra S32.010A Macrocytic anemia D53.9 Hypokalemia E87.6 DVT prophylaxis Z29.9 (1) Rheumatoid arthritis Rheumatoid arthritis location: unspecified site Rheumatoid factor presence: unspecified presence Qualified Code(s): M06.9 - Rheumatoid arthritis, unspecified (2) DVT (deep venous thrombosis) Affected thrombotic vein of extremity: iliac Chronicity: acute DVT location: lower extremity Laterality: right Qualified Code(s): I82.421 - Acute embolism and thrombosis of right iliac vein (3) Osteoporosis Encounter type: subsequent encounter Fracture healing: with routine healing Osteoporosis type: age-related Presence of current pathological fracture: with current pathological fracture Qualified Code(s): M80.00XD - Age-related osteoporosis with current pathological fracture, unspecified site, subsequent encounter for fracture with routine healing (4) Dementia Dementia behavioral disturbance: without behavioral disturbance Dementia type: unspecified type Qualified Code(s): F03.90 - Unspecified dementia without behavioral disturbance (5) Diarrhea Diarrhea type: unspecified type Qualified Code(s): R19.7 - Diarrhea, unspecified (6) Headache Headache chronicity pattern: episodic headache Headache type: paroxysmal hemicrania Intractability: not intractable Qualified Code(s): G44.039 - Episodic paroxysmal hemicrania, not intractable (7) Hyperlipidemia Hyperlipidemia type: unspecified Qualified Code(s): E78.5 - Hyperlipidemia, unspecified (8) Hypothyroidism Hypothyroidism type: unspecified Qualified Code(s): E03.9 - Hypothyroidism, unspecified (9) GERD (gastroesophageal reflux disease) Esophagitis presence: esophagitis presence not specified Qualified Code(s): K21.9 - Gastro-esophageal reflux disease without esophagitis (10) Hypertension Hypertension type: essential hypertension Qualified Code(s): I10 - Essential (primary) hypertension
[2020-03-03 17:16] LABS: Partial Thromboplastin Ratio 0.8; Partial Thromboplastin Time 21.7 Seconds (21.0-31.0); Prothrombin Time 10.4 Seconds (9.0-12.0)
[2020-03-03] MEDS: HEPARIN SODIUM/DEXTROSE 25,000 UNITS/500 ML BAG IV SCH (17:28)
[2020-03-03 17:37] LABS: Appearance Urine Clear (Clear); Bacteria Urine Automated Negative (Negative); Bilirubin Urine Negative (Negative); Blood Urine 1+ (Negative); Color Urine Yellow; Epithelial Cell Urine Auto >30 /lpf (0-5); Glucose Urine UA Negative (Negative); Ketones Urine Negative (Negative); Leukocyte Esterase Urine Trace (Negative); Nitrite Urine Negative (Negative); Protein Urine Negative (Negative); RBC Urine Automated 0-4 /hpf (0-4); Specific Gravity Urine 1.041 (1.000-1.030); Urobilinogen Urine Negative (Negative)
[2020-03-03] MEDS ORDERED: POLYETHYLENE (MIRALAX) 17 GM PACK PO PRN (19:00)
[2020-03-03] MEDS ORDERED: ONDANSETRON INJ 2 MG/ML 2 ML VIAL IV PRN (19:00)
[2020-03-03] MEDS ORDERED: CALCIUM CARBONATE 500 MG CHEWABLE TAB PO PRN (19:07)
--- NOTE | 2020-03-03 19:13 | Ultrasound Report ---
US duplex mesenteric CLINICAL HISTORY: post-prandial abdominal pain COMPARISON STUDY: CT scan performed the same day FINDINGS: The study is moderately limited from a technical standpoint. The patient was unable to fully cooperat e with examination due to her clinical condition. There is limited visualization due to overlying bow el gas. There are no significantly elevated velocities within the celiac or superior mesenteric artery. IMPRESSION: No ultrasonographic evidence of mesenteric arterial stenosis. ACT 112: Negative or not required by law. Electronically signed by: Evangelista Rodriguez M.D. 03/03/2020 7:12 PM
--- NOTE | 2020-03-03 19:26 | CT Scan Report ---
CT head/brain wo con CLINICAL HISTORY: headache x 1 week COMPARISON STUDY: 11/23/2019 TECHNIQUE: Axial CT of the brain is performed from the vertex to the skull base. IV contrast was not administered for this examination. A dose lowering technique was utilized adhering to the principles of ALARA. CT DOSE: 537.48 mGy.cm FINDINGS: No intra or extra-axial mass lesions are visualized. There is no CT evidence of acute cortical infarc tion. There is no evidence of midline shift. There is no acute hemorrhage. No calvarial fractures ar e visualized. There are patchy white matter hypodensities likely on a small vessel basis. There is no evidence of pathologic ventricular dilatation. There is no evidence of acute sinusitis The study appears contrast-enhanced secondary to a contrast bolus the patient received during a CT sc an the abdomen and pelvis performed earlier in the day IMPRESSION: No acute intracranial findings ACT 112: Negative or not required by law. Electronically signed by: Evangelista Rodriguez M.D. 03/03/2020 7:24 PM
[2020-03-03] MEDS: ACETAMINOPHEN 500 MG TAB PO SCH (23:11)
[2020-03-03] MEDS: ASPIRIN 81 MG ECTAB PO SCH (23:12)
[2020-03-03] MEDS: SIMVASTATIN 40 MG TAB PO SCH (23:12)
[2020-03-03] MEDS: DONEPEZIL HCL 10 MG TAB PO SCH (23:12)
[2020-03-03] MEDS: QUETIAPINE FUMARATE 25 MG TABLET PO SCH (23:12)
[2020-03-03] MEDS: MIRTAZAPINE SOLTAB 15 MG PO SCH (23:13)
[2020-03-03] MEDS: GABAPENTIN 100 MG CAP PO SCH (23:14)
[2020-03-03] MEDS: PANTOprazole 40 MG TAB PO SCH (23:14)
[2020-03-03 23:57] LABS: Partial Thromboplastin Ratio 3.4
[2020-03-04 00:06] LABS: Partial Thromboplastin Time 95.2 Seconds (21.0-31.0)
[2020-03-04] MEDS: POTASSIUM CHLORIDE / WTR 10 MEQ/100 ML PLCT IV SCH ×2 (01:49→03:30)
[2020-03-04] MEDS: NSS + 20MEQ KCL 20 MEQ/1,000 ML BAG IV SCH ×2 (01:49→15:43)
[2020-03-04] MEDS ORDERED: LEVOTHYROXINE SODIUM 112 MCG TABLET PO SCH (06:30)
[2020-03-04 07:43] LABS: Basophils # (auto) 0.04 K/uL (0-0.2); Basophils % (auto) 0.5 %; Eosinophils # (auto) 0.36 K/uL (0-0.5); Eosinophils % (auto) 4.6 %; Hematocrit (blood only) 36.6 % (37-47); Hemoglobin 11.8 g/dL (12.0-16.0); Immature Granulocytes # (auto) 0.06 K/uL (0.00-0.02); Immature Granulocytes % (auto) 0.8 %; Lymphocytes # (auto) 1.73 K/uL (1.2-3.4); Mean Corpuscular Hemoglobin 33.2 pg (25-34); Mean Corpuscular Hgb Conc 32.2 g/dL (32-36); Mean Corpuscular Volume 103.1 fL (80-100); Mean Platelet Volume 9.3 fL (7.4-10.4); Monocytes # (auto) 0.66 K/uL (0.11-0.59); Monocytes % (auto) 8.4 %; Neutrophils # (auto) 5.02 K/uL (1.4-6.5); Neutrophils % (auto) 63.7 %; Platelet Count 161 K/uL (130-400); RDW Coefficient of Variation 15.1 % (11.5-14.5); RDW Standard Deviation 56.5 fL (36.4-46.3); Red Blood Count 3.55 M/uL (4.2-5.4); White Blood Count 7.87 K/uL (4.8-10.8)
[2020-03-04 08:02] LABS: Partial Thromboplastin Ratio 2.1
[2020-03-04 08:03] LABS: Partial Thromboplastin Time 58.1 Seconds (21.0-31.0)
[2020-03-04] MEDS: ACETAMINOPHEN 500 MG TAB PO SCH ×3 (08:04→21:02)
[2020-03-04] MEDS: FOLIC ACID 1 MG TAB PO SCH (08:04)
[2020-03-04] MEDS: SIMETHICONE 80 MG CHEW PO SCH ×3 (08:04→16:46)
[2020-03-04] MEDS: GABAPENTIN 100 MG CAP PO SCH ×2 (08:04→20:54)
[2020-03-04] MEDS: AMLODIPINE BESYLATE 5 MG TAB PO SCH (08:04)
[2020-03-04] MEDS: predniSONE 10 MG TABLET PO SCH (08:04)
[2020-03-04] MEDS: ASPIRIN 81 MG ECTAB PO SCH ×2 (08:04→20:54)
[2020-03-04] MEDS: PANTOprazole 40 MG TAB PO SCH ×2 (08:05→20:55)
[2020-03-04 08:19] LABS: BUN Creatinine Ratio 11.7 (10-20); Calcium 8.2 mg/dl (8.5-10.1); Est GFR (Non-African American) 35.4; Potassium 4.3 mmol/L (3.5-5.1); Thyroid Stimulating Hormone 0.117 uIu/ml (0.300-4.500)
[2020-03-04] MEDS ORDERED: NON-FORMULARY MEDICATION (Cranberry 500 MG) PO SCH (09:00)
[2020-03-04] MEDS ORDERED: nitrofurantoin macrocrystaL 50 MG CAP PO SCH (09:00)
--- NOTE | 2020-03-04 11:05 | Gastrointestinal Consultation ---
Date of Consultation March 04, 2020 Assessment & Plan (1) DVT (deep venous thrombosis): (2) Abdominal pain: 84 yo female with worsening abd discomfort and loose stool found to have a right femoral and ext iliac DVT on imaging. Loose stools. C diff toxin is negative. - Would manage conservatively. - IVF hydration - PRN analgesia - mgt of venous thrombosis per primary team. (3) Loose stools: History of Present Illness Attending Physician: Marcelino Moore History of Present Illness 84 yo female with dementia and multiple medical problems who has had on-going abdominal discomfort as well as loose stools for weeks/months. Hospitalized several times. Admitted overnight with increase in her abdominal pain and imaging is significant for DVT of the right iliac and common femoral veins. She was started on a heparin gtt. C diff testing was done and while gene +, toxin is negative. Mesenteric doppler was limited but showed no evidence of significant celiac or SMA stenosis. Allergies Allergy/AdvReac Type Severity Reaction Status Date / Time Penicillins Allergy Intermediate SWELLING Verified 03/03/20 15:45 celecoxib AdvReac Intermediate N/V Verified 12/31/19 15:35 cephalexin AdvReac Intermediate N/V Verified 12/31/19 15:35 methotrexate AdvReac Intermediate N/V Verified 12/31/19 15:35 nitrofurantoin AdvReac Intermediate N/V Verified 12/31/19 15:35 risedronate sodium AdvReac Intermediate NAUSEA AND Verified 12/31/19 15:35 VOMITING Home Medications Home Medications Medication Instructions Recorded Confirmed Type donepezil 10 mg PO HS 05/23/18 03/03/20 History mirtazapine 45 mg PO HS 05/23/18 03/03/20 History pantoprazole 40 mg PO BID 05/23/18 03/03/20 History simvastatin 40 mg PO HS 05/23/18 03/03/20 History amlodipine 5 mg PO QAM 07/29/18 03/03/20 History aspirin [Aspir-81] 81 mg PO BID 07/29/18 03/03/20 History polyethylene glycol 3350 [Miralax] 17 g PO DAILY PRN 11/14/18 03/03/20 History levothyroxine 112 mcg tablet 112 mcg PO QAM #30 tab 01/12/19 03/03/20 Rx folic acid 1 mg tablet 1 mg PO 6XWK #90 tab 03/02/19 03/03/20 Rx Reguloid, Sugar Free 1 tbsp PO DAILY 04/14/19 03/03/20 History prednisone 10 mg PO DAILY 04/14/19 03/03/20 History heating pads #1 ea 04/20/19 12/31/19 Rx calcium carbonate 320 mg calcium 320 mg PO BID PRN tab 05/18/19 03/03/20 History (750 mg) chewable tablet cranberry 500 mg capsule 500 mg PO QAM cap 05/18/19 03/03/20 History methotrexate sodium 2.5 mg tablet 2.5 mg PO WEEKLY tab 07/20/19 03/03/20 History simethicone 160 mg PO DAILY 10/10/19 03/03/20 History lidocaine 5 %-phenylephrine 0.25 1 appln TOP QID #28 gm 10/18/19 03/03/20 Rx %-glycern 14.4 %-petrolatm 15 % cream acetaminophen 500 mg tablet 500 mg PO TID #90 tab 10/19/19 03/03/20 Rx gabapentin 100 mg capsule 100 mg PO BID #60 cap 11/01/19 03/03/20 Rx oxycodone 5 mg PO BID PRN #1 tab 11/26/19 03/03/20 Rx quetiapine 25 mg tablet 12.5 mg PO QPM #30 tab 12/16/19 03/03/20 Rx nitrofurantoin macrocrystal 50 mg 50 mg PO DAILY #90 cap 12/22/19 03/03/20 Rx capsule Patient History Medical History Anemia of chronic disease ASCVD (arteriosclerotic cardiovascular disease) C. difficile colitis january2017 Chronic kidney disease Chronic use of steroids (Chronic) Chronic UTI Closed right hip fracture (Resolved) Constipation Contact dermatitis (Inactive) Dementia Diarrhea (Resolved) Fall (Inactive) GERD (gastroesophageal reflux disease) Hip pain, right (Inactive) Hyperlipidemia Hypertension Hypotension Hypothyroidism Kidney stones Macrocytic anemia Pancreatic mass PVD (peripheral vascular disease) Rheumatoid arthritis (Chronic) Thrombosed external hemorrhoid Vitamin D insufficiency Surgical History History of umbilical hernia repair Hx of cholecystectomy Hx of colonoscopy Hx of esophagogastroduodenoscopy Family History Unknown Arteriosclerotic cardiovascular disease (ASCVD) Father Heart disease Diabetes Myocardial infarction Mother Cancer Hypertension Mother Breast cancer Other Family history non-contributory Denies family history of Ovarian cancer Prostate cancer Crohn's disease Lung cancer Colorectal cancer Ulcerative colitis Stroke Social History Smoking Status: Unknown if ever smoked Second Hand Exposure: No; Hx Alcohol Use: No Hx Substance Use: No Preferred Language: [place] Communication Ability: Effective Visual Impairment: No Limitations Hearing Ability: Normal [employer]ed [employer] Required: No Beliefs That Will Affect Care: None marital status: / Current Living Situation: Family Current Living Situation Comment: Lived with daughter Natalya since Covid current occupational status: other Feels Safe at Home: Yes Safety Concerns: Feels Safe At This Time Childhood Exposure to Second-Hand Smoke: No caffeine: Yes Dental Care, Regularly: No Physical Activity Frequency: Does not Exercise Seatbelt Use: always Sunscreen Use: No Review of Systems Review of Systems: Unobtainable due to cognitive status Physical Exam Constitutional: WD/WN, vitals as above Respiratory: normal respiratory effort, lungs clear to auscultation Cardiovascular: RRR, no murmur, no edema Gastrointestinal (Abdomen): Percussion/Palpation: + abdomen tender Results & Data ([facility]) Vital Signs (Past 12 Hours) Vital Signs Temp Pulse Resp BP Pulse Ox 03/04/20 07:34 36.8 C 71 18 155/78 H 95 03/03/20 23:28 36.7 C 71 18 141/67 H 95 (1) DVT (deep venous thrombosis) Affected thrombotic vein of extremity: iliac Chronicity: acute DVT location: lower extremity Laterality: right Qualified Code(s): I82.421 - Acute embolism and thrombosis of right iliac vein
--- NOTE | 2020-03-04 11:05 | Ultrasound Report ---
US venous doppler LE BI HISTORY: Pain. Edema. right femoral DVT; eval other veins for DVT COMPARISON STUDY: None. FINDINGS: The venous thrombosis within the right common femoral vein is noted. The rest of the right leg appears unremarkable. The left leg demonstrates thrombus in the popliteal vein. All remaining veins are unremarkable. IMPRESSION: 1. Thrombus within the right common femoral vein. 2. Additional thrombus within one of the left popliteal veins. ACT 112: Negative or not required by law. The above report was generated using voice recognition software. It may contain grammatical, syntax or spelling errors. Electronically signed by: Thomas Go M.D. 03/04/2020 11:03 AM
--- NOTE | 2020-03-04 14:58 | Hospitalist Progress Note ---
Date of Service March 04, 2020 Assessment & Plan (1) DVT (deep venous thrombosis): DVT in right external iliac and common femoral veins - incidentally found on CT yesterday. Now on heparin drip. 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 Check LE dopplers. VQ scan in light of chest pain (CrCl too low for CTA chest). coumadin vs DOAC?? (2) Abdominal pain: 2nd to iliac DVT?? checked KUB x-ray -- minimal ileus, no significant stool. lipase/LFTs wnl. follow. (3) Diarrhea: Ongoing for 6 weeks once a week but then 3 times daily for the last week. c diff toxin negative. GI consult appreciated. KUB x-ray noted. (4) CKD (chronic kidney disease), stage III: baseline Cr 1.4/1.5. BMP stable today. (5) Hypothyroidism: TSH suppressed. Continue home levothyroxine but lower to 100mcg daily. TSH in 6 weeks as outpatient. (6) Hyperlipidemia: Continue home simvastatin (7) Hypertension: Continue home amlodipine (8) GERD (gastroesophageal reflux disease): Continue PPI (9) Rheumatoid arthritis: Longstanding on chronic prednisone Continue prednisone 10 mg daily Continue methotrexate once weekly and folic acid once daily consider stress dose steroids with any clinical worsening (10) Dementia: moderate by history uncertain what her baseline MS is Continue home donepezil, Seroquel at bedtime, mirtazapine 45 mg scheduled at bedtime for depression (11) Headache: CT head neg consider sed rate/crp to r/o temporal arteritis but would be unusual given the chronic prednisone use (12) 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 (13) Compression fracture of L1 lumbar vertebra: chronic stable imaging findings however (14) Macrocytic anemia: Mild, secondary to methotrexate use b12/folate wnl (15) Hypokalemia: replace bmp in am (16) DVT prophylaxis: Heparin drip left message for daughter on 03/04/20 on voicemail Admission and Anticipated Discharge Date Admission Date: March 03, 2020 Subjective patient moaning during the visit but she couldn't tell me what was bothering her. staff reporting the moaning all morning and was doing it through the night as well. patient confused; unable to provide reliable history. at one point she c/o chest pain and when I asked her when it started she couldn't tell me. when asked about abdominal pain first she pointed to the RLQ, then she pointed to the RUQ. staff report fair appetite. she is 1:1 sitting. Review of Systems Review of Systems: Unobtainable due to cognitive status Physical Exam Constitutional: + acute distress (moaning, but looks comfortable) and + altered mental status ENMT: external ear and nose normal, oropharynx normal Respiratory: normal respiratory effort, lungs clear to auscultation Cardiovascular: Rate/Rhythm: regular rate and regular rhythm Heart Sounds: normal S1 and normal S2 Vessels: posterior tibial pulses present and dorsalis pedis pulses present; no JVD Extremities: no edema Gastrointestinal (Abdomen): Inspection/Auscultation: normal bowel sounds; abdomen not distended Percussion/Palpation: + abdomen tender (RLQ - mild) and abdomen soft; no guarding and no hepatosplenomegaly Psychiatric: Orientation: alert, oriented to person and oriented to place; + not oriented to time Results & Data Results & Data ([facility]) Vital Signs (Past 12 Hours) Vital Signs Temp Pulse Resp BP Pulse Ox 03/04/20 07:34 36.8 C 71 18 155/78 H 95 PG Care Time/CCT Total # of Minutes Spent Total Time Spent with Patient: Total time spent is greater than 50% in coordination of care (as documented) at patient's floor/unit and/or counseling patient: Coding Level of Care Code 88590 Subseq Hosp Care Lvl 3 Diagnoses DVT (deep venous thrombosis) I82.421 Affected thrombotic vein of extremity: iliac Chronicity: acute DVT location: lower extremity Laterality: right Abdominal pain R10.9 Diarrhea R19.7 Diarrhea type: unspecified type CKD (chronic kidney disease), stage III N18.3 Hypothyroidism E03.9 Hypothyroidism type: unspecified Hyperlipidemia E78.5 Hyperlipidemia type: unspecified Hypertension I10 Hypertension type: essential hypertension GERD (gastroesophageal reflux disease) K21.9 Esophagitis presence: esophagitis presence not specified Rheumatoid arthritis M06.9 Rheumatoid arthritis location: unspecified site Rheumatoid factor presence: unspecified presence Dementia F03.90 Dementia behavioral disturbance: without behavioral disturbance Dementia type: unspecified type Headache G44.039 Headache chronicity pattern: episodic headache Headache type: paroxysmal hemicrania Intractability: not intractable Pancreatic mass K86.89 Compression fracture of L1 lumbar vertebra S32.010A Macrocytic anemia D53.9 Hypokalemia E87.6 DVT prophylaxis Z29.9 (1) Rheumatoid arthritis Rheumatoid arthritis location: unspecified site Rheumatoid factor presence: unspecified presence Qualified Code(s): M06.9 - Rheumatoid arthritis, unspecified (2) DVT (deep venous thrombosis) Affected thrombotic vein of extremity: iliac Chronicity: acute DVT location: lower extremity Laterality: right Qualified Code(s): I82.421 - Acute embolism and thrombosis of right iliac vein (3) Dementia Dementia behavioral disturbance: without behavioral disturbance Dementia type: unspecified type Qualified Code(s): F03.90 - Unspecified dementia without behavioral disturbance (4) Diarrhea Diarrhea type: unspecified type Qualified Code(s): R19.7 - Diarrhea, unspecified (5) Headache Headache chronicity pattern: episodic headache Headache type: paroxysmal hemicrania Intractability: not intractable Qualified Code(s): G44.039 - Episodic paroxysmal hemicrania, not intractable (6) Hyperlipidemia Hyperlipidemia type: unspecified Qualified Code(s): E78.5 - Hyperlipidemia, unspecified (7) Hypothyroidism Hypothyroidism type: unspecified Qualified Code(s): E03.9 - Hypothyroidism, unspecified (8) GERD (gastroesophageal reflux disease) Esophagitis presence: esophagitis presence not specified Qualified Code(s): K21.9 - Gastro-esophageal reflux disease without esophagitis (9) Hypertension Hypertension type: essential hypertension Qualified Code(s): I10 - Essential (primary) hypertension
--- NOTE | 2020-03-04 16:17 | XRay Report ---
XR KUB/Abdomen 1 view CLINICAL HISTORY: abd pain, fecal impaction?? COMPARISON STUDY: 12/14/2016 FINDINGS: Mild nonobstructive ileus. No evidence for fecal impaction. IMPRESSION: Mild nonobstructive ileus. ACT 112: Negative or not required by law. The above report was generated using voice recognition software. It may contain grammatical, syntax or spelling errors. Electronically signed by: Thomas Go M.D. 03/04/2020 4:16 PM
[2020-03-04] MEDS: DONEPEZIL HCL 10 MG TAB PO SCH (20:53)
[2020-03-04] MEDS: MIRTAZAPINE SOLTAB 15 MG PO SCH (20:55)
[2020-03-04] MEDS: QUETIAPINE FUMARATE 25 MG TABLET PO SCH (20:57)
[2020-03-04] MEDS: SIMVASTATIN 40 MG TAB PO SCH (20:58)
[2020-03-04] MEDS ORDERED: HydrALAZINE HCL 20 MG/ML VIAL IV STA (21:59)
[2020-03-04] MEDS: HEPARIN SODIUM/DEXTROSE 25,000 UNITS/500 ML BAG IV SCH (22:30)
[2020-03-05] MEDS ORDERED: MoRPHine SULFATE 2 MG/ML CARP IV STA (01:09)
[2020-03-05] MEDS: BENZONATATE 100 MG CAPSULE PO PRN (01:52)
[2020-03-05] MEDS: NSS + 20MEQ KCL 20 MEQ/1,000 ML BAG IV SCH (05:44)
[2020-03-05] MEDS: LEVOTHYROXINE SODIUM 100 MCG TABLET PO SCH (05:46)
[2020-03-05 06:17] LABS: Partial Thromboplastin Ratio 2.9
[2020-03-05 06:23] LABS: Partial Thromboplastin Time 81.7 Seconds (21.0-31.0)
[2020-03-05 06:29] LABS: BUN Creatinine Ratio 9.9 (10-20); Calcium 8.3 mg/dl (8.5-10.1); Est GFR (Non-African American) 38.8; Potassium 4.2 mmol/L (3.5-5.1)
[2020-03-05] MEDS: PANTOprazole 40 MG TAB PO SCH ×2 (07:31→20:37)
[2020-03-05] MEDS: AMLODIPINE BESYLATE 5 MG TAB PO SCH (07:32)
[2020-03-05] MEDS: GABAPENTIN 100 MG CAP PO SCH ×2 (07:32→20:37)
[2020-03-05] MEDS: ASPIRIN 81 MG ECTAB PO SCH ×2 (07:32→20:37)
[2020-03-05] MEDS: predniSONE 10 MG TABLET PO SCH (07:33)
[2020-03-05] MEDS: metHOTREXate sodium 2.5 MG TAB PO SCH (07:33)
[2020-03-05] MEDS: SIMETHICONE 80 MG CHEW PO SCH ×3 (07:34→16:52)
[2020-03-05] MEDS: ACETAMINOPHEN 325 MG TAB PO PRN (07:36)
[2020-03-05] MEDS: ACETAMINOPHEN 500 MG TAB PO SCH ×3 (08:01→20:36)
[2020-03-05] MEDS ORDERED: DEXTROSE 5% 500 ML IV SCH (11:00)
[2020-03-05 13:00] LABS: Partial Thromboplastin Ratio 2.4
--- NOTE | 2020-03-05 19:13 | Hospitalist Progress Note ---
Date of Service March 05, 2020 Assessment & Plan (1) Chest pain: EKG this afternoon w/o ischemic changes. NSR. (my reading) I am suspicious that the pain on right is pleuritic from PEs. She has extensive b/l LE DVT. Cannot exclude musculoskeletal component such as rib fracture or chest wall muscle strain. Obtain rib series on right along with cxr. Lidoderm patches prn. morphine prn. VQ scan ordered for AM. If there are VQ mismatches on right then pain likely from PEs. If VQ scan is negative and pain persists - consider repeat MRCP as prior MRCP showed ??CBD gallstone?? Unable to obtain CTA chest due to CrCL low 20s. (2) DVT (deep venous thrombosis): DVT in right external iliac and common femoral veins - incidentally found on CT at admission. Now on heparin drip. 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 LE dopplers with b/l DVT. VQ scan in light of chest pain (CrCl too low for CTA chest). scheduled for Friday. coumadin vs DOAC?? await VQ scan. (3) Abdominal pain: 2nd to iliac DVT?? checked KUB x-ray -- minimal ileus, no significant stool. lipase/LFTs wnl. RUQ pain may be secondary to PEs -- see above. If VQ is low probability consider biliary w/u with MRCP. (4) Diarrhea: Ongoing for 6 weeks once a week but then 3 times daily for the last week. c diff toxin negative 03/02. stool cx from 03/02 thus far negative. since admission she has had 1 stool by report. GI consult appreciated. KUB x-ray noted. (5) CKD (chronic kidney disease), stage III: baseline Cr 1.4/1.5. borderline stage 4 CKD BMP stable today. BMP am. (6) Hypothyroidism: TSH suppressed. Continue home levothyroxine but lower to 100mcg daily. TSH in 6 weeks as outpatient. (7) Hyperlipidemia: Continue home simvastatin (8) Hypertension: Continue home amlodipine (9) GERD (gastroesophageal reflux disease): Continue PPI (10) Rheumatoid arthritis: Longstanding on chronic prednisone Continue prednisone 10 mg daily Continue methotrexate once weekly and folic acid once daily consider stress dose steroids with any clinical worsening (11) Dementia: moderate by history uncertain what her baseline MS is Continue home donepezil, Seroquel at bedtime, mirtazapine 45 mg scheduled at bedtime for depression (12) Headache: CT head neg consider sed rate/crp to r/o temporal arteritis but would be unusual given the chronic prednisone use she denied headache today records suggest this may be a chronic issue (has had prior imaging for same complaint) (13) 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 (14) Compression fracture of L1 lumbar vertebra: chronic stable imaging findings however (15) Macrocytic anemia: Mild, secondary to methotrexate use b12/folate wnl (16) Hypokalemia: replaced and resolved bmp am (17) Encephalopathy acute: acute encephalopathy/hospital psychosis in setting of dementia significant increase HS seroquel to 25mg from 12.5mg (18) DVT prophylaxis: Heparin drip left message for daughter on 03/04/20 on voicemail spoke with daughter by phone on 03/05; questions answered Admission and Anticipated Discharge Date Admission Date: March 03, 2020 Subjective 2 visits to room today. first was in the AM - she was sleeping soundly. staff report she had been up much of the night from . 2nd visit was later in the day. was c/o right lower chest / costal margin pain. during 2nd visit I asked her several questions about the right lower chest pain. she affirmed that pain was worse with taking breaths. did eat 50% of dinner without nausea/emesis. denied lower abdominal pain but given her confusion I was uncertain how reliable her answers were. Review of Systems Review of Systems: Unobtainable due to cognitive status (Dementia) Physical Exam Constitutional: + acute distress (moaning, but looks comfortable - similar to yesterday) and + altered mental status (Confused) ENMT: external ear and nose normal, oropharynx normal Respiratory: normal respiratory effort, lungs clear to auscultation Cardiovascular: Rate/Rhythm: regular rate and regular rhythm Heart Sounds: normal S1 and normal S2 Vessels: posterior tibial pulses present and dorsalis pedis pulses present; no JVD Extremities: no edema Chest (Breasts): Additional Comments: ? tender over chest wall on right near the costal margin? Gastrointestinal (Abdomen): Inspection/Auscultation: normal bowel sounds; abdomen not distended Percussion/Palpation: + abdomen tender (RUQ, near the lower ribs) and abdomen soft; no guarding and no hepatosplenomegaly Psychiatric: Orientation: alert and oriented to person; + not oriented to place and + not oriented to time Results & Data Results & Data ([facility]) Vital Signs (Past 12 Hours) Vital Signs Temp Pulse Resp BP Pulse Ox 03/05/20 18:48 36.9 C 76 16 136/78 96 03/05/20 14:53 36.9 C 71 16 119/73 96 03/05/20 11:35 76 133/74 Laboratory Results Laboratory Results - last 24 hr 03/05/20 03/05/20 03/05/20 05:48 05:48 12:30 APTT 81.7 H* 68.0 H* PTT Ratio 2.9 2.4 Sodium 146 H Potassium 4.2 Chloride 116 H Carbon Dioxide 26 Anion Gap 4.0 BUN 13 Creatinine 1.26 H Est Cr Clr Drug Dosing 27.0 Est GFR ( Amer) 45.0 Est GFR (Non-Af Amer) 38.8 BUN/Creatinine Ratio 9.9 L Glucose 71 Calcium 8.3 L PG Care Time/CCT Total # of Minutes Spent Total Time Spent with Patient: Total time spent is greater than 50% in coordination of care (as documented) at patient's floor/unit and/or counseling patient: Coding Level of Care Code 56016 Subseq Hosp Care Lvl 3 Diagnoses Chest pain R07.9 DVT (deep venous thrombosis) I82.421 Affected thrombotic vein of extremity: iliac Chronicity: acute DVT location: lower extremity Laterality: right Abdominal pain R10.9 Diarrhea R19.7 Diarrhea type: unspecified type CKD (chronic kidney disease), stage III N18.3 Hypothyroidism E03.9 Hypothyroidism type: unspecified Hyperlipidemia E78.5 Hyperlipidemia type: unspecified Hypertension I10 Hypertension type: essential hypertension GERD (gastroesophageal reflux disease) K21.9 Esophagitis presence: esophagitis presence not specified Rheumatoid arthritis M06.9 Rheumatoid arthritis location: unspecified site Rheumatoid factor presence: unspecified presence Dementia F03.90 Dementia behavioral disturbance: without behavioral disturbance Dementia type: unspecified type Headache G44.039 Headache chronicity pattern: episodic headache Headache type: paroxysmal hemicrania Intractability: not intractable Pancreatic mass K86.89 Compression fracture of L1 lumbar vertebra S32.010A Macrocytic anemia D53.9 Hypokalemia E87.6 Encephalopathy acute G93.40 DVT prophylaxis Z29.9 (1) Rheumatoid arthritis Rheumatoid arthritis location: unspecified site Rheumatoid factor presence: unspecified presence Qualified Code(s): M06.9 - Rheumatoid arthritis, unspecified (2) DVT (deep venous thrombosis) Affected thrombotic vein of extremity: iliac Chronicity: acute DVT location: lower extremity Laterality: right Qualified Code(s): I82.421 - Acute embolism and thrombosis of right iliac vein (3) Dementia Dementia behavioral disturbance: without behavioral disturbance Dementia type: unspecified type Qualified Code(s): F03.90 - Unspecified dementia without behavioral disturbance (4) Diarrhea Diarrhea type: unspecified type Qualified Code(s): R19.7 - Diarrhea, unspecified (5) Headache Headache chronicity pattern: episodic headache Headache type: paroxysmal hemicrania Intractability: not intractable Qualified Code(s): G44.039 - Episodic paroxysmal hemicrania, not intractable (6) Hyperlipidemia Hyperlipidemia type: unspecified Qualified Code(s): E78.5 - Hyperlipidemia, unspecified (7) Hypothyroidism Hypothyroidism type: unspecified Qualified Code(s): E03.9 - Hypothyroidism, unspecified (8) GERD (gastroesophageal reflux disease) Esophagitis presence: esophagitis presence not specified Qualified Code(s): K21.9 - Gastro-esophageal reflux disease without esophagitis (9) Hypertension Hypertension type: essential hypertension Qualified Code(s): I10 - Essential (primary) hypertension
[2020-03-05] MEDS: LIDOCAINE 5% 1 PATCH TD SCH (19:45)
--- NOTE | 2020-03-05 19:49 | XRay Report ---
XR ribs RT min 3V w CXR1V CLINICAL HISTORY: right sided pleuritic chest pain COMPARISON STUDY: 11/03/2019 FINDINGS: Erect chest reveals mild cardiac enlargement. There is aortic tortuosity/ectasia. There is no lobar consolidation. There are no pleural effusions. There is no pneumothorax. Supplemental views of the right ribs reveal age-indeterminate right sixth rib fracture. Please correlate with the patien t's site of pain.. There are osteoarthritic changes present within the right shoulder. IMPRESSION: 1. Right posterior lateral sixth rib fracture 2. No evidence of pneumothorax ACT 112: Negative or not required by law. Electronically signed by: Evangelista Rodriguez M.D. 03/05/2020 7:47 PM
[2020-03-05 19:54] LABS: Partial Thromboplastin Time 55.2 Seconds (21.0-31.0)
[2020-03-05] MEDS: TRAMADOL HCL 50 MG TABLET PO PRN (19:57)
[2020-03-05] MEDS: HEPARIN SODIUM/DEXTROSE 25,000 UNITS/500 ML BAG IV SCH (20:03)
[2020-03-05] MEDS: DONEPEZIL HCL 10 MG TAB PO SCH (20:36)
[2020-03-05] MEDS: MIRTAZAPINE SOLTAB 15 MG PO SCH (20:37)
[2020-03-05] MEDS: QUETIAPINE FUMARATE 25 MG TABLET PO SCH (20:38)
[2020-03-05] MEDS: SIMVASTATIN 40 MG TAB PO SCH (20:39)
[2020-03-05] MEDS: MoRPHine SULFATE 2 MG/ML CARP IV PRN (21:16)
[2020-03-06] MEDS: MoRPHine SULFATE 2 MG/ML CARP IV PRN ×2 (02:33→15:15)
[2020-03-06] MEDS: LEVOTHYROXINE SODIUM 100 MCG TABLET PO SCH (06:36)
[2020-03-06 07:07] LABS: Hematocrit (blood only) 32.3 % (37-47); Hemoglobin 10.2 g/dL (12.0-16.0); Mean Corpuscular Hemoglobin 32.9 pg (25-34); Mean Corpuscular Hgb Conc 31.6 g/dL (32-36); Mean Corpuscular Volume 104.2 fL (80-100); Mean Platelet Volume 9.6 fL (7.4-10.4); Platelet Count 171 K/uL (130-400); RDW Coefficient of Variation 15.5 % (11.5-14.5); RDW Standard Deviation 58.5 fL (36.4-46.3); White Blood Count 7.78 K/uL (4.8-10.8)
[2020-03-06 07:26] LABS: Partial Thromboplastin Ratio 2.3
[2020-03-06 07:36] LABS: Partial Thromboplastin Time 64.7 Seconds (21.0-31.0)
[2020-03-06 07:42] LABS: Albumin Level 2.7 gm/dl (3.4-5.0); BUN Creatinine Ratio 10.4 (10-20); Calcium 8.3 mg/dl (8.5-10.1); Creatinine Clr Calc Pharmacy 24.1 ml/min; Est GFR (African American) 39.3; Est GFR (Non-African American) 33.9; Potassium 4.1 mmol/L (3.5-5.1)
[2020-03-06 07:45] LABS: Albumin Globulin Ratio 1.1 (0.9-2); Bilirubin,Total 0.4 mg/dl (0.2-1); Globulin 2.5 gm/dl (2.5-4.0); Total Protein 5.2 gm/dl (6.4-8.2)
[2020-03-06] MEDS: LIDOCAINE 5% 1 PATCH TD SCH ×2 (09:10→20:20)
[2020-03-06] MEDS: SIMETHICONE 80 MG CHEW PO SCH ×3 (09:13→17:42)
[2020-03-06] MEDS: ACETAMINOPHEN 500 MG TAB PO SCH ×3 (09:14→20:22)
[2020-03-06] MEDS: AMLODIPINE BESYLATE 5 MG TAB PO SCH (09:14)
[2020-03-06] MEDS: GABAPENTIN 100 MG CAP PO SCH ×2 (09:14→20:18)
[2020-03-06] MEDS: predniSONE 10 MG TABLET PO SCH (09:14)
[2020-03-06] MEDS: PANTOprazole 40 MG TAB PO SCH ×2 (09:14→20:18)
[2020-03-06] MEDS: ASPIRIN 81 MG ECTAB PO SCH (09:14)
[2020-03-06] MEDS: FOLIC ACID 1 MG TAB PO SCH (09:14)
--- NOTE | 2020-03-06 09:28 | Nuclear Medicine Report ---
Study: Perfusion lung scan HISTORY: Dyspnea COMPARISON: None. FINDINGS: This examination performed following the administration of 5.1 mCi technetium 99m MAA. There are small subsegmental perfusion defects of the right base, as well as left upper lobe region. There is also small peripheral subsegmental perfusion defect left lower lobe. There is no major perfusion defect. IMPRESSION: High probability of pulmonary embolus. Electronically signed by: Thomas Go M.D. 03/06/2020 9:27 AM
--- NOTE | 2020-03-06 14:59 | Hospitalist Progress Note ---
Date of Service March 06, 2020 Assessment & Plan (1) Chest pain: EKG 03/05 w/o ischemic changes. NSR. She has extensive b/l LE DVT. Patient does have right rib fracture as well as VQ mismatch with high probability of PE Obtain rib series on right along with cxr. Continue Lidoderm patches, morphine prn. (2) Pulmonary embolism: High probability on VQ scan Will transition patient to Eliquis today - discussed risks and benefits with patient's daughter Dosing discussed with pharmacy, no adjustment for VTE treatment (3) DVT (deep venous thrombosis): DVT in right external iliac and common femoral veins - incidentally found on CT at admission. 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 LE dopplers with b/l DVT. Eliquis to start tonight as above (4) Abdominal pain: 2nd to iliac DVT?? checked KUB x-ray -- minimal ileus, no significant stool. lipase/LFTs wnl. RUQ pain may be secondary to PEs/ rib fracture-- see above. (5) Diarrhea: Ongoing for 6 weeks once a week but then 3 times daily for the last week - now resolved c diff toxin negative 03/02. stool cx from 03/02 thus far negative. since admission she has had 1 stool by report. GI consult appreciated. KUB x-ray noted. (6) CKD (chronic kidney disease), stage III: baseline Cr 1.4/1.5 - at baseline borderline stage 4 CKD (7) Hypothyroidism: TSH suppressed. Continue home levothyroxine but lower to 100mcg daily. TSH in 6 weeks as outpatient. (8) Hyperlipidemia: Continue home simvastatin (9) Hypertension: Continue home amlodipine (10) GERD (gastroesophageal reflux disease): Continue PPI (11) Rheumatoid arthritis: Longstanding on chronic prednisone Continue prednisone 10 mg daily Continue methotrexate once weekly and folic acid once daily (12) Dementia: moderate by history uncertain what her baseline MS is Continue home donepezil, Seroquel at bedtime, mirtazapine 45 mg scheduled at bedtime for depression - seroquel was increased for but will return to home dosing at discharge as her daughter reports she does well with this dose (13) Headache: CT head neg consider sed rate/crp to r/o temporal arteritis but would be unusual given the chronic prednisone use No complaints of headache today records suggest this may be a chronic issue (has had prior imaging for same complaint) (14) 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 (15) Compression fracture of L1 lumbar vertebra: chronic stable imaging findings however (16) Macrocytic anemia: Mild, secondary to methotrexate use b12/folate wnl (17) Hypokalemia: replaced and resolved bmp am (18) Encephalopathy acute: acute encephalopathy/hospital psychosis in setting of dementia significant sundowning increase HS seroquel to 25mg from 12.5mg - as above (19) DVT prophylaxis: Heparin drip - will transition to Eliquis as above Daughter updated by phone Admission and Anticipated Discharge Date Admission Date: March 03, 2020 Subjective Ms. Hunter continues to have right rib pain but otherwise has no complaints. ROS Constitutional: no chills, aches, sweats or fever Respiratory: no sob,cough, sputum, or wheezing Cardiac: no chest pain, palpitations, edema, orthopnea or lightheadedness GI: no abdominal pain, nausea, vomiting, diarrhea or constipation : no dysuria or hesitancy Extremities: no joint pain or weakness Skin: no rash All other systems reviewed and negative Physical Exam Physical Exam: General: no distress Eyes: normal inspection, PERLL Respiratory: chest non tender, clear to auscultation, normal breath sounds, no respiratory distress, no accessory muscle use Cardiac: regular rate and rhythm, no rub or gallop, no murmur, no edema, no jvd GI/: active bowel sounds, no abd pain or tenderness, soft, non distended Extremities: normal range of motion, normal strength, right ribs tender to palpation Neuro/Psych: alert and oriented to person and place, normal mood and affect Skin: normal color, dry Results & Data Results & Data ([facility]) Vital Signs (Past 12 Hours) Vital Signs Temp Pulse Resp BP BP Pulse Ox 03/06/20 11:24 166/85 H 03/06/20 06:52 36.7 C 70 16 171/77 H 95 PG Care Time/CCT Total # of Minutes Spent Total Time Spent with Patient: Total time spent is greater than 50% in coordination of care (as documented) at patient's floor/unit and/or counseling patient: Coding Level of Care Code 63353 Subseq Hosp Care Lvl 3 Diagnoses Chest pain R07.9 Pulmonary embolism I26.99 DVT (deep venous thrombosis) I82.421 Affected thrombotic vein of extremity: iliac Chronicity: acute DVT location: lower extremity Laterality: right Abdominal pain R10.9 Diarrhea R19.7 Diarrhea type: unspecified type CKD (chronic kidney disease), stage III N18.3 Hypothyroidism E03.9 Hypothyroidism type: unspecified Hyperlipidemia E78.5 Hyperlipidemia type: unspecified Hypertension I10 Hypertension type: essential hypertension GERD (gastroesophageal reflux disease) K21.9 Esophagitis presence: esophagitis presence not specified Rheumatoid arthritis M06.9 Rheumatoid arthritis location: unspecified site Rheumatoid factor presence: unspecified presence Dementia F03.90 Dementia behavioral disturbance: without behavioral disturbance Dementia type: unspecified type Headache G44.039 Headache chronicity pattern: episodic headache Headache type: paroxysmal hemicrania Intractability: not intractable Pancreatic mass K86.89 Compression fracture of L1 lumbar vertebra S32.010A Macrocytic anemia D53.9 Hypokalemia E87.6 Encephalopathy acute G93.40 DVT prophylaxis Z29.9 (1) Rheumatoid arthritis Rheumatoid arthritis location: unspecified site Rheumatoid factor presence: unspecified presence Qualified Code(s): M06.9 - Rheumatoid arthritis, unspecified (2) DVT (deep venous thrombosis) Affected thrombotic vein of extremity: iliac Chronicity: acute DVT location: lower extremity Laterality: right Qualified Code(s): I82.421 - Acute embolism and thrombosis of right iliac vein (3) Dementia Dementia behavioral disturbance: without behavioral disturbance Dementia type: unspecified type Qualified Code(s): F03.90 - Unspecified dementia without behavioral disturbance (4) Diarrhea Diarrhea type: unspecified type Qualified Code(s): R19.7 - Diarrhea, unspecified (5) Headache Headache chronicity pattern: episodic headache Headache type: paroxysmal hemicrania Intractability: not intractable Qualified Code(s): G44.039 - Episodic paroxysmal hemicrania, not intractable (6) Hyperlipidemia Hyperlipidemia type: unspecified Qualified Code(s): E78.5 - Hyperlipidemia, unspecified (7) Hypothyroidism Hypothyroidism type: unspecified Qualified Code(s): E03.9 - Hypothyroidism, unspecified (8) GERD (gastroesophageal reflux disease) Esophagitis presence: esophagitis presence not specified Qualified Code(s): K21.9 - Gastro-esophageal reflux disease without esophagitis (9) Hypertension Hypertension type: essential hypertension Qualified Code(s): I10 - Essential (primary) hypertension
[2020-03-06] MEDS: TRAMADOL HCL 50 MG TABLET PO PRN (17:42)
--- NOTE | 2020-03-06 17:47 | Electrocardiogram Report ---
Test Reason : Blood Pressure : / mmHG Vent. Rate : 072 BPM Atrial Rate : 072 BPM P-R Int : 134 ms QRS Dur : 084 ms QT Int : 376 ms P-R-T Axes : 044 003 059 degrees QTc Int : 411 ms Poor data quality, interpretation may be adversely affected Normal sinus rhythm Normal ECG When compared with ECG of 23-NOV-2019 14:03, No significant change was found Confirmed by Josef Mcintyre ([id number]) on 03/06/2020 5:46:40 PM Referred By: REFERRED SELF Confirmed By:Fili Mcintyre
[2020-03-06] MEDS: DONEPEZIL HCL 10 MG TAB PO SCH (20:18)
[2020-03-06] MEDS: APIXABAN 5 MG TABLET PO SCH (20:18)
[2020-03-06] MEDS: MIRTAZAPINE SOLTAB 15 MG PO SCH (20:19)
[2020-03-06] MEDS: SIMVASTATIN 40 MG TAB PO SCH (20:19)
[2020-03-06] MEDS: QUETIAPINE FUMARATE 25 MG TABLET PO SCH (20:19)
[2020-03-06] MEDS: HEPARIN SODIUM/DEXTROSE 25,000 UNITS/500 ML BAG IV SCH (21:39)
[2020-03-07] MEDS: MoRPHine SULFATE 2 MG/ML CARP IV PRN (00:48)
[2020-03-07] MEDS: BENZONATATE 100 MG CAPSULE PO PRN (00:49)
[2020-03-07 06:17] LABS: Hematocrit (blood only) 27.8 % (37-47); Hemoglobin 8.8 g/dL (12.0-16.0); Mean Corpuscular Hemoglobin 32.8 pg (25-34); Mean Corpuscular Hgb Conc 31.7 g/dL (32-36); Mean Corpuscular Volume 103.7 fL (80-100); Mean Platelet Volume 9.8 fL (7.4-10.4); Platelet Count 199 K/uL (130-400); RDW Coefficient of Variation 15.7 % (11.5-14.5); RDW Standard Deviation 58.5 fL (36.4-46.3); Red Blood Count 2.68 M/uL (4.2-5.4); White Blood Count 12.82 K/uL (4.8-10.8)
[2020-03-07 06:37] LABS: Potassium 4.9 mmol/L (3.5-5.1)
[2020-03-07 06:38] LABS: Albumin Globulin Ratio 0.9 (0.9-2); Albumin Level 2.7 gm/dl (3.4-5.0); BUN Creatinine Ratio 10.8 (10-20); Bilirubin,Total 0.4 mg/dl (0.2-1); Calcium 8.1 mg/dl (8.5-10.1); Creatinine Clr Calc Pharmacy 20.1 ml/min; Est GFR (African American) 31.5; Est GFR (Non-African American) 27.2; Globulin 2.9 gm/dl (2.5-4.0); Total Protein 5.6 gm/dl (6.4-8.2)
[2020-03-07] MEDS: LEVOTHYROXINE SODIUM 100 MCG TABLET PO SCH (06:48)
[2020-03-07] MEDS: SIMETHICONE 80 MG CHEW PO SCH ×3 (07:44→16:37)
[2020-03-07] MEDS: predniSONE 10 MG TABLET PO SCH (07:44)
[2020-03-07] MEDS: PANTOprazole 40 MG TAB PO SCH ×2 (07:46→20:37)
[2020-03-07] MEDS: FOLIC ACID 1 MG TAB PO SCH (07:46)
[2020-03-07] MEDS: AMLODIPINE BESYLATE 5 MG TAB PO SCH (07:47)
[2020-03-07] MEDS: GABAPENTIN 100 MG CAP PO SCH ×2 (07:50→20:38)
[2020-03-07] MEDS: APIXABAN 5 MG TABLET PO SCH (07:50)
[2020-03-07] MEDS: ACETAMINOPHEN 500 MG TAB PO SCH ×3 (08:01→21:20)
[2020-03-07] MEDS: LIDOCAINE 5% 1 PATCH TD SCH ×2 (08:03→09:45)
--- NOTE | 2020-03-07 11:18 | CT Scan Report ---
CT abd pelvis wo con CT DOSE: 941.83 mGycm HISTORY: Pain. Bruising. large area of ecchymosis right side, abd pain TECHNIQUE: Multiaxial CT images of the abdomen and pelvis were performed without contrast. A dose lo wering technique was utilized adhering to the principles of ALARA. COMPARISON STUDY: 03/07/2020 FINDINGS: Lung bases show mild chronic interstitial prominence. Pre-existing compression deformities of L1, T12, and T11 are noted and appear unchanged compared to the prior study. Lateral abdominal wal l contusion/hematoma. Immediately anterior to the lower right ribs is a hematoma measuring 7 x 3.4 cm . There is diffuse edematous change of the subcutaneous tissues overlying the right lateral hemithora x. This extends from the lower chest level on the right to the right iliac wing level. The liver spleen and pancreas are unremarkable. Kidneys demonstrate multiple bilateral renal cysts co mbine with cortical atrophy and scarring. There has been a prior cholecystectomy. The bowel pattern is considered nonobstructive. There are findings of mild chronic sigmoid diverticul osis. There is no evidence for acute diverticulitis. There is a right hip arthroplasty. IMPRESSION: 1. Large right lateral abdominal and pelvic wall hematoma/contusion as described. 2. No acute intra-abdominal or intrapelvic abnormalities. 3. Nonobstructive bowel pattern. 4. Mild chronic sigmoid colonic diverticulosis. 5. Compression deformities of the thoracolumbar spine considered pre-existing. ACT 112: Negative or not required by law. The above report was generated using voice recognition software. It may contain grammatical, syntax or spelling errors. Electronically signed by: Thomas Go M.D. 03/07/2020 11:16 AM
--- NOTE | 2020-03-07 13:13 | Surgery Consultation ---
Date of Consultation March 07, 2020 Assessment & Plan (1) Pulmonary embolism: pt is a 84 year-old female who was admitted to hospital for DVT, pt was treated with IV heparin, pt developed right abdominal wall hematoma, IMP: right abdominal wall hematoma, Plan, no emergent surgery indication now, conservative treatment, Hold heparin now, pt should transfer to monitor bed, repeat H/H q6H, pt should have blood transfusion if H<8. abdominal binder, pt should transfer to [facility] enter for intervention radiologist treatment if pt is still active bleeding.will F/U (2) DVT (deep venous thrombosis): (3) Abdominal wall hematoma: History of Present Illness Attending Physician: Skinny Sullivan MD History of Present Illness Chief Complaint: Diarrhea Primary Care Provider: Vasiliy Uriostegui MD This patient is an 84-year-old female known to me with a history of recurrent UTI with ESBL E. 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 difficile colitis, who presents to the ER with diarrhea for 6 weeks and off-and-on abdominal pain several times a day for the last week that occurs mostly after eating. The diarrhea has become much worse just in the last week. For the last 6 weeks, she has had diarrhea maybe once a week, but now she is having it multiple times a day every time after she eats for the last week. She had a small amount of blood on the pad in her underwear once this week, but otherwise stool is nonbloody, no melena. She had some nausea yesterday but no vomiting. She has a decent appetite and her daughter has been pushing her to drink fluids. Today, she noted right sided abdominal pain that was getting much worse and came to the hospital. Denies fevers and chills. Of note, she was seen by GI in 08/2019 for constipation and there was mention of a possible retained biliary stone at that time and desire for MRCP. It does not appear this never got done. She was also scheduled to go and have a colonoscopy in the near future with GI as an outpatient. She has not had any travel anywhere and is been staying socially isolated strictly at home. A stool sample was ordered by her PCP and her daughter dropped it off yesterday. She was C. difficile gene positive but toxin negative on 03/02/2020. A stool culture is pending. A CT of the abdomen/pelvis was ordered by the ER physician for her symptoms and discovered a DVT in the right external iliac and common femoral veins. She was started on a heparin drip in the ER and will be admitted for abdominal pain, diarrhea, and pelvic DVT. I ( Parris Ojeda MD ) got a call for consult abdominal wall hematoma, I reviewed pt's H/P, labs, CT scan with pt, pt was on IV heparin to treat DVT on right leg possible PE right lung, pt developed right abdominal wall hematoma, pt has no significant abdominal pain, no nausea, no vomiting, H/h 10 to 8.8, 8.6 now, Allergies Allergy/AdvReac Type Severity Reaction Status Date / Time Penicillins Allergy Intermediate SWELLING Verified 03/03/20 15:45 celecoxib AdvReac Intermediate N/V Verified 12/31/19 15:35 cephalexin AdvReac Intermediate N/V Verified 12/31/19 15:35 methotrexate AdvReac Intermediate N/V Verified 12/31/19 15:35 nitrofurantoin AdvReac Intermediate N/V Verified 12/31/19 15:35 risedronate sodium AdvReac Intermediate NAUSEA AND Verified 12/31/19 15:35 VOMITING Home Medications Home Medications Medication Instructions Recorded Confirmed Type donepezil 10 mg PO HS 05/23/18 03/03/20 History mirtazapine 45 mg PO HS 05/23/18 03/03/20 History pantoprazole 40 mg PO BID 05/23/18 03/03/20 History simvastatin 40 mg PO HS 05/23/18 03/03/20 History amlodipine 5 mg PO QAM 07/29/18 03/03/20 History aspirin [Aspir-81] 81 mg PO BID 07/29/18 03/03/20 History polyethylene glycol 3350 [Miralax] 17 g PO DAILY PRN 11/14/18 03/03/20 History levothyroxine 112 mcg tablet 112 mcg PO QAM #30 tab 01/12/19 03/03/20 Rx folic acid 1 mg tablet 1 mg PO 6XWK #90 tab 03/02/19 03/03/20 Rx Reguloid, Sugar Free 1 tbsp PO DAILY 04/14/19 03/03/20 History prednisone 10 mg PO DAILY 04/14/19 03/03/20 History heating pads #1 ea 04/20/19 12/31/19 Rx calcium carbonate 320 mg calcium 320 mg PO BID PRN tab 05/18/19 03/03/20 History (750 mg) chewable tablet cranberry 500 mg capsule 500 mg PO QAM cap 05/18/19 03/03/20 History methotrexate sodium 2.5 mg tablet 2.5 mg PO WEEKLY tab 07/20/19 03/03/20 History simethicone 160 mg PO DAILY 10/10/19 03/03/20 History lidocaine 5 %-phenylephrine 0.25 1 appln TOP QID #28 gm 10/18/19 03/03/20 Rx %-glycern 14.4 %-petrolatm 15 % cream acetaminophen 500 mg tablet 500 mg PO TID #90 tab 10/19/19 03/03/20 Rx gabapentin 100 mg capsule 100 mg PO BID #60 cap 11/01/19 03/03/20 Rx oxycodone 5 mg PO BID PRN #1 tab 11/26/19 03/03/20 Rx quetiapine 25 mg tablet 12.5 mg PO QPM #30 tab 12/16/19 03/03/20 Rx nitrofurantoin macrocrystal 50 mg 50 mg PO DAILY #90 cap 12/22/19 03/03/20 Rx capsule Past Med/Surg History Medical History (Updated 03/04/20 @ 01:27 by Snow Parham MD) Anemia of chronic disease ASCVD (arteriosclerotic cardiovascular disease) C. difficile colitis january2017 Chronic kidney disease Chronic use of steroids (Chronic) Chronic UTI Closed right hip fracture (Resolved) Constipation Contact dermatitis (Inactive) Dementia Diarrhea (Resolved) Fall (Inactive) GERD (gastroesophageal reflux disease) Hip pain, right (Inactive) Hyperlipidemia Hypertension Hypotension Hypothyroidism Kidney stones Macrocytic anemia Pancreatic mass PVD (peripheral vascular disease) Rheumatoid arthritis (Chronic) Thrombosed external hemorrhoid Vitamin D insufficiency Surgical History History of umbilical hernia repair Hx of cholecystectomy Hx of colonoscopy Hx of esophagogastroduodenoscopy Family History Unknown Arteriosclerotic cardiovascular disease (ASCVD) Father Heart disease Diabetes Myocardial infarction Mother Cancer Hypertension Mother Breast cancer Other Family history non-contributory Denies family history of Ovarian cancer Prostate cancer Crohn's disease Lung cancer Colorectal cancer Ulcerative colitis Stroke Social History Smoking Status: Unknown if ever smoked Second Hand Exposure: No; Hx Alcohol Use: No Hx Substance Use: No Preferred Language: Frisian Communication Ability: Effective Visual Impairment: No Limitations Hearing Ability: Normal Trimmer Tailer Required: No Beliefs That Will Affect Care: None marital status: / Current Living Situation: Family Current Living Situation Comment: Lived with daughter Natalya since Covid current occupational status: other Feels Safe at Home: Yes Safety Concerns: Feels Safe At This Time Childhood Exposure to Second-Hand Smoke: No caffeine: Yes Dental Care, Regularly: No Physical Activity Frequency: Does not Exercise Seatbelt Use: always Sunscreen Use: No Review of Systems Review of Systems: All systems reviewed & are unremarkable except as noted in HPI & below She has been having a daily almost constant headache for the last week. She has chronic pain in all of her joints from her rheumatoid arthritis. Denies chest pain or shortness of breath Allergies Allergy/AdvReac Type Severity Reaction Status Date / Time Penicillins Allergy Intermediate SWELLING Verified 03/03/20 15:45 celecoxib AdvReac Intermediate N/V Verified 12/31/19 15:35 cephalexin AdvReac Intermediate N/V Verified 12/31/19 15:35 methotrexate AdvReac Intermediate N/V Verified 12/31/19 15:35 nitrofurantoin AdvReac Intermediate N/V Verified 12/31/19 15:35 risedronate sodium AdvReac Intermediate NAUSEA AND Verified 12/31/19 15:35 VOMITING Home Medications Home Medications Medication Instructions Recorded Confirmed Type donepezil 10 mg PO HS 05/23/18 03/03/20 History mirtazapine 45 mg PO HS 05/23/18 03/03/20 History pantoprazole 40 mg PO BID 05/23/18 03/03/20 History simvastatin 40 mg PO HS 05/23/18 03/03/20 History amlodipine 5 mg PO QAM 07/29/18 03/03/20 History aspirin [Aspir-81] 81 mg PO BID 07/29/18 03/03/20 History polyethylene glycol 3350 [Miralax] 17 g PO DAILY PRN 11/14/18 03/03/20 History levothyroxine 112 mcg tablet 112 mcg PO QAM #30 tab 01/12/19 03/03/20 Rx folic acid 1 mg tablet 1 mg PO 6XWK #90 tab 03/02/19 03/03/20 Rx Reguloid, Sugar Free 1 tbsp PO DAILY 04/14/19 03/03/20 History prednisone 10 mg PO DAILY 04/14/19 03/03/20 History heating pads #1 ea 04/20/19 12/31/19 Rx calcium carbonate 320 mg calcium 320 mg PO BID PRN tab 05/18/19 03/03/20 History (750 mg) chewable tablet cranberry 500 mg capsule 500 mg PO QAM cap 05/18/19 03/03/20 History methotrexate sodium 2.5 mg tablet 2.5 mg PO WEEKLY tab 07/20/19 03/03/20 History simethicone 160 mg PO DAILY 10/10/19 03/03/20 History lidocaine 5 %-phenylephrine 0.25 1 appln TOP QID #28 gm 10/18/19 03/03/20 Rx %-glycern 14.4 %-petrolatm 15 % cream acetaminophen 500 mg tablet 500 mg PO TID #90 tab 10/19/19 03/03/20 Rx gabapentin 100 mg capsule 100 mg PO BID #60 cap 11/01/19 03/03/20 Rx oxycodone 5 mg PO BID PRN #1 tab 11/26/19 03/03/20 Rx quetiapine 25 mg tablet 12.5 mg PO QPM #30 tab 12/16/19 03/03/20 Rx nitrofurantoin macrocrystal 50 mg 50 mg PO DAILY #90 cap 12/22/19 03/03/20 Rx capsule apixaban [Eliquis] 5 mg PO BID #60 tab 03/06/20 Rx apixaban [Eliquis] 10 mg PO BID #24 tab 03/06/20 Rx Patient History Medical History Anemia of chronic disease ASCVD (arteriosclerotic cardiovascular disease) C. difficile colitis january2017 Chronic kidney disease Chronic use of steroids (Chronic) Chronic UTI Closed right hip fracture (Resolved) Constipation Contact dermatitis (Inactive) Dementia Diarrhea (Resolved) Fall (Inactive) GERD (gastroesophageal reflux disease) Hip pain, right (Inactive) Hyperlipidemia Hypertension Hypotension Hypothyroidism Kidney stones Macrocytic anemia Pancreatic mass PVD (peripheral vascular disease) Rheumatoid arthritis (Chronic) Thrombosed external hemorrhoid Vitamin D insufficiency Surgical History History of umbilical hernia repair Hx of cholecystectomy Hx of colonoscopy Hx of esophagogastroduodenoscopy Family History Unknown Arteriosclerotic cardiovascular disease (ASCVD) Father Heart disease Diabetes Myocardial infarction Mother Cancer Hypertension Mother Breast cancer Other Family history non-contributory Denies family history of Ovarian cancer Prostate cancer Crohn's disease Lung cancer Colorectal cancer Ulcerative colitis Stroke Social History Smoking Status: Unknown if ever smoked Second Hand Exposure: No; Hx Alcohol Use: No Hx Substance Use: No Preferred Language: Frisian Communication Ability: Effective Visual Impairment: No Limitations Hearing Ability: Normal Trimmer Tailer Required: No Beliefs That Will Affect Care: None marital status: / Current Living Situation: Family Current Living Situation Comment: Lived with daughter Natalya since Covid current occupational status: other Feels Safe at Home: Yes Safety Concerns: Feels Safe At This Time Childhood Exposure to Second-Hand Smoke: No caffeine: Yes Dental Care, Regularly: No Physical Activity Frequency: Does not Exercise Seatbelt Use: always Sunscreen Use: No Physical Exam Constitutional: WD/WN, vitals as above well developed and well nourished Eyes: PERRL, conjunctivae normal, anicteric sclerae ENMT: external ear and nose normal, oropharynx normal Neck: trachea midline, no thyromegaly Respiratory: normal respiratory effort, lungs clear to auscultation Cardiovascular: RRR, no murmur, no edema Rate/Rhythm: regular rate and regular rhythm Gastrointestinal (Abdomen): normal bowel sounds, soft, nontender, no hepatosplenomegaly Percussion/Palpation: abdomen soft soft, some brown color on right side abdominal wall, right side abdominal wall hematoma, no tenderness, no distend, Musculoskeletal: no cyanosis or clubbing, extremities motor strength 5/5 Skin: no rashes, warm and dry Neurologic: patellar DTR's 2+ bilat, sensation intact Psychiatric: Orientation: alert and oriented x 3 Results & Data Vital Signs (Past 12 Hours) Vital Signs Temp Pulse Resp BP Pulse Ox 03/07/20 08:01 36.6 C 87 16 150/80 H 93 Laboratory Results Abnormal lab results 03/07/20 03/07/20 03/07/20 Range/Units 05:09 05:09 12:19 WBC 12.82 H (4.8-10.8) K/uL RBC 2.68 L (4.2-5.4) M/uL Hgb 8.8 L 8.6 L (12.0-16.0) g/dL Hct 27.8 L (37-47) % MCV 103.7 H (80-100) fL MCHC 31.7 L (32-36) g/dL RDW Std Deviation 58.5 H (36.4-46.3) fL RDW Coeff of Adrien 15.7 H (11.5-14.5) % Chloride 109 H (98-107) mmol/L Creatinine 1.69 H (0.6-1.2) mg/dl Glucose 109 H (70-99) mg/dl Calcium 8.1 L (8.5-10.1) mg/dl Total Protein 5.6 L (6.4-8.2) gm/dl Albumin 2.7 L (3.4-5.0) gm/dl Diagnostic Findings CT abd pelvis wo con CT DOSE: 941.83 mGycm HISTORY: Pain. Bruising. large area of ecchymosis right side, abd pain TECHNIQUE: Multiaxial CT images of the abdomen and pelvis were performed without contrast. A dose lowering technique was utilized adhering to the principles of ALARA. COMPARISON STUDY: 03/07/2020 FINDINGS: Lung bases show mild chronic interstitial prominence. Pre-existing compression deformities of L1, T12, and T11 are noted and appear unchanged compared to the prior study. Lateral abdominal wall contusion/hematoma. Immediately anterior to the lower right ribs is a hematoma measuring 7 x 3.4 cm. There is diffuse edematous change of the subcutaneous tissues overlying the right lateral hemithorax. This extends from the lower chest level on the right to the right iliac wing level. The liver spleen and pancreas are unremarkable. Kidneys demonstrate multiple bilateral renal cysts combine with cortical atrophy and scarring. There has been a prior cholecystectomy. The bowel pattern is considered nonobstructive. There are findings of mild chronic sigmoid diverticulosis. There is no evidence for acute diverticulitis. There is a right hip arthroplasty. IMPRESSION: 1. Large right lateral abdominal and pelvic wall hematoma/contusion as described. 2. No acute intra-abdominal or intrapelvic abnormalities. 3. Nonobstructive bowel pattern. 4. Mild chronic sigmoid colonic diverticulosis. 5. Compression deformities of the thoracolumbar spine considered pre-existing. (1) DVT (deep venous thrombosis) Affected thrombotic vein of extremity: iliac Chronicity: acute DVT location: lower extremity Laterality: right Qualified Code(s): I82.421 - Acute embolism and thrombosis of right iliac vein
[2020-03-07] MEDS ORDERED: SODIUM CHLORIDE 0.9% 1000ML 1,000 ML IV SCH (14:04)
[2020-03-07] MEDS: Heparin IV Low Dose *NO* Bolus IV SCH ×2 (14:32→14:33)
--- NOTE | 2020-03-07 15:53 | Hospitalist Progress Note ---
Date of Service March 07, 2020 Assessment & Plan (1) Abdominal wall hematoma: CT abd/ pelvis 03/07 with hematoma 7x3.4 cm Hgb 8.8 this morning and then 8.6 at noon recheck, recheck this evening shows hgb is stable Hemodynamically stable Surgery consulted - recommended conservative measures for now. If she continues to bleed, may need to transfer to another facility for IR. (2) Chest pain: Secondary to pleuritic pain from PE, rib fracture and now hematoma EKG 03/05 w/o ischemic changes. NSR. She has extensive b/l LE DVT. Continue Lidoderm patches, morphine prn. (3) Pulmonary embolism: High probability on VQ scan Transitioned to Eliquis on 03/06 but with hematoma on 03/07 [address] dc eliquis and place patient on low dose heparin drip, no bolus (4) DVT (deep venous thrombosis): DVT in right external iliac and common femoral veins - incidentally found on CT at admission. 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 LE dopplers with b/l DVT. Anticoagulation as above (5) Abdominal pain: 2nd to iliac DVT?? checked KUB x-ray -- minimal ileus, no significant stool. lipase/LFTs wnl. RUQ pain may be secondary to PEs/ rib fracture/hematoma -- see above. (6) Diarrhea: Ongoing for 6 weeks once a week but then 3 times daily for the last week - now resolved c diff toxin negative 03/02. stool cx from 03/02 negative. GI consult appreciated. KUB x-ray noted. (7) CKD (chronic kidney disease), stage III: baseline Cr 1.4/1.5 - slightly elevated today at 1.69 - will give NSS @ 80 mls x 1 bag and recheck bmp am borderline stage 4 CKD (8) Hypothyroidism: TSH suppressed. Continue home levothyroxine but lower to 100mcg daily. TSH in 6 weeks as outpatient. (9) Hyperlipidemia: Continue home simvastatin (10) Hypertension: Continue home amlodipine (11) GERD (gastroesophageal reflux disease): Continue PPI (12) Rheumatoid arthritis: Longstanding on chronic prednisone Continue prednisone 10 mg daily Continue methotrexate once weekly and folic acid once daily (13) Dementia: moderate by history and per daughter Continue home donepezil, Seroquel at bedtime, mirtazapine 45 mg scheduled at bedtime for depression - seroquel was increased for ing but will return to home dosing at discharge as her daughter reports she does well with this dose (14) Headache: CT head neg consider sed rate/crp to r/o temporal arteritis but would be unusual given the chronic prednisone use No complaints of headache in the last couple of days records suggest this may be a chronic issue (has had prior imaging for same complaint) (15) 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 (16) Compression fracture of L1 lumbar vertebra: chronic stable imaging findings however (17) Macrocytic anemia: Mild, secondary to methotrexate use b12/folate wnl (18) Hypokalemia: replaced and resolved bmp am (19) Encephalopathy acute: acute encephalopathy/hospital psychosis in setting of dementia significant ing increase HS seroquel to 25mg from 12.5mg - as above (20) DVT prophylaxis: Heparin drip as above Daughter updated by phone and then again at bedside Dispo: transfer to telemetry due to bleeding/hematoma Admission and Anticipated Discharge Date Admission Date: March 03, 2020 Subjective This morning Ms. Hunter's hgb had decreased a bit. Examination of her right flank revealed a large area of ecchymosis. CT of her abdomen showed hematoma. She continues to have vague complaints of not feeling well in addition to right abdominal pain. ROS Constitutional: no chills, aches, sweats or fever Respiratory: no sob,cough, sputum, or wheezing Cardiac: no chest pain, palpitations, edema, orthopnea or lightheadedness GI: no abdominal pain, nausea, vomiting, diarrhea or constipation : no dysuria or hesitancy Extremities: no joint pain or weakness Skin: no rash All other systems reviewed and negative Physical Exam Physical Exam: General: no distress Eyes: normal inspection, PERLL Respiratory: chest non tender, clear to auscultation, normal breath sounds, no respiratory distress, no accessory muscle use Cardiac: regular rate and rhythm, no rub or gallop, no murmur, no edema, no jvd GI/: active bowel sounds, no abd pain or tenderness, soft, non distended Extremities: normal range of motion, normal strength, non tender Neuro/Psych: alert and oriented to person and place with frequent confusion, normal mood and affect Skin: normal color, dry Results & Data Results & Data ([facility]) Vital Signs (Past 12 Hours) Vital Signs Temp Pulse Pulse Resp BP Pulse Ox 03/07/20 14:18 75 03/07/20 14:17 37.0 C 76 18 127/65 94 03/07/20 08:01 36.6 C 87 16 150/80 H 93 PG Care Time/CCT Total # of Minutes Spent Total Time Spent with Patient: Total time spent is greater than 50% in coordination of care (as documented) at patient's floor/unit and/or counseling patient: Coding Level of Care Code 16470 Subseq Hosp Care Lvl 3 Diagnoses Abdominal wall hematoma S30.1XXA Chest pain R07.9 Pulmonary embolism I26.99 DVT (deep venous thrombosis) I82.421 Affected thrombotic vein of extremity: iliac Chronicity: acute DVT location: lower extremity Laterality: right Abdominal pain R10.9 Diarrhea R19.7 Diarrhea type: unspecified type CKD (chronic kidney disease), stage III N18.3 Hypothyroidism E03.9 Hypothyroidism type: unspecified Hyperlipidemia E78.5 Hyperlipidemia type: unspecified Hypertension I10 Hypertension type: essential hypertension GERD (gastroesophageal reflux disease) K21.9 Esophagitis presence: esophagitis presence not specified Rheumatoid arthritis M06.9 Rheumatoid arthritis location: unspecified site Rheumatoid factor presence: unspecified presence Dementia F03.90 Dementia behavioral disturbance: without behavioral disturbance Dementia type: unspecified type Headache G44.039 Headache chronicity pattern: episodic headache Headache type: paroxysmal hemicrania Intractability: not intractable Pancreatic mass K86.89 Compression fracture of L1 lumbar vertebra S32.010A Macrocytic anemia D53.9 Hypokalemia E87.6 Encephalopathy acute G93.40 DVT prophylaxis Z29.9 (1) Rheumatoid arthritis Rheumatoid arthritis location: unspecified site Rheumatoid factor presence: unspecified presence Qualified Code(s): M06.9 - Rheumatoid arthritis, unspecified (2) DVT (deep venous thrombosis) Affected thrombotic vein of extremity: iliac Chronicity: acute DVT location: lower extremity Laterality: right Qualified Code(s): I82.421 - Acute embolism and thrombosis of right iliac vein (3) Dementia Dementia behavioral disturbance: without behavioral disturbance Dementia type: unspecified type Qualified Code(s): F03.90 - Unspecified dementia without behavioral disturbance (4) Diarrhea Diarrhea type: unspecified type Qualified Code(s): R19.7 - Diarrhea, unspecified (5) Headache Headache chronicity pattern: episodic headache Headache type: paroxysmal hemicrania Intractability: not intractable Qualified Code(s): G44.039 - Episodic paroxysmal hemicrania, not intractable (6) Hyperlipidemia Hyperlipidemia type: unspecified Qualified Code(s): E78.5 - Hyperlipidemia, unspecified (7) Hypothyroidism Hypothyroidism type: unspecified Qualified Code(s): E03.9 - Hypothyroidism, unspecified (8) GERD (gastroesophageal reflux disease) Esophagitis presence: esophagitis presence not specified Qualified Code(s): K21.9 - Gastro-esophageal reflux disease without esophagitis (9) Hypertension Hypertension type: essential hypertension Qualified Code(s): I10 - Essential (primary) hypertension
[2020-03-07] MEDS ORDERED: Heparin Adult STANDARD Wt-Based Dextrose 5% 25,000 units/500 mL IV SCH (20:00)
[2020-03-07] MEDS: SIMVASTATIN 40 MG TAB PO SCH (20:37)
[2020-03-07] MEDS: MIRTAZAPINE SOLTAB 15 MG PO SCH (20:37)
[2020-03-07] MEDS: QUETIAPINE FUMARATE 25 MG TABLET PO SCH (20:37)
[2020-03-07] MEDS: DONEPEZIL HCL 10 MG TAB PO SCH (20:38)
[2020-03-07] MEDS: ACETAMINOPHEN 325 MG TAB PO PRN (20:38)
[2020-03-07] MEDS ORDERED: HEPARIN SODIUM/DEXTROSE 25,000 UNITS/500 ML BAG IV SCH (21:00)
[2020-03-08] MEDS ORDERED: SODIUM CHLORIDE 0.9% 250 ML IV PRN (01:32)
--- NOTE | 2020-03-08 01:48 | Communication Note ---
Date of Service: March 08, 2020 Received message from RN about repeat hemoglobin down to 6.8 from 7.7 earlier in evening. Patient continues to be hemodynamically stable and without complaints. Previous notes, imaging, labs reviewed. At this point will transfuse 1 unit PRBC and recheck hemoglobin. Consent received via telephone from daughter. We will stop the heparin gtt. Activity modified to relative bedrest. Consult placed for vascular surgery for consideration of IVC filter. Further consideration for transfer to tertiary care facility for IR services, per day team. The above was discussed and reviewed with attending Dr. Sommers. Resident Activity Tracking Resident Involvement: Resident Care Provided Care Provided: Adult [facility]
[2020-03-08 02:57] LABS: Hematocrit (blood only) 21.2 % (37-47); Mean Corpuscular Hemoglobin 33.7 pg (25-34); Mean Corpuscular Volume 101.9 fL (80-100); Mean Platelet Volume 9.3 fL (7.4-10.4); Nucleated RBC # (auto) 0.02 K/uL (0-0); Nucleated RBC % (auto) 0.2 %; Platelet Count 178 K/uL (130-400); RDW Coefficient of Variation 15.5 % (11.5-14.5); Red Blood Count 2.08 M/uL (4.2-5.4); White Blood Count 10.73 K/uL (4.8-10.8)
[2020-03-08 03:07] LABS: Partial Thromboplastin Ratio 1.1; Partial Thromboplastin Time 31.1 Seconds (21.0-31.0)
[2020-03-08 03:14] LABS: BUN Creatinine Ratio 11.9 (10-20); Calcium 7.5 mg/dl (8.5-10.1); Creatinine Clr Calc Pharmacy 19.8 ml/min; Est GFR (African American) 30.9; Est GFR (Non-African American) 26.6; Potassium 4.4 mmol/L (3.5-5.1)
[2020-03-08] MEDS: LEVOTHYROXINE SODIUM 100 MCG TABLET PO SCH (06:43)
--- NOTE | 2020-03-08 08:48 | Consultation ---
Date of Consultation March 08, 2020 Assessment & Plan (1) DVT (deep venous thrombosis): Pt with BLE DVT and now with increasing R sided abd wall hematoma. Discussed with Dr Sood. Agree with d/c heparin drip and permanent IVC filter insertion. Planning on later this morning for procedure. Do not recommend IR procedure unless continued bleeding persists despite cessation of AC. May consider cautious reintroduction of AC at later date if deemed safe by medicine. Patient was seen, examined, and chart reviewed. Agree with exam and treatment plan of the Vascular PA. Affected thrombotic vein of extremity: iliac Chronicity: acute DVT location: lower extremity Laterality: right Qualified Code(s): I82.421 - Acute embolism and thrombosis of right iliac vein (2) Pulmonary embolism: see above (3) Abdominal wall hematoma: see above History of Present Illness Reason for Consultation: dvt/pe, r abd hematoma Attending Physician: Skinny Sullivan MD History of Present Illness 84 yo f with multiple medical problems, including CKD, CAD, dementia, HTN, GERD, hyperlipidemia, hypothyroidism, chronic anemia, RA, admitted with abd pain and diarrhea, seen in consultation today for consideration for IVC filter insertion d/t R abd hematoma and DVT/PE. Pt unable to provide meaningful hx. Son present, who relates most of hx. Pt without hx of DVT/PE in past. Was started on heparin drip in hosp and developed R sided hematoma and severely worsening anemia, with hgb of 6.8 early this morning. Hep drip was stopped and referral made for IVC filter insertion. Pt admits R sided abd pain. Denies N/V, chest pain, SOB, dizziness. Other hx not obtainable d/t dementia. CT pelvis demonstrated R common fem and ext iliac vein DVT. Venous doppler also demonstrated L pop DVT. V/Q scan demonstrated high likelihood of PE. Allergies Allergy/AdvReac Type Severity Reaction Status Date / Time Penicillins Allergy Intermediate SWELLING Verified 03/03/20 15:45 celecoxib AdvReac Intermediate N/V Verified 12/31/19 15:35 cephalexin AdvReac Intermediate N/V Verified 12/31/19 15:35 methotrexate AdvReac Intermediate N/V Verified 12/31/19 15:35 nitrofurantoin AdvReac Intermediate N/V Verified 12/31/19 15:35 risedronate sodium AdvReac Intermediate NAUSEA AND Verified 12/31/19 15:35 VOMITING Home Medications Home Medications Medication Instructions Recorded Confirmed Type donepezil 10 mg PO HS 05/23/18 03/03/20 History mirtazapine 45 mg PO HS 05/23/18 03/03/20 History pantoprazole 40 mg PO BID 05/23/18 03/03/20 History simvastatin 40 mg PO HS 05/23/18 03/03/20 History amlodipine 5 mg PO QAM 07/29/18 03/03/20 History aspirin [Aspir-81] 81 mg PO BID 07/29/18 03/03/20 History polyethylene glycol 3350 [Miralax] 17 g PO DAILY PRN 11/14/18 03/03/20 History levothyroxine 112 mcg tablet 112 mcg PO QAM #30 tab 01/12/19 03/03/20 Rx folic acid 1 mg tablet 1 mg PO 6XWK #90 tab 03/02/19 03/03/20 Rx Reguloid, Sugar Free 1 tbsp PO DAILY 04/14/19 03/03/20 History prednisone 10 mg PO DAILY 04/14/19 03/03/20 History heating pads #1 ea 04/20/19 12/31/19 Rx calcium carbonate 320 mg calcium 320 mg PO BID PRN tab 05/18/19 03/03/20 History (750 mg) chewable tablet cranberry 500 mg capsule 500 mg PO QAM cap 05/18/19 03/03/20 History methotrexate sodium 2.5 mg tablet 2.5 mg PO WEEKLY tab 07/20/19 03/03/20 History simethicone 160 mg PO DAILY 10/10/19 03/03/20 History lidocaine 5 %-phenylephrine 0.25 1 appln TOP QID #28 gm 10/18/19 03/03/20 Rx %-glycern 14.4 %-petrolatm 15 % cream acetaminophen 500 mg tablet 500 mg PO TID #90 tab 10/19/19 03/03/20 Rx gabapentin 100 mg capsule 100 mg PO BID #60 cap 11/01/19 03/03/20 Rx oxycodone 5 mg PO BID PRN #1 tab 11/26/19 03/03/20 Rx quetiapine 25 mg tablet 12.5 mg PO QPM #30 tab 12/16/19 03/03/20 Rx nitrofurantoin macrocrystal 50 mg 50 mg PO DAILY #90 cap 12/22/19 03/03/20 Rx capsule apixaban [Eliquis] 5 mg PO BID #60 tab 03/06/20 Rx apixaban [Eliquis] 10 mg PO BID #24 tab 03/06/20 Rx Patient History Medical History Anemia of chronic disease ASCVD (arteriosclerotic cardiovascular disease) C. difficile colitis january2017 Chronic kidney disease Chronic UTI Closed right hip fracture (Resolved) Constipation Contact dermatitis (Inactive) Dementia Diarrhea (Resolved) Fall (Inactive) GERD (gastroesophageal reflux disease) Hip pain, right (Inactive) Hyperlipidemia Hypertension Hypotension Hypothyroidism Kidney stones Macrocytic anemia Pancreatic mass PVD (peripheral vascular disease) Rheumatoid arthritis (Chronic) Thrombosed external hemorrhoid Vitamin D insufficiency Surgical History History of umbilical hernia repair Hx of cholecystectomy Hx of colonoscopy Hx of esophagogastroduodenoscopy Family History Unknown Arteriosclerotic cardiovascular disease (ASCVD) Father Heart disease Diabetes Myocardial infarction Mother Cancer Hypertension Mother Breast cancer Other Family history non-contributory Denies family history of Ovarian cancer Prostate cancer Crohn's disease Lung cancer Colorectal cancer Ulcerative colitis Stroke Social History Smoking Status: Unknown if ever smoked Second Hand Exposure: No; Hx Alcohol Use: No Hx Substance Use: No Preferred Language: Slovenian Communication Ability: Effective Visual Impairment: No Limitations Hearing Ability: Normal Senior Physician Required: No Beliefs That Will Affect Care: None marital status: / Current Living Situation: Family Current Living Situation Comment: Lived with daughter Natalya since Covid current occupational status: other Feels Safe at Home: Yes Safety Concerns: Feels Safe At This Time Childhood Exposure to Second-Hand Smoke: No caffeine: Yes Dental Care, Regularly: No Physical Activity Frequency: Does not Exercise Seatbelt Use: always Sunscreen Use: No Review of Systems Review of Systems: Unobtainable due to cognitive status Physical Exam Constitutional: WD/WN, vitals as above + frail appearing, cooperative and comfortable; not in distress Eyes: PERRL, conjunctivae normal, anicteric sclerae ENMT: external ear and nose normal, oropharynx normal Ears: no hearing impairment Neck: normal visual inspection Respiratory: normal respiratory effort, lungs clear to auscultation Cardiovascular: Rate/Rhythm: regular rate and regular rhythm Vessels: femoral pulses present, posterior tibial pulses present, dorsalis pedis pulses present, brachial pulses present and radial pulses present; + abnormal peripheral pulses Extremities: + edema (mild RLE) Gastrointestinal (Abdomen): Inspection/Auscultation: + abdominal wall ecchymosis (R sided, extending to flank/hip as well. Soft) Percussion/Palpation: + abdomen tender (over hematoma) Musculoskeletal: no cyanosis or clubbing, extremities motor strength 5/5 Skin: no rashes, warm and dry Neurologic: moves all extremities, awake and + confused; no focal motor deficits Psychiatric: Orientation: alert and oriented to person; + not oriented to place and + not oriented to time Eye Contact: + fair eye contact Affect: + blunted affect Results & Data Vital Signs (Past 12 Hours) Vital Signs Temp Pulse Pulse Resp BP BP BP 03/08/20 08:25 36.9 C 73 24 124/77 03/08/20 06:34 36.9 C 71 20 115/77 03/08/20 05:37 36.5 C 74 20 136/74 03/08/20 05:07 36.7 C 77 20 125/59 L 03/08/20 04:52 36.8 C 72 20 113/68 03/08/20 04:36 36.9 C 73 20 124/77 03/08/20 03:54 37.1 C 74 18 126/53 L 03/07/20 23:38 36.6 C 81 18 122/70 Pulse Ox 03/08/20 08:25 90 03/08/20 06:34 92 03/08/20 05:37 94 03/08/20 05:07 94 03/08/20 04:52 91 03/08/20 04:36 03/08/20 03:54 91 03/07/20 23:38 95
[2020-03-08] MEDS: SODIUM CHLORIDE 0.9% 1000ML 1,000 ML IV SCH ×2 (09:14→20:56)
[2020-03-08] MEDS: SIMETHICONE 80 MG CHEW PO SCH ×3 (09:18→16:30)
[2020-03-08] MEDS: LIDOCAINE 5% 1 PATCH TD SCH ×2 (09:19→09:20)
[2020-03-08] MEDS: AMLODIPINE BESYLATE 5 MG TAB PO SCH (09:21)
[2020-03-08] MEDS: MoRPHine SULFATE 2 MG/ML CARP IV PRN (09:46)
--- NOTE | 2020-03-08 10:50 | Pre Anesthesia Assessment ---
Date of Service March 08, 2020 Pre Sedation Assessment Vital Signs Temp Pulse Pulse Pulse Resp BP BP 03/08/20 10:43 36.4 C L 95 H 74 18 03/08/20 08:25 36.9 C 73 24 124/77 03/08/20 06:34 36.9 C 71 20 115/77 03/08/20 05:37 36.5 C 74 20 136/74 03/08/20 05:07 36.7 C 77 20 125/59 L 03/08/20 04:52 36.8 C 72 20 113/68 03/08/20 04:36 36.9 C 73 20 124/77 03/08/20 03:54 37.1 C 74 18 03/07/20 23:38 36.6 C 81 18 03/07/20 19:47 37.2 C 86 20 03/07/20 16:00 77 03/07/20 14:18 75 03/07/20 14:17 37.0 C 76 18 BP Pulse Ox 03/08/20 10:43 144/55 H 95 03/08/20 08:25 90 03/08/20 06:34 92 03/08/20 05:37 94 03/08/20 05:07 94 03/08/20 04:52 91 03/08/20 04:36 03/08/20 03:54 126/53 L 91 03/07/20 23:38 122/70 95 03/07/20 19:47 137/75 95 03/07/20 16:00 03/07/20 14:18 03/07/20 14:17 127/65 94 Cardiovascular RRR, no murmur, no edema Respiratory normal respiratory effort, lungs clear to auscultation Pre-Sedation Airway Assessment Smoking Status: Unknown if ever smoked Hx Sleep Apnea: No Short, Thick Neck: No Thyromental Distance: > or= 3.5 Finger Breadths Oral Cavity: + WNL Mallampati Class: III ASA: ASA3 NPO Status Date of Last Intake of Fluids: 03/07/20 Time of Last Intake of Fluids: 08:00 Last Oral Intake of Fluids Comment: sips with meds Date of Last Intake of Solid Food: 03/07/20 Time of Last Intake of Solid Foods: 21:00 Procedure Planning Contraindications for Sedation: none Current Medications Reviewed: Yes Notes The planned sedation has been discussed with the patient. Informed Consent was obtained. I have identified the patient, determined the appropriateness of sedation and have assessed the patient immediately prior to the procedure. All medicine(s) and interventions are by my order.
[2020-03-08] MEDS ORDERED: MIDAZOLAM HCL 1 MG/ML 2ML VIAL ONE (10:59)
[2020-03-08] MEDS ORDERED: fentaNYL citrate 100 MCG/2 ML VIAL ONE (10:59)
[2020-03-08] MEDS ORDERED: CLINDAMYCIN 600 MG/54 ML BAG IV SCH (11:00)
--- NOTE | 2020-03-08 11:16 | Surgery Progress Note ---
Date of Service March 08, 2020 Assessment & Plan (1) Abdominal wall hematoma: Hemoglobin dropped last evening, now s/p 1 unit of PRBCs Hemoglobin 6.8 --> 7.0 (before transfusion), now 8.6 after transfusion hemodynamically stable Heparin drip stopped at 1 am Plan: No acute surgical intervention recommended at this time. Heparin drip discontinued, going for IVC filter today by Dr. Sood which will allow her to be off of anticoagulation Continue abdominal binder continue medical management (2) Pulmonary embolism: (3) DVT (deep venous thrombosis): Dr. Ojeda has seen and examined pt, agrees with above Subjective patient lying in bed, no family at bedside has abdominal binder on states abdominal pain is making abdominal pain better denies dizziness, lightheadedness, chest pain, shortness of breath Physical Exam Constitutional: WD/WN, vitals as above no acute distress Respiratory: normal respiratory effort Gastrointestinal (Abdomen): Inspection/Auscultation: abdomen normal to inspection; abdomen not distended Percussion/Palpation: abdomen soft; abdomen nontender, no guarding and abdomen not rigid abdominal binder present ecchymosis of the right abdomen/flank Skin: no rashes, warm and dry ecchymosis of right abdomen/flank Psychiatric: Orientation: alert Results & Data Vital Signs (Past 12 Hours) Vital Signs Temp Pulse Pulse Pulse Resp BP BP 03/08/20 10:43 36.4 C L 95 H 74 18 03/08/20 08:25 36.9 C 73 24 124/77 03/08/20 06:34 36.9 C 71 20 115/77 03/08/20 05:37 36.5 C 74 20 136/74 03/08/20 05:07 36.7 C 77 20 125/59 L 03/08/20 04:52 36.8 C 72 20 113/68 03/08/20 04:36 36.9 C 73 20 124/77 03/08/20 03:54 37.1 C 74 18 03/07/20 23:38 36.6 C 81 18 BP Pulse Ox 03/08/20 10:43 144/55 H 95 03/08/20 08:25 90 03/08/20 06:34 92 03/08/20 05:37 94 03/08/20 05:07 94 03/08/20 04:52 91 03/08/20 04:36 03/08/20 03:54 126/53 L 91 03/07/20 23:38 122/70 95 Laboratory Results 03/08/20 03/08/20 03/08/20 Range/Units 09:52 02:46 02:46 WBC (4.8-10.8) K/uL RBC (4.2-5.4) M/uL Hgb 8.6 L (12.0-16.0) g/dL Hct (37-47) % MCV (80-100) fL MCH (25-34) pg MCHC (32-36) g/dL RDW Std Deviation (36.4-46.3) fL RDW Coeff of Adrien (11.5-14.5) % Plt Count (130-400) K/uL MPV (7.4-10.4) fL Absolute Nucleated RBC (0-0) K/uL Nucleated RBC % (auto) % APTT (21.0-31.0) Seconds PTT Ratio Sodium 143 (136-145) mmol/L Potassium 4.4 (3.5-5.1) mmol/L Chloride 113 H (98-107) mmol/L Carbon Dioxide 24 (21-32) mmol/L Anion Gap 6.0 (3-11) BUN 20 H (7-18) mg/dl Creatinine 1.72 H (0.6-1.2) mg/dl Est Cr Clr Drug Dosing 19.8 ml/min Est GFR ( Amer) 30.9 Est GFR (Non-Af Amer) 26.6 BUN/Creatinine Ratio 11.9 (10-20) Glucose 96 (70-99) mg/dl Calcium 7.5 L (8.5-10.1) mg/dl Blood Type AB Negative Antibody Screen NEGATIVE Crossmatch See Detail 03/08/20 03/08/20 03/08/20 Range/Units 02:46 02:46 01:03 WBC 10.73 (4.8-10.8) K/uL RBC 2.08 L (4.2-5.4) M/uL Hgb 7.0 L 6.8 L* (12.0-16.0) g/dL Hct 21.2 L (37-47) % MCV 101.9 H (80-100) fL MCH 33.7 (25-34) pg MCHC 33.0 (32-36) g/dL RDW Std Deviation 57.0 H (36.4-46.3) fL RDW Coeff of Adrien 15.5 H (11.5-14.5) % Plt Count 178 (130-400) K/uL MPV 9.3 (7.4-10.4) fL Absolute Nucleated RBC 0.02 H (0-0) K/uL Nucleated RBC % (auto) 0.2 % APTT 31.1 H (21.0-31.0) Seconds PTT Ratio 1.1 Sodium (136-145) mmol/L Potassium (3.5-5.1) mmol/L Chloride (98-107) mmol/L Carbon Dioxide (21-32) mmol/L Anion Gap (3-11) BUN (7-18) mg/dl Creatinine (0.6-1.2) mg/dl Est Cr Clr Drug Dosing ml/min Est GFR ( Amer) Est GFR (Non-Af Amer) BUN/Creatinine Ratio (10-20) Glucose (70-99) mg/dl Calcium (8.5-10.1) mg/dl Blood Type Antibody Screen Crossmatch 03/07/20 03/07/20 03/07/20 Range/Units 21:15 15:34 12:19 WBC (4.8-10.8) K/uL RBC (4.2-5.4) M/uL Hgb 7.7 L 8.9 L 8.6 L (12.0-16.0) g/dL Hct (37-47) % MCV (80-100) fL MCH (25-34) pg MCHC (32-36) g/dL RDW Std Deviation (36.4-46.3) fL RDW Coeff of Adrien (11.5-14.5) % Plt Count (130-400) K/uL MPV (7.4-10.4) fL Absolute Nucleated RBC (0-0) K/uL Nucleated RBC % (auto) % APTT (21.0-31.0) Seconds PTT Ratio Sodium (136-145) mmol/L Potassium (3.5-5.1) mmol/L Chloride (98-107) mmol/L Carbon Dioxide (21-32) mmol/L Anion Gap (3-11) BUN (7-18) mg/dl Creatinine (0.6-1.2) mg/dl Est Cr Clr Drug Dosing ml/min Est GFR ( Amer) Est GFR (Non-Af Amer) BUN/Creatinine Ratio (10-20) Glucose (70-99) mg/dl Calcium (8.5-10.1) mg/dl Blood Type Antibody Screen Crossmatch (1) DVT (deep venous thrombosis) Affected thrombotic vein of extremity: iliac Chronicity: acute DVT location: lower extremity Laterality: right Qualified Code(s): I82.421 - Acute embolism and thrombosis of right iliac vein
--- NOTE | 2020-03-08 11:23 | Post Operative Brief Note ---
Immediate Post Op Note v1 Date of Surgery March 08, 2020 Pre & Post Diagnosis Operation Date: 03/08/20 10:20 Pre-Op Diagnosis: Acute Deep Vein Thrombosis, Counter Indication for Anti-Coagulation Post-Op Diagnosis: Acute Deep Vein Thrombosis, Counter Indication for Anti-Coagulation I identified the patient and participated in the time-out.: Yes Procedure Operation Date: 03/08/20 10:20 Actual Procedures p Inferior Vena Cava Filter Placement, Ultrasound Localization of Right Internal Jugular Vein, Flouroscopy for Positioning, Moderate Sedation from 1112- 1127(Right) - Horacio Sood MD Surgeon Horacio Sood MD Payroll Coordinator MD Valarie Estimated Blood Loss 0 Findings Consistent with Post-Op Diagnosis Anesthesia Type RN Sedation Complications none Disposition Accompanied Patient To Recovery: No Disposition: Recovery Room
[2020-03-08] MEDS ORDERED: OPTIRAY 300 IV PRN (11:24)
--- NOTE | 2020-03-08 11:24 | Procedure Note ---
Angiogram Post Procedure Fluoroscopy Time (minutes): 1.6 Conscious Sedation Time (minutes): 15 Radiation (mGy): 25.7 Contrast: 15 Post Operative Report Pre & Post Diagnosis Operation Date: 03/08/20 10:20 Pre-Op Diagnosis: Acute Deep Vein Thrombosis, Counter Indication for Anti-Coagulation Post-Op Diagnosis: Acute Deep Vein Thrombosis, Counter Indication for Anti-Coagulation I identified the patient and participated in the time-out.: Yes Procedure Operation Date: 03/08/20 10:20 Actual Procedures p Inferior Vena Cava Filter Placement, Ultrasound Localization of Right Internal Jugular Vein, Flouroscopy for Positioning, Moderate Sedation from 1112- 1127(Right) - Horacio Sood MD Surgeon Horacio Sood MD Deputy Director Of Nursing Cathryn Marina MD Estimated Blood Loss 0 Findings Consistent with Post-Op Diagnosis Filter deployed in infrarenal IVC Specimens none Drains none Anesthesia Type RN Sedation Complications none Disposition Accompanied Patient To Recovery: No Disposition: Recovery Room Indications Acute DVT, contra-indication to anticoagulation Description of Procedure The patient was taken to the operating suite and placed in the supine position. The patient's identity and operative site were verified. The patient's right neck was prepped and draped in the usual standard fashion. A timeout was performed. The patient was administered sedation. Using ultrasound the right internal jugular vein was identified. It was compressible and there was no thrombus identified in the lumen. Under ultrasound guidance the right internal jugular vein was accessed with a needle. A wire was advanced through the needle. A wire was passed through the needle, down through the IVC, and into the right iliac vein. The needle was removed and a 10F dilator was passed over the wire. Then, the introducer system was advanced over the wire into distal vena cava. The wire was removed and a venogram was shot. The location of the renal veins was marked, with the right renal vein being the lowest. The introducer sheath was positioned approximately 5cm caudal to the right renal vein. The introducer dilator was removed. The filter introducer was advanced through the introducer sheath. The introducer sheath and protection sheath were withdrawn and the filter was expanded. This was performed under fluoroscopic guidance. The filter was in good position. The sheath was removed and manual pressure was held over the right internal jugular vein access site. The patient tolerated the procedure well and without immediate complication. She was taken to the recovery room in satisfactory condition. Dr. Sood was present and scrubbed for the entire procedure. I attest to the content of the Intraoperative Record and any orders documented therein. Any exceptions are noted below.
[2020-03-08] MEDS ORDERED: LIDOCAINE HCL 1% 20 ML VIAL INJ ONE (11:30)
[2020-03-08] MEDS: PANTOprazole 40 MG TAB PO SCH ×2 (11:45→19:56)
[2020-03-08] MEDS: predniSONE 10 MG TABLET PO SCH (11:46)
[2020-03-08] MEDS: GABAPENTIN 100 MG CAP PO SCH ×2 (11:46→19:55)
[2020-03-08] MEDS: FOLIC ACID 1 MG TAB PO SCH (11:46)
[2020-03-08] MEDS: ACETAMINOPHEN 500 MG TAB PO SCH ×3 (11:47→23:26)
--- NOTE | 2020-03-08 15:21 | Hospitalist Progress Note ---
Date of Service March 08, 2020 Assessment & Plan (1) Abdominal wall hematoma: CT abd/ pelvis 03/07 with hematoma 7x3.4 cm Ms. Hunter's hgb dipped to 6.8 overnight requiring 1 unit of prbcs. She was stable on recheck this morning. Hemodynamically stable Surgery consulted - recommended conservative measures for now. If she continues to bleed, may need to transfer to another facility for IR. Discussed patient with IR at [place] - they would not recommend other interventions than what we are doing her with stopping the anticoagulation and putting in an IVC filter. I discussed this with the daughter and son and they both were leaning toward not looking into a tertiary care center or transfer any how because they felt that this might be hard on the patient given her age and comorbidities. (2) Chest pain: Secondary to pleuritic pain from PE, rib fracture and now hematoma EKG 03/05 w/o ischemic changes. NSR. She has extensive b/l LE DVT. Continue Lidoderm patches, morphine prn. (3) Pulmonary embolism: High probability on VQ scan Transitioned to Eliquis on 03/06 but with hematoma on 03/07 - patient's hgb was stable all day on 03/07 but after initiation of heparin drip patient's hgb dropped as above so heparin was discontinued. IVC filter placed with Dr. Sood 03/08 (4) DVT (deep venous thrombosis): DVT in right external iliac and common femoral veins - incidentally found on CT at admission. 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 LE dopplers with b/l DVT. As above (5) Abdominal pain: 2nd to iliac DVT? checked KUB x-ray -- minimal ileus, no significant stool. lipase/LFTs wnl. RUQ pain may be secondary to PEs/ rib fracture/hematoma -- see above. (6) Diarrhea: Ongoing for 6 weeks once a week but then 3 times daily for the last week - now resolved c diff toxin negative 03/02. stool cx from 03/02 negative. GI consult appreciated. KUB x-ray noted. (7) CKD (chronic kidney disease), stage III: baseline Cr 1.4/1.5 - increased further today to 1.72 - will give another liter of NSS @ 80 mls x 1 bag and recheck bmp am borderline stage 4 CKD (8) Hypothyroidism: TSH suppressed. Continue home levothyroxine but lower to 100mcg daily. TSH in 6 weeks as outpatient. (9) Hyperlipidemia: Continue home simvastatin (10) Hypertension: Continue home amlodipine (11) GERD (gastroesophageal reflux disease): Continue PPI (12) Rheumatoid arthritis: Longstanding on chronic prednisone Continue prednisone 10 mg daily Continue methotrexate once weekly and folic acid once daily (13) Dementia: moderate by history and per daughter Continue home donepezil, Seroquel at bedtime, mirtazapine 45 mg scheduled at bedtime for depression - seroquel was increased for sundowning but will return to home dosing at discharge as her daughter reports she does well with this dose (14) Headache: CT head neg consider sed rate/crp to r/o temporal arteritis but would be unusual given the chronic prednisone use No complaints of headache in the last couple of days records suggest this may be a chronic issue (has had prior imaging for same complaint) (15) 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 (16) Compression fracture of L1 lumbar vertebra: chronic stable imaging findings however (17) Macrocytic anemia: Mild, secondary to methotrexate use b12/folate wnl (18) Hypokalemia: replaced and resolved bmp am (19) Encephalopathy acute: acute encephalopathy/hospital psychosis in setting of dementia significant sundowning increase HS seroquel to 25mg from 12.5mg - as above (20) DVT prophylaxis: IVC filter as above Admission and Anticipated Discharge Date Admission Date: March 03, 2020 Subjective Ms. Hunter continues to be confused. Son was at bedside. We discussed patient's options. At this point he feels that doing what we can at [facility] would be better than tertiary care given Ms. Hunter's age and co-morbidities. I also talked to IR at [facility] this morning and they essentially felt that the care we were performing here is what they would do there - stop anticoagulation and put in an IVC filter. ROS Constitutional: no chills, aches, sweats or fever Respiratory: no sob,cough, sputum, or wheezing Cardiac: no chest pain, palpitations, edema, orthopnea or lightheadedness GI: no abdominal pain, nausea, vomiting, diarrhea or constipation : no dysuria or hesitancy Extremities: no joint pain or weakness Skin: no rash All other systems reviewed and negative Physical Exam Physical Exam: General: no distress Eyes: normal inspection, PERLL Respiratory: chest non tender, clear to auscultation, normal breath sounds, no respiratory distress, no accessory muscle use Cardiac: regular rate and rhythm, no rub or gallop, no murmur, no edema, no jvd GI/: active bowel sounds, no abd pain or tenderness, soft, non distended Extremities: normal range of motion, normal strength, non tender Neuro/Psych: alert and oriented x 3, normal mood and affect Skin: normal color, dry Results & Data Results & Data ([facility]) Vital Signs (Past 12 Hours) Vital Signs Temp Pulse Pulse Pulse Resp BP BP 03/08/20 13:37 84 119/66 03/08/20 12:12 72 117/69 03/08/20 11:57 72 145/72 H 03/08/20 11:40 36.9 C 77 16 03/08/20 11:27 75 18 138/65 03/08/20 11:22 72 18 126/78 03/08/20 11:19 72 18 140/68 03/08/20 11:14 72 22 140/68 03/08/20 11:09 73 22 134/57 L 03/08/20 11:04 69 22 150/54 H 03/08/20 10:43 36.4 C L 95 H 74 18 03/08/20 09:00 71 03/08/20 08:25 36.9 C 73 24 124/77 03/08/20 06:34 36.9 C 71 20 115/77 03/08/20 05:37 36.5 C 74 20 136/74 03/08/20 05:07 36.7 C 77 20 125/59 L 03/08/20 04:52 36.8 C 72 20 113/68 03/08/20 04:36 36.9 C 73 20 124/77 03/08/20 03:54 37.1 C 74 18 BP Pulse Ox 03/08/20 13:37 03/08/20 12:12 89 L 03/08/20 11:57 92 03/08/20 11:40 147/54 H 93 03/08/20 11:27 96 03/08/20 11:22 98 03/08/20 11:19 100 03/08/20 11:14 100 03/08/20 11:09 100 03/08/20 11:04 100 03/08/20 10:43 144/55 H 95 03/08/20 09:00 03/08/20 08:25 90 03/08/20 06:34 92 03/08/20 05:37 94 03/08/20 05:07 94 03/08/20 04:52 91 03/08/20 04:36 03/08/20 03:54 126/53 L 91 PG Care Time/CCT Total # of Minutes Spent Total Time Spent with Patient: Total time spent is greater than 50% in coordination of care (as documented) at patient's floor/unit and/or counseling patient: Coding Level of Care Code 74468 Subseq Hosp Care Lvl 3 Diagnoses Abdominal wall hematoma S30.1XXA Chest pain R07.9 Pulmonary embolism I26.99 DVT (deep venous thrombosis) I82.421 Affected thrombotic vein of extremity: iliac Chronicity: acute DVT location: lower extremity Laterality: right Abdominal pain R10.9 Diarrhea R19.7 Diarrhea type: unspecified type CKD (chronic kidney disease), stage III N18.3 Hypothyroidism E03.9 Hypothyroidism type: unspecified Hyperlipidemia E78.5 Hyperlipidemia type: unspecified Hypertension I10 Hypertension type: essential hypertension GERD (gastroesophageal reflux disease) K21.9 Esophagitis presence: esophagitis presence not specified Rheumatoid arthritis M06.9 Rheumatoid arthritis location: unspecified site Rheumatoid factor presence: unspecified presence Dementia F03.90 Dementia type: unspecified type Dementia behavioral disturbance: without behavioral disturbance Headache G44.039 Headache type: paroxysmal hemicrania Headache chronicity pattern: episodic headache Intractability: not intractable Pancreatic mass K86.89 Compression fracture of L1 lumbar vertebra S32.010A Macrocytic anemia D53.9 Hypokalemia E87.6 Encephalopathy acute G93.40 DVT prophylaxis Z29.9 (1) DVT (deep venous thrombosis) Affected thrombotic vein of extremity: iliac Chronicity: acute DVT location: lower extremity Laterality: right Qualified Code(s): I82.421 - Acute embolism and thrombosis of right iliac vein (2) Diarrhea Diarrhea type: unspecified type Qualified Code(s): R19.7 - Diarrhea, unspecified (3) Hypothyroidism Hypothyroidism type: unspecified Qualified Code(s): E03.9 - Hypothyroidism, unspecified (4) Hyperlipidemia Hyperlipidemia type: unspecified Qualified Code(s): E78.5 - Hyperlipidemia, unspecified (5) Hypertension Hypertension type: essential hypertension Qualified Code(s): I10 - Essential (primary) hypertension (6) GERD (gastroesophageal reflux disease) Esophagitis presence: esophagitis presence not specified Qualified Code(s): K21.9 - Gastro-esophageal reflux disease without esophagitis (7) Rheumatoid arthritis Rheumatoid arthritis location: unspecified site Rheumatoid factor presence: unspecified presence Qualified Code(s): M06.9 - Rheumatoid arthritis, unspecified (8) Dementia Dementia type: unspecified type Dementia behavioral disturbance: without behavioral disturbance Qualified Code(s): F03.90 - Unspecified dementia without behavioral disturbance (9) Headache Headache type: paroxysmal hemicrania Headache chronicity pattern: episodic headache Intractability: not intractable Qualified Code(s): G44.039 - Episodic paroxysmal hemicrania, not intractable
[2020-03-08] MEDS: SIMVASTATIN 40 MG TAB PO SCH (19:55)
[2020-03-08] MEDS: DONEPEZIL HCL 10 MG TAB PO SCH (19:55)
[2020-03-08] MEDS: QUETIAPINE FUMARATE 25 MG TABLET PO SCH (19:55)
[2020-03-08] MEDS: MIRTAZAPINE SOLTAB 15 MG PO SCH (19:56)
[2020-03-08] MEDS: ACETAMINOPHEN 325 MG TAB PO PRN (19:57)
[2020-03-09] MEDS: MoRPHine SULFATE 2 MG/ML CARP IV PRN ×2 (01:28→06:00)
[2020-03-09] MEDS: TRAMADOL HCL 50 MG TABLET PO PRN (04:44)
[2020-03-09] MEDS: LEVOTHYROXINE SODIUM 100 MCG TABLET PO SCH (06:01)
[2020-03-09 07:03] LABS: Basophils # (auto) 0.03 K/uL (0-0.2); Basophils % (auto) 0.3 %; Eosinophils # (auto) 0.23 K/uL (0-0.5); Eosinophils % (auto) 2.3 %; Hematocrit (blood only) 25.6 % (37-47); Hemoglobin 8.3 g/dL (12.0-16.0); Immature Granulocytes # (auto) 0.17 K/uL (0.00-0.02); Immature Granulocytes % (auto) 1.7 %; Lymphocytes # (auto) 1.19 K/uL (1.2-3.4); Lymphocytes % (auto) 11.8 %; Mean Corpuscular Hemoglobin 33.6 pg (25-34); Mean Corpuscular Hgb Conc 32.4 g/dL (32-36); Mean Corpuscular Volume 103.6 fL (80-100); Mean Platelet Volume 9.3 fL (7.4-10.4); Monocytes % (auto) 9.9 %; Neutrophils # (auto) 7.48 K/uL (1.4-6.5); Nucleated RBC # (auto) 0.11 K/uL (0-0); Nucleated RBC % (auto) 1.1 %; Platelet Count 201 K/uL (130-400); RDW Standard Deviation 59.4 fL (36.4-46.3); Red Blood Count 2.47 M/uL (4.2-5.4)
[2020-03-09] MEDS: SIMETHICONE 80 MG CHEW PO SCH ×3 (07:28→19:28)
[2020-03-09 07:34] LABS: Creatinine Clr Calc Pharmacy 22.2 ml/min; Est GFR (African American) 35.6; Est GFR (Non-African American) 30.7; Potassium 3.8 mmol/L (3.5-5.1)
--- NOTE | 2020-03-09 09:30 | Surgery Progress Note ---
Date of Service March 09, 2020 Assessment & Plan (1) Abdominal wall hematoma: Hemoglobin stable today -s/p 1 unit of PRBCs industrial psychologist of 03/08/2020 prior to IVC filter placement - anticoagulation discontinued - hemodynamically stable Plan: No surgical intervention recommended at this time. Continue to hold anticoagulation Continue to monitor H&H Continue abdominal binder Continue medical management (2) Pulmonary embolism: (3) DVT (deep venous thrombosis): Subjective Son present at bedside Patient denies of any abdominal pain Son states she has not complained of any abdominal pain today which is improvement compared to yesterday tolerated entire breakfast try wearing abdominal binder still ROS limited due to dementia Physical Exam Constitutional: WD/WN, vitals as above no acute distress and not ill appearing Respiratory: normal respiratory effort; no respiratory distress Gastrointestinal (Abdomen): Inspection/Auscultation: abdomen normal to inspection; abdomen not distended Percussion/Palpation: abdomen soft; abdomen nontender, no guarding and abdomen not rigid Ecchymosis of the lateral right abdomen and flank, within markings, stable no abdominal pain more pain to the right lower ribs Skin: no rashes, warm and dry ecchymosis of the entire right abdomen/flank at site of hematoma down in to the right pelvis Psychiatric: Orientation: alert; + not oriented x 3 Results & Data Vital Signs (Past 12 Hours) Vital Signs Temp Pulse Resp BP BP Pulse Ox 03/09/20 07:17 36.4 C L 76 20 160/73 H 95 03/09/20 03:22 37.1 C 77 18 145/65 H 90 03/08/20 23:30 36.9 C 78 19 129/71 93 Laboratory Results 03/09/20 03/09/20 03/08/20 Range/Units 06:19 06:19 17:11 WBC 10.10 (4.8-10.8) K/uL RBC 2.47 L (4.2-5.4) M/uL Hgb 8.3 L 9.3 L (12.0-16.0) g/dL Hct 25.6 L (37-47) % MCV 103.6 H (80-100) fL MCH 33.6 (25-34) pg MCHC 32.4 (32-36) g/dL RDW Std Deviation 59.4 H (36.4-46.3) fL RDW Coeff of Adrien 16.0 H (11.5-14.5) % Plt Count 201 (130-400) K/uL MPV 9.3 (7.4-10.4) fL Immature Gran % (Auto) 1.7 % Neut % (Auto) 74.0 % Lymph % (Auto) 11.8 % Pierce % (Auto) 9.9 % Eos % (Auto) 2.3 % Baso % (Auto) 0.3 % Neut # (Auto) 7.48 H (1.4-6.5) K/uL Lymph # (Auto) 1.19 L (1.2-3.4) K/uL Pierce # (Auto) 1.00 H (0.11-0.59) K/uL Eos # (Auto) 0.23 (0-0.5) K/uL Baso # (Auto) 0.03 (0-0.2) K/uL Immature Gran # (Auto) 0.17 H (0.00-0.02) K/uL Absolute Nucleated RBC 0.11 H (0-0) K/uL Nucleated RBC % (auto) 1.1 % Sodium 143 (136-145) mmol/L Potassium 3.8 (3.5-5.1) mmol/L Chloride 113 H (98-107) mmol/L Carbon Dioxide 25 (21-32) mmol/L Anion Gap 5.0 (3-11) BUN 20 H (7-18) mg/dl Creatinine 1.53 H (0.6-1.2) mg/dl Est Cr Clr Drug Dosing 22.2 ml/min Est GFR ( Amer) 35.6 Est GFR (Non-Af Amer) 30.7 BUN/Creatinine Ratio 13.0 (10-20) Glucose 77 (70-99) mg/dl Calcium 8.0 L (8.5-10.1) mg/dl Crossmatch 03/08/20 03/08/20 Range/Units 09:52 02:46 WBC (4.8-10.8) K/uL RBC (4.2-5.4) M/uL Hgb 8.6 L (12.0-16.0) g/dL Hct (37-47) % MCV (80-100) fL MCH (25-34) pg MCHC (32-36) g/dL RDW Std Deviation (36.4-46.3) fL RDW Coeff of Adrien (11.5-14.5) % Plt Count (130-400) K/uL MPV (7.4-10.4) fL Immature Gran % (Auto) % Neut % (Auto) % Lymph % (Auto) % Pierce % (Auto) % Eos % (Auto) % Baso % (Auto) % Neut # (Auto) (1.4-6.5) K/uL Lymph # (Auto) (1.2-3.4) K/uL Pierce # (Auto) (0.11-0.59) K/uL Eos # (Auto) (0-0.5) K/uL Baso # (Auto) (0-0.2) K/uL Immature Gran # (Auto) (0.00-0.02) K/uL Absolute Nucleated RBC (0-0) K/uL Nucleated RBC % (auto) % Sodium (136-145) mmol/L Potassium (3.5-5.1) mmol/L Chloride (98-107) mmol/L Carbon Dioxide (21-32) mmol/L Anion Gap (3-11) BUN (7-18) mg/dl Creatinine (0.6-1.2) mg/dl Est Cr Clr Drug Dosing ml/min Est GFR ( Amer) Est GFR (Non-Af Amer) BUN/Creatinine Ratio (10-20) Glucose (70-99) mg/dl Calcium (8.5-10.1) mg/dl Crossmatch See Detail (1) DVT (deep venous thrombosis) Affected thrombotic vein of extremity: iliac Chronicity: acute DVT location: lower extremity Laterality: right Qualified Code(s): I82.421 - Acute embolism and thrombosis of right iliac vein
[2020-03-09] MEDS: FOLIC ACID 1 MG TAB PO SCH (10:09)
[2020-03-09] MEDS: LIDOCAINE 5% 1 PATCH TD SCH ×2 (10:09→10:10)
[2020-03-09] MEDS: PANTOprazole 40 MG TAB PO SCH ×2 (10:09→20:09)
[2020-03-09] MEDS: predniSONE 10 MG TABLET PO SCH (10:09)
[2020-03-09] MEDS: AMLODIPINE BESYLATE 5 MG TAB PO SCH (10:10)
[2020-03-09] MEDS: ACETAMINOPHEN 500 MG TAB PO SCH ×3 (10:11→20:18)
[2020-03-09] MEDS: GABAPENTIN 100 MG CAP PO SCH ×2 (10:11→20:09)
[2020-03-09] MEDS: SODIUM CHLORIDE 0.9% 1000ML 1,000 ML IV SCH ×2 (11:43→20:18)
--- NOTE | 2020-03-09 13:26 | Hospitalist Progress Note ---
Date of Service March 09, 2020 Assessment & Plan (1) Abdominal wall hematoma: CT abd/ pelvis 03/07 with hematoma 7x3.4 cm Has required 1 unit of prbcs this admission Hemodynamically stable Surgery consulted - recommended conservative measures for now. Discussed patient with IR at [place] - they would not recommend other interventions than what we are doing here (2) Chest pain: Secondary to pleuritic pain from PE, rib fracture and hematoma EKG 03/05 w/o ischemic changes. NSR. She has extensive b/l LE DVT. Continue Lidoderm patches, morphine prn. (3) Pulmonary embolism: High probability on VQ scan Transitioned to Eliquis on 03/06 but with hematoma on 03/07 requiring blood transfusion - anticoagulation stopped IVC filter placed with Dr. Sood 03/08 (4) DVT (deep venous thrombosis): DVT in right external iliac and common femoral veins - incidentally found on CT at admission. 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 LE dopplers with b/l DVT. As above (5) Abdominal pain: KUB x-ray -- minimal ileus, no significant stool. lipase/LFTs wnl. RUQ pain may be secondary to PEs/ rib fracture/hematoma -- see above. (6) Diarrhea: Ongoing for 6 weeks once a week but then 3 times daily for the last week - now resolved c diff toxin negative 03/02. stool cx from 03/02 negative. GI consult appreciated. KUB x-ray noted. (7) CKD (chronic kidney disease), stage III: At baseline Cr 1.4/1.5 borderline stage 4 CKD (8) Hypothyroidism: TSH suppressed. Continue home levothyroxine but lower to 100mcg daily. TSH in 6 weeks as outpatient. (9) Hyperlipidemia: Continue home simvastatin (10) Hypertension: Continue home amlodipine (11) GERD (gastroesophageal reflux disease): Continue PPI (12) Rheumatoid arthritis: Longstanding on chronic prednisone Continue prednisone 10 mg daily Continue methotrexate once weekly and folic acid once daily (13) Dementia: moderate by history and per daughter Continue home donepezil, Seroquel at bedtime, mirtazapine 45 mg scheduled at bedtime for depression - seroquel was increased for but will return to home dosing at discharge as her daughter reports she does well with this dose (14) Headache: CT head neg consider sed rate/crp to r/o temporal arteritis but would be unusual given the chronic prednisone use No complaints of headache in the last couple of days records suggest this may be a chronic issue (has had prior imaging for same complaint) (15) 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 (16) Compression fracture of L1 lumbar vertebra: chronic stable imaging findings however (17) Macrocytic anemia: Mild, secondary to methotrexate use b12/folate wnl (18) Hypokalemia: replaced and resolved bmp am (19) Encephalopathy acute: acute encephalopathy/hospital psychosis in setting of dementia significant sundowning increase HS seroquel to 25mg from 12.5mg - as above (20) DVT prophylaxis: IVC filter as above Admission and Anticipated Discharge Date Admission Date: March 03, 2020 Subjective Ms. Hunter had no complaints, she is pleasantly confused. She denies any discomforts. ROS Constitutional: no chills, aches, sweats or fever Respiratory: no sob,cough, sputum, or wheezing Cardiac: no chest pain, palpitations, edema, orthopnea or lightheadedness GI: no abdominal pain, nausea, vomiting, diarrhea or constipation : no dysuria or hesitancy Extremities: no joint pain or weakness Skin: no rash All other systems reviewed and negative Physical Exam Physical Exam: General: no distress Eyes: normal inspection, PERLL Respiratory: chest non tender, clear to auscultation, normal breath sounds, no respiratory distress, no accessory muscle use Cardiac: regular rate and rhythm, no rub or gallop, no murmur, no edema, no jvd GI/: active bowel sounds, no abd pain or tenderness, soft, non distended Extremities: normal range of motion, normal strength, non tender Neuro/Psych: alert and oriented to person, normal mood and affect Skin: normal color, dry Results & Data Results & Data ([facility]) Vital Signs (Past 12 Hours) Vital Signs Temp Pulse Pulse Resp BP BP Pulse Ox 03/09/20 12:11 78 03/09/20 10:57 36.9 C 79 22 146/74 H 92 03/09/20 07:17 36.4 C L 76 20 160/73 H 95 03/09/20 03:22 37.1 C 77 18 145/65 H 90 PG Care Time/CCT Total # of Minutes Spent Total Time Spent with Patient: Total time spent is greater than 50% in coordination of care (as documented) at patient's floor/unit and/or counseling patient: Coding Level of Care Code 75118 Subseq Hosp Care Lvl 3 Diagnoses Abdominal wall hematoma S30.1XXA Chest pain R07.9 Pulmonary embolism I26.99 DVT (deep venous thrombosis) I82.421 Affected thrombotic vein of extremity: iliac Chronicity: acute DVT location: lower extremity Laterality: right Abdominal pain R10.9 Diarrhea R19.7 Diarrhea type: unspecified type CKD (chronic kidney disease), stage III N18.3 Hypothyroidism E03.9 Hypothyroidism type: unspecified Hyperlipidemia E78.5 Hyperlipidemia type: unspecified Hypertension I10 Hypertension type: essential hypertension GERD (gastroesophageal reflux disease) K21.9 Esophagitis presence: esophagitis presence not specified Rheumatoid arthritis M06.9 Rheumatoid arthritis location: unspecified site Rheumatoid factor presence: unspecified presence Dementia F03.90 Dementia behavioral disturbance: without behavioral disturbance Dementia type: unspecified type Headache G44.039 Headache chronicity pattern: episodic headache Headache type: paroxysmal hemicrania Intractability: not intractable Pancreatic mass K86.89 Compression fracture of L1 lumbar vertebra S32.010A Macrocytic anemia D53.9 Hypokalemia E87.6 Encephalopathy acute G93.40 DVT prophylaxis Z29.9 (1) Rheumatoid arthritis Rheumatoid arthritis location: unspecified site Rheumatoid factor presence: unspecified presence Qualified Code(s): M06.9 - Rheumatoid arthritis, unspecified (2) DVT (deep venous thrombosis) Affected thrombotic vein of extremity: iliac Chronicity: acute DVT location: lower extremity Laterality: right Qualified Code(s): I82.421 - Acute embolism and thrombosis of right iliac vein (3) Dementia Dementia behavioral disturbance: without behavioral disturbance Dementia type: unspecified type Qualified Code(s): F03.90 - Unspecified dementia without behavioral disturbance (4) Diarrhea Diarrhea type: unspecified type Qualified Code(s): R19.7 - Diarrhea, unspecified (5) Headache Headache chronicity pattern: episodic headache Headache type: paroxysmal hemicrania Intractability: not intractable Qualified Code(s): G44.039 - Episodic paroxysmal hemicrania, not intractable (6) Hyperlipidemia Hyperlipidemia type: unspecified Qualified Code(s): E78.5 - Hyperlipidemia, unspecified (7) Hypothyroidism Hypothyroidism type: unspecified Qualified Code(s): E03.9 - Hypothyroidism, unspecified (8) GERD (gastroesophageal reflux disease) Esophagitis presence: esophagitis presence not specified Qualified Code(s): K21.9 - Gastro-esophageal reflux disease without esophagitis (9) Hypertension Hypertension type: essential hypertension Qualified Code(s): I10 - Essential (primary) hypertension
[2020-03-09] MEDS: QUETIAPINE FUMARATE 25 MG TABLET PO SCH (20:09)
[2020-03-09] MEDS: SIMVASTATIN 40 MG TAB PO SCH (20:09)
[2020-03-09] MEDS: MIRTAZAPINE SOLTAB 15 MG PO SCH (20:09)
[2020-03-09] MEDS: DONEPEZIL HCL 10 MG TAB PO SCH (20:09)
[2020-03-10 06:00] LABS: Hematocrit (blood only) 25.2 % (37-47); Mean Corpuscular Hemoglobin 33.5 pg (25-34); Mean Corpuscular Hgb Conc 31.7 g/dL (32-36); Mean Corpuscular Volume 105.4 fL (80-100); Mean Platelet Volume 9.4 fL (7.4-10.4); Nucleated RBC # (auto) 0.12 K/uL (0-0); Nucleated RBC % (auto) 1.2 %; Platelet Count 220 K/uL (130-400); RDW Coefficient of Variation 16.5 % (11.5-14.5); RDW Standard Deviation 61.7 fL (36.4-46.3); Red Blood Count 2.39 M/uL (4.2-5.4); White Blood Count 10.14 K/uL (4.8-10.8)
[2020-03-10] MEDS: LEVOTHYROXINE SODIUM 100 MCG TABLET PO SCH (06:09)
[2020-03-10] MEDS: ACETAMINOPHEN 325 MG TAB PO PRN (06:30)
[2020-03-10 06:34] LABS: BUN Creatinine Ratio 15.8 (10-20); Calcium 7.6 mg/dl (8.5-10.1); Est GFR (African American) 38.9; Est GFR (Non-African American) 33.6; Potassium 4.1 mmol/L (3.5-5.1)
[2020-03-10] MEDS: SIMETHICONE 80 MG CHEW PO SCH ×3 (08:50→15:58)
[2020-03-10] MEDS: AMLODIPINE BESYLATE 5 MG TAB PO SCH (08:51)
[2020-03-10] MEDS: FOLIC ACID 1 MG TAB PO SCH (08:51)
[2020-03-10] MEDS: LIDOCAINE 5% 1 PATCH TD SCH ×2 (08:51→08:52)
[2020-03-10] MEDS: GABAPENTIN 100 MG CAP PO SCH ×2 (08:51→20:25)
[2020-03-10] MEDS: predniSONE 10 MG TABLET PO SCH (08:51)
[2020-03-10] MEDS: PANTOprazole 40 MG TAB PO SCH ×2 (08:51→20:25)
[2020-03-10] MEDS: SODIUM CHLORIDE 0.9% 1000ML 1,000 ML IV SCH (08:54)
[2020-03-10] MEDS: ACETAMINOPHEN 500 MG TAB PO SCH ×3 (08:54→20:38)
--- NOTE | 2020-03-10 10:34 | Surgery Progress Note ---
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 Continue to hold anticoagulation Continue to monitor H&H Continue abdominal binder Continue medical management Dr. Miguel covering this weekend Dr. Ojeda has seen and examined pt, agrees with above Subjective sitting up in bed upon entering room, drinking boost shake pleasantly confused (baseline dementia) some abdominal pain not severe tolerated breakfast feeling tired today Physical Exam Constitutional: WD/WN, vitals as above not ill appearing Respiratory: normal respiratory effort; no respiratory distress Gastrointestinal (Abdomen): Inspection/Auscultation: abdomen not distended Percussion/Palpation: + abdomen tender (right lateral abdomen/flank at site of hematoma) and abdomen soft; no guarding and abdomen not rigid Skin: no rashes, warm and dry Psychiatric: Orientation: alert; + not oriented x 3 Results & Data Vital Signs (Past 12 Hours) Vital Signs Temp Pulse Pulse Pulse Resp BP BP 03/10/20 08:04 37.0 C 75 20 156/65 H 03/10/20 07:25 89 03/10/20 04:00 36.8 C 75 17 151/68 H 03/10/20 00:00 36.6 C 74 20 161/74 H Pulse Ox 03/10/20 08:04 93 03/10/20 07:25 03/10/20 04:00 93 03/10/20 00:00 94 Laboratory Results 03/10/20 03/10/20 Range/Units 05:32 05:32 WBC 10.14 (4.8-10.8) K/uL RBC 2.39 L (4.2-5.4) M/uL Hgb 8.0 L (12.0-16.0) g/dL Hct 25.2 L (37-47) % MCV 105.4 H (80-100) fL MCH 33.5 (25-34) pg MCHC 31.7 L (32-36) g/dL RDW Std Deviation 61.7 H (36.4-46.3) fL RDW Coeff of Adrien 16.5 H (11.5-14.5) % Plt Count 220 (130-400) K/uL MPV 9.4 (7.4-10.4) fL Absolute Nucleated RBC 0.12 H (0-0) K/uL Nucleated RBC % (auto) 1.2 % Sodium 146 H (136-145) mmol/L Potassium 4.1 (3.5-5.1) mmol/L Chloride 116 H (98-107) mmol/L Carbon Dioxide 26 (21-32) mmol/L Anion Gap 4.0 (3-11) BUN 22 H (7-18) mg/dl Creatinine 1.42 H (0.6-1.2) mg/dl Est Cr Clr Drug Dosing 24.0 ml/min Est GFR ( Amer) 38.9 Est GFR (Non-Af Amer) 33.6 BUN/Creatinine Ratio 15.8 (10-20) Glucose 89 (70-99) mg/dl Calcium 7.6 L (8.5-10.1) mg/dl
--- NOTE | 2020-03-10 13:54 | Hospitalist Progress Note ---
Date of Service March 10, 2020 Assessment & Plan (1) Abdominal wall hematoma: CT abd/ pelvis on 03/07 with hematoma 7x3.4 cm. - Required 1 unit of PRBCs on 03/08. - Surgery consulted - recommended conservative measures. Discussed patient with IR at [facility] - they would not recommend other interventions than what we are doing here. - At this point, hgb largely stable. Continue abdominal binder. (2) Chest pain: Secondary to pleuritic pain from PE, rib fracture and hematoma. EKG 03/05 w/o ischemic changes. NSR. - Continue Lidoderm patches, morphine prn. (3) Pulmonary embolism: High probability on VQ scan on 03/06. Attempted anticoagulation, but had bleeding, so we had no choice, but to hold. - IVC filter placed with Dr. Sood on 03/08. (4) DVT (deep venous thrombosis): DVT in right external iliac and common femoral veins - incidentally found on CT at admission. 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 - LE dopplers with b/l DVT. - IVC filter on 03/08 as above (5) CKD (chronic kidney disease), stage III: At baseline Cr 1.4/1.5. Borderline stage 4 CKD - Presently at baseline. (6) Diarrhea: Ongoing for 6 weeks once a week but then 3 times daily for the last week - now resolved. C diff toxin negative 03/02, stool cx from 03/02 was negative. - GI consult appreciated. (7) Hypothyroidism: TSH suppressed at 0.117 this admission. - Continue home levothyroxine but lower to 100mcg daily. - TSH in 6 weeks as outpatient. (8) Hyperlipidemia: - Continue home simvastatin (9) Hypertension: BP 135/65 at present. - Continue home amlodipine (10) GERD (gastroesophageal reflux disease): - Continue PPI (11) Rheumatoid arthritis: Longstanding on chronic prednisone. - Continue prednisone 10 mg daily - Continue methotrexate once weekly and folic acid once daily (12) Dementia: Moderate by history and per daughter. - Continue home donepezil, Seroquel at bedtime, mirtazapine 45 mg scheduled at bedtime for depression - seroquel was increased for but will return to home dosing at discharge as her daughter reports she does well with this dose. 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 - Outpatient follow up (14) DVT prophylaxis: IVC filter as above. Heparin contraindicated given hematoma and bleeding. Admission and Anticipated Discharge Date Admission Date: March 03, 2020 Subjective Actually denies pain except for her right ankle. Reports no fevers/chills, chest pain, shortness of breath, abdominal pain, nausea, or vomiting. Physical Exam Constitutional: WD/WN, vitals as above Eyes: EOM intact bilaterally; no conjunctival abnormality ENMT: external ear and nose normal, oropharynx normal Neck: trachea midline, no thyromegaly normal visual inspection Respiratory: normal respiratory effort, lungs clear to auscultation no respiratory distress Cardiovascular: RRR, no murmur, no edema Gastrointestinal (Abdomen): Inspection/Auscultation: abdomen normal to inspection; abdomen not distended Musculoskeletal: no cyanosis or clubbing, extremities motor strength 5/5 Skin: + ecchymosis (Diffuse on right side and breasts) Neurologic: moves all extremities and awake Psychiatric: Orientation: alert, oriented to person and cooperative Results & Data Results & Data ([facility]) Vital Signs (Past 12 Hours) Vital Signs Temp Pulse Pulse Pulse Resp BP BP 03/10/20 11:47 37.4 C 86 22 136/65 03/10/20 08:04 37.0 C 75 20 156/65 H 03/10/20 07:25 89 03/10/20 04:00 36.8 C 75 17 151/68 H Pulse Ox 03/10/20 11:47 94 03/10/20 08:04 93 03/10/20 07:25 03/10/20 04:00 93 PG Care Time/CCT Total # of Minutes Spent Total Time Spent with Patient: Total time spent is greater than 50% in coordination of care (as documented) at patient's floor/unit and/or counseling patient: Coding Level of Care Code 61262 Subseq Hosp Care Lvl 2 Diagnoses Abdominal wall hematoma S30.1XXA Chest pain R07.9 Pulmonary embolism I26.99 DVT (deep venous thrombosis) I82.421 Affected thrombotic vein of extremity: iliac Chronicity: acute DVT location: lower extremity Laterality: right CKD (chronic kidney disease), stage III N18.3 Diarrhea R19.7 Diarrhea type: unspecified type Hypothyroidism E03.9 Hypothyroidism type: unspecified Hyperlipidemia E78.5 Hyperlipidemia type: unspecified Hypertension I10 Hypertension type: essential hypertension GERD (gastroesophageal reflux disease) K21.9 Esophagitis presence: esophagitis presence not specified Rheumatoid arthritis M06.9 Rheumatoid arthritis location: unspecified site Rheumatoid factor presence: unspecified presence Dementia F03.90 Dementia type: unspecified type Dementia behavioral disturbance: without behavioral disturbance Pancreatic mass K86.89 DVT prophylaxis Z29.9 (1) DVT (deep venous thrombosis) Affected thrombotic vein of extremity: iliac Chronicity: acute DVT location: lower extremity Laterality: right Qualified Code(s): I82.421 - Acute embolism and thrombosis of right iliac vein (2) Diarrhea Diarrhea type: unspecified type Qualified Code(s): R19.7 - Diarrhea, unspecified (3) Hypothyroidism Hypothyroidism type: unspecified Qualified Code(s): E03.9 - Hypothyroidism, unspecified (4) Hyperlipidemia Hyperlipidemia type: unspecified Qualified Code(s): E78.5 - Hyperlipidemia, unspecified (5) Hypertension Hypertension type: essential hypertension Qualified Code(s): I10 - Essential (primary) hypertension (6) GERD (gastroesophageal reflux disease) Esophagitis presence: esophagitis presence not specified Qualified Code(s): K21.9 - Gastro-esophageal reflux disease without esophagitis (7) Rheumatoid arthritis Rheumatoid arthritis location: unspecified site Rheumatoid factor presence: unspecified presence Qualified Code(s): M06.9 - Rheumatoid arthritis, unspecified (8) Dementia Dementia type: unspecified type Dementia behavioral disturbance: without behavioral disturbance Qualified Code(s): F03.90 - Unspecified dementia without behavioral disturbance
[2020-03-10] MEDS: SIMVASTATIN 40 MG TAB PO SCH (20:25)
[2020-03-10] MEDS: DONEPEZIL HCL 10 MG TAB PO SCH (20:25)
[2020-03-10] MEDS: MIRTAZAPINE SOLTAB 15 MG PO SCH (20:25)
[2020-03-10] MEDS: QUETIAPINE FUMARATE 25 MG TABLET PO SCH (20:25)
[2020-03-11] MEDS: SIMETHICONE 80 MG CHEW PO SCH ×3 (06:36→16:43)
[2020-03-11] MEDS: LEVOTHYROXINE SODIUM 100 MCG TABLET PO SCH (06:36)
--- NOTE | 2020-03-11 06:58 | Surgery Progress Note ---
Date of Service March 11, 2020 Assessment & Plan (1) Abdominal wall hematoma: Clinically patient does not appear to be actively bleeding She will have some pain associated with the hematoma Her a.m. H and H are pending at the present time It does not appear she requires surgical intervention Subjective Patient is resting comfortably and is in no distress Her vital signs are stable Review of Systems Review of Systems: All systems reviewed & are unremarkable except as noted in HPI & below Physical Exam Constitutional: no acute distress Respiratory: normal respiratory effort Cardiovascular: Rate/Rhythm: regular rate Gastrointestinal (Abdomen): Her abdomen is soft Skin: no rashes, warm and dry Neurologic: awake Psychiatric: Orientation: alert PG Care Time/CCT Total # of Minutes Spent Total Time Spent with Patient: Total time spent is greater than 50% in coordination of care (as documented) at patient's floor/unit and/or counseling patient: Coding Level of Care Code 73917 Inpt Consult Level 3 Diagnoses Abdominal wall hematoma S30.1XXA
[2020-03-11 08:20] LABS: Hematocrit (blood only) 27.4 % (37-47); Hemoglobin 8.8 g/dL (12.0-16.0); Mean Corpuscular Hemoglobin 33.5 pg (25-34); Mean Corpuscular Hgb Conc 32.1 g/dL (32-36); Mean Corpuscular Volume 104.2 fL (80-100); Nucleated RBC # (auto) 0.03 K/uL (0-0); Nucleated RBC % (auto) 0.3 %; Platelet Count 253 K/uL (130-400); RDW Coefficient of Variation 16.8 % (11.5-14.5); RDW Standard Deviation 61.3 fL (36.4-46.3); Red Blood Count 2.63 M/uL (4.2-5.4); White Blood Count 8.45 K/uL (4.8-10.8)
[2020-03-11] MEDS: LIDOCAINE 5% 1 PATCH TD SCH ×2 (08:22→08:23)
[2020-03-11] MEDS: GABAPENTIN 100 MG CAP PO SCH ×2 (08:23→20:25)
[2020-03-11] MEDS: AMLODIPINE BESYLATE 5 MG TAB PO SCH (08:23)
[2020-03-11] MEDS: PANTOprazole 40 MG TAB PO SCH ×2 (08:23→20:25)
[2020-03-11] MEDS: FOLIC ACID 1 MG TAB PO SCH (08:23)
[2020-03-11] MEDS: predniSONE 10 MG TABLET PO SCH (08:23)
[2020-03-11] MEDS: ACETAMINOPHEN 500 MG TAB PO SCH ×3 (08:30→20:26)
[2020-03-11 08:46] LABS: BUN Creatinine Ratio 14.8 (10-20); Calcium 8.4 mg/dl (8.5-10.1); Est GFR (Non-African American) 38.8; Magnesium 1.8 mg/dl (1.8-2.4); Potassium 3.6 mmol/L (3.5-5.1)
--- NOTE | 2020-03-11 13:16 | Hospitalist Progress Note ---
Date of Service March 11, 2020 Assessment & Plan (1) Abdominal wall hematoma: CT abd/ pelvis on 03/07 with hematoma 7x3.4 cm. - Required 1 unit of PRBCs on 03/08. - Surgery consulted - recommended conservative measures. Discussed patient with IR at [facility] - they would not recommend other interventions than what we are doing here. - At this point, hgb largely stable. Continue abdominal binder. Up to 8.8 today. No indication of continued bleeding. Seen by surgery as well. (2) Chest pain: Secondary to pleuritic pain from PE, rib fracture and hematoma. EKG 03/05 w/o ischemic changes. NSR. - Continue Lidoderm patches, morphine prn. (3) Pulmonary embolism: High probability on VQ scan on 03/06. Attempted anticoagulation, but had bleeding, so we had no choice, but to hold. - IVC filter placed with Dr. Sood on 03/08. (4) DVT (deep venous thrombosis): DVT in right external iliac and common femoral veins - incidentally found on CT at admission. 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 - LE dopplers with b/l DVT. - IVC filter on 03/08 as above (5) CKD (chronic kidney disease), stage III: At baseline Cr 1.4/1.5. Borderline stage 4 CKD - Presently at baseline. (6) Diarrhea: Ongoing for 6 weeks once a week but then 3 times daily for the last week - now resolved. C diff toxin negative 03/02, stool cx from 03/02 was negative. - GI consult appreciated. - Advised family to keep a food journal and if diarrhea recurs, consider C. diff testing as she was gene positive, but toxin negative on testing. (7) Hypothyroidism: TSH suppressed at 0.117 this admission. - Continue home levothyroxine but lowered to 100mcg daily. - TSH in 6 weeks as outpatient. (8) Hyperlipidemia: - Continue home simvastatin (9) Hypertension: BP 150/70 at present. - Continue home amlodipine (10) GERD (gastroesophageal reflux disease): - Continue PPI (11) Rheumatoid arthritis: Longstanding on chronic prednisone. - Continue prednisone 10 mg daily - Continue methotrexate once weekly and folic acid once daily (12) Dementia: Moderate by history and per daughter. - Continue home donepezil, Seroquel at bedtime, mirtazapine 45 mg scheduled at bedtime for depression - seroquel was increased for but will return to home dosing at discharge as her daughter reports she does well with this dose. 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 - Outpatient follow up (14) DVT prophylaxis: IVC filter as above. Heparin contraindicated given hematoma and bleeding. Admission and Anticipated Discharge Date Admission Date: March 03, 2020 Subjective Doing well today. Less pain on the right side. Reports no fevers/chills, chest pain, shortness of breath, abdominal pain, nausea, or vomiting. Physical Exam Constitutional: WD/WN, vitals as above Eyes: EOM intact bilaterally; no conjunctival abnormality ENMT: external ear and nose normal, oropharynx normal Neck: trachea midline, no thyromegaly normal visual inspection Respiratory: normal respiratory effort, lungs clear to auscultation no respiratory distress Cardiovascular: RRR, no murmur, no edema Gastrointestinal (Abdomen): Inspection/Auscultation: abdomen normal to inspection; abdomen not distended Musculoskeletal: no cyanosis or clubbing, extremities motor strength 5/5 Skin: + ecchymosis (Diffuse on right side and breasts) Neurologic: moves all extremities and awake Psychiatric: Orientation: alert, oriented to person and cooperative Results & Data Results & Data ([facility]) Vital Signs (Past 12 Hours) Vital Signs Temp Pulse Resp BP Pulse Ox 03/11/20 08:20 36.9 C 80 18 162/71 H 93 PG Care Time/CCT Total # of Minutes Spent Total Time Spent with Patient: Total time spent is greater than 50% in coordination of care (as documented) at patient's floor/unit and/or counseling patient: Coding Level of Care Code 02269 Subseq Hosp Care Lvl 2 Diagnoses Abdominal wall hematoma S30.1XXA Chest pain R07.9 Pulmonary embolism I26.99 DVT (deep venous thrombosis) I82.421 Affected thrombotic vein of extremity: iliac Chronicity: acute DVT location: lower extremity Laterality: right CKD (chronic kidney disease), stage III N18.3 Diarrhea R19.7 Diarrhea type: unspecified type Hypothyroidism E03.9 Hypothyroidism type: unspecified Hyperlipidemia E78.5 Hyperlipidemia type: unspecified Hypertension I10 Hypertension type: essential hypertension GERD (gastroesophageal reflux disease) K21.9 Esophagitis presence: esophagitis presence not specified Rheumatoid arthritis M06.9 Rheumatoid arthritis location: unspecified site Rheumatoid factor presence: unspecified presence Dementia F03.90 Dementia type: unspecified type Dementia behavioral disturbance: without behavioral disturbance Pancreatic mass K86.89 DVT prophylaxis Z29.9 (1) DVT (deep venous thrombosis) Affected thrombotic vein of extremity: iliac Chronicity: acute DVT location: lower extremity Laterality: right Qualified Code(s): I82.421 - Acute embolism and thrombosis of right iliac vein (2) Diarrhea Diarrhea type: unspecified type Qualified Code(s): R19.7 - Diarrhea, unspecified (3) Hypothyroidism Hypothyroidism type: unspecified Qualified Code(s): E03.9 - Hypothyroidism, unspecified (4) Hyperlipidemia Hyperlipidemia type: unspecified Qualified Code(s): E78.5 - Hyperlipidemia, unspecified (5) Hypertension Hypertension type: essential hypertension Qualified Code(s): I10 - Essential (primary) hypertension (6) GERD (gastroesophageal reflux disease) Esophagitis presence: esophagitis presence not specified Qualified Code(s): K21.9 - Gastro-esophageal reflux disease without esophagitis (7) Rheumatoid arthritis Rheumatoid arthritis location: unspecified site Rheumatoid factor presence: unspecified presence Qualified Code(s): M06.9 - Rheumatoid arthritis, unspecified (8) Dementia Dementia type: unspecified type Dementia behavioral disturbance: without behavioral disturbance Qualified Code(s): F03.90 - Unspecified dementia without behavioral disturbance
[2020-03-11] MEDS: MIRTAZAPINE SOLTAB 15 MG PO SCH (20:25)
[2020-03-11] MEDS: SIMVASTATIN 40 MG TAB PO SCH (20:25)
[2020-03-11] MEDS: DONEPEZIL HCL 10 MG TAB PO SCH (20:25)
[2020-03-11] MEDS: QUETIAPINE FUMARATE 25 MG TABLET PO SCH (20:25)
[2020-03-11 23:47] VITALS: TEMP 98.6; O2SAT 92
[2020-03-12] MEDS: LEVOTHYROXINE SODIUM 100 MCG TABLET PO SCH (05:38)
[2020-03-12 05:51] LABS: Hematocrit (blood only) 27.1 % (37-47); Hemoglobin 8.6 g/dL (12.0-16.0); Mean Corpuscular Hemoglobin 33.3 pg (25-34); Mean Corpuscular Hgb Conc 31.7 g/dL (32-36); Mean Platelet Volume 9.5 fL (7.4-10.4); Nucleated RBC # (auto) 0.04 K/uL (0-0); Nucleated RBC % (auto) 0.4 %; Platelet Count 213 K/uL (130-400); RDW Coefficient of Variation 16.8 % (11.5-14.5); RDW Standard Deviation 62.4 fL (36.4-46.3); Red Blood Count 2.58 M/uL (4.2-5.4); White Blood Count 9.06 K/uL (4.8-10.8)
--- NOTE | 2020-03-12 06:07 | Surgery Progress Note ---
Date of Service March 12, 2020 Assessment & Plan (1) Abdominal wall hematoma: Patient appears to be stable No acute changes No evidence of acute ongoing hemorrhage Monitor H&H Does not appear to acquire surgical intervention Subjective Patient in no distress Resting comfortably No acute changes Physical Exam Constitutional: no acute distress and not ill appearing Respiratory: normal respiratory effort; no respiratory distress Cardiovascular: Rate/Rhythm: regular rate Gastrointestinal (Abdomen): Inspection/Auscultation: abdomen not distended Results & Data Vital Signs (Past 12 Hours) Vital Signs Temp Pulse Resp BP Pulse Ox 03/11/20 23:00 37 C 80 16 130/69 92 PG Care Time/CCT Total # of Minutes Spent Total Time Spent with Patient: Total time spent is greater than 50% in coordination of care (as documented) at patient's floor/unit and/or counseling patient: Coding Level of Care Code 46376 Subseq Hosp Care Lvl 2 Diagnoses Abdominal wall hematoma S30.1XXA
[2020-03-12 06:18] LABS: Creatinine Clr Calc Pharmacy 27.4 ml/min; Est GFR (African American) 45.9; Est GFR (Non-African American) 39.6; Potassium 3.6 mmol/L (3.5-5.1)
[2020-03-12] MEDS: SIMETHICONE 80 MG CHEW PO SCH ×2 (09:05→12:03)
[2020-03-12] MEDS: GABAPENTIN 100 MG CAP PO SCH (09:05)
[2020-03-12] MEDS: metHOTREXate sodium 2.5 MG TAB PO SCH (09:06)
[2020-03-12] MEDS: AMLODIPINE BESYLATE 5 MG TAB PO SCH (09:06)
[2020-03-12] MEDS: predniSONE 10 MG TABLET PO SCH (09:06)
[2020-03-12] MEDS: LIDOCAINE 5% 1 PATCH TD SCH ×2 (09:07→09:08)
[2020-03-12] MEDS: ACETAMINOPHEN 500 MG TAB PO SCH (09:13)
[2020-03-12 11:46] VITALS: BP 162/71; PULSE 75
[2020-03-12] MEDS: ACETAMINOPHEN 325 MG TAB PO PRN (12:02)
[2020-03-12] MEDS: PANTOprazole 40 MG TAB PO SCH (12:03)
--- NOTE | 2020-03-12 13:53 | Discharge Summary ---
Date of Service March 12, 2020 Admission HPI Per Admitting Provider This patient is an 84-year-old female known to me with a history of recurrent UTI with ESBL E. 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 difficile colitis, who presents to the ER with diarrhea for 6 weeks and off-and-on abdominal pain several times a day for the last week that occurs mostly after eating. The diarrhea has become much worse just in the last week. For the last 6 weeks, she has had diarrhea maybe once a week, but now she is having it multiple times a day every time after she eats for the last week. She had a small amount of blood on the pad in her underwear once this week, but otherwise stool is nonbloody, no melena. She had some nausea yesterday but no vomiting. She has a decent appetite and her daughter has been pushing her to drink fluids. Today, she noted right sided abdominal pain that was getting much worse and came to the hospital. Denies fevers and chills. Of note, she was seen by GI in 08/2019 for constipation and there was mention of a possible retained biliary stone at that time and desire for MRCP. It does not appear this never got done. She was also scheduled to go and have a colonoscopy in the near future with GI as an outpatient. She has not had any travel anywhere and is been staying socially isolated [facility] at home. A stool sample was ordered by her PCP and her daughter dropped it off yesterday. She was C. difficile gene positive but toxin negative on 03/02/2020. A stool culture is pending. A CT of the abdomen/pelvis was ordered by the ER physician for her symptoms and discovered a DVT in the right external iliac and common femoral veins. She was started on a heparin drip in the ER and will be admitted for abdominal pain, diarrhea, and pelvic DVT. Principal Diagnosis DVTs and PEs Discharge Exam Constitutional WD/WN, vitals as above Eyes EOM intact bilaterally; no conjunctival abnormality ENMT external ear and nose normal, oropharynx normal Neck trachea midline, no thyromegaly normal visual inspection Respiratory normal respiratory effort, lungs clear to auscultation no respiratory distress Cardiovascular RRR, no murmur, no edema Gastrointestinal (Abdomen) Inspection/Auscultation: abdomen normal to inspection; abdomen not distended Musculoskeletal no cyanosis or clubbing, extremities motor strength 5/5 Skin + ecchymosis (Diffuse on right side and breasts) Neurologic moves all extremities and awake Psychiatric Orientation: alert, oriented to person and cooperative Discharge Data Allergies Allergy/AdvReac Type Severity Reaction Status Date / Time Penicillins Allergy Intermediate SWELLING Verified 03/03/20 15:45 celecoxib AdvReac Intermediate N/V Verified 12/31/19 15:35 cephalexin AdvReac Intermediate N/V Verified 12/31/19 15:35 methotrexate AdvReac Intermediate N/V Verified 12/31/19 15:35 nitrofurantoin AdvReac Intermediate N/V Verified 12/31/19 15:35 risedronate sodium AdvReac Intermediate NAUSEA AND Verified 12/31/19 15:35 VOMITING Consultations 03/03/20 15:45 ED Decision to Admit Stat 03/03/20 19:00 Consult Case Management - Discharge Planning Routine Consult Gastroenterology Routine 03/07/20 11:42 Consult General Surgery Routine 03/08/20 01:32 Consult Vascular Surgery Routine Procedures Performed Operation Date: 03/08/20 10:20 Actual Procedures p Inferior Vena Cava Filter Placement, Ultrasound Localization of Right Internal Jugular Vein, Flouroscopy for Positioning, Moderate Sedation from 1112- 1127(Right) - Horacio Sood MD Ordered Studies 03/03/20 11:30 CT abd pelvis IV con only Stat 03/03/20 17:05 CT head/brain wo con Routine US duplex mesenteric Urgent 03/04/20 09:48 US venous doppler LE BI Routine 03/07/20 10:00 CT abd pelvis wo con Stat 03/08/20 08:56 EV IVC filter placement Routine Hospital Course (1) Abdominal wall hematoma: CT abd/ pelvis on 03/07 with hematoma 7x3.4 cm. - Required 1 unit of PRBCs on 03/08. - Surgery consulted - recommended conservative measures. Discussed patient with IR at [facility] - they would not recommend other interventions than what we are doing here. - At this point, hgb largely stable. Continue abdominal binder. Up to 8.8 today. No indication of continued bleeding. Seen by surgery as well: Bruising will take several weeks to heal. (2) Chest pain: Secondary to pleuritic pain from PE, rib fracture and hematoma. EKG 03/05 w/o ischemic changes. NSR. - Continue Lidoderm patches, morphine prn. (3) Pulmonary embolism: High probability on VQ scan on 03/06. Attempted anticoagulation, but had bleeding, so we had no choice, but to hold. - IVC filter placed with Dr. Sood on 03/08. - Family aware that the IVC filter does not treat the PEs. If she worsens, they understand she may pass away from this issue and are at peace with this. (4) DVT (deep venous thrombosis): DVT in right external iliac and common femoral veins - incidentally found on CT at admission. 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 - LE dopplers with b/l DVT. - IVC filter on 03/08 as above (5) CKD (chronic kidney disease), stage III: At baseline Cr 1.4/1.5. Borderline stage 4 CKD - Presently at baseline. (6) Diarrhea: Ongoing for 6 weeks once a week but then 3 times daily for the last week - now resolved. C diff toxin negative 03/02, stool cx from 03/02 was negative. - GI consult appreciated. - Advised family to keep a food journal and if diarrhea recurs, consider C. diff testing as she was gene positive, but toxin negative on testing. (7) Hypothyroidism: TSH suppressed at 0.117 this admission. - Continue home levothyroxine - TSH in 6 weeks as outpatient. (8) Hyperlipidemia: - Continue home simvastatin (9) Hypertension: BP 150/70 at present. - Continue home amlodipine (10) GERD (gastroesophageal reflux disease): - Continue PPI (11) Rheumatoid arthritis: Longstanding on chronic prednisone. - Continue prednisone 10 mg daily - Continue methotrexate once weekly and folic acid once daily (12) Dementia: Moderate by history and per daughter. - Continue home donepezil, Seroquel at bedtime, mirtazapine 45 mg scheduled at bedtime for depression - seroquel was increased for but will return to home dosing at discharge as her daughter reports she does well with this dose. 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 - Outpatient follow up (14) DVT prophylaxis: IVC filter as above. Heparin contraindicated given hematoma and bleeding. Total Time Total Time Spent Total Time Spent (In Minutes): 35 Discharge Plan Discharge Items Patient Disposition: Home - Home Health Services Reason For Visit: ABD PAIN PELVIC DVT Discharge Diagnosis: Blood clots in the lung and legs Broken right 6th rib Large hematoma (blood pooling) from anticoagulation Activity: Resume your previous activity Lifting: No more than 5 pounds Exercise/Sports: Gradually increase as tolerated Non-emergency contact: Primary Care Provider Call non-emergency contact if: your symptoms worsen and your pain is not controlled Follow-up/Referrals: Vasiliy Uriostegui MD [Primary Care Provider] - Diet: Regular Addtl Attending Provider Instructions: You were admitted to the hospital with abdominal pain and diarrhea. While testing, we found substantial blood clots in the legs and in the lungs as well. We tried to use anticoagulation (blood thinner) to help dissolve these clots; however, you had a large amount of bleeding in the right chest wall, causing big bruises on your right side. In the end, you needed one unit of blood, but your blood counts seem to be stable at this point over the last 4 days. Unfortunately, this bruising (along with a broken rib on the right side) are causing significant discomfort. Please use the lidocaine patches to try to help on the 2-3 most uncomfortable spots. The bruising is getting better, but it will take at least a few weeks for your body to break down the red blood cells and reabsorb them. For your diarrhea, it seems to have resolved in the hospital. C. diff testing was negative. I would recommend a food journal to see if any particular foods make it better or worse. If it restarts and continues, please discuss this with Dr. Uriostegui. Please follow up with Dr. Uriostegui in the clinic. Overall, you are doing well/stable, but it will be a bit of a long road to get to feeling better after everything you've been through. Hang in there, and we hope you get better soon! Pending Studies at Discharge: No Stand-Alone Forms: My stickK, Smoking Cessation Medications and DC Order Prescriptions: New lidocaine 5 % Adhesive Patch,Medicated 3 patch transdermal DAILY PRN (Reason: Rib pain) Qty: 30 RF: 1 Continued levothyroxine 112 mcg tablet 112 mcg PO QAM Qty: 30 RF: 3 folic acid 1 mg tablet 1 mg PO 6XWK Qty: 90 RF: 1 (DME) heating pads pad See Dose Instructions .ROUTE .MEDSUPPLY Qty: 1 RF: 0 Preparation H Rapid Rlf-Lidocn 5-0.25-14.4-15 % cream 1 appln TOP QID Qty: 28 RF: 1 acetaminophen [Tylenol Extra Strength] 500 mg tablet 500 mg PO TID Qty: 90 RF: 5 gabapentin 100 mg capsule 100 mg PO BID Qty: 60 RF: 1 quetiapine 25 mg tablet 12.5 mg PO QPM Qty: 30 RF: 0 nitrofurantoin macrocrystal 50 mg capsule 50 mg PO DAILY Qty: 90 RF: 3 cranberry 500 mg capsule 500 mg PO QAM RF: 0 calcium carbonate [Antacid (calcium carbonate)] 320 mg calcium (750 mg) tablet,chewable 320 mg PO BID PRN (Reason: Indigestion) RF: 0 methotrexate sodium 2.5 mg tablet 2.5 mg PO WEEKLY RF: 0 amlodipine 5 mg Tablet 5 mg PO QAM RF: 0 oxycodone 5 mg tablet 5 mg PO BID PRN (Reason: pain) Qty: 1 RF: 0 donepezil 10 mg Tablet 10 mg PO HS RF: 0 simvastatin 40 mg Tablet 40 mg PO HS RF: 0 pantoprazole 40 mg Tablet,Delayed Release (Dr/Ec) 40 mg PO BID RF: 0 mirtazapine 45 mg Tablet 45 mg PO HS RF: 0 polyethylene glycol 3350 [Miralax] 17 gram Powder In Packet 17 g PO DAILY PRN (Reason: Constipation) RF: 0 prednisone 10 mg Tablet 10 mg PO DAILY RF: 0 simethicone 80 mg tablet,chewable 160 mg PO DAILY RF: 0 Discontinued aspirin [Aspir-81] 81 mg Tablet,Delayed Release (Dr/Ec) 81 mg PO BID RF: 0 Reguloid, Sugar Free Powder 1 tbsp PO DAILY RF: 0 Discharge Orders: Discharge Order (Routine); Ordered 03/12/20 Ordered By: Skinny Sullivan Admission Data Admit Date/Time: 03/03/20 17:05 Attending Provider: Skinny Sullivan Admit Provider: Snow Praham Primary Care Provider: Vasiliy Uriostegui Other Providers: Skinny Sullivan ; [facility] ; Snow Parham ; Maryan Singh ; Parris Ojeda ; Horacio Sood Other Interventions: Discharge Summary Assessment (RN) Last Done: 03/12/20 11:45 DC Date/Time DO NOT enter until pt leaves facility: 03/12/20 13:26 Coding Level of Care Code D/C Day Management >30 mins Diagnoses Abdominal wall hematoma S30.1XXA Chest pain R07.9 Pulmonary embolism I26.99 DVT (deep venous thrombosis) I82.421 Affected thrombotic vein of extremity: iliac Chronicity: acute DVT location: lower extremity Laterality: right CKD (chronic kidney disease), stage III N18.3 Diarrhea R19.7 Diarrhea type: unspecified type Hypothyroidism E03.9 Hypothyroidism type: unspecified Hyperlipidemia E78.5 Hyperlipidemia type: unspecified Hypertension I10 Hypertension type: essential hypertension GERD (gastroesophageal reflux disease) K21.9 Esophagitis presence: esophagitis presence not specified Rheumatoid arthritis M06.9 Rheumatoid arthritis location: unspecified site Rheumatoid factor presence: unspecified presence Dementia F03.90 Dementia type: unspecified type Dementia behavioral disturbance: without behavioral disturbance Pancreatic mass K86.89 DVT prophylaxis Z29.9
== END 2020-03-12 13:26 | disposition home health service (06) | DRG 252 ==
LOC: ED 11:02 → SUATTDRO 17:05 → 3W 17:05 → 2E 03-07 12:43 → 2N 03-10 13:42 → 2W 03-10 22:33

== ENCOUNTER 2020-04-19 02:38 | Observation (INO) ==
--- NOTE | 2020-04-19 03:00 | Emergency Department Note ---
Impression & Plan Acute confusion, Hallucinations ED Provider Note Name: ELIZABETH MICHAEL Age: 84 Sex: F Arrives Via: Walk-In Informant: Patient (confused), Daughter ED Provider: Heriberto Hill MD Chief Complaint: Confusion Impression: Acute Confusion Hallucinations Medical Decision Makin yr old female with extensive PMH including CAD, PE, CKD, UTI with ESBL, HTN, DLP, GERD, amongst others arrives for evaluation of acute confusion. Daughter notes that she is much more confused than her baseline mild dementia and is now having hallucinations of talking to her . With previous UTI history went ahead with straight cath UA which is essentially unremarkable. I opted to get CT head which was also unremarkable. Labs with just mild bun elevation which may be some mild dehydration, thus given some IV fluids though patient remains pleasantly confused. Daughter makes clear this is an acute change from her baseline and is not safe to take home. There is no evidence of other infectious cause, acs, nor other reason. She does have low TSH which is chronic, and T4 is normal, and of note they did decrease synthroid recently due to low TSH levels though seems unlikely cause of her confusion. Will bring in for further evaluation/management by hospitalist team. Triage/Nursing Notes reviewed by Me Additional history obtained from daughter and chart Differentials:Infection, hypoglycemia, electrolyte abnormalities, overdose, toxicologic, cardiac sources, intracerebral event, neurologic, trauma, as well as other pathologies. Vital Signs: reviewed and remarkable for HTN Interventions: saline lock, nss bolus Labs:Reviewed and remarkable for no significant abnormalities Imaging:X ray results are stated below per my interpretation: Chest: 1 view: No infiltrate, no effusion, normal cardiac border. EKG:Per My Interpretation: Indication Confusion: NSR 82 bpm, qtc 429. No Ectopy. No Ischemia. Compared to EKG 03/05/20, no significant changes. Cardiac/Tele Monitoring: Cardiac Monitoring: An Order was placed for continuous cardiac monitoring. The monitor shows a rate of 80 with a normal sinus rhythm. Consults:Dr Sommers Plan: Disposition:Hospitalization Condition: Good Blood pressure:Elevated - referred to hospitalist Prescriptions:none PDMP: n/a History of Present Illness:84 yr old female with extensive past medical history arrives for evaluation of increasing confusion. Patient with acute worsening confusion over the last 6 hours. Associated with hallucinating that her is outside and talking to her. She had been a bit confused over the last 24 hours but was doing OK. This is similar to how she active with UTI several months ago. Daughter cares for her and denies any falls, injuries, trauma. Patient without recent fevers, sob, cough, headache, neck pain, cp, syncope, abdominal pain, back pain, leg swelling nor other symptoms. She has bruising of skin which is chronic. Recently diagnosed with pelvic DVT though is not on anticoagulation due to bleeding issues. ROS: See above HPI for pertinent positives & negatives. A total of 10 systems reviewed and were otherwise negative. Past Medical History:See Below Past Surgical History:See Below Family History:See Below Social History:See Below Home Medications:See Below Allergies:See Below Vitals:Blood Pressure: 165/92, Pulse 72, RR 20, T 36.8C, O2 100% on RA Physical Exam: GENERAL: Patient is elderly appearing and in no distress. She is somewhat confused. EYES: No scleral icterus, unremarkable pupils. ENT: Mucous membranes moist, no nasal congestion. NECK: No masses appreciated, nomeningismus, trachea is midline. RESPIRATORY: No dyspnea. Clear to auscultation and equal bilaterally. No wheeze, no rhonchi. CARDIOVASCULAR: Regular rate and rhythm.No murmurs, rubs, gallops appreciated. GASTROINTESTINAL: Abdomen soft, non-tender, no peritonitis.Bowel sounds positive.No masses appreciated. BACK: No midline tenderness, no CVA tenderness EXTREMITIES: Normal motion all extremities, no cyanosis, no edema. NEUROLOGIC: Oriented to person only, no acute motor or sensory deficits, no focal weakness, cranial nerves grossly intact. SKIN: No rash, no jaundice, no diaphoresis. PSYCH: Appropriate GCS: 15 Heriberto Hill MD Past Med/Surg History Medical History (Updated 04/19/20 @ 06:34 by Heriberto Hill MD) Anemia of chronic disease ASCVD (arteriosclerotic cardiovascular disease) C. difficile colitis january2017 Chronic kidney disease Chronic UTI Closed right hip fracture Constipation Contact dermatitis Dementia Diarrhea Fall GERD (gastroesophageal reflux disease) Hip pain, right Hyperlipidemia Hypertension Hypotension Hypothyroidism Kidney stones Macrocytic anemia Pancreatic mass PVD (peripheral vascular disease) Rheumatoid arthritis Thrombosed external hemorrhoid Vitamin D insufficiency Surgical History History of umbilical hernia repair Hx of cholecystectomy Hx of colonoscopy Hx of esophagogastroduodenoscopy Family History Unknown Arteriosclerotic cardiovascular disease (ASCVD) Father Heart disease Diabetes Myocardial infarction Mother Cancer Hypertension Mother Breast cancer Other Family history non-contributory Denies family history of Ovarian cancer Prostate cancer Crohn's disease Lung cancer Colorectal cancer Ulcerative colitis Stroke Social History Smoking Status: Never smoker Second Hand Exposure: No; Hx Alcohol Use: No Hx Substance Use: No Preferred Language: Colombian Communication Ability: Effective Visual Impairment: No Limitations Hearing Ability: Normal Licensing Engineer Required: No Beliefs That Will Affect Care: None marital status: / Current Living Situation: Family Current Living Situation Comment: Lived with daughter Natalya since Covid current occupational status: other Feels Safe at Home: Yes Childhood Exposure to Second-Hand Smoke: No caffeine: Yes Dental Care, Regularly: No Physical Activity Frequency: Does not Exercise Seatbelt Use: always Sunscreen Use: No Allergies Allergies Allergy/AdvReac Type Severity Reaction Status Date / Time Penicillins Allergy Intermediate SWELLING Verified 04/19/20 03:07 celecoxib AdvReac Intermediate N/V Verified 04/19/20 03:07 cephalexin AdvReac Intermediate N/V Verified 04/19/20 03:07 methotrexate AdvReac Intermediate N/V Verified 04/19/20 03:07 nitrofurantoin AdvReac Intermediate N/V Verified 04/19/20 03:07 risedronate sodium AdvReac Intermediate NAUSEA AND Verified 04/19/20 03:07 VOMITING Home Meds Home Medications Medication Instructions Recorded Confirmed aspirin 81 mg tablet,delayed 81 mg PO DAILY 03/21/20 04/19/20 release nitrofurantoin macrocrystal 50 mg PO DAILY 04/19/20 04/19/20 Previous Rx's Medication Instructions Recorded heating pads #1 ea 04/20/19 acetaminophen 500 mg tablet 500 mg PO TID #270 tab 03/20/20 amlodipine 5 mg tablet 5 mg PO DAILY #90 tab 03/20/20 folic acid 1 mg tablet 1 mg PO 6XWK #90 tab 03/20/20 gabapentin 100 mg capsule 100 mg PO BID #60 cap 03/20/20 hyoscyamine sulfate 0.125 mg tablet 0.125 mg PO QID #360 tab 03/20/20 prednisone 10 mg tablet 10 mg PO DAILY #90 tab 03/20/20 psyllium 1 tbsp PO DAILY #300 g 03/20/20 simethicone 80 mg chewable tablet 160 mg PO TID #540 tab 03/20/20 simvastatin 40 mg tablet 40 mg PO HS #90 tab 03/20/20 esomeprazole magnesium 40 mg 40 mg PO BID #60 cap 03/21/20 capsule,delayed release calcium carbonate 320 mg calcium 320 mg PO BID PRN #60 tab 03/23/20 (750 mg) chewable tablet cranberry 500 mg capsule 500 mg PO DAILY #90 cap 03/23/20 donepezil 10 mg tablet 10 mg PO HS 30 Days #30 tab 03/23/20 mirtazapine 45 mg tablet 45 mg PO HS 30 Days #30 tab 03/23/20 polyethylene glycol 3350 17 17 g PO DAILY PRN #1 btl 03/23/20 gram/dose oral powder quetiapine 25 mg tablet 12.5 mg PO QPM 30 Days #30 tab 03/23/20 levothyroxine 100 mcg tablet 100 mcg PO DAILY #30 tab 04/07/20 methotrexate sodium 2.5 mg tablet See Rx Instructions PO WEEKLY #12 04/11/20 tab Results & Data (ED) Vital Signs Vital Signs - 24 hr 04/19/20 02:42 04/19/20 03:03 04/19/20 03:31 Temperature 36.8 C Temperature Source Oral Pulse Rate 72 78 76 Pulse Rate from SpO2 Sensor 78 77 Respiratory Rate 20 18 20 Respiratory Effort / Characteristics Non-Labored Spontaneous Respiratory Depth Normal Blood Pressure 165/92 H 144/95 H Blood Pressure Mean 116 121 Pulse Oximetry 100 97 98 Oxygen Delivery Method Room Air Sepsis Recent Fever Within 48 Hours No Sepsis New/Unexplained Change in Mental Status Yes Sepsis Action Taken by Nursing No Action Required 04/19/20 04:00 04/19/20 04:24 04/19/20 04:30 Temperature Temperature Source Pulse Rate 76 80 76 Pulse Rate from SpO2 Sensor 76 80 76 Respiratory Rate 15 19 17 Respiratory Effort / Characteristics Respiratory Depth Blood Pressure 211/79 H 184/87 H Blood Pressure Mean 123 120 Pulse Oximetry 97 98 97 Oxygen Delivery Method Sepsis Recent Fever Within 48 Hours Sepsis New/Unexplained Change in Mental Status Sepsis Action Taken by Nursing 04/19/20 05:00 04/19/20 05:30 04/19/20 05:31 Temperature Temperature Source Pulse Rate 79 85 80 Pulse Rate from SpO2 Sensor 79 86 81 Respiratory Rate 23 14 21 Respiratory Effort / Characteristics Respiratory Depth Blood Pressure 205/93 H 171/148 H Blood Pressure Mean 121 149 Pulse Oximetry 97 96 97 Oxygen Delivery Method Sepsis Recent Fever Within 48 Hours Sepsis New/Unexplained Change in Mental Status Sepsis Action Taken by Nursing 04/19/20 06:00 04/19/20 06:01 Temperature Temperature Source Pulse Rate 83 82 Pulse Rate from SpO2 Sensor 82 82 Respiratory Rate 16 24 Respiratory Effort / Characteristics Respiratory Depth Blood Pressure 187/90 H Blood Pressure Mean 129 Pulse Oximetry 97 96 Oxygen Delivery Method Sepsis Recent Fever Within 48 Hours Sepsis New/Unexplained Change in Mental Status Sepsis Action Taken by Nursing Laboratory Data Result diagrams: 04/19/20 03:15 04/19/20 03:15 Lab Results 04/19/20 04/19/20 04/19/20 Range/Units 03:00 03:15 03:15 WBC 6.86 (4.8-10.8) K/uL RBC 3.58 L (4.2-5.4) M/uL Hgb 12.1 (12.0-16.0) g/dL Hct 37.7 (37-47) % MCV 105.3 H (80-100) fL MCH 33.8 (25-34) pg MCHC 32.1 (32-36) g/dL RDW Std Deviation 57.8 H (36.4-46.3) fL RDW Coeff of Adrien 15.0 H (11.5-14.5) % Plt Count 235 (130-400) K/uL MPV 9.0 (7.4-10.4) fL Immature Gran % (Auto) 0.3 % Neut % (Auto) 76.6 % Lymph % (Auto) 15.2 % [place] % (Auto) 6.9 % Eos % (Auto) 0.9 % Baso % (Auto) 0.1 % Neut # (Auto) 5.26 (1.4-6.5) K/uL Lymph # (Auto) 1.04 L (1.2-3.4) K/uL Canadian # (Auto) 0.47 (0.11-0.59) K/uL Eos # (Auto) 0.06 (0-0.5) K/uL Baso # (Auto) 0.01 (0-0.2) K/uL Immature Gran # (Auto) 0.02 (0.00-0.02) K/uL Sodium 144 (136-145) mmol/L Potassium 4.4 (3.5-5.1) mmol/L Chloride 110 H (98-107) mmol/L Carbon Dioxide 29 (21-32) mmol/L Anion Gap 5.0 (3-11) BUN 24 H (7-18) mg/dl Creatinine 1.37 H (0.6-1.2) mg/dl Est Cr Clr Drug Dosing Not Reportable Est GFR ( Amer) 40.7 Est GFR (Non-Af Amer) 35.1 BUN/Creatinine Ratio 17.8 (10-20) Glucose 103 H (70-99) mg/dl Calcium 8.8 (8.5-10.1) mg/dl Magnesium 2.1 (1.8-2.4) mg/dl Total Bilirubin 0.3 (0.2-1) mg/dl Direct Bilirubin 0.1 (0-0.2) mg/dl AST 14 L (15-37) U/L ALT 14 (12-78) U/L Alkaline Phosphatase 57 (45-117) U/L Troponin I < 0.015 (0-0.045) ng/ml Total Protein 6.5 (6.4-8.2) gm/dl Albumin 3.3 L (3.4-5.0) gm/dl Lipase 190 (73-393) U/L TSH 0.091 L (0.300-4.500) uIu/ml Free T4 1.47 (0.8-1.6) ng/dl Urine Color Yellow Urine Appearance Clear (Clear) Urine pH 6.5 (4.5-7.5) Ur Specific [employer] 1.015 (1.000-1.030) Urine Protein Trace H (Negative) Urine Glucose (UA) Negative (Negative) Urine Ketones Negative (Negative) Urine Blood 1+ H (Negative) Urine Nitrite Negative (Negative) Urine Bilirubin Negative (Negative) Urine Urobilinogen Negative (Negative) Ur Leukocyte Esterase Negative (Negative) Urine WBC (Auto) 0 (0-5) /hpf Urine RBC (Auto) 10-30 H (0-4) /hpf U Hyaline Cast (Auto) 1-5 (0-5) /lpf U Epithel Cells (Auto) 10-20 H (0-5) /lpf Urine Bacteria (Auto) Negative (Negative) Administered Medications Discontinued Medications Sodium Chloride (Nss 1000ml) 500 mls @ 999 mls/hr IV .Q31M ONE Stop: 04/19/20 04:13 Last Infusion: 04/19/20 04:18 Dose: 0 mls/hr Documented by: [id number] Admin: 04/19/20 03:46 Dose: 999 mls/hr Documented by: [id number] Discharge Plan Visit Data Chief Complaint: Urinary Symptoms Stated Complaint: UTI ED Provider: Heriberto Hill Discharge Problem: Acute confusion, Hallucinations Discharge Instructions Interventions: ED Discharge Assessment Last Done: 04/19/20 06:29 Forms Stand Alone Forms: [facility] Prescriptions Prescriptions: No Action (DME) heating pads pad See Dose Instructions .ROUTE .MEDSUPPLY Qty: 1 RF: 0 acetaminophen [Tylenol Extra Strength] 500 mg tablet 500 mg PO TID Qty: 270 RF: 3 amlodipine 5 mg tablet 5 mg PO DAILY Qty: 90 RF: 3 folic acid 1 mg tablet 1 mg PO 6XWK Qty: 90 RF: 3 gabapentin 100 mg capsule 100 mg PO BID Qty: 60 RF: 5 hyoscyamine sulfate 0.125 mg tablet 0.125 mg PO QID Qty: 360 RF: 3 prednisone 10 mg tablet 10 mg PO DAILY Qty: 90 RF: 3 psyllium Powder 1 tbsp PO DAILY Qty: 300 RF: 3 simethicone 80 mg tablet,chewable 160 mg PO TID Qty: 540 RF: 3 simvastatin 40 mg tablet 40 mg PO HS Qty: 90 RF: 3 calcium carbonate [Antacid (calcium carbonate)] 320 mg calcium (750 mg) tablet,chewable 320 mg PO BID PRN (Reason: Indigestion) Qty: 60 RF: 3 cranberry 500 mg capsule 500 mg PO DAILY Qty: 90 RF: 3 polyethylene glycol 3350 17 gram/dose powder 17 g PO DAILY PRN (Reason: constipation) Qty: 1 RF: 3 donepezil 10 mg tablet 10 mg PO HS 30 Days Qty: 30 RF: 5 mirtazapine 45 mg tablet 45 mg PO HS 30 Days Qty: 30 RF: 5 quetiapine 25 mg tablet 12.5 mg PO QPM 30 Days Qty: 30 RF: 5 levothyroxine 100 mcg tablet 100 mcg PO DAILY Qty: 30 RF: 1 methotrexate sodium 2.5 mg tablet See Rx Instructions PO WEEKLY Qty: 12 RF: 3 aspirin 81 mg tablet,delayed release (DR/EC) 81 mg PO DAILY RF: 0 esomeprazole magnesium 40 mg capsule,delayed release(DR/EC) 40 mg PO BID Qty: 60 RF: 2 nitrofurantoin macrocrystal 50 mg capsule 50 mg PO DAILY RF: 0 Referrals Referrals: Vasiliy Uriostegui MD [Primary Care Provider] -
[2020-04-19 03:18] LABS: Appearance Urine Clear (Clear); Bacteria Urine Automated Negative (Negative); Bilirubin Urine Negative (Negative); Blood Urine 1+ (Negative); Color Urine Yellow; Glucose Urine UA Negative (Negative); Ketones Urine Negative (Negative); Leukocyte Esterase Urine Negative (Negative); Nitrite Urine Negative (Negative); Protein Urine Trace (Negative); Specific Gravity Urine 1.015 (1.000-1.030); Urobilinogen Urine Negative (Negative); WBC Urine Automated 0 /hpf (0-5); pH Urine 6.5 (4.5-7.5)
[2020-04-19 03:24] LABS: Basophils # (auto) 0.01 K/uL (0-0.2); Basophils % (auto) 0.1 %; Eosinophils # (auto) 0.06 K/uL (0-0.5); Eosinophils % (auto) 0.9 %; Hematocrit (blood only) 37.7 % (37-47); Hemoglobin 12.1 g/dL (12.0-16.0); Immature Granulocytes # (auto) 0.02 K/uL (0.00-0.02); Immature Granulocytes % (auto) 0.3 %; Lymphocytes # (auto) 1.04 K/uL (1.2-3.4); Lymphocytes % (auto) 15.2 %; Mean Corpuscular Hemoglobin 33.8 pg (25-34); Mean Corpuscular Hgb Conc 32.1 g/dL (32-36); Mean Corpuscular Volume 105.3 fL (80-100); Monocytes # (auto) 0.47 K/uL (0.11-0.59); Monocytes % (auto) 6.9 %; Neutrophils # (auto) 5.26 K/uL (1.4-6.5); Neutrophils % (auto) 76.6 %; Platelet Count 235 K/uL (130-400); RDW Standard Deviation 57.8 fL (36.4-46.3); Red Blood Count 3.58 M/uL (4.2-5.4); White Blood Count 6.86 K/uL (4.8-10.8)
[2020-04-19 03:41] LABS: Alanine Aminotransferase 14 U/L (12-78); Albumin Level 3.3 gm/dl (3.4-5.0); Aspartate Aminotransferase 14 U/L (15-37); BUN Creatinine Ratio 17.8 (10-20); Bilirubin Direct 0.1 mg/dl (0-0.2); Blood Urea Nitrogen 24 mg/dl (7-18); Calcium 8.8 mg/dl (8.5-10.1); Carbon Dioxide 29 mmol/L (21-32); Chloride 110 mmol/L (98-107); Est GFR (African American) 40.7; Est GFR (Non-African American) 35.1; Glucose 103 mg/dl (70-99); Lipase 190 U/L (73-393); Magnesium 2.1 mg/dl (1.8-2.4); Potassium 4.4 mmol/L (3.5-5.1); Sodium 144 mmol/L (136-145)
[2020-04-19] MEDS ORDERED: SODIUM CHLORIDE 0.9% 1000ML 500 ML IV ONE (03:43)
[2020-04-19 03:52] LABS: Alkaline Phosphatase 57 U/L (45-117); Bilirubin,Total 0.3 mg/dl (0.2-1); Thyroid Stimulating Hormone 0.091 uIu/ml (0.300-4.500); Total Protein 6.5 gm/dl (6.4-8.2); Troponin I < 0.015 ng/ml (0-0.045)
[2020-04-19 04:42] LABS: T4 Free Thyroxine 1.47 ng/dl (0.8-1.6)
[2020-04-19] MEDS ORDERED: ONDANSETRON INJ 2 MG/ML 2 ML VIAL IV PRN (07:06)
[2020-04-19] MEDS ORDERED: ALUMINUM/MAGNESIUM SUSP 30 ML UDC PO PRN (07:06)
[2020-04-19] MEDS ORDERED: POLYETHYLENE (MIRALAX) 17 GM PACK PO PRN (07:06)
[2020-04-19] MEDS ORDERED: ACETAMINOPHEN 325 MG TAB PO PRN (07:06)
--- NOTE | 2020-04-19 07:21 | CT Scan Report ---
CT SCAN OF THE BRAIN WITHOUT IV CONTRAST CLINICAL HISTORY: Change in mental status. COMPARISON STUDY: CT of the brain dated 03/03/2020. TECHNIQUE: Unenhanced axial CT scan of the brain is performed from the vertex to the skull base. A do se lowering technique was utilized adhering to the principles of ALARA. CT DOSE: 614.27 mGy.cm FINDINGS: Brain parenchyma: There are age-related involutional changes noting moderate patchy subcortical and periventricular microangiopathic change. There is no hemorrhage, mass effect, or evidence of acute te rritorial ischemia by CT criteria. Spirng-white matter differentiation is preserved. No extra-axial flu id collection is seen. Ventricles, sulci, cisterns: Prominent secondary to involutional change. Intracranial vasculature: There is atherosclerotic calcification of the cavernous carotid and vertebr al arteries. Calvarium: Unremarkable. Sinuses and mastoids: The visualized paranasal sinuses are clear. There is a small right mastoid effu gerardo. The left mastoid air cells are well pneumatized. Orbits: The bony orbits are grossly intact. There is a left ocular lens implant. IMPRESSION: There is no hemorrhage, mass effect, or evidence of acute territorial ischemia by CT ivis herrera. ACT 112: Negative or not required by law. Electronically signed by: Roberto Concepcion M.D. 04/19/2020 7:19 AM
[2020-04-19] MEDS ORDERED: CALCIUM CARBONATE 500 MG CHEWABLE TAB PO PRN (07:29)
[2020-04-19] MEDS ORDERED: QUETIAPINE FUMARATE 25 MG TABLET PO PRN (07:30)
--- NOTE | 2020-04-19 07:43 | History & Physical Report ---
Date of Service April 19, 2020 Assessment & Plan (1) Acute confusion: Orin Hunter is an 84 year old woman with PMH documented above here for acutely altered mental status Altered mental status No clear source of her altered mental status, only recent medication change was an appropriate decrease in her levothyroxine, no sign of infection on exam or labwork or on CT head Tox screen ordered Ammonia level normal, TSH normal, Renal function at baseline, WBC normal, not anemic Patient with history of sundowning, this could be delirium secondary to lack of sleep Another possibility is that this represents an accumulation of her nitrofurantoin which has been shown to occur more frequently in patients with decreased creatinine clearance causing delusions and hallucinations. Also possibly just worsening of her dementia or worsening depression Steroids can cause this altered mental status but patient has been on these chronically, patient also on antiopsychotic medication as needed for sundowning lack on consistency of this medication could be playing a role Neurology consult placed may also benefit from Psych consult PT/OT consult placed VTE disease Stable, no changes to respiratory status Not anticoagulating secondary to bleed while on heparin during last admission HLD Continuing home statin though patient may benefit from holding this as there is a major drug interaction between statin medication and her amlodipine Fortunately she is tolerating this combination well chronically Rheumatoid arhtiritis Continuing home steroids methotrexate regimen Stable HIstory of ESBL UTI's Without symptoms or labwork/urinarlysis suggestive of UTI I will not start treatment at this time WIll await culture results Holding nitrofurantoin as it can cause accumulation particularly in patient's with decreased creatinine clearance MIght try a different snf preventative antibiotic on discharge F/E?N: heart Healthy diet encourage PO intake DVT PPx: Lovenox Dispo: Admit for further evaluation DNR/DNI (2) Abdominal wall hematoma: (3) Pulmonary embolism: (4) Encephalopathy acute: (5) Loose stools: Admission and Anticipated Discharge Date Admission Date: April 19, 2020 History of Present Illness Chief Complaint: AMS Primary Care Provider: Vasiliy Uriostegui MD Orin Hunter is an 84 year old woman with a past medical history significant for rheumatoid arthritis on chronic steroids, HTN, HLD, Dementia, CKD III, ESBL UTI's, Hypothyroidism, 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 Diff colitis and diagnosed with DVT in right external iliac and common femoral veins and pulmonary embolism discovered on VQ scan. Patient was started on heparin drip but unfortunately developed an abdominal wall hematoma and anticoagulation was ceased. IVC filter placed on 03/08. Since that time patient has been living with daughter who took her out of her assisted living facility due to COVID concerns. She has been doing fiarly well since discharge and has presented to her primary care physician for pleuritic chest pain but that is mostly resolved. Her diarrhea she was having is much improved and she was toxin negative during last admission. Patient reportedly has not been sleeping well for past several days and for the last day patient's mental status has severely declined. She is now quite confused and has started talking about her as if he were still alive and quite confused as to what she is doing. Daughter suspected this could be possibly due to another UTI though she has not had any urinary symptoms. On admission to ED vital signs significant for only Hypertension, labwork without significant abnormality apart from an increased creatinine of 1.37 about at her baseline, CT head negative, chest x ray negative. Lives at home with daughter, nonsmoker nondrinker no drug use DNR/DNI Allergies Allergy/AdvReac Type Severity Reaction Status Date / Time Penicillins Allergy Intermediate SWELLING Verified 04/19/20 03:07 celecoxib AdvReac Intermediate N/V Verified 04/19/20 03:07 cephalexin AdvReac Intermediate N/V Verified 04/19/20 03:07 methotrexate AdvReac Intermediate N/V Verified 04/19/20 03:07 nitrofurantoin AdvReac Intermediate N/V Verified 04/19/20 03:07 risedronate sodium AdvReac Intermediate NAUSEA AND Verified 04/19/20 03:07 VOMITING Home Medications Home Medications Medication Instructions Recorded Confirmed Type heating pads #1 ea 04/20/19 04/03/20 Rx acetaminophen 500 mg tablet 500 mg PO TID #270 tab 03/20/20 04/19/20 Rx amlodipine 5 mg tablet 5 mg PO DAILY #90 tab 03/20/20 04/19/20 Rx folic acid 1 mg tablet 1 mg PO 6XWK #90 tab 03/20/20 04/19/20 Rx gabapentin 100 mg capsule 100 mg PO BID #60 cap 03/20/20 04/19/20 Rx hyoscyamine sulfate 0.125 mg tablet 0.125 mg PO QID #360 tab 03/20/20 04/19/20 Rx prednisone 10 mg tablet 10 mg PO DAILY #90 tab 03/20/20 04/19/20 Rx psyllium 1 tbsp PO DAILY #300 g 03/20/20 04/19/20 Rx simethicone 80 mg chewable tablet 160 mg PO TID #540 tab 03/20/20 04/19/20 Rx simvastatin 40 mg tablet 40 mg PO HS #90 tab 03/20/20 04/19/20 Rx aspirin 81 mg tablet,delayed 81 mg PO DAILY 03/21/20 04/19/20 History release esomeprazole magnesium 40 mg 40 mg PO BID #60 cap 03/21/20 04/19/20 Rx capsule,delayed release calcium carbonate 320 mg calcium 320 mg PO BID PRN #60 tab 03/23/20 04/19/20 Rx (750 mg) chewable tablet cranberry 500 mg capsule 500 mg PO DAILY #90 cap 03/23/20 04/19/20 Rx donepezil 10 mg tablet 10 mg PO HS 30 Days #30 tab 03/23/20 04/19/20 Rx mirtazapine 45 mg tablet 45 mg PO HS 30 Days #30 tab 03/23/20 04/19/20 Rx polyethylene glycol 3350 17 17 g PO DAILY PRN #1 btl 03/23/20 04/19/20 Rx gram/dose oral powder quetiapine 25 mg tablet 12.5 mg PO QPM 30 Days #30 tab 03/23/20 04/19/20 Rx levothyroxine 100 mcg tablet 100 mcg PO DAILY #30 tab 04/07/20 04/19/20 Rx methotrexate sodium 2.5 mg tablet See Rx Instructions PO WEEKLY #12 04/11/20 04/19/20 Rx tab Past Med/Surg History Medical History Anemia of chronic disease ASCVD (arteriosclerotic cardiovascular disease) C. difficile colitis january2017 Chronic kidney disease Chronic UTI Closed right hip fracture Constipation Contact dermatitis Dementia Diarrhea Fall GERD (gastroesophageal reflux disease) Hip pain, right Hyperlipidemia Hypertension Hypotension Hypothyroidism Kidney stones Macrocytic anemia Pancreatic mass PVD (peripheral vascular disease) Rheumatoid arthritis Thrombosed external hemorrhoid Vitamin D insufficiency Surgical History History of umbilical hernia repair Hx of cholecystectomy Hx of colonoscopy Hx of esophagogastroduodenoscopy Family History Unknown Arteriosclerotic cardiovascular disease (ASCVD) Father Heart disease Diabetes Myocardial infarction Mother Cancer Hypertension Mother Breast cancer Other Family history non-contributory Denies family history of Ovarian cancer Prostate cancer Crohn's disease Lung cancer Colorectal cancer Ulcerative colitis Stroke Social History Smoking Status: Never smoker Second Hand Exposure: No; Hx Alcohol Use: No Hx Substance Use: No Preferred Language: Samoan Communication Ability: Impaired Visual Impairment: No Limitations Hearing Ability: Normal Spine Surgeon Required: No Beliefs That Will Affect Care: None marital status: / Current Living Situation: Family Current Living Situation Comment: lives at her daughters house current occupational status: other Feels Safe at Home: Yes Childhood Exposure to Second-Hand Smoke: No caffeine: Yes Dental Care, Regularly: No Physical Activity Frequency: Does not Exercise Seatbelt Use: always Sunscreen Use: No Review of Systems Review of Systems: Unobtainable due to cognitive status Physical Exam Constitutional: well developed, well nourished and + altered mental status; no acute distress and not ill appearing Eyes: PERRL, conjunctivae normal, anicteric sclerae ENMT: external ear and nose normal, oropharynx normal Respiratory: normal respiratory effort, lungs clear to auscultation Cardiovascular: RRR, no murmur, no edema Gastrointestinal (Abdomen): Percussion/Palpation: + abdomen tender (mildly tender throughout) and abdomen soft Skin: Widespread ecchymoses across extremities and trunk Neurologic: patellar DTR's 2+ bilat, sensation intact and PERRL, EOMI, accommodation nl, no face palsy, no dysarthria Psychiatric: Orientation: alert; + not oriented x 3 Affect: euthymic affect Cognition: + recent memory not intact and + remote memory not intact oriented to person place but not situation or time Results & Data Results & Data ([facility]) Vital Signs (Past 12 Hours) Vital Signs Temp Pulse Pulse Resp BP BP Pulse Ox 04/19/20 07:01 36.5 C 84 18 188/76 H 95 04/19/20 06:01 82 24 96 04/19/20 06:00 83 16 187/90 H 97 09/16/20 05:31 80 21 171/148 H 97 04/19/20 05:30 85 14 96 04/19/20 05:00 79 23 205/93 H 97 04/19/20 04:30 76 17 184/87 H 97 04/19/20 04:24 80 19 211/79 H 98 04/19/20 04:00 76 15 97 04/19/20 03:31 76 20 98 04/19/20 03:03 78 18 144/95 H 97 04/19/20 02:42 36.8 C 72 20 165/92 H 100 Code Status & VTE Plan VTE Prophylaxis Plan VTE Prophylaxis will be ordered: Yes Supervising Physician Co-Signing Physician Notes Attending addendum: I have physically seen this patient, have supervised the medical residents activities, and agree with the H&P unless as otherwise noted. Assessment and Plan: Altered mental status/history of dementia- As noted by daughter. Differential includes: Worsening depression, worsening dementia, side effect of nitrofurantoin being used to treat UTI, change in living condition. Metabolic work-up negative in ED Consult neurology for their opinion Consult PT/OT History of ESBL UTI and C. difficile colitis- No symptoms this evening. Rheumatoid arthritis- Continue usual present prednisone dosage. Hold on any stress dosing at this time Remaining orders and notations as noted. Resident Activity Tracking Resident Involvement: Resident Care Provided Care Provided: Adult Hospital Medicine
--- NOTE | 2020-04-19 07:57 | XRay Report ---
XR chest 1V portable CLINICAL HISTORY: increased confusion COMPARISON STUDY: 04/03/2020 FINDINGS: The heart is borderline enlarged. There is aortic tortuosity/ectasia. There is no failure. There is no focal pulmonary consolidation. There are no pleural effusions. Arthritic changes are pres ent within the shoulders.[ IMPRESSION: No active disease in the chest. ACT 112: Negative or not required by law. Electronically signed by: Evangelista Rodriguez M.D. 04/19/2020 7:56 AM
[2020-04-19] MEDS: HYOSCYAMINE SULFATE 0.125 MG TAB PO SCH ×3 (08:56→17:50)
[2020-04-19] MEDS: ACETAMINOPHEN 500 MG TAB PO SCH ×2 (08:57→13:14)
[2020-04-19] MEDS: SIMETHICONE 80 MG CHEW PO SCH ×4 (08:58→17:50)
[2020-04-19] MEDS ORDERED: POLYETHYLENE (MIRALAX) 17 GM PACK PO SCH (09:00)
[2020-04-19] MEDS ORDERED: AMLODIPINE BESYLATE 5 MG TAB PO SCH (09:00)
[2020-04-19] MEDS ORDERED: PANTOprazole 40 MG TAB PO SCH (09:00)
[2020-04-19] MEDS ORDERED: LEVOTHYROXINE SODIUM 100 MCG TABLET PO SCH (09:00)
[2020-04-19] MEDS ORDERED: PSYLLIUM 58.6% POWDER PACKET PO SCH (09:00)
[2020-04-19] MEDS ORDERED: predniSONE 10 MG TABLET PO SCH (09:00)
[2020-04-19] MEDS ORDERED: NON-FORMULARY MEDICATION (Cranberry 500 MG) PO SCH (09:00)
[2020-04-19] MEDS ORDERED: GABAPENTIN 100 MG CAP PO SCH (09:00)
[2020-04-19] MEDS ORDERED: FOLIC ACID 1 MG TAB PO SCH (09:00)
[2020-04-19] MEDS ORDERED: ASPIRIN 81 MG ECTAB PO SCH (09:00)
--- NOTE | 2020-04-19 13:21 | Electrocardiogram Report ---
Test Reason : Blood Pressure : / mmHG Vent. Rate : 082 BPM Atrial Rate : 082 BPM P-R Int : 148 ms QRS Dur : 088 ms QT Int : 368 ms P-R-T Axes : 047 011 050 degrees QTc Int : 429 ms Normal sinus rhythm Normal ECG When compared with ECG of 05-MAR-2020 19:03, No significant change was found Confirmed by Matt Arshad ([id number]) on 04/19/2020 1:21:28 PM Referred By: REFERRED SELF Confirmed By:Matt Arshad
--- NOTE | 2020-04-19 14:32 | Neurology Consultation ---
Date of Consultation April 19, 2020 Assessment & Plan (1) Acute confusion: Orin Hunter is an 84 yo woman w/ PMH of CKD, dementia, HTN, HLD, pancreatic mass, RA, PVD, and h/o C diff who p/t [facility] with acute onset of worsening confusion with hallucinations. # Dementia with known behavioral issues: presentation most likely 2/2 acute sleep deprivation effects. No infectious causes found. - recommend changing seroquel to pimavanserin as there is better data for Alz heimer's related psychosis - would also make sure that she is not on daily Macrobid as this is contraindicated by beers criteria - would also query why someone at 84 years old is still on methotrexate as the risk likely outweighs any benefit, especially in light of multiple infections that she has had this last year that likely contribute to worsening mental status Thank you for this interesting consult. Plan of care discussed with primary team. Please call or text with questions. (2) Hallucinations: (3) Dementia with behavioral disturbance: History of Present Illness Attending Physician: Mariano Velarde, History of Present Illness Orin Hunter is an 84 yo woman w/ PMH of CKD, dementia, HTN, HLD, pancreatic mass, RA, PVD, and h/o C diff who p/t [facility] with acute onset of worsening confusion with hallucinations. In the ED, she was afebrile, BP 165/92, heart rate 72, respiratory rate 20, satting 100% on room air. Labs notable for WBC 6.6, hemoglobin 12.1, platelets 235, sodium 144, chloride 110, BUN 24, creatinine 1.37, glucose 103, TSH low at 0.091 with normal free T4, troponin negative, LFTs within normal, calcium/magnesium within normal, UA shows hematuria but no infection. CXR no infection, borderline cardiomegaly, aortic tortuosity noted. CT head independently reviewed and shows no hemorrhage or hypodensity, moderate generalized atrophy predominantly in the frontal temporal lobes with associated ex vacuo dilation. On examination today, she was unable to provide much history. Daughter reports that she does have intermittent hallucinations and has been having worsening sleep the last few days, with no sleep per 22 hours the day prior to p resentation. She was worried that she might have a UTI and is reassured by the current labs. Reports that her mom does not take daily Macrobid at home, but does take 25 to 50 mg Seroquel as needed at night. Allergies Allergy/AdvReac Type Severity Reaction Status Date / Time Penicillins Allergy Intermediate SWELLING Verified 04/19/20 03:07 celecoxib AdvReac Intermediate N/V Verified 04/19/20 03:07 cephalexin AdvReac Intermediate N/V Verified 04/19/20 03:07 methotrexate AdvReac Intermediate N/V Verified 04/19/20 03:07 nitrofurantoin AdvReac Intermediate N/V Verified 04/19/20 03:07 risedronate sodium AdvReac Intermediate NAUSEA AND Verified 04/19/20 03:07 VOMITING Home Medications Home Medications Medication Instructions Recorded Confirmed Type heating pads #1 ea 04/20/19 04/03/20 Rx acetaminophen 500 mg tablet 500 mg PO TID #270 tab 03/20/20 04/19/20 Rx amlodipine 5 mg tablet 5 mg PO DAILY #90 tab 03/20/20 04/19/20 Rx folic acid 1 mg tablet 1 mg PO 6XWK #90 tab 03/20/20 04/19/20 Rx gabapentin 100 mg capsule 100 mg PO BID #60 cap 03/20/20 04/19/20 Rx hyoscyamine sulfate 0.125 mg tablet 0.125 mg PO QID #360 tab 03/20/20 04/19/20 Rx prednisone 10 mg tablet 10 mg PO DAILY #90 tab 03/20/20 04/19/20 Rx psyllium 1 tbsp PO DAILY #300 g 03/20/20 04/19/20 Rx simethicone 80 mg chewable tablet 160 mg PO TID #540 tab 03/20/20 04/19/20 Rx simvastatin 40 mg tablet 40 mg PO HS #90 tab 03/20/20 04/19/20 Rx aspirin 81 mg tablet,delayed 81 mg PO DAILY 03/21/20 04/19/20 History release esomeprazole magnesium 40 mg 40 mg PO BID #60 cap 03/21/20 04/19/20 Rx capsule,delayed release calcium carbonate 320 mg calcium 320 mg PO BID PRN #60 tab 03/23/20 04/19/20 Rx (750 mg) chewable tablet cranberry 500 mg capsule 500 mg PO DAILY #90 cap 03/23/20 04/19/20 Rx donepezil 10 mg tablet 10 mg PO HS 30 Days #30 tab 03/23/20 04/19/20 Rx mirtazapine 45 mg tablet 45 mg PO HS 30 Days #30 tab 03/23/20 04/19/20 Rx polyethylene glycol 3350 17 17 g PO DAILY PRN #1 btl 03/23/20 04/19/20 Rx gram/dose oral powder quetiapine 25 mg tablet 12.5 mg PO QPM 30 Days #30 tab 03/23/20 04/19/20 Rx levothyroxine 100 mcg tablet 100 mcg PO DAILY #30 tab 04/07/20 04/19/20 Rx methotrexate sodium 2.5 mg tablet See Rx Instructions PO WEEKLY #12 04/11/20 04/19/20 Rx tab nitrofurantoin macrocrystal 50 mg PO DAILY 04/19/20 04/19/20 History Patient History Medical History Anemia of chronic disease ASCVD (arteriosclerotic cardiovascular disease) C. difficile colitis january2017 Chronic kidney disease Chronic UTI Closed right hip fracture Constipation Contact dermatitis Dementia Diarrhea Fall GERD (gastroesophageal reflux disease) Hip pain, right Hyperlipidemia Hypertension Hypotension Hypothyroidism Kidney stones Macrocytic anemia Pancreatic mass PVD (peripheral vascular disease) Rheumatoid arthritis Thrombosed external hemorrhoid Vitamin D insufficiency Surgical History History of umbilical hernia repair Hx of cholecystectomy Hx of colonoscopy Hx of esophagogastroduodenoscopy Family History Unknown Arteriosclerotic cardiovascular disease (ASCVD) Father Heart disease Diabetes Myocardial infarction Mother Cancer Hypertension Mother Breast cancer Other Family history non-contributory Denies family history of Ovarian cancer Prostate cancer Crohn's disease Lung cancer Colorectal cancer Ulcerative colitis Stroke Social History Smoking Status: Never smoker Second Hand Exposure: No; Hx Alcohol Use: No Hx Substance Use: No Preferred Language: Maltese Communication Ability: Impaired Visual Impairment: No Limitations Hearing Ability: Normal Supervisor Cartography Required: No Beliefs That Will Affect Care: None marital status: / Current Living Situation: Family Current Living Situation Comment: lives at her daughters house current occupational status: other Feels Safe at Home: Yes Safety Concerns: Feels Safe At This Time Childhood Exposure to Second-Hand Smoke: No caffeine: Yes Dental Care, Regularly: No Physical Activity Frequency: Does not Exercise Seatbelt Use: always Sunscreen Use: No Review of Systems Review of Systems: Unobtainable due to cognitive status Exam (Neuro) Physical Exam: General Exam: GEN: NAD, sitting in chair. HEENT: No conjunctival injection, no rhinorrhea. CV: RRR, no peripheral edema PULM: Nonlabored respirations on room air. Neuro Exam: MS: Awake and Alert. Oriented to person, place, not date. Speech fluent and appropriate without dysarthria or paraphasic errors. Language intact including naming, comprehension, repetition. Cognition and memory grossly impaired. Inattentive. No neglect. CN: Visual jenkins full. No extinction to double simultaneous stimuli. Unable to visualize fundi on fundoscopic exam. PERRLA OU, pupils pinpoint. EOMI without nystagmus. Facial sensation intact to LT. Facial muscles full and symmetric. Hearing intact to conversation. Uvula midline with symmetric palatal elevation. Shoulder shrug normal. Tongue midline. MOTOR: Normal bulk and tone. No pronator drift. BUE strength 5-/5 at deltoids, biceps, triceps and hand grasp bilaterally. BLE strength 5-/5 at iliopsoas, hamstrings, quadriceps, tibialis anterior, and gastrocnemius bilaterally. REFLEXES: Trace at biceps, triceps, brachioradialis, absent patella and absent Achilles bilaterally. Flexor plantar responses bilaterally. SENSORY: Intact to LT without extinction to double simultaneous stimuli. Vibration intact throughout. COORDINATION: No dysmetria or ataxia on [id number] bilaterally. Normal Ebonie bilaterally. GAIT: deferred given physical status Results & Data ([facility]) Vital Signs (Past 12 Hours) Vital Signs Temp Pulse Pulse Resp BP BP Pulse Ox 04/19/20 07:01 36.5 C 84 18 188/76 H 95 04/19/20 06:01 82 24 96 04/19/20 06:00 83 16 187/90 H 97 04/19/20 05:31 80 21 171/148 H 97 04/19/20 05:30 85 14 96 04/19/20 05:00 79 23 205/93 H 97 04/19/20 04:30 76 17 184/87 H 97 04/19/20 04:24 80 19 211/79 H 98 04/19/20 04:00 76 15 97 04/19/20 03:31 76 20 98 04/19/20 03:03 78 18 144/95 H 97 04/19/20 02:42 36.8 C 72 20 165/92 H 100 PG Care Time/CCT Total # of Minutes Spent Total Time Spent with Patient: Total time spent is greater than 50% in coordination of care (as documented) at patient's floor/unit and/or counseling patient: Coding Level of Care Code 65137 Initial Inpt Care Lvl 3 Diagnoses Acute confusion R41.0 Hallucinations R44.3 Dementia with behavioral disturbance F03.91
--- NOTE | 2020-04-19 16:04 | Discharge Summary ---
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 Diff colitis and diagnosed with DVT in right external iliac and common femoral veins and pulmonary embolism discovered on VQ scan. Patient was started on heparin drip but unfortunately developed an abdominal wall hematoma and anticoagulation was ceased. IVC filter placed on 03/08. Since that time patient has been living with daughter who took her out of her assisted living facility due to COVID concerns. She has been doing fiarly well since discharge and has presented to her primary care physician for pleuritic chest pain but that is mostly resolved. Her diarrhea she was having is much improved and she was toxin negative during last admission. Patient reportedly has not been sleeping well for past several days and for the last day patient's mental status has severely declined. She is now quite confused and has started talking about her as if he were still alive and quite confused as to what she is doing. Daughter suspected this could be possibly due to another UTI though she has not had any urinary symptoms. On admission to ED vital signs significant for only Hypertension, labwork without significant abnormality apart from an increased creatinine of 1.37 about at her baseline, CT head negative, chest x ray negative. Lives at home with daughter, nonsmoker nondrinker no drug use DNR/DNI Admission Exam Per Admitting Provider Constitutional: well developed, well nourished and + altered mental status; no acute distress and not ill appearing Eyes: PERRL, conjunctivae normal, anicteric sclerae ENMT: external ear and nose normal, oropharynx normal Respiratory: normal respiratory effort, lungs clear to auscultation Cardiovascular: RRR, no murmur, no edema Gastrointestinal (Abdomen): Percussion/Palpation: + abdomen tender (mildly tender throughout) and abdomen soft Skin: Widespread ecchymoses across extremities and trunk Neurologic: patellar DTR's 2+ bilat, sensation intact and PERRL, EOMI, accommodation nl, no face palsy, no dysarthria Psychiatric: Orientation: alert; + not oriented x 3 Affect: euthymic affect Cognition: + recent memory not intact and + remote memory not intact oriented to person place but not situation or time Principal Diagnosis altered mental status Discharge Exam Constitutional well developed and well nourished; no acute distress Eyes PERRL, conjunctivae normal, anicteric sclerae ENMT external ear and nose normal, oropharynx normal Neck trachea midline, no thyromegaly Respiratory normal respiratory effort, lungs clear to auscultation Cardiovascular RRR, no murmur, no edema Gastrointestinal (Abdomen) normal bowel sounds, soft, nontender, no hepatosplenomegaly Skin no rashes, warm and dry Discharge Data Allergies Allergy/AdvReac Type Severity Reaction Status Date / Time Penicillins Allergy Intermediate SWELLING Verified 04/19/20 03:07 celecoxib AdvReac Intermediate N/V Verified 04/19/20 03:07 cephalexin AdvReac Intermediate N/V Verified 04/19/20 03:07 methotrexate AdvReac Intermediate N/V Verified 04/19/20 03:07 nitrofurantoin AdvReac Intermediate N/V Verified 04/19/20 03:07 risedronate sodium AdvReac Intermediate NAUSEA AND Verified 04/19/20 03:07 VOMITING Consultations 04/19/20 04:45 ED Decision to Admit Stat 04/19/20 14:17 Consult Neurology Routine Ordered Studies 04/19/20 02:55 CT head/brain wo con Urgent Hospital Course (1) Acute confusion: Acute confusion: Orin Hunter is an 84-year-old woman with history of Alzheimer dementia here for acutely altered mental status. Altered mental status - No clear source of her altered mental status but picture is consistent with delirium, only recent medication change was an appropriate decrease in her levothyroxine, no sign of infection on exam or lab work or on CT head, ammonia level normal, TSH normal, Renal function at baseline, WBC normal, not anemic. - Patient with history of sundowning, this could be delirium secondary to lack of sleep, possibly just worsening of her dementia or worsening depression - Steroids can cause this altered mental status but patient has been on these chronically - Neurology consulted - recommend changing seroquel to pimavanserin as there is better data for Alzheimer's related psychosis - would also query why someone at 84 years old is still on methotrexate as the risk likely outweighs any benefit, especially in light of multiple infections that she has had this last year that likely contribute to worsening mental status VTE disease Stable, no changes to respiratory status Not anticoagulating secondary to bleed while on heparin during last admission HLD Continuing home statin Rheumatoid arhtiritis Continuing home steroids methotrexate regimen HIstory of ESBL UTI's Without symptoms or labwork/urinarlysis suggestive of UTI, not treated Encouraged 60 oz daily PO intake (2) Hallucinations: Total Time Total Time Spent Total Time Spent (In Minutes): >30 Discharge Plan Discharge Items Patient Disposition: Home - Self-Care Reason For Visit: DEMENTIA, ALTERED MENTAL STATUS Discharge Diagnosis: worsening dementia Activity: Per Instructions section Non-emergency contact: Primary Care Provider Call non-emergency contact if: your symptoms worsen Follow-up/Referrals: Vasiliy Uriostegui MD [Primary Care Provider] - 05/03/20 1:00 pm Diet: Regular Addtl Attending Provider Instructions: Altered mental status You came to the hospital for worsening mentation and concern for a urinary tract infection. We had done labs, imaging and did not find any concerns that explained the alteration in her mentation. Your picture is consistent with Delirium which will consist of waxing an waning mentation, that may last up to 1-2 weeks. The cause of the delirium is unclear at this time but may have been from decreased sleep, slight dehydration. If you develop worsening urinary symptoms with pain, increased frequency or urgency and a foul smell call or come in because you may have developed a urinary tract infection. Pending Studies at Discharge: No Stand-Alone Forms: My [facility] [employer], Smoking Cessation Medications and DC Order Prescriptions: Continued (DME) heating pads pad See Dose Instructions .ROUTE .MEDSUPPLY Qty: 1 RF: 0 acetaminophen [Tylenol Extra Strength] 500 mg tablet 500 mg PO TID Qty: 270 RF: 3 amlodipine 5 mg tablet 5 mg PO DAILY Qty: 90 RF: 3 folic acid 1 mg tablet 1 mg PO [id number] Qty: 90 RF: 3 gabapentin 100 mg capsule 100 mg PO BID Qty: 60 RF: 5 hyoscyamine sulfate 0.125 mg tablet 0.125 mg PO QID Qty: 360 RF: 3 prednisone 10 mg tablet 10 mg PO DAILY Qty: 90 RF: 3 psyllium Powder 1 tbsp PO DAILY Qty: 300 RF: 3 simethicone 80 mg tablet,chewable 160 mg PO TID Qty: 540 RF: 3 simvastatin 40 mg tablet 40 mg PO HS Qty: 90 RF: 3 calcium carbonate [Antacid (calcium carbonate)] 320 mg calcium (750 mg) tablet,chewable 320 mg PO BID PRN (Reason: Indigestion) Qty: 60 RF: 3 cranberry 500 mg capsule 500 mg PO DAILY Qty: 90 RF: 3 polyethylene glycol 3350 17 gram/dose powder 17 g PO DAILY PRN (Reason: constipation) Qty: 1 RF: 3 donepezil 10 mg tablet 10 mg PO HS 30 Days Qty: 30 RF: 5 mirtazapine 45 mg tablet 45 mg PO HS 30 Days Qty: 30 RF: 5 quetiapine 25 mg tablet 12.5 mg PO QPM 30 Days Qty: 30 RF: 5 levothyroxine 100 mcg tablet 100 mcg PO DAILY Qty: 30 RF: 1 methotrexate sodium 2.5 mg tablet See Rx Instructions PO WEEKLY Qty: 12 RF: 3 aspirin 81 mg tablet,delayed release (DR/EC) 81 mg PO DAILY RF: 0 esomeprazole magnesium 40 mg capsule,delayed release(DR/EC) 40 mg PO BID Qty: 60 RF: 2 Discontinued nitrofurantoin macrocrystal 50 mg capsule 50 mg PO DAILY RF: 0 Discharge Orders: Discharge Order (Routine); Ordered 04/19/20 Ordered By: Juan Weber Admission Data Admit Date/Time: 04/19/20 06:09 Attending Provider: Mariano Velarde Admit Provider: Wilbert Ledbetter Primary Care Provider: Vasiliy Uriostegui Other Providers: Kaushal Sommers ; Kya Colbert Other Interventions: Discharge Summary Assessment (RN) Last Done: 04/19/20 18:25 Supervising Physician Co-Signing Physician Notes I personally examined the patient and verified all guajardo points of history and exam, discussed case, and agree with decision making with Dr Weber. feeling more like herself. dtr present and notes that she feels safe taking pt home. educated extensively on delirium/causes/clinical appearance/management/safety issues vitals noted nad heent nc at mmm breathing unlabored no accessory muscles good effort skin no rashes no pallor or icterus delirium / metabolic encephalopathy - superimposed on dementia. likely either lack of sleep or mild dehydration as cause. stable for home. not on chronic macrobid - dtr ntoed that was a short course of treatment that somehow stayed on med list. otherwise as above Resident Activity Tracking Resident Involvement: Resident Care Provided Care Provided: Adult Hospital Medicine CBC Results Results Complete Blood Count Results: RBC 3.58 M/uL (4.2-5.4) L 04/19/20 WBC 6.86 K/uL (4.8-10.8) 04/19/20 Hgb 12.1 g/dL (12.0-16.0) 04/19/20 Hct 37.7 % (37-47) 04/19/20 Plt Count 235 K/uL (130-400) 04/19/20 Chemistry (BMP) Results BMP Results: Sodium 144 mmol/L (136-145) 04/19/20 Potassium 4.4 mmol/L (3.5-5.1) 04/19/20 Chloride 110 mmol/L (98-107) H 04/19/20 BUN 24 mg/dl (7-18) H 04/19/20 Creatinine 1.37 mg/dl (0.6-1.2) H 04/19/20 Glucose 103 mg/dl (70-99) H 04/19/20
--- NOTE | 2020-04-19 19:31 | Billing Data ---
Date of Service April 19, 2020 Coding Level of Care Code 55921 OBS Care - Discharge
--- NOTE | 2020-04-19 20:17 | Billing Data ---
Date of Service April 19, 2020 Coding Level of Care Code 96498 OBS Care - Level 3
[2020-04-19] MEDS ORDERED: MIRTAZAPINE SOLTAB 15 MG PO SCH (21:00)
[2020-04-19] MEDS ORDERED: SIMVASTATIN 40 MG TAB PO SCH (21:00)
[2020-04-19] MEDS ORDERED: DONEPEZIL HCL 10 MG TAB PO SCH (21:00)
[2020-04-19] MEDS ORDERED: QUETIAPINE FUMARATE 25 MG TABLET PO SCH (21:00)
== END 2020-04-19 19:30 | disposition home or self-care (01) ==
LOC: ED 02:38 → 3N 02:38 → SUATTDRO 06:09 → 3N 06:29

== ENCOUNTER 2020-12-27 20:28 | Inpatient (IN) ==
--- NOTE | 2020-12-27 21:48 | Emergency Department Note ---
Impression & Plan Abdominal pain, Diarrhea, LAITH (acute kidney injury), Nausea & vomiting ED Provider Note NAME: ELIZABETH MICHAEL AGE: 85 SEX: F : 1935 ARRIVES VIA: Ambulance INFORMANT: Patient, ED PROVIDER(S): Demetri Fagan MD Chief Complaint: Abdominal pain, nausea vomiting diarrhea HPI: Patient does present with the above complaints that have been ongoing today. The patient does not localize specifically but has diffuse abdominal pain. The patient's daughter is at bedside states that the patient has seen Dr. Mosley for chronic issues and the patient has been on every other day Imodium which seemed to help. The patient has had increasing diarrheal symptoms. The patient has had some scant blood within the diarrhea as well. No recent antibiotics, stream or well water sick contacts. The patient has not had any blood in the vomit. No alcohol or tobacco use. There has been no recent trauma or falls. No recent surgeries or procedures. ROS: See HPI for pertinent positives and negatives. A total of 10 systems were reviewed and otherwise negative. Past medical history: See below Surgical history: See below Social history: See below Physical Exam: GENERAL: Well appearing, well nourished, NAD, non-toxic. EYE EXAM: Normal conjunctiva. PERRL, no anisocoria and EOM's grossly intact w/o pain. NECK: Supple, no nuchal rigidity, no adenopathy, non-tender. No signs of meningismus. LUNGS: Clear to auscultation. Normal chest wall mechanics. HEART: NSR, no MRG. ABDOMEN: Abdomen soft, non-tender, normo-active bowel sounds, no masses, no rebound or guarding. BACK: No CVA TTP. SKIN: No rashes and no bruising. UPPER EXTREMITIES: Upper extremities are grossly normal. LOWER EXTREMITIES: Grossly normal, no edema. NEURO EXAM: A&O x3, cranial nerves II-XII grossly intact, normal speech, moves all 4 extremities on command w/o issue. Differential diagnoses: Appendicitis, ovarian cyst, ovarian torsion, ectopic , TOA, PID, infections, diverticulitis, UTI, obstruction, mesenteric ischemia, aortic pathology, inflammatory bowel disease, renal colic, PUD, pancreatitis, biliary pathology, hernia, volvulus, constipation, as well as other pathologies. Course: Patient was seen and evaluated the bedside. Full history physical exam was performed. EKG interpreted by me 85 Imaging Studies: See below Cardiac monitoring: An order was placed for continuous cardiac monitoring. The monitor shows a rate of 85 with sinus rhythm. MDM: Patient does present concern for abdominal pain nausea and vomiting. The patient did have blood work completed along with a CT abdomen pelvis. The patient does have LAITH and white count. The patient did have blood cultures ordered and was given cefepime given the patient does have a penicillin allergy. There was significant time in transmission of images to stat rad which delayed the disposition. The patient was not tachycardic or febrile. Stool studies have been ordered negative for C. difficile. Patient troponin is not detectable. Patient was admitted prior to the CAT scan of the abdomen and pelvis being read. Patient was admitted by Dr. Rios. Past Med/Surg History Medical History Abdominal pain Anemia of chronic disease ASCVD (arteriosclerotic cardiovascular disease) Atopic dermatitis C. difficile colitis [id number] Closed right hip fracture Constipation Cystocele, midline Dementia DVT (deep venous thrombosis) GERD (gastroesophageal reflux disease) Hyperlipidemia Hypertension Hypotension Hypothyroidism Kidney stones Macrocytic anemia Osteoporosis with fracture Pancreatic mass PVD (peripheral vascular disease) Rectocele Rheumatoid arthritis Thrombosed external hemorrhoid Vitamin D insufficiency Surgical History History of inferior vena caval filter placement History of umbilical hernia repair Hx of cholecystectomy Hx of colonoscopy Hx of esophagogastroduodenoscopy Family History Unknown Arteriosclerotic cardiovascular disease (ASCVD) Father Heart disease Diabetes Myocardial infarction Mother Cancer Hypertension Mother Breast cancer Other Family history non-contributory Denies family history of Ovarian cancer Prostate cancer Crohn's disease Lung cancer Colorectal cancer Ulcerative colitis Stroke Social History Smoking Status: Never smoker Second Hand Exposure: No; Hx Alcohol Use: No Hx Substance Use: No Preferred Language: Chilean Communication Ability: Effective Visual Impairment: Limited Hearing Ability: Normal 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 Beliefs That Will Affect Care: None marital status: / Current Living Situation: Family Current Living Situation Comment: lives at her daughters house current occupational status: other How many Children do You have: 4 Feels Safe at Home: Yes Childhood Exposure to Second-Hand Smoke: No caffeine: Yes (coffee and tea) Dental Care, Regularly: No Physical Activity Frequency: Does not Exercise Seatbelt Use: always Sunscreen Use: Yes Assistive Devices: Walker Allergies Allergies Allergy/AdvReac Type Severity Reaction Status Date / Time Penicillins Allergy Intermediate SWELLING Verified 12/27/20 21:26 celecoxib AdvReac Intermediate N/V Verified 12/27/20 21:26 cephalexin AdvReac Intermediate N/V Verified 12/27/20 21:26 methotrexate AdvReac Intermediate N/V Verified 12/27/20 21:26 nitrofurantoin AdvReac Intermediate N/V Verified 12/27/20 21:26 risedronate sodium AdvReac Intermediate NAUSEA AND Verified 12/27/20 21:26 VOMITING Home Meds Home Medications Medication Instructions Recorded Confirmed aspirin 81 mg tablet,delayed 81 mg PO QAM 03/21/20 12/27/20 release amlodipine 5 mg PO QAM 11/15/20 12/27/20 cranberry 500 mg PO QAM 11/15/20 12/27/20 levothyroxine 88 mcg PO QAM 11/15/20 12/27/20 scmuqeaj-[id number]-GJ-lycopen-lutein 1 tab PO QAM 11/15/20 12/27/20 [Darion Sherman] prednisone 10 mg PO QAM 11/15/20 12/27/20 quetiapine 12.5 mg PO HS 11/15/20 12/27/20 loperamide [Imodium A-D] 2 mg PO Q OTHER DAY 12/27/20 12/27/20 Previous Rx's Medication Instructions Recorded heating pads #1 ea 04/20/19 acetaminophen 500 mg tablet 500 mg PO TID #270 tab 03/20/20 simethicone 80 mg chewable tablet 160 mg PO TID #540 tab 03/20/20 simvastatin 40 mg tablet 40 mg PO HS #90 tab 03/20/20 donepezil 10 mg tablet 10 mg PO HS 30 Days #30 tab 08/15/20 folic acid 1 mg tablet 1 mg PO 6XWK #90 tab 08/15/20 gabapentin 100 mg capsule 100 mg PO BID #60 cap 08/15/20 mirtazapine 45 mg tablet 45 mg PO HS 30 Days #30 tab 08/15/20 methotrexate sodium 2.5 mg tablet See Rx Instructions PO WEEKLY #12 10/09/20 tab esomeprazole magnesium 40 mg 40 mg PO BID #60 cap 10/10/20 capsule,delayed release sulfamethoxazole 800 1 tab PO BID #10 tab 12/27/20 mg-trimethoprim 160 mg tablet cefdinir 300 mg PO Q24H #6 cap 01/01/21 cholestyramine-aspartame 4 g PO BID@1000,2200 30 Days #60 ea 01/01/21 [Cholestyramine Light] Results & Data (ED) Vital Signs Vital Signs - 24 hr 12/27/20 20:36 12/27/20 21:32 12/27/20 21:36 Temperature 36.8 C Temperature Source Oral Pulse Rate 82 80 81 Pulse Rate [Right Finger] 81 Pulse Rate from SpO2 Sensor 80 Pulse Rhythm [Right Finger] Regular Pulse Strength [Right Finger] Normal Respiratory Rate 21 23 20 Respiratory Effort / Characteristics Non-Labored Non-Labored Respiratory Depth Normal Normal Respiratory Pattern Regular Regular Blood Pressure 99/59 L 92/64 L 85/55 L Blood Pressure [Left Arm] 92/64 L Blood Pressure Mean 72 73 65 Blood Pressure Mean [Left Arm] 73 Blood Pressure Position [Left Arm] Lying Pulse Oximetry 95 93 94 Oxygen Delivery Method Room Air Room Air Sepsis Recent Fever Within 48 Hours No Sepsis New/Unexplained Change in Mental Status No Sepsis Action Taken by Nursing Physician Notified 12/27/20 21:39 12/27/20 21:45 12/27/20 21:46 Temperature Temperature Source Pulse Rate 78 80 80 Pulse Rate [Right Finger] Pulse Rate from SpO2 Sensor 78 80 80 Pulse Rhythm [Right Finger] Pulse Strength [Right Finger] Respiratory Rate 22 20 19 Respiratory Effort / Characteristics Respiratory Depth Respiratory Pattern Blood Pressure 96/61 L 90/61 L Blood Pressure [Left Arm] Blood Pressure Mean 72 70 Blood Pressure Mean [Left Arm] Blood Pressure Position [Left Arm] Pulse Oximetry 94 96 94 Oxygen Delivery Method Sepsis Recent Fever Within 48 Hours Sepsis New/Unexplained Change in Mental Status Sepsis Action Taken by Nursing 12/27/20 22:00 12/27/20 22:01 12/27/20 22:15 Temperature Temperature Source Pulse Rate 87 87 82 Pulse Rate [Right Finger] Pulse Rate from SpO2 Sensor Pulse Rhythm [Right Finger] Pulse Strength [Right Finger] Respiratory Rate 28 H 19 26 H Respiratory Effort / Characteristics Respiratory Depth Respiratory Pattern Blood Pressure 135/109 H 138/73 Blood Pressure [Left Arm] Blood Pressure Mean 117 94 Blood Pressure Mean [Left Arm] Blood Pressure Position [Left Arm] Pulse Oximetry Oxygen Delivery Method Sepsis Recent Fever Within 48 Hours Sepsis New/Unexplained Change in Mental Status Sepsis Action Taken by Nursing 12/27/20 22:16 12/27/20 22:30 12/27/20 22:31 Temperature Temperature Source Pulse Rate 80 80 80 Pulse Rate [Right Finger] Pulse Rate from SpO2 Sensor Pulse Rhythm [Right Finger] Pulse Strength [Right Finger] Respiratory Rate 28 H 25 H 25 H Respiratory Effort / Characteristics Respiratory Depth Respiratory Pattern Blood Pressure 133/76 Blood Pressure [Left Arm] Blood Pressure Mean 95 Blood Pressure Mean [Left Arm] Blood Pressure Position [Left Arm] Pulse Oximetry Oxygen Delivery Method Sepsis Recent Fever Within 48 Hours Sepsis New/Unexplained Change in Mental Status Sepsis Action Taken by Nursing 12/27/20 22:45 12/27/20 23:00 12/27/20 23:15 Temperature Temperature Source Pulse Rate 79 84 87 Pulse Rate [Right Finger] Pulse Rate from SpO2 Sensor Pulse Rhythm [Right Finger] Pulse Strength [Right Finger] Respiratory Rate 23 25 H 23 Respiratory Effort / Characteristics Respiratory Depth Respiratory Pattern Blood Pressure 128/84 115/70 Blood Pressure [Left Arm] Blood Pressure Mean 98 85 Blood Pressure Mean [Left Arm] Blood Pressure Position [Left Arm] Pulse Oximetry 97 Oxygen Delivery Method Sepsis Recent Fever Within 48 Hours Sepsis New/Unexplained Change in Mental Status Sepsis Action Taken by Nursing 12/27/20 23:33 12/27/20 23:45 Temperature Temperature Source Pulse Rate 86 85 Pulse Rate [Right Finger] Pulse Rate from SpO2 Sensor 85 85 Pulse Rhythm [Right Finger] Pulse Strength [Right Finger] Respiratory Rate 29 H 30 H Respiratory Effort / Characteristics Respiratory Depth Respiratory Pattern Blood Pressure 133/78 Blood Pressure [Left Arm] Blood Pressure Mean 96 Blood Pressure Mean [Left Arm] Blood Pressure Position [Left Arm] Pulse Oximetry 97 98 Oxygen Delivery Method Sepsis Recent Fever Within 48 Hours Sepsis New/Unexplained Change in Mental Status Sepsis Action Taken by [facility] Medications Current Medication List: was personally reviewed by me Laboratory Data Attestation: I reviewed the patient's lab results. Result diagrams: 01/01/21 03:42 01/01/21 03:42 Lab Results 05/26/21 05/26/21 05/26/21 Range/Units 21:50 22:21 22:21 WBC 21.20 H (4.8-10.8) K/uL RBC 4.04 L (4.2-5.4) M/uL Hgb 13.2 (12.0-16.0) g/dL Hct 42.0 (37-47) % MCV 104.0 H (80-100) fL MCH 32.7 (25-34) pg MCHC 31.4 L (32-36) g/dL RDW Std Deviation 61.4 H (36.4-46.3) fL RDW Coeff of Adrien 16.4 H (11.5-14.5) % Plt Count 145 (130-400) K/uL MPV 10.6 H (7.4-10.4) fL Immature Gran % (Auto) 2.5 % Neut % (Auto) 88.8 % Lymph % (Auto) 4.8 % Hawkins % (Auto) 3.8 % Eos % (Auto) 0.0 % Baso % (Auto) 0.1 % Neut # (Auto) 18.83 H (1.4-6.5) K/uL Lymph # (Auto) 1.02 L (1.2-3.4) K/uL Hawkins # (Auto) 0.81 H (0.11-0.59) K/uL Eos # (Auto) 0.00 (0-0.5) K/uL Baso # (Auto) 0.02 (0-0.2) K/uL Immature Gran # (Auto) 0.52 H (0.00-0.02) K/uL Sodium 141 (136-145) mmol/L Potassium 4.6 (3.5-5.1) mmol/L Chloride 111 H (98-107) mmol/L Carbon Dioxide 22 (21-32) mmol/L Anion Gap 8.0 (3-11) BUN 58 H (7-18) mg/dl Creatinine 2.42 H (0.6-1.2) mg/dl Est Cr Clr Drug Dosing 15.9 ml/min Est GFR ( Amer) 20.3 ml/min Est GFR (Non-Af Amer) 17.5 ml/min BUN/Creatinine Ratio 23.8 H (10-20) Glucose 146 H (70-99) mg/dl Calcium 9.0 (8.5-10.1) mg/dl Total Bilirubin 0.4 (0.2-1) mg/dl AST 29 (15-37) U/L ALT 17 (12-78) U/L Alkaline Phosphatase 83 (45-117) U/L Troponin I < 0.015 (0-0.045) ng/ml Total Protein 6.7 (6.4-8.2) gm/dl Albumin 3.6 (3.4-5.0) gm/dl Globulin 3.1 (2.5-4.0) gm/dl Albumin/Globulin Ratio 1.1 (0.9-2) Lipase 273 (73-393) U/L Stl C. diff Tox B Gene Negative Cdiff Gene (Neg) COVID-19 Eval Order SARS-CoV-2 (PCR) (Negative) 12/27/20 12/27/20 Range/Units 23:46 23:46 WBC (4.8-10.8) K/uL RBC (4.2-5.4) M/uL Hgb (12.0-16.0) g/dL Hct (37-47) % MCV (80-100) fL MCH (25-34) pg MCHC (32-36) g/dL RDW Std Deviation (36.4-46.3) fL RDW Coeff of Adrien (11.5-14.5) % Plt Count (130-400) K/uL MPV (7.4-10.4) fL Immature Gran % (Auto) % Neut % (Auto) % Lymph % (Auto) % Hawkins % (Auto) % Eos % (Auto) % Baso % (Auto) % Neut # (Auto) (1.4-6.5) K/uL Lymph # (Auto) (1.2-3.4) K/uL Hawkins # (Auto) (0.11-0.59) K/uL Eos # (Auto) (0-0.5) K/uL Baso # (Auto) (0-0.2) K/uL Immature Gran # (Auto) (0.00-0.02) K/uL Sodium (136-145) mmol/L Potassium (3.5-5.1) mmol/L Chloride (98-107) mmol/L Carbon Dioxide (21-32) mmol/L Anion Gap (3-11) BUN (7-18) mg/dl Creatinine (0.6-1.2) mg/dl Est Cr Clr Drug Dosing ml/min Est GFR ( Amer) ml/min Est GFR (Non-Af Amer) ml/min BUN/Creatinine Ratio (10-20) Glucose (70-99) mg/dl Calcium (8.5-10.1) mg/dl Total Bilirubin (0.2-1) mg/dl AST (15-37) U/L ALT (12-78) U/L Alkaline Phosphatase (45-117) U/L Troponin I (0-0.045) ng/ml Total Protein (6.4-8.2) gm/dl Albumin (3.4-5.0) gm/dl Globulin (2.5-4.0) gm/dl Albumin/Globulin Ratio (0.9-2) Lipase (73-393) U/L Stl C. diff Tox B Gene (Neg) COVID-19 Eval Order Covid19 at [facility] SARS-CoV-2 (PCR) NEGATIVE (Negative) Administered Medications Acetaminophen (Acetaminophen 325 Mg Tab) 650 mg PO Q4H PRN PRN Reason: Pain or Fever Stop: 01/27/21 01:55 Last Admin: 01/01/21 13:05 Dose: 650 mg Documented by: [id number] Admin: 12/29/20 17:47 Dose: 650 mg Documented by: [id number] Admin: 12/29/20 08:20 Dose: 650 mg Documented by: [id number] Admin: 12/28/20 21:47 Dose: 650 mg Documented by: [id number] Cefdinir (Cefdinir 300 Mg Cap) 300 mg PO Q24H JOSSELINE Stop: 01/06/21 14:59 Last Admin: 01/01/21 15:50 Dose: 300 mg Documented by: [id number] Cholestyramine Resin (Cholestyramine Light 4 Gm Pkt) 4 gm PO BID@1000,2200 JOSSELINE Stop: 01/27/21 09:59 Last Admin: 01/01/21 21:46 Dose: 4 gm Documented by: [id number] Admin: 01/01/21 09:58 Dose: 4 gm Documented by: [id number] Admin: 12/31/20 22:29 Dose: 4 gm Documented by: [id number] Admin: 12/31/20 11:19 Dose: 4 gm Documented by: [id number] Admin: 12/30/20 21:01 Dose: 4 gm Documented by: [id number] Admin: 12/30/20 09:29 Dose: 4 gm Documented by: [id number] Admin: 12/29/20 22:57 Dose: 4 gm Documented by: [id number] Admin: 12/29/20 10:09 Dose: 4 gm Documented by: [id number] Admin: 12/28/20 21:47 Dose: 4 gm Documented by: [id number] Admin: 12/28/20 09:36 Dose: 4 gm Documented by: [id number] Donepezil HCl (Donepezil Hcl 10 Mg Tab) 10 mg PO HS JOSSELINE Stop: 01/27/21 20:59 Last Admin: 01/01/21 21:45 Dose: 10 mg Documented by: [id number] Admin: 12/31/20 20:52 Dose: 10 mg Documented by: [id number] Admin: 12/30/20 20:50 Dose: 10 mg Documented by: [id number] Admin: 12/29/20 20:37 Dose: 10 mg Documented by: [id number] Admin: 12/28/20 20:42 Dose: 10 mg Documented by: [id number] Folic Acid (Folic Acid 1 Mg Tab) 1 mg PO [id number] JOSSELINE Stop: 01/27/21 08:59 Last Admin: 01/01/21 07:58 Dose: 1 mg Documented by: [id number] Admin: 12/31/20 09:16 Dose: 1 mg Documented by: [id number] Admin: 12/30/20 08:19 Dose: 1 mg Documented by: [id number] Admin: 12/29/20 08:21 Dose: 1 mg Documented by: [id number] Admin: 12/28/20 07:22 Dose: 1 mg Documented by: [id number] Gabapentin (Gabapentin 100 Mg Cap) 100 mg PO BID JOSSELINE Stop: 01/27/21 08:59 Last Admin: 01/01/21 21:45 Dose: 100 mg Documented by: [id number] Admin: 01/01/21 07:58 Dose: 100 mg Documented by: [id number] Admin: 12/31/20 20:52 Dose: 100 mg Documented by: [id number] Admin: 12/31/20 09:16 Dose: 100 mg Documented by: [id number] Admin: 12/30/20 20:51 Dose: 100 mg Documented by: [id number] Admin: 12/30/20 08:19 Dose: 100 mg Documented by: [id number] Admin: 12/29/20 20:37 Dose: 100 mg Documented by: [id number] Admin: 12/29/20 08:21 Dose: 100 mg Documented by: [id number] Admin: 12/28/20 20:43 Dose: 100 mg Documented by: [id number] Admin: 12/28/20 07:22 Dose: 100 mg Documented by: [id number] Levothyroxine Sodium (Levothyroxine Sodium 88 Mcg Tablet) 88 mcg PO DAILYBB JOSSELINE Stop: 01/27/21 06:29 Last Admin: 01/02/21 06:01 Dose: 88 mcg Documented by: [id number] Admin: 01/01/21 06:07 Dose: 88 mcg Documented by: [id number] Admin: 12/31/20 06:07 Dose: 88 mcg Documented by: [id number] Admin: 12/30/20 06:31 Dose: 88 mcg Documented by: [id number] Admin: 12/29/20 06:02 Dose: 88 mcg Documented by: [id number] Admin: 12/28/20 05:34 Dose: 88 mcg Documented by: [id number] Mirtazapine (Mirtazapine Soltab 15 Mg) 45 mg PO HS [facility] Stop: 01/27/21 20:59 Last Admin: 01/01/21 21:45 Dose: 45 mg Documented by: [id number] Admin: 12/31/20 20:53 Dose: 45 mg Documented by: [id number] Admin: 12/30/20 20:51 Dose: 45 mg Documented by: [id number] Admin: 12/29/20 20:35 Dose: 45 mg Documented by: [id number] Admin: 12/28/20 20:43 Dose: 45 mg Documented by: [id number] Pantoprazole Sodium (Pantoprazole 40 Mg Tab) 40 mg PO BID JOSSELINE Stop: 01/27/21 08:59 Last Admin: 01/01/21 21:44 Dose: 40 mg Documented by: [id number] Admin: 01/01/21 07:58 Dose: 40 mg Documented by: [id number] Admin: 12/31/20 20:52 Dose: 40 mg Documented by: [id number] Admin: 12/31/20 09:17 Dose: 40 mg Documented by: [id number] Admin: 12/30/20 20:51 Dose: 40 mg Documented by: [id number] Admin: 12/30/20 08:19 Dose: 40 mg Documented by: [id number] Admin: 12/29/20 20:37 Dose: 40 mg Documented by: [id number] Admin: 12/29/20 08:21 Dose: 40 mg Documented by: [id number] Admin: 12/28/20 20:42 Dose: 40 mg Documented by: [id number] Admin: 12/28/20 07:22 Dose: 40 mg Documented by: [id number] Quetiapine Fumarate (Quetiapine Fumarate 25 Mg Tablet) 12.5 mg PO [facility] Stop: 01/27/21 20:59 Last Admin: 01/01/21 21:43 Dose: 12.5 mg Documented by: [id number] Admin: 12/31/20 20:51 Dose: 12.5 mg Documented by: [id number] Admin: 12/30/20 20:50 Dose: 12.5 mg Documented by: [id number] Admin: 12/29/20 20:36 Dose: 12.5 mg Documented by: [id number] Admin: 12/28/20 20:44 Dose: 12.5 mg Documented by: [id number] Simvastatin (Simvastatin 40 Mg Tab) 40 mg PO [facility] Stop: 01/27/21 20:59 Last Admin: 01/01/21 21:46 Dose: 40 mg Documented by: [id number] Admin: 12/31/20 20:54 Dose: 40 mg Documented by: [id number] Admin: 12/30/20 20:56 Dose: 40 mg Documented by: [id number] Admin: 12/29/20 20:36 Dose: 40 mg Documented by: [id number] Admin: 12/28/20 20:43 Dose: 40 mg Documented by: [id number] Discontinued Medications Cefepime HCl (Maxipime) 2,000 mg in 20 mls @ 5 mls/min IV NOW STA; Protocol Stop: 12/27/20 23:03 Last Admin: 12/27/20 23:07 Dose: 5 mls/min Documented by: [id number] Sodium Chloride (Nss 1000ml) 1,000 mls @ 999 mls/hr IV .[id number] ONE Stop: 12/28/20 00:00 Last Infusion: 12/28/20 00:39 Dose: 0 mls/hr Documented by: [id number] Admin: 12/27/20 23:07 Dose: 999 mls/hr Documented by: [id number] Famotidine (Pepcid 20mg Iv Push) 20 mg in 5 mls @ 2.5 mls/min IV NOW STA Stop: 12/28/20 00:45 Last Admin: 12/28/20 00:51 Dose: 2.5 mls/min Documented by: [id number] Lactated Ringer's (Lr) 1,000 mls @ 80 mls/hr IV .[id number] JOSSELINE Stop: 12/29/20 02:44 Last Infusion: 12/28/20 23:47 Dose: 0 mls/hr Documented by: [id number] Infusion: 12/28/20 23:47 Dose: 0 mls/hr Documented by: [id number] Admin: 12/28/20 16:01 Dose: 80 mls/hr Documented by: [id number] Infusion: 12/28/20 16:01 Dose: 0 mls/hr Documented by: [id number] Admin: 12/28/20 03:59 Dose: 80 mls/hr Documented by: [id number] Hydrocortisone Sodium (Succinate 50 mg/ Syringe) 1 mls @ 4 mls/min IV Q8H JOSSELINE Stop: 01/27/21 03:59 Last Admin: 01/01/21 13:01 Dose: 4 mls/min Documented by: [id number] Admin: 01/01/21 03:50 Dose: 4 mls/min Documented by: [id number] Admin: 12/31/20 20:50 Dose: 4 mls/min Documented by: [id number] Admin: 12/31/20 13:49 Dose: 4 mls/min Documented by: [id number] Admin: 12/31/20 03:50 Dose: 4 mls/min Documented by: [id number] Admin: 12/30/20 21:01 Dose: 4 mls/min Documented by: [id number] Admin: 12/30/20 11:28 Dose: 4 mls/min Documented by: [id number] Admin: 12/30/20 04:09 Dose: 4 mls/min Documented by: [id number] Admin: 12/29/20 19:52 Dose: 4 mls/min Documented by: [id number] Admin: 12/29/20 11:27 Dose: 4 mls/min Documented by: [id number] Admin: 12/29/20 03:58 Dose: 4 mls/min Documented by: [id number] Admin: 12/28/20 20:42 Dose: 4 mls/min Documented by: [id number] Admin: 12/28/20 12:04 Dose: 4 mls/min Documented by: [id number] Admin: 12/28/20 05:13 Dose: 4 mls/min Documented by: [id number] Cefepime HCl 2,000 mg/ Syringe 20 mls @ 5 mls/min IV Q24H JOSSELINE; Protocol Stop: 12/30/20 22:59 Last Admin: 12/29/20 22:55 Dose: 5 mls/min Documented by: [id number] Admin: 12/28/20 23:26 Dose: 5 mls/min Documented by: [id number] Ondansetron HCl (Ondansetron Inj 2 Mg/Ml 2 Ml Vial) 4 mg IV NOW STA Stop: 12/27/20 22:01 Last Admin: 12/27/20 22:10 Dose: 4 mg Documented by: [id number] Ondansetron HCl (Ondansetron Inj 2 Mg/Ml 2 Ml Vial) 4 mg IV NOW STA Stop: 12/28/20 00:45 Last Admin: 12/28/20 00:51 Dose: 4 mg Documented by: [id number] Discharge Plan Visit Data Chief Complaint: Abdominal Pain Stated Complaint: AB PAIN ED Provider: Demetri Fagan Discharge Problem: Abdominal pain, Diarrhea, LAITH (acute kidney injury), Nausea & vomiting Patient Disposition: Admitted As Inpatient Discharge Instructions Interventions: ED Discharge Assessment Last Done: 12/28/20 01:57 Discharge Problem: Abdominal pain Qualifiers: Abdominal location: generalized Qualified Code(s): R10.84 - Generalized abdominal pain Diarrhea Qualifiers: Diarrhea type: unspecified type Qualified Code(s): R19.7 - Diarrhea, unspecified Nausea & vomiting Qualifiers: Vomiting type: unspecified Vomiting Intractability: unspecified Qualified Code(s): R11.2 - Nausea with vomiting, unspecified
[2020-12-27] MEDS ORDERED: ONDANSETRON INJ 2 MG/ML 2 ML VIAL IV STA (22:00)
[2020-12-27 22:29] LABS: Basophils # (auto) 0.02 K/uL (0-0.2); Basophils % (auto) 0.1 %; Hemoglobin 13.2 g/dL (12.0-16.0); Immature Granulocytes # (auto) 0.52 K/uL (0.00-0.02); Immature Granulocytes % (auto) 2.5 %; Lymphocytes # (auto) 1.02 K/uL (1.2-3.4); Lymphocytes % (auto) 4.8 %; Mean Corpuscular Hemoglobin 32.7 pg (25-34); Mean Corpuscular Hgb Conc 31.4 g/dL (32-36); Mean Platelet Volume 10.6 fL (7.4-10.4); Monocytes # (auto) 0.81 K/uL (0.11-0.59); Monocytes % (auto) 3.8 %; Neutrophils # (auto) 18.83 K/uL (1.4-6.5); Neutrophils % (auto) 88.8 %; Platelet Count 145 K/uL (130-400); RDW Coefficient of Variation 16.4 % (11.5-14.5); RDW Standard Deviation 61.4 fL (36.4-46.3); Red Blood Count 4.04 M/uL (4.2-5.4)
[2020-12-27 22:46] LABS: Alanine Aminotransferase 17 U/L (12-78); Albumin Level 3.6 gm/dl (3.4-5.0); Aspartate Aminotransferase 29 U/L (15-37); BUN Creatinine Ratio 23.8 (10-20); Blood Urea Nitrogen 58 mg/dl (7-18); Carbon Dioxide 22 mmol/L (21-32); Chloride 111 mmol/L (98-107); Creatinine Clr Calc Pharmacy 15.9 ml/min; Est GFR (African American) 20.3 ml/min; Est GFR (Non-African American) 17.5 ml/min; Glucose 146 mg/dl (70-99); Lipase 273 U/L (73-393); Potassium 4.6 mmol/L (3.5-5.1); Sodium 141 mmol/L (136-145)
[2020-12-27 22:51] LABS: Albumin Globulin Ratio 1.1 (0.9-2); Alkaline Phosphatase 83 U/L (45-117); Bilirubin,Total 0.4 mg/dl (0.2-1); Globulin 3.1 gm/dl (2.5-4.0); Total Protein 6.7 gm/dl (6.4-8.2); Troponin I < 0.015 ng/ml (0-0.045)
[2020-12-27] MEDS ORDERED: SODIUM CHLORIDE 0.9% 1000ML 1,000 ML IV ONE (23:00)
[2020-12-27] MEDS ORDERED: CEFEPIME 2,000 MG/20 ML VIAL IV STA (23:00)
[2020-12-28] MEDS ORDERED: FAMOTIDINE 20MG IV PUSH 20 MG/5 ML SYR IV STA (00:44)
[2020-12-28] MEDS ORDERED: ONDANSETRON INJ 2 MG/ML 2 ML VIAL IV STA (00:44)
--- NOTE | 2020-12-28 01:45 | History & Physical Report ---
Date of Service December 28, 2020 Assessment & Plan (1) Diarrhea: Patient is an 85 year old female with PMHx CAD, GERD, HLD, HTN, Hypothyroidism, Macrocytic Anemia, Pancreatic mass, PVD, Rheumatoid Arthritis that presents after 1 day history of nausea, vomiting, and diarrhea. Nausea, Vomiting, Diarrhea -No obvious intra-abdominal pathology noted on CT ab/pelvis, though of note patient with compression fracture with collapse of L1 age indeterminant. -LFT's not elevated, Lipase negative, negative for C-diff -Will hold Immodium at this time and trial Cholestyramine for patient's diarrhea instead -NPO at this time until nausea improves -Patient with elevated white count, though no obvious source of infection at this time. -Would continue to monitor for worsening symptoms concerning for UTI as below. -Patient on chronic prednisone as well for RA, will give stress dose hydrocortisone 50mg q8h while inpatient -Hold ASA at this time due to concerns of blood in patient's feces -Hemoccult ordered -IVF while NPO LAITH on CKD -Cr base ~1.4-2, currently 2.42 on admission -Suspect pre-renal due to patient's history -Will gently hydrate with LR 80ml/hr ?UTI -UA from outpatient with Leuk est, but no bacteria nor nitrates -Patient's history somewhat poor, noting dysuria last week, but none today or more recently -Received 1 dose of Cefepime in the ED -Would continue to monitor and if worsening treat HTN -Hold amlodipine at this time -Pressures within acceptable limits at this time Dementia and Anxiety -Continue home Donepezil -Continue Mirtazapine -Continue Quetiapine -Continue Gabapentin HLD -Continue Simvastatin Macrocytic Anemia -Continue Folic acid GERD -Continue Protonix BID Rheumatoid Arthritis -Hold PO prednisone at this time -Stress dose hydrocortisone 50mg q8h Dispo: Med/Surg Telemetry for close monitoring and IVF FEN: NPO, LR 80ml/hr DVT: IVF filter in place Code: DNR/DNI History of Present Illness Chief Complaint: Patient is an 85 year old female with PMHx CAD, GERD, HLD, HTN, Hypothyroidism, Macrocytic Anemia, Pancreatic mass, PVD, Rheumatoid Arthritis that presents after 1 day history of nausea, vomiting, and diarrhea. Patient's history is fairly limited as she becomes easily distracted and confused, however, patient's daughter is present who notes that around 4PM today she was having worsening nausea, vomiting, and diarrhea. She also notes that the patient had some streaks of blood in her stool, none with her emesis. Notes that they have been working on her mother's diarrhea for close to 1 year now and have seen multiple providers, the most recent recommending Imodium every other day which up until today had been working fairly well. Patient denied any fever or chills. She did note some dysuria last week and was told that she had a UTI today outpatient, but had yet to start the Bactrim prescribed to her. In the ED she was given 1.5L NSS in addition to 8mg Zofran, 20mg Famotidine, and a dose of Cefepime. Currently patient is still noting some abdominal discomfort, but states that it is improving. Denies nausea. Med Hx: CAD, GERD, HLD, HTN, Hypothyroidism, Macrocytic Anemia, Pancreatic mass, PVD, Rheumatoid Arthritis Surg Hx: IVF filter, umbilical hernia repair, cholecystectomy Soc Hx: No tobacco, alcohol, illicit drug usage. Primary Care Provider: Vasiliy Uriostegui MD Allergies Allergy/AdvReac Type Severity Reaction Status Date / Time Penicillins Allergy Intermediate SWELLING Verified 12/27/20 21:26 celecoxib AdvReac Intermediate N/V Verified 12/27/20 21:26 cephalexin AdvReac Intermediate N/V Verified 12/27/20 21:26 methotrexate AdvReac Intermediate N/V Verified 12/27/20 21:26 nitrofurantoin AdvReac Intermediate N/V Verified 12/27/20 21:26 risedronate sodium AdvReac Intermediate NAUSEA AND Verified 12/27/20 21:26 VOMITING Home Medications Medication Instructions Recorded Confirmed Type heating pads #1 ea 04/20/19 10/26/20 Rx acetaminophen 500 mg tablet 500 mg PO TID #270 tab 03/20/20 12/27/20 Rx simethicone 80 mg chewable tablet 160 mg PO TID #540 tab 03/20/20 12/27/20 Rx simvastatin 40 mg tablet 40 mg PO HS #90 tab 03/20/20 12/27/20 Rx aspirin 81 mg tablet,delayed 81 mg PO QAM 03/21/20 12/27/20 History release donepezil 10 mg tablet 10 mg PO HS 30 Days #30 tab 08/15/20 12/27/20 Rx folic acid 1 mg tablet 1 mg PO 6XWK #90 tab 08/15/20 12/27/20 Rx gabapentin 100 mg capsule 100 mg PO BID #60 cap 08/15/20 12/27/20 Rx mirtazapine 45 mg tablet 45 mg PO HS 30 Days #30 tab 08/15/20 12/27/20 Rx methotrexate sodium 2.5 mg tablet See Rx Instructions PO WEEKLY #12 10/09/20 12/27/20 Rx tab esomeprazole magnesium 40 mg 40 mg PO BID #60 cap 10/10/20 12/27/20 Rx capsule,delayed release amlodipine 5 mg PO QAM 11/15/20 12/27/20 History cranberry 500 mg PO QAM 11/15/20 12/27/20 History levothyroxine 88 mcg PO QAM 11/15/20 12/27/20 History utvavcjo-lmc-GQ-lycopen-lutein 1 tab PO QAM 11/15/20 12/27/20 History [[facility]] prednisone 10 mg PO QAM 11/15/20 12/27/20 History quetiapine 12.5 mg PO HS 11/15/20 12/27/20 History loperamide [Imodium A-D] 2 mg PO Q OTHER DAY 12/27/20 12/27/20 History sulfamethoxazole 800 1 tab PO BID #10 tab 12/27/20 12/27/20 Rx mg-trimethoprim 160 mg tablet Past Med/Surg History Medical History Abdominal pain Anemia of chronic disease ASCVD (arteriosclerotic cardiovascular disease) Atopic dermatitis C. difficile colitis [id number] Closed right hip fracture Constipation Cystocele, midline Dementia DVT (deep venous thrombosis) GERD (gastroesophageal reflux disease) Hyperlipidemia Hypertension Hypotension Hypothyroidism Kidney stones Macrocytic anemia Osteoporosis with fracture Pancreatic mass PVD (peripheral vascular disease) Rectocele Rheumatoid arthritis Thrombosed external hemorrhoid Vitamin D insufficiency Surgical History History of inferior vena caval filter placement History of umbilical hernia repair Hx of cholecystectomy Hx of colonoscopy Hx of esophagogastroduodenoscopy Family History Unknown Arteriosclerotic cardiovascular disease (ASCVD) Father Heart disease Diabetes Myocardial infarction Mother Cancer Hypertension Mother Breast cancer Other Family history non-contributory Denies family history of Ovarian cancer Prostate cancer Crohn's disease Lung cancer Colorectal cancer Ulcerative colitis Stroke Social History Smoking Status: Never smoker Second Hand Exposure: No; Hx Alcohol Use: No Hx Substance Use: No Preferred Language: Romanian Communication Ability: Effective Visual Impairment: Limited Hearing Ability: Normal Soil Chemist Required: No Beliefs That Will Affect Care: None marital status: / Current Living Situation: Family Current Living Situation Comment: lives at her daughters house current occupational status: other How many Children do You have: 4 Feels Safe at Home: Yes Childhood Exposure to Second-Hand Smoke: No caffeine: Yes (coffee and tea) Dental Care, Regularly: No Physical Activity Frequency: Does not Exercise Seatbelt Use: always Sunscreen Use: Yes Assistive Devices: Walker Review of Systems Review of Systems: Unobtainable due to cognitive status Physical Exam Constitutional: + frail appearing; no acute distress Eyes: PERRL, conjunctivae normal, anicteric sclerae ENMT: external ear and nose normal, oropharynx normal Neck: trachea midline, no thyromegaly Respiratory: normal respiratory effort, lungs clear to auscultation Cardiovascular: RRR, no murmur, no edema Gastrointestinal (Abdomen): Inspection/Auscultation: abdomen normal to inspection and normal bowel sounds; abdomen not distended Pe rcussion/Palpation: abdomen soft; abdomen nontender Musculoskeletal: Head/Neck/Chest: normocephalic and head atraumatic Skin: + ecchymosis (on both forearms and elbows b/l ) Psychiatric: Orientation: alert, oriented to person and oriented to place Eye Contact: + poor eye contact Patient tends to be very "particular" with how things are and multiple times asked me to move parts of her blanket during the exam. Daughter at bedside notes that this is a normal thing for the patient. Results & Data Results & Data ([facility]) Vital Signs (Past 12 Hours) Vital Signs Temp Pulse Pulse Resp BP BP Pulse Ox 12/27/20 23:45 85 30 H 133/78 98 12/27/20 23:33 86 29 H 97 12/27/20 23:15 87 23 115/70 97 12/27/20 23:00 84 25 H 12/27/20 22:45 79 23 128/84 12/27/20 22:31 80 25 H 12/27/20 22:30 80 25 H 133/76 12/27/20 22:16 80 28 H 12/27/20 22:15 82 26 H 138/73 12/27/20 22:01 87 19 135/109 H 12/27/20 22:00 87 28 H 12/27/20 21:46 80 19 94 12/27/20 21:45 80 20 90/61 L 96 12/27/20 21:39 78 22 96/61 L 94 12/27/20 21:36 81 20 85/55 L 94 12/27/20 21:32 80 81 23 92/64 L 92/64 L 93 12/27/20 20:36 36.8 C 82 21 99/59 L 95 Code Status & VTE Plan VTE Prophylaxis Plan VTE Prophylaxis will be ordered: No Supervising Physician Co-Signing Physician Notes Attending addendum: I have physically seen this patient, have supervised the medical residents activities, and agree with the H&P unless as otherwise noted. Assessment and Plan: Chronic diarrhea- Has been followed by gastroenterology No improvement with Imodium as started by GI Trial of cholestyramine N.p.o. IV fluids, LR at 80 mils per hour RA- Hold oral prednisone. Placed on stress dose hydrocortisone IV LAITH on CKD- IV fluids as noted Secondary to dehydration from diarrhea Repeat laboratories in a.m. Remaining orders and notations as noted Resident Activity Tracking Resident Involvement: Resident Care Provided Care Provided: Adult Hospital Medicine (1) Diarrhea Diarrhea type: unspecified type Qualified Code(s): R19.7 - Diarrhea, unspecified
[2020-12-28] MEDS ORDERED: ONDANSETRON INJ 2 MG/ML 2 ML VIAL IV PRN (01:56)
[2020-12-28] MEDS ORDERED: HYDROCORTISONE SOD SUCCINATE 100 MG/2 ML VIAL IV SCH (01:56)
[2020-12-28] MEDS: LACTATED RINGER'S 1,000 ML IV SCH ×2 (03:59→16:01)
[2020-12-28] MEDS: HYDROCORTISONE SOD 50 MG in SYRINGE 0 ML IV SCH ×3 (05:13→20:42)
[2020-12-28] MEDS: LEVOTHYROXINE SODIUM 88 MCG TABLET PO SCH (05:34)
[2020-12-28] MEDS: GABAPENTIN 100 MG CAP PO SCH ×2 (07:22→20:43)
[2020-12-28] MEDS: PANTOprazole 40 MG TAB PO SCH ×2 (07:22→20:42)
[2020-12-28] MEDS: FOLIC ACID 1 MG TAB PO SCH (07:22)
[2020-12-28 07:36] LABS: Basophils # (auto) 0.01 K/uL (0-0.2); Basophils % (auto) 0.1 %; Hematocrit (blood only) 40.1 % (37-47); Hemoglobin 12.8 g/dL (12.0-16.0); Immature Granulocytes # (auto) 0.14 K/uL (0.00-0.02); Immature Granulocytes % (auto) 0.9 %; Lymphocytes # (auto) 0.68 K/uL (1.2-3.4); Lymphocytes % (auto) 4.4 %; Mean Corpuscular Hemoglobin 33.2 pg (25-34); Mean Corpuscular Hgb Conc 31.9 g/dL (32-36); Mean Corpuscular Volume 103.9 fL (80-100); Mean Platelet Volume 10.8 fL (7.4-10.4); Monocytes # (auto) 0.61 K/uL (0.11-0.59); Neutrophils % (auto) 90.6 %; Platelet Count 132 K/uL (130-400); RDW Coefficient of Variation 16.4 % (11.5-14.5); Red Blood Count 3.86 M/uL (4.2-5.4); White Blood Count 15.44 K/uL (4.8-10.8)
[2020-12-28 08:00] LABS: BUN Creatinine Ratio 24.1 (10-20); Calcium 9.1 mg/dl (8.5-10.1); Est GFR (African American) 20.6 ml/min; Est GFR (Non-African American) 17.8 ml/min; Potassium 4.4 mmol/L (3.5-5.1)
--- NOTE | 2020-12-28 08:33 | CT Scan Report ---
CT SCAN OF THE ABDOMEN AND PELVIS WITHOUT CONTRAST CLINICAL HISTORY: Abdominal pain, nausea, vomiting, diarrhea COMPARISON STUDY: 11/15/2020 TECHNIQUE: CT scan of the abdomen and pelvis was performed from the lung bases to the proximal femurs . Images are reviewed in the axial, sagittal, and coronal planes. IV contrast was not administered fo r this examination. A dose lowering technique was utilized adhering to the principles of ALARA. CT DOSE: 942.01 mGy.cm FINDINGS: Lower chest: There is respiratory motion artifact. There are bibasilar airspace opacities, likely ate lectatic. There is a 5 mm pulmonary nodule within the lingula. There are coronary artery calcificatio ns. Liver: The unenhanced liver is normal in size, contour, and attenuation. There is no intrahepatic lashell iary ductal dilatation. Gallbladder: Surgically absent. There is a stable 14 mm rim calcified structure at the level the gall bladder fossa. Spleen: Normal in size and attenuation. Pancreas: Unremarkable. Adrenal glands: Unremarkable. Kidneys: There are multiple bilateral renal masses, likely representing cysts. There is renal cortica l thinning. There is no significant hydronephrosis. Bowel: There are no transition zones to indicate bowel obstruction. There is no evidence of acute div erticulitis. There is colonic diverticulosis. There is no evidence of acute appendicitis. Peritoneum: There is no intraperitoneal free air or abdominal ascites. There is evidence for a prior ventral hernia repair with mesh. There is mild anterior bulging of the midline mesh. Vasculature: There is an indwelling IVC filter. There are atheromatous changes present within the aor ta. There is no evidence of aneurysmal dilatation. Adenopathy: None. Pelvic viscera: The bladder, and pelvic viscera are unremarkable. Skeletal structures: No destructive osseous lesions are seen. Postsurgical changes involve the right hip. The bones are osteopenic. There is a left iliac wing bone island. There is a chronic severe L1 c ompression fracture with retropulsion. There are old T11 and T12 compression fractures. There is a gr sindhu 1 spinal listhesis of L4 and L5. IMPRESSION: 1. No evidence of bowel obstruction. No evidence of free air 2. Multiple bilateral renal cysts 3. No evidence of acute diverticulitis. No evidence of acute appendicitis. 4. 5 mm solid pulmonary nodule within the lingula. This area was not included on the prior study. ACT 112: Negative or not required by law. Electronically signed by: Evangelista Rodriguez M.D. 12/28/2020 8:31 AM
[2020-12-28] MEDS: CHOLESTYRAMINE LIGHT 4 GM PKT PO SCH ×2 (09:36→21:47)
--- NOTE | 2020-12-28 10:59 | Gastrointestinal Consultation ---
Date of Consultation December 28, 2020 Assessment & Plan (1) Diarrhea: This is an 85-year-old female with history of dementia, RA on chronic prednisone, chronic diarrhea and incontinence, chronic intermittent abdominal discomfort -felt to be multifactorial, admitted with worsening symptoms lately. Initial testing is unrevealing, including cross-sectional imaging. She has been started on some Questran today, had been on Imodium as an outpatient. Abdomen is soft, has some mild nonspecific tenderness, on admission, CTAP with no acute findings. C. difficile testing negative - Await GI pathogen panel results, rule out infectious etiology - Await blood cultures - Can continue empiric ABX for leukocytosis, though I wonder if this is related to her chronic prednisone use Okay to use Questran as a trial today and see how she responds. It is not clear when or why Imodium was stopped as an outpatient. Monitor document GI output Thank you for allowing us to participate in the care of this patient. Please call with any acute changes, questions or concerns. Please see addendum below wi th additional recommendation from my supervising physician. (2) Abdominal pain: Supervising Physician Co-Signing Physician Notes Consult for diarrhea Patient without acute complaints - has dementia PE elderly fm in nad, abd benign abd Labs/imaging reviewed Agree with plan of care as below. History of Present Illness Reason for Consultation: diarrhea Attending Physician: Coy Lane History of Present Illness This is an 85 y/o female with PMhx dementia, RA on MTX, prednisone, recurrent UTI, HTN, chronic diarrhea, admitted yesterday after being brought in by her daughter. She had abdominal discomfort along with increasing diarrhea, scant hematochezia. History obtained from ER notes and outpatient notes as patient is a poor historian given her cognitive status. It is not clear how many stools per day she was recently having or how this worsened or when. In the ER, she was notable to have LAITH, leukocytosis, and was then admitted. GI asked to evaluate for diarrhea. C. difficile testing was negative, GI pathogen panel pending. Overnight, she has had 2 loose stools, continues to have some abdominal discomfort. CTAP with no acute findings. Blood cultures are also pending. She was started on empiric antibiotics. She was also started on empiric Questran today. Patient denies nausea vomiting, fevers or chills, melena or hematochezia, chest pain or shortness of breath. The does not seem to be any new medications, antibiotics. She had seen Kevin BENJAMIN as an outpatient in November for the diarrhea. At that time, she was having 2-3 stools per day with marked urgency and incontinence, with large liquid stools. In the past, had tried Metamucil, cholestyramine, Levsin, Linzess, Gas-X. It was suggested at that time that diarrhea and incontinence may be multifactorial. Patient was placed on low-dose Imodium every other day, unclear if this had been helping or not. Allergies Allergy/AdvReac Type Severity Reaction Status Date / Time Penicillins Allergy Intermediate SWELLING Verified 12/27/20 21:26 celecoxib AdvReac Intermediate N/V Verified 12/27/20 21:26 cephalexin AdvReac Intermediate N/V Verified 12/27/20 21:26 methotrexate AdvReac Intermediate N/V Verified 12/27/20 21:26 nitrofurantoin AdvReac Intermediate N/V Verified 12/27/20 21:26 risedronate sodium AdvReac Intermediate NAUSEA AND Verified 12/27/20 21:26 VOMITING Home Medications Medication Instructions Recorded Confirmed Type heating pads #1 ea 04/20/19 10/26/20 Rx acetaminophen 500 mg tablet 500 mg PO TID #270 tab 03/20/20 12/27/20 Rx simethicone 80 mg chewable tablet 160 mg PO TID #540 tab 03/20/20 12/27/20 Rx simvastatin 40 mg tablet 40 mg PO HS #90 tab 03/20/20 12/27/20 Rx aspirin 81 mg tablet,delayed 81 mg PO QAM 03/21/20 12/27/20 History release donepezil 10 mg tablet 10 mg PO HS 30 Days #30 tab 08/15/20 12/27/20 Rx folic acid 1 mg tablet 1 mg PO 6XWK #90 tab 08/15/20 12/27/20 Rx gabapentin 100 mg capsule 100 mg PO BID #60 cap 08/15/20 12/27/20 Rx mirtazapine 45 mg tablet 45 mg PO HS 30 Days #30 tab 08/15/20 12/27/20 Rx methotrexate sodium 2.5 mg tablet See Rx Instructions PO WEEKLY #12 10/09/20 12/27/20 Rx tab esomeprazole magnesium 40 mg 40 mg PO BID #60 cap 10/10/20 12/27/20 Rx capsule,delayed release amlodipine 5 mg PO QAM 11/15/20 12/27/20 History cranberry 500 mg PO QAM 11/15/20 12/27/20 History levothyroxine 88 mcg PO QAM 11/15/20 12/27/20 History evycfave-dgv-VZ-lycopen-lutein 1 tab PO QAM 11/15/20 12/27/20 History [[facility]] prednisone 10 mg PO QAM 11/15/20 12/27/20 History quetiapine 12.5 mg PO HS 11/15/20 12/27/20 History loperamide [Imodium A-D] 2 mg PO Q OTHER DAY 12/27/20 12/27/20 History sulfamethoxazole 800 1 tab PO BID #10 tab 12/27/20 12/27/20 Rx mg-trimethoprim 160 mg tablet Patient History Medical History Abdominal pain Anemia of chronic disease ASCVD (arteriosclerotic cardiovascular disease) Atopic dermatitis C. difficile colitis [id number] Closed right hip fracture Constipation Cystocele, midline Dementia DVT (deep venous thrombosis) GERD (gastroesophageal reflux disease) Hyperlipidemia Hypertension Hypotension Hypothyroidism Kidney stones Macrocytic anemia Osteoporosis with fracture Pancreatic mass PVD (peripheral vascular disease) Rectocele Rheumatoid arthritis Thrombosed external hemorrhoid Vitamin D insufficiency Surgical History History of inferior vena caval filter placement History of umbilical hernia repair Hx of cholecystectomy Hx of colonoscopy Hx of esophagogastroduodenoscopy Family History Unknown Arteriosclerotic cardiovascular disease (ASCVD) Father Heart disease Diabetes Myocardial infarction Mother Cancer Hypertension Mother Breast cancer Other Family history non-contributory Denies family history of Ovarian cancer Prostate cancer Crohn's disease Lung cancer Colorectal cancer Ulcerative colitis Stroke Social History Smoking Status: Never smoker Second Hand Exposure: No; Hx Alcohol Use: No Hx Substance Use: No Preferred Language: Nepali Communication Ability: Effective Visual Impairment: Limited Hearing Ability: Normal Communications Professor Required: No Beliefs That Will Affect Care: None marital status: / Current Living Situation: Family Current Living Situation Comment: lives at her daughters house current occupational status: other How many Children do You have: 4 Feels Safe at Home: Yes Childhood Exposure to Second-Hand Smoke: No caffeine: Yes (coffee and tea) Dental Care, Regularly: No Physical Activity Frequency: Does not Exercise Seatbelt Use: always Sunscreen Use: Yes Assistive Devices: Walker Review of Systems Review of Systems: Unobtainable due to cognitive status Physical Exam Constitutional: WD/WN, vitals as above Respiratory: normal respiratory effort, lungs clear to auscultation Cardiovascular: Rate/Rhythm: regular rate and regular rhythm Gastrointestinal (Abdomen): Inspection/Auscultation: abdomen normal to inspection and normal bowel sounds; abdomen not distended Percussion/Palpation: abdomen soft; no guarding and abdomen not rigid mild diffuse tenderness without rebound Skin: no rashes, warm and dry Psychiatric: Orientation: alert; + not oriented x 3 Results & Data ([facility]) Vital Signs (Past 12 Hours) Vital Signs Temp Pulse Pulse Resp BP BP Pulse Ox 12/28/20 07:24 36.8 C 88 121/61 94 12/28/20 04:10 37.2 C 85 18 115/79 94 12/28/20 04:00 37.2 C 85 18 115/79 94 12/28/20 03:45 88 12/27/20 23:45 85 30 H 133/78 98 12/27/20 23:33 86 29 H 97 12/27/20 23:15 87 23 115/70 97 12/27/20 23:00 84 25 H Laboratory Results 12/28/20 12/28/20 12/28/20 Range/Units 10:39 07:10 07:10 WBC 15.44 H (4.8-10.8) K/uL RBC 3.86 L (4.2-5.4) M/uL Hgb 12.8 (12.0-16.0) g/dL Hct 40.1 (37-47) % MCV 103.9 H (80-100) fL MCH 33.2 (25-34) pg MCHC 31.9 L (32-36) g/dL RDW Std Deviation 62.0 H (36.4-46.3) fL RDW Coeff of Adrien 16.4 H (11.5-14.5) % Plt Count 132 (130-400) K/uL MPV 10.8 H (7.4-10.4) fL Immature Gran % (Auto) 0.9 % Neut % (Auto) 90.6 % Lymph % (Auto) 4.4 % [place] % (Auto) 4.0 % Eos % (Auto) 0.0 % Baso % (Auto) 0.1 % Neut # (Auto) 14.00 H (1.4-6.5) K/uL Lymph # (Auto) 0.68 L (1.2-3.4) K/uL [place] # (Auto) 0.61 H (0.11-0.59) K/uL Eos # (Auto) 0.00 (0-0.5) K/uL Baso # (Auto) 0.01 (0-0.2) K/uL Immature Gran # (Auto) 0.14 H (0.00-0.02) K/uL Sodium 141 (136-145) mmol/L Potassium 4.4 (3.5-5.1) mmol/L Chloride 113 H (98-107) mmol/L Carbon Dioxide 22 (21-32) mmol/L Anion Gap 6.0 (3-11) BUN 58 H (7-18) mg/dl Creatinine 2.39 H (0.6-1.2) mg/dl Est Cr Clr Drug Dosing 14.0 ml/min Est GFR ( Amer) 20.6 ml/min Est GFR (Non-Af Amer) 17.8 ml/min BUN/Creatinine Ratio 24.1 H (10-20) Glucose 102 H (70-99) mg/dl Calcium 9.1 (8.5-10.1) mg/dl Total Bilirubin (0.2-1) mg/dl AST (15-37) U/L ALT (12-78) U/L Alkaline Phosphatase (45-117) U/L Troponin I (0-0.045) ng/ml Total Protein (6.4-8.2) gm/dl Albumin (3.4-5.0) gm/dl Globulin (2.5-4.0) gm/dl Albumin/Globulin Ratio (0.9-2) Lipase (73-393) U/L Procalcitonin Pending Stool Occult Bld Scrn (Negative) Stl C. diff Tox B Gene (Neg) COVID-19 Eval Order SARS-CoV-2 (PCR) (Negative) 12/28/20 12/27/20 12/27/20 Range/Units 05:55 23:46 23:46 WBC (4.8-10.8) K/uL RBC (4.2-5.4) M/uL Hgb (12.0-16.0) g/dL Hct (37-47) % MCV (80-100) fL MCH (25-34) pg MCHC (32-36) g/dL RDW Std Deviation (36.4-46.3) fL RDW Coeff of Adrien (11.5-14.5) % Plt Count (130-400) K/uL MPV (7.4-10.4) fL Immature Gran % (Auto) % Neut % (Auto) % Lymph % (Auto) % [place] % (Auto) % Eos % (Auto) % Baso % (Auto) % Neut # (Auto) (1.4-6.5) K/uL Lymph # (Auto) (1.2-3.4) K/uL [place] # (Auto) (0.11-0.59) K/uL Eos # (Auto) (0-0.5) K/uL Baso # (Auto) (0-0.2) K/uL Immature Gran # (Auto) (0.00-0.02) K/uL Sodium (136-145) mmol/L Potassium (3.5-5.1) mmol/L Chloride (98-107) mmol/L Carbon Dioxide (21-32) mmol/L Anion Gap (3-11) BUN (7-18) mg/dl Creatinine (0.6-1.2) mg/dl Est Cr Clr Drug Dosing ml/min Est GFR ( Amer) ml/min Est GFR (Non-Af Amer) ml/min BUN/Creatinine Ratio (10-20) Glucose (70-99) mg/dl Calcium (8.5-10.1) mg/dl Total Bilirubin (0.2-1) mg/dl AST (15-37) U/L ALT (12-78) U/L Alkaline Phosphatase (45-117) U/L Troponin I (0-0.045) ng/ml Total Protein (6.4-8.2) gm/dl Albumin (3.4-5.0) gm/dl Globulin (2.5-4.0) gm/dl Albumin/Globulin Ratio (0.9-2) Lipase (73-393) U/L Procalcitonin Stool Occult Bld Scrn Positive A (Negative) Stl C. diff Tox B Gene (Neg) COVID-19 Eval Order Covid19 at [facility] SARS-CoV-2 (PCR) NEGATIVE (Negative) 12/27/20 12/27/20 12/27/20 Range/Units 22:21 22:21 21:50 WBC 21.20 H (4.8-10.8) K/uL RBC 4.04 L (4.2-5.4) M/uL Hgb 13.2 (12.0-16.0) g/dL Hct 42.0 (37-47) % MCV 104.0 H (80-100) fL MCH 32.7 (25-34) pg MCHC 31.4 L (32-36) g/dL RDW Std Deviation 61.4 H (36.4-46.3) fL RDW Coeff of Adrien 16.4 H (11.5-14.5) % Plt Count 145 (130-400) K/uL MPV 10.6 H (7.4-10.4) fL Immature Gran % (Auto) 2.5 % Neut % (Auto) 88.8 % Lymph % (Auto) 4.8 % [place] % (Auto) 3.8 % Eos % (Auto) 0.0 % Baso % (Auto) 0.1 % Neut # (Auto) 18.83 H (1.4-6.5) K/uL Lymph # (Auto) 1.02 L (1.2-3.4) K/uL [place] # (Auto) 0.81 H (0.11-0.59) K/uL Eos # (Auto) 0.00 (0-0.5) K/uL Baso # (Auto) 0.02 (0-0.2) K/uL Immature Gran # (Auto) 0.52 H (0.00-0.02) K/uL Sodium 141 (136-145) mmol/L Potassium 4.6 (3.5-5.1) mmol/L Chloride 111 H (98-107) mmol/L Carbon Dioxide 22 (21-32) mmol/L Anion Gap 8.0 (3-11) BUN 58 H (7-18) mg/dl Creatinine 2.42 H (0.6-1.2) mg/dl Est Cr Clr Drug Dosing 15.9 ml/min Est GFR ( Amer) 20.3 ml/min Est GFR (Non-Af Amer) 17.5 ml/min BUN/Creatinine Ratio 23.8 H (10-20) Glucose 146 H (70-99) mg/dl Calcium 9.0 (8.5-10.1) mg/dl Total Bilirubin 0.4 (0.2-1) mg/dl AST 29 (15-37) U/L ALT 17 (12-78) U/L Alkaline Phosphatase 83 (45-117) U/L Troponin I < 0.015 (0-0.045) ng/ml Total Protein 6.7 (6.4-8.2) gm/dl Albumin 3.6 (3.4-5.0) gm/dl Globulin 3.1 (2.5-4.0) gm/dl Albumin/Globulin Ratio 1.1 (0.9-2) Lipase 273 (73-393) U/L Procalcitonin Stool Occult Bld Scrn (Negative) Stl C. diff Tox B Gene Negative Cdiff Gene (Neg) COVID-19 Eval Order SARS-CoV-2 (PCR) (Negative) Diagnostic Findings CTAP: 1. No evidence of bowel obstruction. No evidence of free air 2. Multiple bilateral renal cysts 3. No evidence of acute diverticulitis. No evidence of acute appendicitis. 4. 5 mm solid pulmonary nodule within the lingula. This area was not included on the prior study. (1) Diarrhea Diarrhea type: unspecified type Qualified Code(s): R19.7 - Diarrhea, unspecified (2) Abdominal pain Abdominal location: generalized Qualified Code(s): R10.84 - Generalized abdominal pain
--- NOTE | 2020-12-28 15:24 | Electrocardiogram Report ---
Test Reason : Blood Pressure : / mmHG Vent. Rate : 081 BPM Atrial Rate : 081 BPM P-R Int : 138 ms QRS Dur : 088 ms QT Int : 356 ms P-R-T Axes : 037 006 076 degrees QTc Int : 413 ms Normal sinus rhythm Nonspecific ST abnormality Abnormal ECG When compared with ECG of 19-APR-2020 03:00, No significant change was found Confirmed by Matt Arshad ([id number]) on 12/28/2020 3:23:42 PM Referred By: Luz Elena Mosley Confirmed By:Matt Arshad
[2020-12-28] MEDS: DONEPEZIL HCL 10 MG TAB PO SCH (20:42)
[2020-12-28] MEDS: SIMVASTATIN 40 MG TAB PO SCH (20:43)
[2020-12-28] MEDS: MIRTAZAPINE SOLTAB 15 MG PO SCH (20:43)
[2020-12-28] MEDS: QUEtiapine FUMARATE 25 MG TABLET PO SCH (20:44)
[2020-12-28] MEDS: ACETAMINOPHEN 325 MG TAB PO PRN (21:47)
--- NOTE | 2020-12-28 22:03 | Billing Data ---
Date of Service December 28, 2020 Coding Level of Care Code 05931 Initial Inpt Care Lvl 3
[2020-12-28] MEDS: CEFEPIME 2,000 MG in SYRINGE 0 ML IV SCH (23:26)
[2020-12-28 23:48] LABS: Appearance Urine Cloudy (Clear); Bacteria Urine Automated Negative (Negative); Bilirubin Urine Negative (Negative); Blood Urine 2+ (Negative); Color Urine Dark Yellow; Glucose Urine UA Negative (Negative); Ketones Urine Trace (Negative); Leukocyte Esterase Urine 2+ (Negative); Nitrite Urine Negative (Negative); Protein Urine 1+ (Negative); Specific Gravity Urine 1.021 (1.000-1.030); Urobilinogen Urine Negative (Negative); WBC Urine Automated >30 /hpf (0-5); pH Urine 5.5 (4.5-7.5)
[2020-12-29 00:31] LABS: Mucus Urine Present (None Prsent)
[2020-12-29] MEDS: HYDROCORTISONE SOD 50 MG in SYRINGE 0 ML IV SCH ×3 (03:58→19:52)
[2020-12-29] MEDS: LEVOTHYROXINE SODIUM 88 MCG TABLET PO SCH (06:02)
[2020-12-29 07:39] LABS: Hematocrit (blood only) 38.4 % (37-47); Mean Corpuscular Hemoglobin 32.6 pg (25-34); Mean Corpuscular Hgb Conc 31.3 g/dL (32-36); Mean Corpuscular Volume 104.3 fL (80-100); Mean Platelet Volume 10.6 fL (7.4-10.4); Platelet Count 110 K/uL (130-400); RDW Coefficient of Variation 16.2 % (11.5-14.5); RDW Standard Deviation 61.3 fL (36.4-46.3); Red Blood Count 3.68 M/uL (4.2-5.4); White Blood Count 12.88 K/uL (4.8-10.8)
[2020-12-29 08:03] LABS: BUN Creatinine Ratio 25.8 (10-20); Calcium 8.9 mg/dl (8.5-10.1); Creatinine Clr Calc Pharmacy 16.3 ml/min; Est GFR (African American) 22.3 ml/min; Est GFR (Non-African American) 19.2 ml/min; Potassium 4.5 mmol/L (3.5-5.1)
[2020-12-29] MEDS: ACETAMINOPHEN 325 MG TAB PO PRN ×2 (08:20→17:47)
[2020-12-29] MEDS: GABAPENTIN 100 MG CAP PO SCH ×2 (08:21→20:37)
[2020-12-29] MEDS: FOLIC ACID 1 MG TAB PO SCH (08:21)
[2020-12-29] MEDS: PANTOprazole 40 MG TAB PO SCH ×2 (08:21→20:37)
[2020-12-29] MEDS: CHOLESTYRAMINE LIGHT 4 GM PKT PO SCH ×2 (10:09→22:57)
--- NOTE | 2020-12-29 15:35 | Electrocardiogram Report ---
Test Reason : Blood Pressure : / mmHG Vent. Rate : 078 BPM Atrial Rate : 078 BPM P-R Int : 148 ms QRS Dur : 088 ms QT Int : 372 ms P-R-T Axes : 040 -06 057 degrees QTc Int : 424 ms Poor data quality, interpretation may be adversely affected Normal sinus rhythm Normal ECG When compared with ECG of 27-DEC-2020 21:29, No significant change was found Confirmed by Matt Arshad ([id number]) on 12/29/2020 3:35:14 PM Referred By: Luz Elena Mosley Confirmed By:Matt Arshad
[2020-12-29] MEDS: MIRTAZAPINE SOLTAB 15 MG PO SCH (20:35)
[2020-12-29] MEDS: QUEtiapine FUMARATE 25 MG TABLET PO SCH (20:36)
[2020-12-29] MEDS: SIMVASTATIN 40 MG TAB PO SCH (20:36)
[2020-12-29] MEDS: DONEPEZIL HCL 10 MG TAB PO SCH (20:37)
--- NOTE | 2020-12-29 22:14 | Hospitalist Progress Note ---
Date of Service December 29, 2020 Assessment & Plan (1) Diarrhea: Patient is an 85 year old female with PMHx CAD, GERD, HLD, HTN, Hypothyroidism, Macrocytic Anemia, Pancreatic mass, PVD, Rheumatoid Arthritis that presents after 1 day history of nausea, vomiting, and diarrhea. Nausea, Vomiting, Diarrhea -No obvious intra-abdominal pathology noted on CT ab/pelvis, though of note patient with compression fracture with collapse of L1 age indeterminant. -LFT's not elevated, Lipase negative, negative for C-diff -Patient is now tolerating diet -Unsure cause of WBC, but will continue antibiotics -Patient on chronic prednisone as well for RA, will give stress dose hydroc ortisone 50mg q8h while inpatient -Hold ASA at this time due to concerns of blood in patient's feces -Hemoccult ordered LAITH on CKD -Cr base ~1.4-2, currently 2.42 on admission -Suspect pre-renal due to patient's history -Will gently hydrate with LR 80ml/hr ?UTI -UA from outpatient with Leuk est, but no bacteria nor nitrates -Patient's history somewhat poor, noting dysuria last week, but none today or more recently -continue cefepime -Would continue to monitor and if worsening treat HTN -Hold amlodipine at this time -Pressures within acceptable limits at this time Dementia and Anxiety -Continue home Donepezil -Continue Mirtazapine -Continue Quetiapine -Continue Gabapentin HLD -Continue Simvastatin Macrocytic Anemia -Continue Folic acid GERD -Continue Protonix BID Rheumatoid Arthritis -Hold PO prednisone at this time -Stress dose hydrocortisone 50mg q8h Dispo: Med/Surg Telemetry for close monitoring and IVF DVT: IVF filter in place Code: DNR/DNI Admission and Anticipated Discharge Date Admission Date: December 28, 2020 Subjective 85 yo female reports feeling better today. Her abdominal pain has improved. Review of Systems 2 Review of Systems: All systems reviewed & are unremarkable except as noted in HPI & below Physical Exam Physical Exam: Constitutional: + frail appearing; no acute distress Eyes: PERRL, conjunctivae normal, anicteric sclerae ENMT: external ear and nose normal, oropharynx normal Neck: trachea midline, no thyromegaly Respiratory: normal respiratory effort, lungs clear to auscultation Cardiovascular: RRR, no murmur, no edema Gastrointestinal (Abdomen): Inspection/Auscultation: abdomen normal to inspection and normal bowel sounds; abdomen not distended Percussion/Palpation: abdomen soft; abdomen nontender Musculoskeletal: Head/Neck/Chest: normocephalic and head atraumatic Skin: + ecchymosis (on both forearms and elbows b/l ) Psychiatric: Orientation: alert, oriented to person and oriented to place Results & Data Results & Data ([facility]) Vital Signs (Past 12 Hours) Vital Signs Temp Pulse Pulse Pulse Resp BP Pulse Ox 12/29/20 19:28 36.3 C L 70 16 128/78 96 12/29/20 15:50 63 12/29/20 15:48 36.5 C 70 18 126/57 L 93 12/29/20 11:13 36.5 C 70 18 126/73 92 PG Care Time/CCT Total # of Minutes Spent Total Time Spent with Patient: Total time spent is greater than 50% in coordination of care (as documented) at patient's floor/unit and/or counseling patient: Coding Level of Care Code 81617 Subseq Hosp Care Lvl 2 Diagnoses Diarrhea R19.7 Diarrhea type: unspecified type Time Spent (min) 25 (1) Diarrhea Diarrhea type: unspecified type Qualified Code(s): R19.7 - Diarrhea, unspecified
[2020-12-29] MEDS: CEFEPIME 2,000 MG in SYRINGE 0 ML IV SCH (22:55)
[2020-12-30] MEDS: HYDROCORTISONE SOD 50 MG in SYRINGE 0 ML IV SCH ×3 (04:09→21:01)
[2020-12-30] MEDS: LEVOTHYROXINE SODIUM 88 MCG TABLET PO SCH (06:31)
[2020-12-30] MEDS: PANTOprazole 40 MG TAB PO SCH ×2 (08:19→20:51)
[2020-12-30] MEDS: GABAPENTIN 100 MG CAP PO SCH ×2 (08:19→20:51)
[2020-12-30] MEDS: FOLIC ACID 1 MG TAB PO SCH (08:19)
[2020-12-30] MEDS: CHOLESTYRAMINE LIGHT 4 GM PKT PO SCH ×2 (09:29→21:01)
[2020-12-30] MEDS: QUEtiapine FUMARATE 25 MG TABLET PO SCH (20:50)
[2020-12-30] MEDS: DONEPEZIL HCL 10 MG TAB PO SCH (20:50)
[2020-12-30] MEDS: MIRTAZAPINE SOLTAB 15 MG PO SCH (20:51)
[2020-12-30] MEDS: SIMVASTATIN 40 MG TAB PO SCH (20:56)
--- NOTE | 2020-12-30 22:20 | Hospitalist Progress Note ---
Date of Service December 30, 2020 Assessment & Plan (1) Diarrhea: Patient is an 85 year old female with PMHx CAD, GERD, HLD, HTN, Hypothyroidism, Macrocytic Anemia, Pancreatic mass, PVD, Rheumatoid Arthritis that presents after 1 day history of nausea, vomiting, and diarrhea. Nausea, Vomiting, Diarrhea -No obvious intra-abdominal pathology noted on CT ab/pelvis, though of note patient with compression fracture with collapse of L1 age indeterminant. -LFT's not elevated, Lipase negative, negative for C-diff -Patient is now tolerating diet -Unsure cause of WBC, but will continue antibiotics -Patient on chronic prednisone as well for RA, will give stress dose hydroc ortisone 50mg q8h while inpatient -Hold ASA at this time due to concerns of blood in patient's feces -Hemoccult ordered -Patient appears to be doing better and may consider discharge tomorrow. LAITH on CKD -Cr base ~1.4-2, currently 2.42 on admission -Suspect pre-renal due to patient's history -Will gently hydrate with LR 80ml/hr ?UTI -UA from outpatient with Leuk est, but no bacteria nor nitrates -Patient's history somewhat poor, noting dysuria last week, but none today or more recently -continue cefepime -Would continue to monitor and if worsening treat HTN -Hold amlodipine at this time -Pressures within acceptable limits at this time Dementia and Anxiety -Continue home Donepezil -Continue Mirtazapine -Continue Quetiapine -Continue Gabapentin HLD -Continue Simvastatin Macrocytic Anemia -Continue Folic acid GERD -Continue Protonix BID Rheumatoid Arthritis -Hold PO prednisone at this time -Stress dose hydrocortisone 50mg q8h Dispo: Med/Surg Telemetry for close monitoring and IVF DVT: IVF filter in place Code: DNR/DNI Admission and Anticipated Discharge Date Admission Date: December 28, 2020 Subjective Patient reports feeling better. She is having less abdominal pain than yesterday. Review of Systems Review of Systems: All systems reviewed & are unremarkable except as noted in HPI & below Physical Exam Physical Exam: Constitutional: + frail appearing; no acute distress Eyes: PERRL, conjunctivae normal, anicteric sclerae ENMT: external ear and nose normal, oropharynx normal Neck: trachea midline, no thyromegaly Respiratory: normal respiratory effort, lungs clear to auscultation Cardiovascular: RRR, no murmur, no edema Gastrointestinal (Abdomen): Inspection/Auscultation: abdomen normal to inspection and normal bowel sounds; abdomen not distended Percussion/Palpation: abdomen soft; abdomen nontender Musculoskeletal: Head/Neck/Chest: normocephalic and head atraumatic Skin: + ecchymosis (on both forearms and elbows b/l ) Psychiatric: Orientation: alert, oriented to person and oriented to place Results & Data Results & Data ([facility]) Vital Signs (Past 12 Hours) Vital Signs Temp Pulse Pulse Resp BP Pulse Ox 12/30/20 19:48 36.3 C L 74 18 143/71 H 93 12/30/20 16:33 68 12/30/20 15:22 36.7 C 66 18 129/88 96 12/30/20 10:44 36.3 C L 69 18 134/80 96 PG Care Time/CCT Total # of Minutes Spent Total Time Spent with Patient: Total time spent is greater than 50% in coordination of care (as documented) at patient's floor/unit and/or counseling patient: Coding Level of Care Code 26905 Subseq Hosp Care Lvl 2 Diagnoses Diarrhea R19.7 Diarrhea type: unspecified type Time Spent (min) 25 (1) Diarrhea Diarrhea type: unspecified type Qualified Code(s): R19.7 - Diarrhea, unspecified
[2020-12-31] MEDS: HYDROCORTISONE SOD 50 MG in SYRINGE 0 ML IV SCH ×3 (03:50→20:50)
[2020-12-31] MEDS: LEVOTHYROXINE SODIUM 88 MCG TABLET PO SCH (06:07)
[2020-12-31] MEDS: GABAPENTIN 100 MG CAP PO SCH ×2 (09:16→20:52)
[2020-12-31] MEDS: FOLIC ACID 1 MG TAB PO SCH (09:16)
[2020-12-31] MEDS: PANTOprazole 40 MG TAB PO SCH ×2 (09:17→20:52)
[2020-12-31] MEDS: CHOLESTYRAMINE LIGHT 4 GM PKT PO SCH ×2 (11:19→22:29)
[2020-12-31] MEDS ORDERED: MICONAZOLE NITRATE POWDER 43 GM EXT PRN (13:37)
[2020-12-31 15:33] LABS: Eosinophils # (auto) 0.02 K/uL (0-0.5); Eosinophils % (auto) 0.2 %; Hematocrit (blood only) 35.6 % (37-47); Hemoglobin 11.6 g/dL (12.0-16.0); Immature Granulocytes # (auto) 0.07 K/uL (0.00-0.02); Immature Granulocytes % (auto) 0.7 %; Lymphocytes # (auto) 0.45 K/uL (1.2-3.4); Lymphocytes % (auto) 4.3 %; Mean Corpuscular Hemoglobin 32.8 pg (25-34); Mean Corpuscular Hgb Conc 32.6 g/dL (32-36); Mean Corpuscular Volume 100.6 fL (80-100); Mean Platelet Volume 10.1 fL (7.4-10.4); Monocytes # (auto) 0.19 K/uL (0.11-0.59); Monocytes % (auto) 1.8 %; Neutrophils # (auto) 9.72 K/uL (1.4-6.5); Platelet Count 134 K/uL (130-400); RDW Coefficient of Variation 15.6 % (11.5-14.5); RDW Standard Deviation 56.9 fL (36.4-46.3); Red Blood Count 3.54 M/uL (4.2-5.4); White Blood Count 10.45 K/uL (4.8-10.8)
[2020-12-31 15:54] LABS: BUN Creatinine Ratio 26.1 (10-20); Calcium 7.8 mg/dl (8.5-10.1); Est GFR (African American) 32.2 ml/min; Est GFR (Non-African American) 27.8 ml/min
[2020-12-31] MEDS: QUEtiapine FUMARATE 25 MG TABLET PO SCH (20:51)
[2020-12-31] MEDS: DONEPEZIL HCL 10 MG TAB PO SCH (20:52)
[2020-12-31] MEDS: MIRTAZAPINE SOLTAB 15 MG PO SCH (20:53)
[2020-12-31] MEDS: SIMVASTATIN 40 MG TAB PO SCH (20:54)
--- NOTE | 2020-12-31 21:54 | Hospitalist Progress Note ---
Date of Service December 31, 2020 Assessment & Plan (1) Diarrhea: Patient is an 85 year old female with PMHx CAD, GERD, HLD, HTN, Hypothyroidism, Macrocytic Anemia, Pancreatic mass, PVD, Rheumatoid Arthritis that presents after 1 day history of nausea, vomiting, and diarrhea. Nausea, Vomiting, Diarrhea -No obvious intra-abdominal pathology noted on CT ab/pelvis, though of note patient with compression fracture with collapse of L1 age indeterminant. -LFT's not elevated, Lipase negative, negative for C-diff -Patient is now tolerating diet -Unsure cause of WBC, antibitoics held after 3 doses. -WBC trending down. -Patient on chronic prednisone as well for RA, will give stress dose hydrocortisone 50mg q8h while inpatient -Hold ASA at this time due to concerns of blood in patient's feces -Hemoccult ordered -Patient appears to be doing better -hold discharge todaye. LAITH on CKD -Cr base ~1.4-2, currently 2.42 on admission -Suspect pre-renal due to patient's history -Will gently hydrate with LR 80ml/hr ?UTI -UA from outpatient with Leuk est, but no bacteria nor nitrates -Patient's history somewhat poor, noting dysuria last week, but none today or more recently -treated for 3 days of cefepime. WBC has normalized. -Would continue to monitor and if worsening treat HTN -Hold amlodipine at this time -Pressures within acceptable limits at this time Dementia and Anxiety -Continue home Donepezil -Continue Mirtazapine -Continue Quetiapine -Continue Gabapentin HLD -Continue Simvastatin Macrocytic Anemia -Continue Folic acid GERD -Continue Protonix BID Rheumatoid Arthritis -Hold PO prednisone at this time -Stress dose hydrocortisone 50mg q8h Dispo: Med/Surg Telemetry for close monitoring and IVF DVT: IVF filter in place Code: DNR/DNI Admission and Anticipated Discharge Date Admission Date: December 28, 2020 Subjective Patient reports doing well. She has no new complaints. Review of Systems Review of Systems: All systems reviewed & are unremarkable except as noted in HPI & below Physical Exam Physical Exam: Constitutional: + frail appearing; no acute distress Eyes: PERRL, conjunctivae normal, anicteric sclerae ENMT: external ear and nose normal, oropharynx normal Neck: trachea midline, no thyromegaly Respiratory: normal respiratory effort, lungs clear to auscultation Cardiovascular: RRR, no murmur, no edema Gastrointestinal (Abdomen): Inspection/Auscultation: abdomen normal to inspection and normal bowel sounds; abdomen not distended Percussion/Palpation: abdomen soft; abdomen nontender Musculoskeletal: Head/Neck/Chest: normocephalic and head atraumatic Skin: + ecchymosis (on both forearms and elbows b/l ) Psychiatric: Orientation: alert, oriented to person and oriented to place Results & Data Results & Data ([facility]) Vital Signs (Past 12 Hours) Vital Signs Temp Pulse Pulse Resp BP Pulse Ox Pulse Ox 12/31/20 19:10 36.8 C 72 18 126/78 95 12/31/20 16:14 74 12/31/20 15:05 36.6 C 78 19 126/78 91 12/31/20 11:29 36.7 C 68 18 134/74 90 12/31/20 10:05 96 PG Care Time/CCT Total # of Minutes Spent Total Time Spent with Patient: Total time spent is greater than 50% in coordination of care (as documented) at patient's floor/unit and/or counseling patient: Coding Level of Care Code 74251 Subseq Hosp Care Lvl 2 Diagnoses Diarrhea R19.7 Diarrhea type: unspecified type Time Spent (min) 25 (1) Diarrhea Diarrhea type: unspecified type Qualified Code(s): R19.7 - Diarrhea, unspecified
[2021-01-01] MEDS: HYDROCORTISONE SOD 50 MG in SYRINGE 0 ML IV SCH ×2 (03:50→13:01)
[2021-01-01 04:07] LABS: Hematocrit (blood only) 35.7 % (37-47); Hemoglobin 11.6 g/dL (12.0-16.0); Mean Corpuscular Hemoglobin 32.5 pg (25-34); Mean Corpuscular Hgb Conc 32.5 g/dL (32-36); Mean Platelet Volume 10.3 fL (7.4-10.4); Platelet Count 143 K/uL (130-400); RDW Coefficient of Variation 15.6 % (11.5-14.5); RDW Standard Deviation 56.6 fL (36.4-46.3); Red Blood Count 3.57 M/uL (4.2-5.4); White Blood Count 9.81 K/uL (4.8-10.8)
[2021-01-01 04:32] LABS: BUN Creatinine Ratio 29.4 (10-20); Blood Urea Nitrogen 42 mg/dl (7-18); Calcium 8.4 mg/dl (8.5-10.1); Carbon Dioxide 25 mmol/L (21-32); Chloride 113 mmol/L (98-107); Creatinine Clr Calc Pharmacy 25.6 ml/min; Est GFR (African American) 38.7 ml/min; Est GFR (Non-African American) 33.4 ml/min; Glucose 79 mg/dl (70-99); Sodium 142 mmol/L (136-145)
[2021-01-01 04:36] LABS: Troponin I < 0.015 ng/ml (0-0.045)
[2021-01-01] MEDS: LEVOTHYROXINE SODIUM 88 MCG TABLET PO SCH (06:07)
[2021-01-01] MEDS: FOLIC ACID 1 MG TAB PO SCH (07:58)
[2021-01-01] MEDS: GABAPENTIN 100 MG CAP PO SCH ×2 (07:58→21:45)
[2021-01-01] MEDS: PANTOprazole 40 MG TAB PO SCH ×2 (07:58→21:44)
[2021-01-01] MEDS: CHOLESTYRAMINE LIGHT 4 GM PKT PO SCH ×2 (09:58→21:46)
[2021-01-01] MEDS: ACETAMINOPHEN 325 MG TAB PO PRN (13:05)
[2021-01-01] MEDS: CEFDINIR 300 MG CAP PO SCH (15:50)
[2021-01-01] MEDS: QUEtiapine FUMARATE 25 MG TABLET PO SCH (21:43)
[2021-01-01] MEDS: DONEPEZIL HCL 10 MG TAB PO SCH (21:45)
[2021-01-01] MEDS: MIRTAZAPINE SOLTAB 15 MG PO SCH (21:45)
[2021-01-01] MEDS: SIMVASTATIN 40 MG TAB PO SCH (21:46)
--- NOTE | 2021-01-01 22:06 | Communication Note ---
Date of Service: January 01, 2021 Notified by [facility] that patent is positive for acute DVT in both lower extremities. Patient with suspected GI bleed and Hgb that has decreased slightly since admission from 13.2 to now stable the past 2 days at 11.6. Patient DOES have an IVC filter that was placed on 03/08/[address] Sood and Dr. Marina. Resident Activity Tracking Resident Involvement: Resident Care Provided and Manager Biostatistics Coverage Note Care Provided: Adult Hospital Medicine
[2021-01-02] MEDS: LEVOTHYROXINE SODIUM 88 MCG TABLET PO SCH (06:01)
--- NOTE | 2021-01-02 06:32 | Hospitalist Progress Note ---
Date of Service January 01, 2021 Assessment & Plan (1) Diarrhea: Patient is an 85 year old female with PMHx CAD, GERD, HLD, HTN, Hypothyroidism, Macrocytic Anemia, Pancreatic mass, PVD, Rheumatoid Arthritis that presents after 1 day history of nausea, vomiting, and diarrhea. Nausea, Vomiting, Diarrhea -No obvious intra-abdominal pathology noted on CT ab/pelvis, though of note patient with compression fracture with collapse of L1 age indeterminant. -LFT's not elevated, Lipase negative, negative for C-diff -Patient is now tolerating diet -Unsure cause of WBC, antibitoics held after 3 doses. -WBC trending down. -Patient on chronic prednisone as well for RA, will give stress dose hydrocortisone 50mg q8h while inpatient -Hold ASA at this time due to concerns of blood in patient's feces -Hemoccult ordered -Patient appears to be doing better -hold discharge today due to lower extremity pain.. LAITH on CKD -Cr base ~1.4-2, currently 2.42 on admission -Suspect pre-renal due to patient's history -Will gently hydrate with LR 80ml/hr ?UTI -UA from outpatient with Leuk est, but no bacteria nor nitrates -Patient's history somewhat poor, noting dysuria last week, but none today or more recently -treated for 3 days of cefepime. WBC has normalized. -Would continue to monitor -WILL place on oral cefdinir. HTN -Hold amlodipine at this time -Pressures within acceptable limits at this time Dementia and Anxiety -Continue home Donepezil -Continue Mirtazapine -Continue Quetiapine -Continue Gabapentin HLD -Continue Simvastatin Macrocytic Anemia -Continue Folic acid GERD -Continue Protonix BID Rheumatoid Arthritis Patient has severe RA. Du to advanced age, RA, will consult palliative care. -will resume PO prednisione. 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 Dispo: Med/Surg Telemetry for close monitoring and IVF DVT: IVF filter in place Code: DNR/DNI (2) Lower extremity edema: Patient has lower extremity edema. Patient has history of DVT. Due to risk of bleeding in past was treated with IVC filter. will recheck dopper U/S due to leg swelling. Admission and Anticipated Discharge Date Admission Date: December 28, 2020 Subjective Patient is complaining of generalized pain. She reports she has pain in her left leg. Daughter is at bedside and reports she does not feel comfortable taking her home like this. She is interested in palliative care consult for goals of care discussion. Review of Systems Review of Systems: All systems reviewed & are unremarkable except as noted in HPI & below Physical Exam Physical Exam: Constitutional: + frail appearing; no acute distress Eyes: PERRL, conjunctivae normal, anicteric sclerae ENMT: external ear and nose normal, oropharynx normal Neck: trachea midline, no thyromegaly Respiratory: normal respiratory effort, lungs clear to auscultation Cardiovascular: RRR, no murmur, no edema Gastrointestinal (Abdomen): Inspection/Auscultation: abdomen normal to inspection and normal bowel sounds; abdomen not distended Percussion/Palpation: abdomen soft; abdomen nontender Musculoskeletal: Head/Neck/Chest: normocephalic and head atraumatic Skin: + ecchymosis (on both forearms and elbows b/l )/ SELLING IN HER LOWER LEFT LEG. Psychiatric: Orientation: alert, oriented to person and oriented to place Results & Data Results & Data ([facility]) Vital Signs (Past 12 Hours) Vital Signs Temp Pulse Pulse Resp BP Pulse Ox 01/02/21 03:57 36.7 C 68 18 125/81 92 01/02/21 00:58 67 01/02/21 00:14 36.8 C 80 20 151/72 H 93 01/01/21 19:27 36.7 C 70 18 117/67 93 PG Care Time/CCT Total # of Minutes Spent Total Time Spent with Patient: Total time spent is greater than 50% in coordination of care (as documented) at patient's floor/unit and/or counseling patient: Prolonged Care Time Prolonged Care Time: Yes Total Prolonged Care Time: 65 spent from 4:00 to 5:05 pm D/W daughter, initial plan was to discharge but held due to pain. Coding Level of Care Code 09085 Subseq Hosp Care Lvl 3 (25 - SIGNIFICANT, SEPARATELY IDENTIFIABLE ) Diagnoses Diarrhea R19.7 Diarrhea type: unspecified type Lower extremity edema R60.0 Additional Codes Prolonged Care Time - Prolonged Care Time: Yes ([id number]) Time Spent (min) 65 (1) Diarrhea Diarrhea type: unspecified type Qualified Code(s): R19.7 - Diarrhea, unspecified
[2021-01-02] MEDS: FOLIC ACID 1 MG TAB PO SCH (07:55)
[2021-01-02] MEDS: PANTOprazole 40 MG TAB PO SCH ×2 (07:56→20:27)
[2021-01-02] MEDS: GABAPENTIN 100 MG CAP PO SCH ×2 (07:56→20:25)
[2021-01-02 09:02] LABS: Basophils # (auto) 0.01 K/uL (0-0.2); Basophils % (auto) 0.1 %; Eosinophils # (auto) 0.27 K/uL (0-0.5); Eosinophils % (auto) 2.8 %; Hematocrit (blood only) 37.6 % (37-47); Hemoglobin 11.8 g/dL (12.0-16.0); Immature Granulocytes # (auto) 0.27 K/uL (0.00-0.02); Immature Granulocytes % (auto) 2.8 %; Lymphocytes # (auto) 1.57 K/uL (1.2-3.4); Lymphocytes % (auto) 16.5 %; Mean Corpuscular Hemoglobin 32.1 pg (25-34); Mean Corpuscular Hgb Conc 31.4 g/dL (32-36); Mean Corpuscular Volume 102.2 fL (80-100); Monocytes # (auto) 0.42 K/uL (0.11-0.59); Monocytes % (auto) 4.4 %; Neutrophils # (auto) 6.95 K/uL (1.4-6.5); Neutrophils % (auto) 73.4 %; Nucleated RBC # (auto) 0.05 K/uL (0-0); Nucleated RBC % (auto) 0.5 %; Platelet Count 132 K/uL (130-400); RDW Coefficient of Variation 15.9 % (11.5-14.5); RDW Standard Deviation 57.8 fL (36.4-46.3); Red Blood Count 3.68 M/uL (4.2-5.4); White Blood Count 9.49 K/uL (4.8-10.8)
[2021-01-02 09:18] LABS: Alanine Aminotransferase 18 U/L (12-78); Aspartate Aminotransferase 19 U/L (15-37); BUN Creatinine Ratio 27.4 (10-20); Bilirubin Direct < 0.1 mg/dl (0-0.2); Blood Urea Nitrogen 38 mg/dl (7-18); Calcium 8.6 mg/dl (8.5-10.1); Carbon Dioxide 22 mmol/L (21-32); Chloride 113 mmol/L (98-107); Creatinine Clr Calc Pharmacy 26.6 ml/min; Est GFR (African American) 40.4 ml/min; Est GFR (Non-African American) 34.8 ml/min; Glucose 93 mg/dl (70-99); Potassium 3.9 mmol/L (3.5-5.1); Sodium 142 mmol/L (136-145)
[2021-01-02 09:23] LABS: Alkaline Phosphatase 57 U/L (45-117); Bilirubin,Total 0.4 mg/dl (0.2-1); NT Pro B Type Natriuretic Pept 891 pg/ml (0-1800)
[2021-01-02] MEDS: CHOLESTYRAMINE LIGHT 4 GM PKT PO SCH ×2 (11:11→22:22)
--- NOTE | 2021-01-02 11:35 | Ultrasound Report ---
US venous doppler LE BI CLINICAL HISTORY: lower leg swelling COMPARISON STUDY: March 04, 2020 FINDINGS: Evaluation is positive for acute deep venous thrombosis in bilateral lower extremities. LEFT: Nonocclusive acute thrombus in the common femoral vein. Occlusive thrombi within femoral vein, popliteal vein, profunda and posterior tibial veins. Interrupt ed flow is seen within the peroneal and anterior tibialis vein. RIGHT: Nonocclusive acute thrombus is seen within common femoral vein. Nonocclusive, chronic appearing thrombus within femoral and popliteal vein. Interrupted blood flow is seen within peroneal and posterior tibialis veins. IMPRESSION: Bilateral deep venous thrombosis as detailed above. ACT 112: Positive. There are findings on this exam that require communication between the performing entity and the patient following Patient Test Result Information Act ([place] Act 112) guidelines. The above report was generated using voice recognition software. It may contain grammatical, syntax o r spelling errors. Electronically signed by: Helena Ceballos DO 01/02/2021 11:33 AM
[2021-01-02] MEDS: predniSONE 10 MG TABLET PO SCH (14:14)
[2021-01-02] MEDS: CEFDINIR 300 MG CAP PO SCH (14:57)
[2021-01-02] MEDS: ACETAMINOPHEN 325 MG TAB PO PRN (15:53)
--- NOTE | 2021-01-02 16:44 | XRay Report ---
XR KUB/Abdomen 1 view CLINICAL HISTORY: constipation COMPARISON STUDY: November 15, 2020 FINDINGS: Nondilated gas and stool-filled loops of bowel are seen throughout the abdomen. Extensive amount of stool is seen within lower pelvic region. Overall evaluation is limited due to mo tion artifact. There is no evidence of free intra-abdominal air, however please note that supine abdominal radiograp hy has limited ability for evaluation for the free intra-abdominal air. Cardiovascular/aortic calcifications are again seen. IVC filter is seen in stable position. Partially visualized orthopedic hardware is seen within right femur. Osseous structures are diffusely demineralized. IMPRESSION: 1. Constipation pattern. Possible fecal impaction. 2. Atherosclerosis. ACT 112: Negative or not required by law. The above report was generated using voice recognition software. It may contain grammatical, syntax o r spelling errors. Electronically signed by: Helena Ceballos DO 01/02/2021 4:42 PM
[2021-01-02] MEDS: MIRTAZAPINE SOLTAB 15 MG PO SCH (20:23)
[2021-01-02] MEDS: QUEtiapine FUMARATE 25 MG TABLET PO SCH (20:25)
[2021-01-02] MEDS: SIMVASTATIN 40 MG TAB PO SCH (20:26)
[2021-01-02] MEDS: DONEPEZIL HCL 10 MG TAB PO SCH (20:27)
[2021-01-02] MEDS: APIXABAN 5 MG TABLET PO SCH (20:39)
--- NOTE | 2021-01-02 23:35 | Hospitalist Progress Note ---
Date of Service January 02, 2021 Assessment & Plan (1) Diarrhea: Patient is an 85 year old female with PMHx CAD, GERD, HLD, HTN, Hypothyroidism, Macrocytic Anemia, Pancreatic mass, PVD, Rheumatoid Arthritis that presents after 1 day history of nausea, vomiting, and diarrhea. Nausea, Vomiting, Diarrhea -No obvious intra-abdominal pathology noted on CT ab/pelvis, though of note patient with compression fracture with collapse of L1 age indeterminant. -LFT's not elevated, Lipase negative, negative for C-diff -Patient is now tolerating diet -Unsure cause of WBC, antibitoics held after 3 doses. -WBC trending down. -Patient on chronic prednisone as well for RA, will give stress dose hydrocortisone 50mg q8h while inpatient -Hold ASA at this time due to concerns of blood in patient's feces -Hemoccult ordered -Patient appears to be doing better -hold discharge today due to lower extremity pain.. LAITH on CKD -Cr base ~1.4-2, currently 2.42 on admission -Suspect pre-renal due to patient's history -Will gently hydrate with LR 80ml/hr ?UTI -UA from outpatient with Leuk est, but no bacteria nor nitrates -Patient's history somewhat poor, noting dysuria last week, but none today or more recently -treated for 3 days of cefepime. WBC has normalized. -Would continue to monitor -WILL place on oral cefdinir (continue for 5 days total of cefdinir). HTN -Hold amlodipine at this time -Pressures within acceptable limits at this time Dementia and Anxiety -Continue home Donepezil -Continue Mirtazapine -Continue Quetiapine -Continue Gabapentin HLD -Continue Simvastatin Macrocytic Anemia -Continue Folic acid GERD -Continue Protonix BID Rheumatoid Arthritis Patient has severe RA. Du to advanced age, RA, will consult palliative care. -will resume PO prednisione. 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 Dispo: Med/Surg Telemetry for close monitoring and IVF DVT: IVF filter in place Code: DNR/DNI (2) Lower extremity edema: Patient has lower extremity edema. Patient has history of DVT. Due to risk of bleeding in past was treated with IVC filter. doppler ultrasound ordered, (3) Acute deep vein thrombosis (DVT) of calf muscle vein of left lower extremity: positive lower extremity doppler Had extensive talk with family. Discussed risk and benefits. Family is agreeable to starting eliquis, understand risk of bleeding and possibility of . Admission and Anticipated Discharge Date Admission Date: December 28, 2020 Subjective Patient is confused. No new symptoms today. Review of Systems Review of Systems: All systems reviewed & are unremarkable except as noted in HPI & below Physical Exam Physical Exam: Constitutional: + frail appearing; no acute distress Eyes: PERRL, conjunctivae normal, anicteric sclerae ENMT: external ear and nose normal, oropharynx normal Neck: trachea midline, no thyromegaly Respiratory: normal respiratory effort, lungs clear to auscultation Cardiovascular: RRR, no murmur, no edema Gastrointestinal (Abdomen): Inspection/Auscultation: abdomen normal to inspection and normal bowel sounds; abdomen not distended Percussion/Palpation: abdomen soft; abdomen nontender Musculoskeletal: Head/Neck/Chest: normocephalic and head atraumatic Skin: + ecchymosis (on both forearms and elbows b/l )/ SWELLING IN HER LOWER LEFT LEG. Psychiatric: Orientation: alert, oriented to person and oriented to place Results & Data Results & Data ([facility]) Vital Signs (Past 12 Hours) Vital Signs Temp Pulse Resp BP Pulse Ox 01/02/21 23:20 36.6 C 72 18 156/64 H 94 01/02/21 19:51 36.8 C 89 20 109/71 93 01/02/21 16:00 36.5 C 70 18 107/69 91 PG Care Time/CCT Total # of Minutes Spent Total Time Spent with Patient: Total time spent is greater than 50% in coordination of care (as documented) at patient's floor/unit and/or counseling patient: Coding Level of Care Code 71193 Subseq Hosp Care Lvl 3 Diagnoses Diarrhea R19.7 Diarrhea type: unspecified type Lower extremity edema R60.0 Acute deep vein thrombosis (DVT) of calf muscle vein of left lower extremity I82.462 (1) Diarrhea Diarrhea type: unspecified type Qualified Code(s): R19.7 - Diarrhea, unspecified
[2021-01-03] MEDS: LEVOTHYROXINE SODIUM 88 MCG TABLET PO SCH (05:54)
[2021-01-03] MEDS: APIXABAN 5 MG TABLET PO SCH ×2 (09:03→20:17)
[2021-01-03] MEDS: PANTOprazole 40 MG TAB PO SCH ×2 (09:04→20:16)
[2021-01-03] MEDS: GABAPENTIN 100 MG CAP PO SCH ×2 (09:04→20:18)
[2021-01-03] MEDS: predniSONE 10 MG TABLET PO SCH (09:04)
[2021-01-03] MEDS: CHOLESTYRAMINE LIGHT 4 GM PKT PO SCH ×2 (10:13→22:36)
[2021-01-03 12:08] LABS: BUN Creatinine Ratio 25.3 (10-20); Calcium 8.2 mg/dl (8.5-10.1); Creatinine Clr Calc Pharmacy 28.6 ml/min; Est GFR (African American) 43.8 ml/min; Est GFR (Non-African American) 37.8 ml/min; Magnesium 2.2 mg/dl (1.8-2.4); Potassium 4.2 mmol/L (3.5-5.1)
[2021-01-03] MEDS: CEFDINIR 300 MG CAP PO SCH (15:09)
--- NOTE | 2021-01-03 16:21 | Palliative Care Consultation ---
Date of Consultation January 03, 2021 Assessment & Plan (1) Palliative care encounter: This patient is an 85 year old who presented to the [facility] with nausea,vomiting, and diarrhea. The patient is cared for fully at home by her daughter, Natalya. Additional PMH includes: CAD, GERD, HLD, HTN, Hypothyroidism, Macrocytic Anemia, Pancreatic mass, PVD, and Rheumatoid Arthritis. She also notes that the patient had some streaks of blood in her stools. Palliative Medicine was consulted to discuss overall goals of care. I met with Ms. Hunter and her daughter Natalya at the bedside. Ms. Hunter was eating her minced consistency dinner and kept saying " help me". Per Natalya, she has been saying this repeatedly for the past year. She appears comfortable and in no apparent distress. Natalya has been waffling between having additional care at home with caregivers, hospice care and at home palliative care, which I started conversation about all three and went into details per her request. She was under the impression that Hospice care meant that her mother would likely within a few days, which I explained was not the case. Her brother, Laurent would like to be involved in the decision making process and he is unavailable at this time. We agreed to meet in the lobby of the hospital tomorrow at 1030 to have an overall goals of care discussion. Palliative medicine will follow. (2) Diarrhea: with constipation now. On CT, patient does have stool ball impaction that is to be digitally disimpacted today. Some blood noted in stool, no enemas would be recommended due to possibility of rectal bleeding Diarrhea type: unspecified type Qualified Code(s): R19.7 - Diarrhea, unspecified (3) Dementia with behavioral disturbance: Patient has severe dementia. She does take Aricept, Remeron, Seroquel, and Gabapentin for management. (4) Acute deep vein thrombosis (DVT) of calf muscle vein of left lower ex tremity: Pt does have bilateral lower extremity DVT. IVC filter is in place that was inserted in 03/[address] Sood. Was started on Eloquis, but due to possible active bleeding, will hold for now. (5) Abdominal pain: Abdominal location: generalized Qualified Code(s): R10.84 - Generalized abdominal pain History of Present Illness Reason for Consultation: goals of care Requesting Physician: Dr. Lane Attending Physician: Marcelino Moore History of Present Illness This patient is an 85 year old who presented to the [facility] with nausea,vomiting, and diarrhea. The patient is cared for fully at home by her daughter, Natalya. Additional PMH includes: CAD, GERD, HLD, HTN, Hypothyroidism, Macrocytic Anemia, Pancreatic mass, PVD, and Rheumatoid Arthritis. She also notes that the patient had some streaks of blood in her stools. Palliative Medicine was consulted to discuss overall goals of care. Please see A/P for further details. Thanks for involving Palliative Medicine with this individual. Allergies Allergy/AdvReac Type Severity Reaction Status Date / Time Penicillins Allergy Intermediate SWELLING Verified 12/27/20 21:26 celecoxib AdvReac Intermediate N/V Verified 12/27/20 21:26 cephalexin AdvReac Intermediate N/V Verified 12/27/20 21:26 methotrexate AdvReac Intermediate N/V Verified 12/27/20 21:26 nitrofurantoin AdvReac Intermediate N/V Verified 12/27/20 21:26 risedronate sodium AdvReac Intermediate NAUSEA AND Verified 12/27/20 21:26 VOMITING Home Medications Medication Instructions Recorded Confirmed Type heating pads #1 ea 04/20/19 10/26/20 Rx acetaminophen 500 mg tablet 500 mg PO TID #270 tab 03/20/20 12/27/20 Rx simethicone 80 mg chewable tablet 160 mg PO TID #540 tab 03/20/20 12/27/20 Rx simvastatin 40 mg tablet 40 mg PO HS #90 tab 03/20/20 12/27/20 Rx aspirin 81 mg tablet,delayed 81 mg PO QAM 03/21/20 12/27/20 History release donepezil 10 mg tablet 10 mg PO HS 30 Days #30 tab 08/15/20 12/27/20 Rx folic acid 1 mg tablet 1 mg PO 6XWK #90 tab 08/15/20 12/27/20 Rx gabapentin 100 mg capsule 100 mg PO BID #60 cap 08/15/20 12/27/20 Rx mirtazapine 45 mg tablet 45 mg PO HS 30 Days #30 tab 08/15/20 12/27/20 Rx methotrexate sodium 2.5 mg tablet See Rx Instructions PO WEEKLY #12 10/09/20 12/27/20 Rx tab esomeprazole magnesium 40 mg 40 mg PO BID #60 cap 10/10/20 12/27/20 Rx capsule,delayed release amlodipine 5 mg PO QAM 11/15/20 12/27/20 History cranberry 500 mg PO QAM 11/15/20 12/27/20 History levothyroxine 88 mcg PO QAM 11/15/20 12/27/20 History zzczbcfu-evj-YA-lycopen-lutein 1 tab PO QAM 11/15/20 12/27/20 History [[facility]] prednisone 10 mg PO QAM 11/15/20 12/27/20 History quetiapine 12.5 mg PO HS 11/15/20 12/27/20 History loperamide [Imodium A-D] 2 mg PO Q OTHER DAY 12/27/20 12/27/20 History sulfamethoxazole 800 1 tab PO BID #10 tab 12/27/20 12/27/20 Rx mg-trimethoprim 160 mg tablet cefdinir 300 mg PO Q24H #6 cap 01/01/21 Rx cholestyramine-aspartame 4 g PO BID@1000,2200 30 Days #60 ea 01/01/21 Rx [Cholestyramine Light] Patient History Medical History Abdominal pain Anemia of chronic disease ASCVD (arteriosclerotic cardiovascular disease) Atopic dermatitis C. difficile colitis [id number] Closed right hip fracture Constipation Cystocele, midline Dementia DVT (deep venous thrombosis) GERD (gastroesophageal reflux disease) Hyperlipidemia Hypertension Hypotension Hypothyroidism Kidney stones Macrocytic anemia Osteoporosis with fracture Pancreatic mass PVD (peripheral vascular disease) Rectocele Rheumatoid arthritis Thrombosed external hemorrhoid Vitamin D insufficiency Surgical History History of inferior vena caval filter placement History of umbilical hernia repair Hx of cholecystectomy Hx of colonoscopy Hx of esophagogastroduodenoscopy Family History Unknown Arteriosclerotic cardiovascular disease (ASCVD) Father Heart disease Diabetes Myocardial infarction Mother Cancer Hypertension Mother Breast cancer Other Family history non-contributory Denies family history of Ovarian cancer Prostate cancer Crohn's disease Lung cancer Colorectal cancer Ulcerative colitis Stroke Social History (Reviewed 01/03/21 @ 16:21 by DIDIER Doan Smoking Status: Never smoker Second Hand Exposure: No; Hx Alcohol Use: No Hx Substance Use: No Preferred Language: Danish Communication Ability: Effective Visual Impairment: Limited Hearing Ability: Normal Commercial Fishing Vessel Operator Required: No Beliefs That Will Affect Care: None marital status: / Current Living Situation: Family Current Living Situation Comment: lives at her daughters house current occupational status: other How many Children do You have: 4 Feels Safe at Home: Yes Childhood Exposure to Second-Hand Smoke: No caffeine: Yes (coffee and tea) Dental Care, Regularly: No Physical Activity Frequency: Does not Exercise Seatbelt Use: always Sunscreen Use: Yes Assistive Devices: Glasses Review of Systems Review of Systems: [place] System Assessment Scale: Pain: 0/3 by observation Tiredness: 0/3 by OBS SOB: 0/3 By OBS Lack of Appetite: 0/3 by OBS Anxiety: 0/3 By OBS Palliative Performance Scale: 30% FAST scale: all of 6 and up to 7C Physical Exam Constitutional: + frail appearing, cooperative and comfortable; no acute distress ENMT: Nose: + dry nasal mucous membranes Respiratory: normal respiratory effort, lungs clear to auscultation Cardiovascular: RRR, no murmur, no edema Gastrointestinal (Abdomen): normal bowel sounds, soft, nontender, no hep atosplenomegaly Skin: no rashes, warm and dry + pallor Psychiatric: Orientation: alert and oriented to person Insight: + impaired insight Judgement: + impaired judgement Results & [facility] ([facility]) Vital Signs (Past 12 Hours) Vital Signs Temp Pulse Pulse Resp BP Pulse Ox 01/03/21 15:20 81 01/03/21 14:48 36.8 C 78 20 118/76 93 01/03/21 11:31 75 01/03/21 11:08 36.5 C 70 20 114/66 94 01/03/21 07:30 36.6 C 73 20 163/82 H 96 PG Care Time/CCT Total # of Minutes Spent Total Time Spent with Patient: Total time spent is greater than 50% in coordination of care (as documented) at patient's floor/unit and/or counseling patient: 100 minutes with > 50% of that time spent assessing the patient, discussing goals of care with the patients daughter and collaborating with IDT Coding Level of Care Code 06615 Inpt Consult Level 4 Diagnoses Palliative care encounter Z51.5 Diarrhea R19.7 Diarrhea type: unspecified type Dementia with behavioral disturbance F03.91 Acute deep vein thrombosis (DVT) of calf muscle vein of left lower extremity I82.462 Abdominal pain R10.84 Abdominal location: generalized Time Spent (min) 100
[2021-01-03] MEDS ORDERED: SOD PHOSPHATE/SOD BIPHOSPHATE ENEMA 132 ML BTL PR STA (17:02)
[2021-01-03] MEDS: ACETAMINOPHEN 325 MG TAB PO PRN (17:15)
[2021-01-03] MEDS: MIRTAZAPINE SOLTAB 15 MG PO SCH (20:16)
[2021-01-03] MEDS: QUEtiapine FUMARATE 25 MG TABLET PO SCH (20:16)
[2021-01-03] MEDS: SIMVASTATIN 40 MG TAB PO SCH (20:18)
[2021-01-03] MEDS: DONEPEZIL HCL 10 MG TAB PO SCH (20:18)
--- NOTE | 2021-01-03 21:13 | Hospitalist Progress Note ---
Date of Service January 03, 2021 Assessment & Plan (1) Fecal impaction: KUB xray 6/ with severe impaction. Likely due to several weeks of using loperamide. Spoke with nurse - fleets [place] x 1. Then we need to figure out a bowel regimen. (2) Abdominal pain: Chronic x 1 year. Numerous studies including CT upon admission here. Nothing focal on that CT. KUB clearly with fecal stasis/impaction. Is abd pain due to colonic spasm and constipation? "diarrhea" could be overflow stooling... Can't rule out ischemia, other entities. Does not have a gall bladder. No active infection in stool. re-eval tomorrow after impaction is resolved. (3) Diarrhea: chronic, x 1 year. "overflow stooling" due to constipation? apparently has seen multiple GI specialists, has had multiple studies, etc. see discussion above. no evidence of infectious process at this time despite recently elevated wbc count, procal, etc. ischemic in nature? family had seen blood in stool prior to admission which would fit w/ ischemia. either way she is now impacted. (4) Lower extremity edema: 2nd to acute/chronic DVT. see below. (5) Acute deep vein thrombosis (DVT) of calf muscle vein of left lower extremity: started on eliquis this week by prior MD. VERY LOW THRESHOLD to stop given heme+ stool, recent blood per rectum, and prior episodes of GI bleeding. also, if we transition to hospice, would naturally stop as well. daughter counseled that edema may be indefinite and that anticoagulating her does not hasten edema resolution. lastly, has IVC filter in place as confirmed on CT at time of admission. (6) LAITH (acute kidney injury): resolved (7) CKD (chronic kidney disease), stage III: CrCL back to baseline (high 20s/low 30s) thus, she is CKD stage 3-4 (8) Hypothyroidism: cont synthroid TSH wnl 07/2020 (9) Hypertension: (10) Rheumatoid arthritis: steroid dependent 10mg/day prednisone consider increase for several days to help with pain hold off for now (11) Dementia: severe (12) Heme positive stool: x 2 at admission gross blood per daughter prior to admission at home ischemia ? other ? low threshold to stop eliquis (13) Palliative care encounter: palliative care consult in place best option for her would likely be home w/ hospice for symptom control in light of chronic pain, etc. daughter extensively updated at bedside Admission and Anticipated Discharge Date Admission Date: December 28, 2020 Subjective daughter at bedside during the visit pt laying flat in bed, moaning/groaning, which daughter states she does at home as well daughter also states she says "help me, help me" at home patient c/o arthralgias in various joints - shoulders, etc has had abdominal pain x 1 year often has fecal urgency and sitting on toilet helps this pain was having "diarrhea" per daughter - and took immodium for this 2-3 weeks prior to this admission KUB x-ray 01/03/21 with fecal impaction; no stool per staff since that x-ray eating is poor had blood per rectum prior to admission - none in several days Review of Systems Review of Systems: Unobtainable due to cognitive status Physical Exam Constitutional: + acute distress (moaning/groaning ), + altered mental status and + frail appearing ENMT: Mouth: + lip abnormality (dry) and + dry oral mucous membranes Respiratory: normal respiratory effort, lungs clear to auscultation Cardiovascular: Rate/Rhythm: regular rate and regular rhythm Heart Sounds: normal S1 and normal S2 Vessels: posterior tibial pulses present and dorsalis pedis pulses present; no JVD Extremities: + edema (2+ left leg/ankle; trace RLE ) Gastrointestinal (Abdomen): Inspection/Auscultation: + abdomen distended (mild) and normal bowel sounds Percussion/Palpation: + abdomen tender (mild - central, LLQ ); no guarding Musculoskeletal: severe RA changes of numerous joints including small joints of hands Skin: no rashes, warm and dry Psychiatric: Orientation: alert and oriented to person; + not oriented to place and + not oriented to time Results & Data Results & Data ([facility]) Vital Signs (Past 12 Hours) Vital Signs Temp Pulse Pulse Resp BP Pulse Ox 01/03/21 19:34 36.9 C 82 20 110/66 94 01/03/21 15:20 81 01/03/21 14:48 36.8 C 78 20 118/76 93 01/03/21 11:31 75 01/03/21 11:08 36.5 C 70 20 114/66 94 Laboratory Results Laboratory Results - last 24 hr 01/03/21 01/03/21 01/03/21 11:35 11:35 11:35 Hgb 11.9 L Sodium 142 Potassium 4.2 Chloride 114 H Carbon Dioxide 25 Anion Gap 3.0 BUN 32 H Creatinine 1.28 H Est Cr Clr Drug Dosing 28.6 Est GFR ( Amer) 43.8 Est GFR (Non-Af Amer) 37.8 BUN/Creatinine Ratio 25.3 H Glucose 108 H Calcium 8.2 L Magnesium 2.2 Vitamin B12 584 PG Care Time/CCT Total # of Minutes Spent Total Time Spent with Patient: Total time spent is greater than 50% in coordination of care (as documented) at patient's floor/unit and/or counseling patient: Coding Level of Care Code 16075 Subseq Hosp Care Lvl 3 Diagnoses Fecal impaction K56.41 Abdominal pain R10.84 Abdominal location: generalized Diarrhea R19.7 Diarrhea type: unspecified type Lower extremity edema R60.0 Acute deep vein thrombosis (DVT) of calf muscle vein of left lower extremity I82.462 LAITH (acute kidney injury) N17.9 CKD (chronic kidney disease), stage III N18.3 Hypothyroidism E03.9 Hypothyroidism type: unspecified Hypertension I10 Hypertension type: essential hypertension Rheumatoid arthritis M06.9 Rheumatoid arthritis location: unspecified site Rheumatoid factor presence: unspecified presence Dementia F03.90 Dementia type: unspecified type Dementia behavioral disturbance: without behavioral disturbance Heme positive stool R19.5 Palliative care encounter Z51.5 (1) Abdominal pain Abdominal location: generalized Qualified Code(s): R10.84 - Generalized abdominal pain (2) Diarrhea Diarrhea type: unspecified type Qualified Code(s): R19.7 - Diarrhea, unspecified (3) Hypothyroidism Hypothyroidism type: unspecified Qualified Code(s): E03.9 - Hypothyroidism, unspecified (4) Hypertension Hypertension type: essential hypertension Qualified Code(s): I10 - Essential (primary) hypertension (5) Rheumatoid arthritis Rheumatoid arthritis location: unspecified site Rheumatoid factor presence: unspecified presence Qualified Code(s): M06.9 - Rheumatoid arthritis, unspecified (6) Dementia Dementia type: unspecified type Dementia behavioral disturbance: without behavioral disturbance Qualified Code(s): F03.90 - Unspecified dementia without behavioral disturbance
[2021-01-04] MEDS: LEVOTHYROXINE SODIUM 88 MCG TABLET PO SCH (05:42)
[2021-01-04] MEDS: APIXABAN 5 MG TABLET PO SCH ×2 (08:31→20:23)
[2021-01-04] MEDS: FOLIC ACID 1 MG TAB PO SCH (08:32)
[2021-01-04] MEDS: GABAPENTIN 100 MG CAP PO SCH ×2 (08:32→20:23)
[2021-01-04] MEDS: PANTOprazole 40 MG TAB PO SCH ×2 (08:32→20:23)
[2021-01-04] MEDS: predniSONE 10 MG TABLET PO SCH (08:32)
[2021-01-04] MEDS: CHOLESTYRAMINE LIGHT 4 GM PKT PO SCH ×2 (10:28→21:55)
--- NOTE | 2021-01-04 11:06 | Palliative Care Progress Note ---
Date of Service January 04, 2021 Assessment & Plan (1) Palliative care encounter: I was able to have a lengthy conversation with the patients daughter, Natalya and her brother Laurent who joined us via conference call. They stated that they have strong interest in having Hospice, but would like to have another few appointments with their main physicians, specifically her Combustion Engineer. I did discuss hospice and what it entails and its benefits. She would qualify for Hospice SErvices with a diagnosis of: Senile Degeneration of the Brain. They have opted to start with home based palliative medicine and eventually transition to Hospice. Will communicate to case management to arrange. Natalya also expressed interest in having private caregiver support in addition as well, which I agree would be beneficial. Thanks for involving Palliative Medicine with this individual. (2) Diarrhea: with constipation now. On CT, patient does have stool ball impaction that is to be digitally disimpacted today. Some blood noted in stool, no enemas would be recommended due to possibility of rectal bleeding (3) Dementia with behavioral disturbance: Patient has severe dementia. She does take Aricept, Remeron, Seroquel, and Gabapentin for management. (4) Acute deep vein thrombosis (DVT) of calf muscle vein of left lower extremity: Pt does have bilateral lower extremity DVT. IVC filter is in place that was inserted in 03/[address] Sood. Was started on Eloquis, but due to possible active bleeding, will hold for now. (5) Abdominal pain: Admission and Anticipated Discharge Date Admission Date: December 28, 2020 Subjective Patient with arthritic discomfort, but is able to eat breakfast. Still intermittently saying "help me" Review of Systems Review of Systems: [place] System Assessment Scale: Pain: 0/3 by observation Tiredness: 0/3 by OBS SOB: 0/3 By OBS Lack of Appetite: 0/3 by OBS Anxiety: 0/3 By OBS Palliative Performance Scale: 30% FAST scale: all of 6 and up to 7C Physical Exam Constitutional: + frail appearing, cooperative and comfortable; no acute distress ENMT: Nose: + dry nasal mucous membranes Respiratory: normal respiratory effort, lungs clear to auscultation Cardiovascular: RRR, no murmur, no edema Gastrointestinal (Abdomen): normal bowel sounds, soft, nontender, no hepatosplenomegaly Skin: no rashes, warm and dry + pallor Psychiatric: Orientation: alert and oriented to person Insight: + impaired insight Judgement: + impaired judgement Results & Data ([facility]) Vital Signs (Past 12 Hours) Vital Signs Temp Pulse Pulse Pulse Resp BP BP 01/04/21 07:45 75 01/04/21 07:04 36.6 C 78 18 166/87 H 01/04/21 03:07 36.5 C 70 18 151/89 H Pulse Ox 01/04/21 07:45 01/04/21 07:04 95 01/04/21 03:07 93 PG Care Time/CCT Total # of Minutes Spent Total Time Spent with Patient: Total time spent is greater than 50% in coordination of care (as documented) at patient's floor/unit and/or counseling patient: 45 minutes with > 50% Of that time spent assessing the patient, discussing goals of care with family and providing update to IDT Coding Level of Care Code 47389 Prolonged Care (int'l) Diagnoses Palliative care encounter Z51.5 Diarrhea R19.7 Diarrhea type: unspecified type Dementia with behavioral disturbance F03.91 Acute deep vein thrombosis (DVT) of calf muscle vein of left lower extremity I82.462 Abdominal pain R10.84 Abdominal location: generalized Time Spent (min) 45 (1) Diarrhea Diarrhea type: unspecified type Qualified Code(s): R19.7 - Diarrhea, unspecified (2) Abdominal pain Abdominal location: generalized Qualified Code(s): R10.84 - Generalized abdominal pain
[2021-01-04] MEDS: CEFDINIR 300 MG CAP PO SCH (15:55)
[2021-01-04] MEDS: DONEPEZIL HCL 10 MG TAB PO SCH (20:23)
[2021-01-04] MEDS: MIRTAZAPINE SOLTAB 15 MG PO SCH (20:23)
[2021-01-04] MEDS: SIMVASTATIN 40 MG TAB PO SCH (20:24)
[2021-01-04] MEDS: QUEtiapine FUMARATE 25 MG TABLET PO SCH (20:24)
--- NOTE | 2021-01-04 22:48 | Hospitalist Progress Note ---
Date of Service January 04, 2021 Assessment & Plan (1) Fecal impaction: KUB xray 01/02 with severe impaction. Likely due to several weeks of using loperamide. Fleets x 1 on 01/03 with large, formed bowel movement. suspect "diarrhea" was overflow stooling. would avoid immodium. (2) Abdominal pain: Chronic x 1 year. Numerous studies including CT upon admission here. Nothing focal on that CT. KUB clearly with fecal stasis/impaction. Is abd pain due to colonic spasm and constipation? "diarrhea" could be overflow stooling... Can't rule out ischemia, other entities. Does not have a gall bladder. No active infection in stool. Treated the impaction yesterday with good results. (3) Diarrhea: chronic, x 1 year. "overflow stooling" due to constipation? apparently has seen multiple GI specialists, has had multiple studies, etc. see discussion above. no evidence of infectious process at this time despite recently elevated wbc count, procal, etc. ischemic in nature? family had seen blood in stool prior to admission which would fit w/ ischemia. either way she is improved. (4) Lower extremity edema: 2nd to acute/chronic DVT. see below. (5) Acute deep vein thrombosis (DVT) of calf muscle vein of left lower extremity: started on eliquis this week by prior MD. already has chronic IVC filter. may be transitioning to palliative - would STOP eliquis if going hospice route. (6) LAITH (acute kidney injury): resolved (7) CKD (chronic kidney disease), stage III: CrCL back to baseline (high 20s/low 30s) thus, she is CKD stage 3-4 (8) Hypothyroidism: cont synthroid TSH wnl 07/2020 (9) Hypertension: (10) Rheumatoid arthritis: steroid dependent 10mg/day prednisone (11) Dementia: severe (12) Heme positive stool: x 2 at admission gross blood per daughter prior to admission at home ischemia ? other ? see above re: anticoagulation (13) Palliative care encounter: palliative care consult appreciated family likely to bring home with hospice will confirm that with Ms Mead and social work appreciate palliative care consultation and assistance daughter extensively updated at bedside yesterday Admission and Anticipated Discharge Date Admission Date: December 28, 2020 Subjective patient covered in multiple blankets, wanting to be left alone ("cover my shoulders please") confused, which is baseline not as much moaning/groaning today when asked if in any pain she just says "my shoulder" (and motions to right shoulder) denied any chest or abd pain otherwise could not get other meaningful history from her Review of Systems Review of Systems: Unobtainable due to cognitive status Physical Exam Constitutional: + altered mental status and + frail appearing; no acute distress looks more comfortable today ENMT: Mouth: + lip abnormality (dry) Respiratory: normal respiratory effort, lungs clear to auscultation Cardiovascular: Rate/Rhythm: regular rate and regular rhythm Heart Sounds: normal S1 and normal S2 Vessels: posterior tibial pulses present and dorsalis pedis pulses present; no JVD Extremities: + edema (2+ left leg/ankle; trace RLE ) Gastrointestinal (Abdomen): Inspection/Auscultation: normal bowel sounds; abdomen not distended Percussion/Palpation: abdomen nontender, no guarding and no hepatosplenomegaly Skin: no rashes, warm and dry Psychiatric: Orientation: alert and oriented to person; + not oriented to place and + not oriented to time Results & Data Results & Data ([facility]) Vital Signs (Past 12 Hours) Vital Signs Temp Pulse Pulse Resp BP Pulse Ox 01/04/21 19:51 37.3 C 82 20 109/67 92 01/04/21 15:44 79 01/04/21 15:28 37.0 C 81 20 124/76 92 01/04/21 11:16 36.9 C 77 20 118/75 93 PG Care Time/CCT Total # of Minutes Spent Total Time Spent with Patient: Total time spent is greater than 50% in coordination of care (as documented) at patient's floor/unit and/or counseling patient: Coding Level of Care Code 99052 Subseq Hosp Care Lvl 2 Diagnoses Fecal impaction K56.41 Abdominal pain R10.84 Abdominal location: generalized Diarrhea R19.7 Diarrhea type: unspecified type Lower extremity edema R60.0 Acute deep vein thrombosis (DVT) of calf muscle vein of left lower extremity I82.462 LAITH (acute kidney injury) N17.9 CKD (chronic kidney disease), stage III N18.3 Hypothyroidism E03.9 Hypothyroidism type: unspecified Hypertension I10 Hypertension type: essential hypertension Rheumatoid arthritis M06.9 Rheumatoid arthritis location: unspecified site Rheumatoid factor presence: unspecified presence Dementia F03.90 Dementia behavioral disturbance: without behavioral disturbance Dementia type: unspecified type Heme positive stool R19.5 Palliative care encounter Z51.5 (1) Rheumatoid arthritis Rheumatoid arthritis location: unspecified site Rheumatoid factor presence: unspecified presence Qualified Code(s): M06.9 - Rheumatoid arthritis, unspecified (2) Dementia Dementia behavioral disturbance: without behavioral disturbance Dementia type: unspecified type Qualified Code(s): F03.90 - Unspecified dementia without behavioral disturbance (3) Diarrhea Diarrhea type: unspecified type Qualified Code(s): R19.7 - Diarrhea, unspecified (4) Hypothyroidism Hypothyroidism type: unspecified Qualified Code(s): E03.9 - Hypothyroidism, unspecified (5) Abdominal pain Abdominal location: generalized Qualified Code(s): R10.84 - Generalized abdominal pain (6) Hypertension Hypertension type: essential hypertension Qualified Code(s): I10 - Essential (primary) hypertension
[2021-01-05] MEDS: ACETAMINOPHEN 325 MG TAB PO PRN (06:16)
[2021-01-05] MEDS: LEVOTHYROXINE SODIUM 88 MCG TABLET PO SCH (06:17)
[2021-01-05] MEDS: predniSONE 10 MG TABLET PO SCH (08:04)
[2021-01-05] MEDS: PANTOprazole 40 MG TAB PO SCH (08:04)
[2021-01-05] MEDS: APIXABAN 5 MG TABLET PO SCH (08:04)
[2021-01-05] MEDS: FOLIC ACID 1 MG TAB PO SCH (08:04)
[2021-01-05] MEDS: GABAPENTIN 100 MG CAP PO SCH (08:04)
[2021-01-05] MEDS: CHOLESTYRAMINE LIGHT 4 GM PKT PO SCH (10:14)
[2021-01-05] MEDS: CEFDINIR 300 MG CAP PO SCH (15:35)
--- NOTE | 2021-01-05 16:49 | Discharge Summary ---
Date of Service date of admission - December 28, 2020 date of discharge - January 05, 2021 Admission HPI Per Admitting Provider Patient is an 85 year old female with PMHx CAD, GERD, HLD, HTN, Hypothyroidism, Macrocytic Anemia, Pancreatic mass, PVD, Rheumatoid Arthritis that presents after 1 day history of nausea, vomiting, and diarrhea. Patient's history is fairly limited as she becomes easily distracted and confused, however, patient's daughter is present who notes that around 4PM today she was having worsening nausea, vomiting, and diarrhea. She also notes that the patient had some streaks of blood in her stool, none with her emesis. Notes that they have been working on her mother's diarrhea for close to 1 year now and have seen multiple providers, the most recent recommending Imodium every other day which up until today had been working fairly well. Patient denied any fever or chills. She did note some dysuria last week and was told that she had a UTI today outpatient, but had yet to start the Bactrim prescribed to her. In the ED she was given 1.5L NSS in addition to 8mg Zofran, 20mg Famotidine, and a dose of Cefepime. Currently patient is still noting some abdominal discomfort, but states that it is improving. Denies nausea. Principal Diagnosis 1. nausea/emesis/diarrhea/blood in stool - etiology? ischemia? 2. severe failure to thrive 3. severe dementia Discharge Exam Constitutional + altered mental status and + frail appearing; no acute distress less moaning in comparison to prior exams ENMT Mouth: + lip abnormality (dry) Respiratory normal respiratory effort, lungs clear to auscultation Cardiovascular Rate/Rhythm: regular rate and regular rhythm Heart Sounds: normal S1 and normal S2 Vessels: posterior tibial pulses present and dorsalis pedis pulses present; no JVD Extremities: + edema (2+ left leg/ankle; trace RLE ) Gastrointestinal (Abdomen) Inspection/Auscultation: normal bowel sounds; abdomen not distended Percussion/Palpation: abdomen nontender, no guarding and no hepatosplenomegaly Skin no rashes, warm and dry Psychiatric Orientation: alert and oriented to person; + not oriented to place and + not oriented to time Discharge Data Allergies Allergy/AdvReac Type Severity Reaction Status Date / Time Penicillins Allergy Intermediate SWELLING Verified 01/09/21 13:07 celecoxib AdvReac Intermediate N/V Verified 01/09/21 13:07 cephalexin AdvReac Intermediate N/V Verified 01/09/21 13:07 methotrexate AdvReac Intermediate N/V Verified 01/09/21 13:07 nitrofurantoin AdvReac Intermediate N/V Verified 01/09/21 13:07 risedronate sodium AdvReac Intermediate NAUSEA AND Verified 01/09/21 13:07 VOMITING Consultations Palliative Care Routine Ordered Studies Abdomen/Pelvis CT 12/27/20 22:59 CT SCAN OF THE ABDOMEN AND PELVIS WITHOUT CONTRAST CLINICAL HISTORY: Abdominal pain, nausea, vomiting, diarrhea COMPARISON STUDY: 11/15/2020 TECHNIQUE: CT scan of the abdomen and pelvis was performed from the lung bases to the proximal femurs. Images are reviewed in the axial, sagittal, and coronal planes. IV contrast was not administered for this examination. A dose lowering technique was utilized adhering to the principles of ALARA. CT DOSE: 942.01 mGy.cm FINDINGS: Lower chest: There is respiratory motion artifact. There are bibasilar airspace opacities, likely atelectatic. There is a 5 mm pulmonary nodule within the lingula. There are coronary artery calcifications. Liver: The unenhanced liver is normal in size, contour, and attenuation. There is no intrahepatic biliary ductal dilatation. Gallbladder: Surgically absent. There is a stable 14 mm rim calcified structure at the level the gallbladder fossa. Spleen: Normal in size and attenuation. Pancreas: Unremarkable. Adrenal glands: Unremarkable. Kidneys: There are multiple bilateral renal masses, likely representing cysts. There is renal cortical thinning. There is no significant hydronephrosis. Bowel: There are no transition zones to indicate bowel obstruction. There is no evidence of acute diverticulitis. There is colonic diverticulosis. There is no evidence of acute appendicitis. Peritoneum: There is no intraperitoneal free air or abdominal ascites. There is evidence for a prior ventral hernia repair with mesh. There is mild anterior bulging of the midline mesh. Vasculature: There is an indwelling IVC filter. There are atheromatous changes present within the aorta. There is no evidence of aneurysmal dilatation. Adenopathy: None. Pelvic viscera: The bladder, and pelvic viscera are unremarkable. Skeletal structures: No destructive osseous lesions are seen. Postsurgical changes involve the right hip. The bones are osteopenic. There is a left iliac wing bone island. There is a chronic severe L1 compression fracture with retropulsion. There are old T11 and T12 compression fractures. There is a grade 1 spinal listhesis of L4 and L5. IMPRESSION: 1. No evidence of bowel obstruction. No evidence of free air 2. Multiple bilateral renal cysts 3. No evidence of acute diverticulitis. No evidence of acute appendicitis. 4. 5 mm solid pulmonary nodule within the lingula. This area was not included on the prior study. ACT 112: Negative or not required by law. Electronically signed by: Evangelista Rodriguez M.D. 12/28/2020 8:31 AM Venous Doppler Study 01/01/21 17:21 US venous doppler LE BI CLINICAL HISTORY: lower leg swelling COMPARISON STUDY: March 04, 2020 FINDINGS: Evaluation is positive for acute deep venous thrombosis in bilateral lower extremities. LEFT: Nonocclusive acute thrombus in the common femoral vein. Occlusive thrombi within femoral vein, popliteal vein, profunda and posterior tibial veins. Interrupted flow is seen within the peroneal and anterior tibialis vein. RIGHT: Nonocclusive acute thrombus is seen within common femoral vein. Nonocclusive, chronic appearing thrombus within femoral and popliteal vein. Interrupted blood flow is seen within peroneal and posterior tibialis veins. IMPRESSION: Bilateral deep venous thrombosis as detailed above. ACT 112: Positive. There are findings on this exam that require communication between the performing entity and the patient following Patient Test Result Information Act ([place] Act 112) guidelines. The above report was generated using voice recognition software. It may contain grammatical, syntax or spelling errors. Electronically signed by: Helena Ceballos DO 01/02/2021 11:33 AM KUB X-Ray 01/02/21 12:13 XR KUB/Abdomen 1 view CLINICAL HISTORY: constipation COMPARISON STUDY: November 15, 2020 FINDINGS: Nondilated gas and stool-filled loops of bowel are seen throughout the abdomen. Extensive amount of stool is seen within lower pelvic region. Overall evaluation is limited due to motion artifact. There is no evidence of free intra-abdominal air, however please note that supine abdominal radiography has limited ability for evaluation for the free intra-abdominal air. Cardiovascular/aortic calcifications are again seen. IVC filter is seen in stable position. Partially visualized orthopedic hardware is seen within right femur. Osseous structures are diffusely demineralized. IMPRESSION: 1. Constipation pattern. Possible fecal impaction. 2. Atherosclerosis. ACT 112: Negative or not required by law. The above report was generated using voice recognition software. It may contain grammatical, syntax or spelling errors. Electronically signed by: Helena Ceballos DO 01/02/2021 4:42 PM Hospital Course (1) Abdominal pain: Chronic x 1 year, but acutely worse upon this admission. Had had numerous studies over the last year including CT upon this admission. Nothing focal seen on that CT. Is abdominal pain due to colonic spasm and constipation? Is "diarrhea" overflow stooling? Additionally can't rule out ischemia as the presenting cause of her abdominal pain/nausea/emesis/diarrhea/blood in stool. Later in her stay she underwent KUB x-ray which showed severe fecal impaction. This was treated with enemas with resolution. Her abd pain later in the stay was improved with Rx of the fecal impaction. (2) Fecal impaction: KUB xray 01/02 with severe impaction. Likely due to several weeks of using loperamide. Fleets x 1 on 01/03 with large, formed bowel movement and improvement of abdominal pain. suspect "diarrhea" was likely overflow stooling. would avoid immodium at discharge. (3) Heme positive stool: x 2 at admission gross blood per daughter prior to admission at home ischemia ? other ? (4) Diarrhea: chronic, x 1 year. "overflow stooling" due to constipation? apparently has seen multiple GI specialists, has had multiple studies, etc. see discussion above. no evidence of infectious process at this time despite recently elevated wbc count, procal, etc. ischemic in nature? family had seen blood in stool prior to admission which would fit w/ ischemia. either way she improved with supportive care during the admission. (5) Palliative care encounter: palliative care consult was completed in light of advanced dementia, poor eating / failure to thrive, chronic abdominal symptoms & pain, etc. family understands that prognosis was poor. although hospice was not formally initiated at discharge the family was leaning towards such. they told our palliative care team they wished to speak with her PCP first before enrolling her in hospice. (6) Acute deep vein thrombosis (DVT) of calf muscle vein of left lower extremity: already has chronic IVC filter. very poor candidate for anticoagulation due to recent gross blood in stool and heme+ stool. thus, eliquis stopped before discharge home. (7) Lower extremity edema: 2nd to acute/chronic DVT. (8) LAITH (acute kidney injury): resolved peak CR 2.4 CR at discharge 1.2 2nd to prerenal physiology from nausea/vomiting/diarrhea/poor po intake (9) CKD (chronic kidney disease), stage III: CrCL back to baseline (high 20s/low 30s) thus, she is CKD stage 3-4 (10) Hypothyroidism: cont synthroid TSH wnl 07/2020 (11) Hypertension: (12) Rheumatoid arthritis: steroid dependent long-standing diagnosis continue 10mg/day prednisone (13) Dementia: severe advanced see "palliative care encounter" above Home Health Attestation I certify that this patient is under my care and that I, or a physicians trust operations assistant working with me, had a face to-face encounter that meets the home health [id number] encounter requirements with this patient. The encounter with the patient was in whole, or in part, for the following medical condition, which is the primary reason for home health care (list medical condition): N/V/Diarrhea; LAITH I certify that, based on my findings, the following services are medically necessary home health services: My clinical findings support the need for the above services because: Caregiver Instruct Med Mgmt, Safety, Disease Process, Signs to Report Hydration / Nutrition Medication Compliance and Monitoring Effective of New Medications OT Assess ADL Status and Restore Function w ADLs PT Assessment for Endurance / Balance / Strength PT Eval for Safety and Mobility PT Eval for Safety, Gait Training, Assistive Devices PT Gait and Balance Training, Strengthening and Safety Skilled Nsg Assessment Skilled Nsg Instruction New Medications Skilled Nsg Assess Pt Illness, Disease and Sx Monitoring S/S to Report to Provider Further, I certify that my clinical findings support that this patient is homebound (i.e. absences from home require considerable and taxing effort and are for medical reasons or christianity services or infrequently or of short duration when for other reasons) because: Assistance of 1 Person for Ambulation/Activities Supportive Aid - Walker Transportation Assistance/Unable to Leave Home Unassisted Certification for Home Health Services: Based on the above findings, I certify that this patient is confined to the home and needs intermittent senior living care, physical therapy and/or speech therapy or continues to need occupational therapy. The patient is under my care, and I have initiated the establishment of the plan of care. This patient will be followed by a physician who will periodically review the plan of care. Total Time Total Time Spent Total Time Spent (In Minutes): 45 Total Time Includes: Examination of the Patient, Discharge Planning, Medication Reconciliation and Communication With Other Providers Discharge Plan Discharge Items Patient Disposition: Home - Home Health Services Reason For Visit: ABDOMINAL PAIN, DIARRHEA Discharge Diagnosis: 1. Abdominal pain / diarrhea - exact cause uncertain; due to intestinal ischemia (poor blood flow to the bowels)? other cause? 2. Severe fecal impaction - resolved with enema on 01/03/21. 3. Recent UTI - resolved. 4. Recent blood in stool - due to intestinal ischemia? 5. Acute on chronic DVT of legs - IVC filter is in place; would defer on blood thinners at this time. 6. Severe dementia. 7. Failure to thrive, poor eating. 8. Advanced rheumatoid arthritis. Activity: As commented below Activity Comment: rest as much as you desire! Non-emergency contact: Primary Care Provider Call non-emergency contact if: you have any medication questions, your symptoms worsen, your pain is not controlled, your pain is worsening and your pain is unusual for you Follow-up/Referrals: Vasiliy Uriostegui MD [Primary Care Provider] - 01/09/21 1:15 pm (follow up with pcp in 1-2 weeks/ Your appointment is with the physician trust operations assistant, [facility]. If you have any questions or need to change this appointment, please call [phone].) Diet: Regular Diet Texture: Dental soft (bite-sized) Addtl Attending Provider Instructions: Mrs Hunter - You were admitted due to severe abdominal pain, vomiting, loose stool, and - by report -some blood in the stool. The exact cause of this was not certain. We did not find any infections in your stool. You were quite sick when you arrived, and I am questioning if this was an episod e of intestinal ischemia. This is when there is poor blood flow through the arteries in the abdomen. The poor blood flow is temporary. However, the bowels get sick when it occurs. The treatment for this is fluids and time - which is what you received early on. Either way you ultimately had severe fecal impaction later in your stay. This was relieved with an enema. I am wondering if some of the chronic diarrhea/loose stool is from "overflow stooling" (liquid stool flows around the impaction/stool ball and comes out as diarrhea). For now would stop the immodium. Would simply see how the bowels go over the next few days. If constipation occurs again you can use a dulcolax suppository from below or a fleets enema. By mouth you can take senakot tablets. I am concerned by your poor appetite. You have had multiple days in a row of very poor intake. I am concerned that this may continue. If you suffer any severe abdominal pain or cramping may take a very small dose of liquid morphine as prescribed. For any nausea or vomiting may take ondansetron 4mg every 6 hours as needed. Finally, I believe it is too risky to continue with blood thinners for the DVT blood clots. I have discontinued the blood thinners. Please follow-up with the [employer] health company for any needs that arise at home. You also have an appointment early this coming week with Dr Uriostegui. I wish you the best and enjoy being at home, Dr Moore Pending Studies at Discharge: No Stand-Alone Forms: My [facility], Smoking Cessation Medications and DC Order Prescriptions: New morphine 20 mg/5 mL (4 mg/mL) solution 2.5 mg PO Q6H PRN (Reason: pain) Qty: 100 RF: 0 ondansetron 4 mg tablet,disintegrating 4 mg PO Q6H PRN (Reason: nausea and vomiting) Qty: 20 RF: 0 Continued (DME) heating pads pad See Dose Instructions .ROUTE .MEDSUPPLY Qty: 1 RF: 0 acetaminophen [Tylenol Extra Strength] 500 mg tablet 500 mg PO TID Qty: 270 RF: 3 simethicone 80 mg tablet,chewable 160 mg PO TID Qty: 540 RF: 3 folic acid 1 mg tablet 1 mg PO 6XWK Qty: 90 RF: 3 mirtazapine 45 mg tablet 45 mg PO HS 30 Days Qty: 30 RF: 5 gabapentin 100 mg capsule 100 mg PO BID Qty: 60 RF: 5 quetiapine 25 mg tablet 12.5 mg PO HS RF: 0 prednisone 10 mg tablet 10 mg PO QAM RF: 0 levothyroxine 88 mcg tablet 88 mcg PO QAM RF: 0 Changed methotrexate sodium 2.5 mg tablet 7.5 mg PO WEEKLY Qty: 12 RF: 3 Discontinued simvastatin 40 mg tablet 40 mg PO HS Qty: 90 RF: 3 donepezil 10 mg tablet 10 mg PO HS 30 Days Qty: 30 RF: 5 sulfamethoxazole-trimethoprim [Bactrim DS] 800-160 mg tablet 1 tab PO BID Qty: 10 RF: 0 aspirin 81 mg tablet,delayed release (DR/EC) 81 mg PO QAM RF: 0 [employer] 500-300-250 mcg Tablet 1 tab PO QAM RF: 0 amlodipine 5 mg tablet 5 mg PO QAM RF: 0 cranberry 500 mg capsule 500 mg PO QAM RF: 0 loperamide [Imodium A-D] 2 mg Tablet 2 mg PO Q OTHER DAY RF: 0 No Action esomeprazole magnesium 40 mg capsule,delayed release(DR/EC) 40 mg PO BID Qty: 60 RF: 2 nystatin 100,000 unit/gram powder 1 applic topical TID Qty: 60 RF: 0 Discharge Orders: Discharge Order (Routine); Ordered 01/05/21 Ordered By: Marcelino Moore Admission Data Admit Date/Time: 12/28/20 01:43 Attending Provider: Marcelino Moore Admit Provider: Brady Templeton Primary Care Provider: Vasiliy Uriostegui Other Providers: Anita Hunter ; Nikole Dickey Other Interventions: Discharge Summary Assessment (RN) Last Done: 01/05/21 16:43 Coding Level of Care Code D/C Day Management >30 mins Diagnoses Abdominal pain R10.84 Abdominal location: generalized Fecal impaction K56.41 Heme positive stool R19.5 Diarrhea R19.7 Diarrhea type: unspecified type Palliative care encounter Z51.5 Acute deep vein thrombosis (DVT) of calf muscle vein of left lower extremity I82.462 Lower extremity edema R60.0 LAITH (acute kidney injury) N17.9 CKD (chronic kidney disease), stage III N18.3 Hypothyroidism E03.9 Hypothyroidism type: unspecified Hypertension I10 Hypertension type: essential hypertension Rheumatoid arthritis M06.9 Rheumatoid arthritis location: unspecified site Rheumatoid factor presence: unspecified presence Dementia F03.90 Dementia behavioral disturbance: without behavioral disturbance Dementia type: unspecified type
== END 2021-01-05 17:10 | disposition home health service (06) | DRG 394 ==
LOC: ED 20:28 → 2W 12-28 01:43 → SUATTDRO 12-28 01:43 → 2W 12-28 01:57